=== PATIENT | female | born 1965 | race Caucasian/White ===

== ENCOUNTER → 2018-05-03 00:16 | Outpatient (CLI) | payer BC, SELFPAY ==
--- NOTE | 2018-05-03 09:28 | DI.REPORT_ITS ---
SYMPTOMS/DIAGNOSIS: LOWER ABDOMINAL PAIN, R10.30 CT SCAN OF THE ABDOMEN AND PELVIS: CT scan of the abdomen and pelvis was performed following the uneventful administration of intravenous and oral contrast material. There are no priors for comparison. Mild dependent atelectatic changes are seen in the lung bases. The liver is normal in size. There is a tiny hypodensity in the right lobe of the liver. It is too small for further characterization and likely reflects a small cyst. No suspicious hepatic masses are seen. The portal and superior mesenteric veins are patent. The gallbladder is negative by CT criteria. There is no biliary ductal dilatation. The spleen and adrenal glands are unremarkable. The kidneys show normal and symmetric enhancement. There are left renal cysts. The urinary bladder is intact. The reproductive organs are unremarkable as visualized. The abdominal aorta is of normal caliber. There is a small fat-containing umbilical hernia. No significant abdominal or pelvic adenopathy, ascites or pneumoperitoneum is present. There is diverticulosis of the sigmoid colon, but no evidence of acute diverticulitis. The remainder of the bowel is unremarkable. The pancreas is unremarkable. There is a 0.4 cm calcification in the duodenum near the pancreatic head. An obstructing stone cannot be excluded. There are degenerative changes seen in the spine. IMPRESSION: 1. A 0.4 cm calcification in the duodenum in the region of the ampulla. This may represent an obstructing stone. MRCP should be considered for further evaluation. No definite biliary ductal dilatation is seen. Ultrasound may also be considered for evaluation. 2. Sigmoid diverticulosis but no evidence of acute diverticulitis.
[2018-05-03] MEDS: Omnipaque 350 MG/ML 100 ML BTL IJ (09:30)
== END ==
PROVIDERS: PCP Family Medicine; Visit Provider Nurse Practitioner Family
DX: R10.31 Right lower quadrant pain (principal); K57.30 Diverticulosis of large intestine without perforation or abscess without bleeding; K31.89 Other diseases of stomach and duodenum
CPT/HCPCS: 74177; J3490

== ENCOUNTER → 2018-05-08 00:37 | Outpatient (CLI) | payer BC, SELFPAY ==
--- NOTE | 2018-05-08 07:35 | DI.REPORT_ITS ---
SYMPTOM/DIAGNOSIS: F/U ABNL CT, ABD PAIN, R10.3, CALCIFICATION IN DUODENUM IN REGION OF AMPULLA, ? OBSTRUCTING STONE ABDOMINAL ULTRASOUND: Comparison CT scan 05/03/18. Findings: The abdominal aorta and IVC are unremarkable. The liver and gallbladder are unremarkable. The common duct is within normal limits at 0.5 cm. No stone is seen within the duct sonographically. The pancreas has a normal appearance. There is a 5 mm hyperechoic focus in the region of the head of the pancreas. The pancreatic duct is within normal limits. The spleen and kidneys are unremarkable. IMPRESSION: 5 mm focus in the region of the head of the pancreas. This may represent a pancreatic calcification/stone. No biliary ductal dilatation or pancreatic ductal dilatation. Follow up as clinically appropriate for this patient. This may include a repeat noncontrast CT scan of the abdomen or MRCP.
== END ==
PROVIDERS: PCP Family Medicine; Visit Provider Nurse Practitioner Family
DX: K86.89 Other specified diseases of pancreas (principal); R10.33 Periumbilical pain
CPT/HCPCS: 76700

== ENCOUNTER → 2018-05-17 00:28 | Outpatient (CLI) | payer BC, SELFPAY ==
--- NOTE | 2018-05-17 09:05 | DI.REPORT_ITS ---
SYMPTOM/DIAGNOSIS: ABD PAIN LOWER R10.30 MRCP: 05/17 MRCP was performed according to the usual protocol. Hepatic parenchyma is unremarkable in appearance. No abnormality seen involving spleen or kidneys. Abdominal aorta is of normal diameter. No adenopathy identified. Gallbladder is unremarkable in appearance. Intra and extrahepatic biliary ducts appear normal as does the pancreatic duct. No intraductal filling defect or stricture. No pancreatic mass identified. CONCLUSION: Negative MRCP
== END ==
PROVIDERS: PCP Family Medicine; Visit Provider Nurse Practitioner Family
DX: R10.31 Right lower quadrant pain (principal)
CPT/HCPCS: 74181

== ENCOUNTER 2019-08-21 01:10 | Outpatient (CLI) | payer BC, SELFPAY ==
--- NOTE | 2019-08-21 12:44 | DI.MAMMO_ITS ---
EXAM: MG MAMMO SCREENING CLINICAL HISTORY: SCREENING Z12.31 TECHNIQUE: Bilateral full field digital CC and MLO mammographic images were obtained with 3D tomosyn thesis and utilizing computer aided detection (CAD). COMPARISON: 2014 and 2015 FINDINGS: The breasts are composed of scattered fibroglandular densities, breast density category B. No suspici ous masses or suspicious microcalcifications are seen. The nodule in the lower inner quadrant of the left breast has decreased in size when compared with previous exams. IMPRESSION: BI-RADS category 2, negative mammogram with benign findings. Yearly screening mammography is recomme nded. BI-RADS Cat 2 - Benign Findings Breast Density - Category B - Scattered areas of fibroglandular density
== END 2019-08-21 01:30 ==
PROVIDERS: PCP Family Medicine; Visit Provider Nurse Practitioner Family
DX: Z12.31 Encounter for screening mammogram for malignant neoplasm of breast (principal)
CPT/HCPCS: 77063; 77067

== ENCOUNTER 2019-08-21 10:17 | Emergency (ER) | payer BC, SELFPAY ==
[2019-08-21] VITALS (20 sets, daily range): BP systolic 116–162; BP diastolic 74–100; PULSE 75–104; RESP 13–30; TEMP 36.7–36.8; O2SAT 93–100
--- NOTE | 2019-08-21 10:35 | W.ED.GENAD ---
Discharge Plan Disposition Patient Disposition: HOME Condition: Stable Discharge Details Chief Complaint: Chest Pain Clinical Impression: Chest pain Primary Care Provider: Kelly Garcia ED Provider: Zaire Benjamin Home Meds and New Rx's Prescriptions: Continued ibuprofen [Advil Liqui-Gel] 200 MG capsule 200 mg PO PRN RF: 0 Cosentyx Pen 150 mg/mL Pen Injector 150 mg SUBCUT Q4W RF: 0 Discharge Instructions Instructions: Chest Pain (ED) Additional Instructions: follow up with your primary care provider within 1 week if you have worsening pain, difficulty breathing or fevers return to the emergency department Medical Decision Making 53 yo female with hx of psoriasis, smoker, no prior cardiac history, comes in with anterior chest pain radiating to the lower back since 4am. She denies fevers, chills, and has never had pain like this in the past. ARrives in no distress speaking in full sentences with no abdominal tenderness. Clear lungs, no murmurs, no leg edema or calf pain and no jvd. Heart score is 2, will obtain troponin. Given the chest pain radiating to the back will obtain cta to eval for dissection. Given no hypoxia or tachycardia or evidence of dvt on exam doubt PE pt remains stable, pain has significantly improved. Labs unremarkable and given symptoms over 4 horus do not feel repeat troponin indicated. CTA negative. Given low heart score feel she is safe for d/c and f/u with pcp and I also gave the patient return precautions Differential Diagnosis Differential Diagnosis: acs, chest wall pain, dissection Imaging Data Radiologic Study: Attestation: I personally reviewed and interpreted this imaging study as follows: Imaging: CT Scan Radiologist's impression: negative CTA Lab Data Lab results reviewed: Yes I reviewed the patient's lab results. ECG Data Attestation: I personally reviewed and interpreted this ECG (s) as follows: Prior ECG tracings: not available for review Interpretation: sinus rhythm, rate of 95, pr 112, no acute st t wave ischemic findings HPI General Mode of arrival: ambulatory. Date/Time Provider Initiated Documentation: 08/21/19 10:19. Limitations to Documentation: no limitations. Information obtained by: patient. History of Present Illness 53 year old F presents to the emergency department with the chief complaint of chest pain, described as moderate, Quality is described as aching, Patient started experiencing this hour(s) (6) and it has been constant. No relieving factors improve symptom(s), No exacerbating factors reported . Related Data Home Medications Medication Instructions Recorded Confirmed ibuprofen [Advil Liqui-Gel] 200 mg PO PRN 05/10/18 08/21/19 Cosentyx Pen 150 mg SUBCUT Q4W 08/21/19 08/21/19 Allergies Allergy/AdvReac Type Severity Reaction Status Date / Time shellfish derived Allergy Severe Anaphylaxsi Unverified 08/21/19 11:27 s Penicillins Allergy Mild Hives Unverified 08/21/19 11:27 etanercept [From Enbrel] AdvReac Mild unknown Unverified 08/21/19 11:27 infliximab [From Remicade] AdvReac Mild unknown Unverified 08/21/19 11:27 clindemycin Allergy Mild Hives Uncoded 08/21/19 11:27 humira pen AdvReac Mild unknown Uncoded 08/21/19 11:27 General Stated Complaint: Chest Pain CURT: 2 Review of Systems All systems reviewed & are unremarkable except as noted in HPI and below Constitutional Constitutional: Denies chills, Denies fever(s) and Denies weakness Cardiovascular Cardiovascular: Denies dyspnea Respiratory Respiratory: Denies cough and Denies dyspnea Gastrointestinal Gastrointestinal: Denies abdominal pain, Denies nausea and Denies vomiting Musculoskeletal Musculoskeletal: Denies joint swelling Neurologic Neurologic: Denies weakness PFSH Medical History Abdominal pain Arthritis Early menopause Epigastric pain Fatigue H/O: hysterectomy Osteoporosis Tobacco abuse Viral syndrome Vitamin D deficiency Weight gain Surgical History (Updated 07/19/18 @ 14:33 by [place]) Abdominal hysterectomy Colonoscopy - MAC (05/12/18) EGD - [facility] (05/12/18) Social History Smoking/Tobacco Use Status: Current every day Tobacco Type: cigarettes Alcohol Intake: current Alcohol Intake frequency: a few times a month Drug use: Never Substance use type: does not use Do you feel safe at home: Yes Do you feel safe in your relationship?: Yes Exam Const General: no acute distress Orientation: alert HENMT Head: normal to inspection Ears: external ears normal General nose exam: external nose normal Mouth: moist mucous membranes Eyes General: appearance normal, both eyes and all related structures Neck Neck: normal visual inspection Resp Effort & Inspection: normal respiratory effort and able to speak in complete sentences Cardio Rate: regular rate Skin General skin exam: no rashes or lesions noted Neuro General: alert and oriented x3 Extrem General: normal to inspection Psych Mental Status: mental status grossly normal Course Vital Signs Vital signs: Vital Signs Temperature 36.7 C 08/21/19 10:20 Pulse 95 H 08/21/19 10:20 Respiratory Rate 16 08/21/19 10:20 Blood Pressure 158/100 H 08/21/19 10:20 Pulse Oximetry 100 08/21/19 10:20 Temperature 36.7 C 08/21/19 10:20 Temperature Source Temporal Artery Scan 08/21/19 10:20 Pulse 95 H 08/21/19 10:20 Respiratory Rate 16 08/21/19 10:26 Respiratory Effort Non-Labored 08/21/19 10:26 Respiratory Depth Normal 08/21/19 10:26 Blood Pressure 158/100 H 08/21/19 10:20 Blood Pressure Position Supine 08/21/19 10:20 Pulse Oximetry 100 08/21/19 10:20 Oxygen Delivery Method Room Air 08/21/19 10:20 Oxygen Flow Rate 0 08/21/19 10:20 Pain Level 8 08/21/19 10:20
[2019-08-21] MEDS: fentaNYL 100 MCG/2 ML VIAL IVP (10:38)
[2019-08-21] MEDS: Aspirin 81 MG CHEW 243 MG CH (10:38)
[2019-08-21] MEDS: Normal Saline Flush 10 ML SYR IVP (10:39)
[2019-08-21 10:45] LABS: Abs Immature Grans 0.03 k/cumm (0.0-0.09); Absolute Basophil Count 0.05 k/cumm (0.0-0.2); Absolute Eosinophil Count 0.14 k/cumm (0.0-0.7); Absolute Lymphocyte Count 2.66 k/cumm (1.2-3.4); Basophils % 0.4; Eosinophils % 1.1; HCT 40.4 % (36.0-46.0); Immature Grans % 0.2; Lymphocytes % 21.6; Mean Corp. HGB Concentration 34.7 g/dL (32.0-36.0); Mean Corpuscular Hemoglobin 31.5 pg (27.0-33.0); Mean Corpuscular Volume 90.8 fL (80-95); Mean Platelet Volume 8.9 fL (8.0-11.0); Neutrophils % 71.7; Platelet Count 335 x1000/uL (130-400); RBC 4.45 m/cumm (4.00-5.20); RBC Distribution Width 12.6 % (11.7-14.6)
[2019-08-21 10:50] LABS: Absolute Monocyte Count 0.62 k/cumm (0.11-0.7); Absolute Neutrophil Count 8.82 k/cumm (1.2-6.7)
[2019-08-21 11:09] LABS: ALT 37 U/L (14-59); AST 21 U/L (15-37); Albumin 4.3 g/dL (3.4-5.0); Alkaline Phosphatase 61 U/L (46-116); Anion Gap 10.7 mmol/L (3-11); BUN 13 mg/dL (7-18); Bilirubin, Total 0.1 mg/dL (0.2-1.0); CO2 27.3 mmol/L (21.0-32.0); CREATININE 0.76 mg/dL (0.55-1.02); Chloride 103 mmol/L (98-107); Glucose 111 mg/dL (70-100); Lipase 101 U/L (73-393); Magnesium 1.9 mg/dL (1.8-2.4); Potassium 3.8 mmol/L (3.5-5.1); Sodium 141 mmol/L (136-145); Total Protein 7.7 g/dL (6.4-8.2)
[2019-08-21] MEDS: Omnipaque 350 MG/ML 100 ML BTL IJ (11:17)
[2019-08-21 11:21] LABS: Troponin I < 0.05 ng/mL (0.00-0.06)
--- NOTE | 2019-08-21 11:26 | DI.CT_ITS ---
EXAM: CT THORAX ABD/PEL CTA CLINICAL HISTORY: chest radiating to back pain TECHNIQUE: Post IV contrast. Axial CT angiography was performed with multi-slice acquisition and multi-planar and/or 3D reconstruc tions. COMPARISON: ABD PELVIS WITH CONTRAST from 05/03/2018 FINDINGS: The aorta is normal in diameter throughout. The iliac arteries are normal in diameter. There is no ev idence of aneurysm, dissection or significant atherosclerotic change. The pulmonary arteries are reas onably well opacified with IV contrast and no emboli are seen. The heart size is normal. No pleural o r pericardial effusions are seen. There are minimal dependent changes posteriorly at the lung bases. There is no evidence of pneumothorax or infiltrate. No rib or spine fracture is seen. The bony pelvis appears intact. The patient is status post hysterectomy. The urinary bladder is somewhat distended b ut otherwise unremarkable. The liver, gallbladder, spleen, pancreas, adrenals and kidneys are unremar kable. There is no bowel dilatation or inflammatory change. No free air or free fluid is seen. There are a few diverticula in the sigmoid colon but no evidence of diverticulitis. IMPRESSION: Negative CT angiography of the chest, abdomen and pelvis.
== END 2019-08-21 12:02 | disposition home or self-care (01) ==
PROVIDERS: Emergency Provider Emergency Medicine; PCP Family Medicine
DX: R07.9 Chest pain, unspecified (principal); F17.210 Nicotine dependence, cigarettes, uncomplicated
CPT/HCPCS: 36415; 74177; 80053; 83690; 93005; 96374; 99285; 83735; 84484; 85025; 85610; 85730; 93010; J3010; J3490

== ENCOUNTER 2019-08-29 01:45 | Outpatient (CLI) | payer BC, SELFPAY | END 2019-08-29 02:05 | PROVIDERS: PCP Family Medicine; Visit Provider Nurse Practitioner Family | DX: R00.2 Palpitations (principal); I49.1 Atrial premature depolarization | CPT/HCPCS: 93225 ==

== ENCOUNTER 2019-09-03 00:36 | Outpatient (CLI) | payer BC, SELFPAY ==
--- NOTE | 2019-09-03 08:27 | ETT_ITS ---
APPROVED REPORT Exam: Exercise Treadmill Patient Location: Out-Patient Room/Bed: Stress Nurse: Gricelda Weber RN BMI: 25.15 Baseline Rhythm: Sinus Rhythm Indications: Patient presented to the ER on 08/21/19 with left sided sharp chest pain with radiatio n to lower back. Patient reports having intermittent dizzyness/lightheadedness and can't catch my breath episodes with not relation to activity over the last 2 months. Medical History Medical History: Arthritis Cardiac Medications: None, Allergies: Shellfish, Penicillin, Enbrel, Remicade, Clindemycin, Brina Pen Cardiac Risk Factors: Smoking Previous Cardiac Procedures: N/A Pretest Chest Pain Characteristics: No chest pain Exercise History: Physically active Lung Sounds: Clear to auscultation Heart Sounds: Regular Stress Test Details Test: Exercise stress testing was performed using a Saud protocol. Rest Stress HR Max Heart Rate (APMHR): 168 bpm Resting HR Supine: 83 bpm Target HR (85% APMHR): 142 bpm Resting HR Standin bpm Max HR Achieved: 160 bpm % of APMHR: 95 HR response to stress: Normal HR response to stress BP Resting BP Supine: 122/78 mmHg Resting BP Standin/80 mmHg Max BP: 174/78 mmHg BP response to stress: Normal blood pressure response to stress. ECG Resting ECG: Sinus Rhythm ST Change: none Stress ECG: Sinus Tachycardia ST Change: none Recovery ECG: Sinus Rhythm Recovery ST Change: none Clinical Reason for Termination: Hip and knee stiffness Exercise duration: 9 min34 sec Highest Stage Achieved: Stage 3: 3.4 mph at 14% grade. Exercise capacity: 11.12 METs Functional Capacity: Above average capacity Stress ECG Conclusion 1. The patient exercised for 9 minutes and 34 seconds which showed above average exercise capacity. 2. Test was stopped due to hip and knee stiffness but patient reached 95% predicted maximum heart rat e 3. There is no evidence of ischemia on ECG and no symptoms specific for ischemia during exercise. 4. The Cox Score (9) estimates an annual cardiovascular mortality of 0% and a five year survival of 95%. Using the Cox Score there is a low probability of any angiographic coronary disease. Protocol Used: Saud Protocol Stress Test Summary STAGE Time (mins) Speed (mph) Grade (%) HR BP SYMPTOMS METS Supine 83 122/78 Standing 93 122/80 1 3 1.7 10 125 146/90 4.6 2 6 2.5 12 145 160/90 7 3 9 3.4 14 146 164/88 10.2 4 12 4.2 16 12.9 5 15 5.0 18 17.2 1 min recovery 133 174/78 3 min recovery 103 154/80 6 min recovery 92 122/74
== END 2019-09-03 00:56 ==
PROVIDERS: PCP Family Medicine; Visit Provider Nurse Practitioner Family
DX: R07.9 Chest pain, unspecified (principal); R00.2 Palpitations; R42 Dizziness and giddiness; R06.02 Shortness of breath; F17.210 Nicotine dependence, cigarettes, uncomplicated
CPT/HCPCS: 93017

== ENCOUNTER 2019-09-03 08:31 | Outpatient (CLI) | payer BC, SELFPAY ==
--- NOTE | 2019-09-03 09:24 | W.HOLTRPT ---
Date of service: 09/03/19 Time of Service: 09:24 Holter Monitor Report Holter Monitor Note: There is a 2-day Holter monitor ordered for the indication of palpitations. ?The patient was in normal sinus rhythm for the majority of the recording time. ?Patient no episodes of supraventricular tachycardia and rare (less than 1%) premature atrial contractions. ?There were no episodes of ventricular tachycardia and no ventricular ectopic beats. ?There were no episodes of atrial fibrillation, no pauses greater than 3 seconds and no episodes of high degree heart block. ?Patient diary events were associated with normal sinus rhythm and sinus tachycardia.
== END 2019-09-03 08:51 ==
PROVIDERS: PCP Family Medicine; Visit Provider Nurse Practitioner Family
DX: R00.2 Palpitations (principal); I49.1 Atrial premature depolarization
CPT/HCPCS: 93226

== ENCOUNTER 2019-10-09 09:58 | Outpatient (REF) | payer BC, SELFPAY ==
[2019-10-10 15:19] LABS: Chlamydia Result Negative (Negative); GC Result Negative (Negative)
== END 2019-10-09 10:18 ==
LOC: NCHCN 09:58
PROVIDERS: PCP Family Medicine; Visit Provider Nurse Practitioner Family
DX: Z11.3 Encounter for screening for infections with a predominantly sexual mode of transmission (principal); N89.8 Other specified noninflammatory disorders of vagina
CPT/HCPCS: 87491; 87591; 87480; 87510; 87660

== ENCOUNTER 2020-07-24 09:47 | Outpatient (REF) | payer BC, SELFPAY ==
[2020-07-24 21:04] LABS: Abs Immature Grans 0.01 10^3/uL (0.0-0.06); Absolute Basophil Count 0.05 10^3/uL (0.0-0.2); Absolute Eosinophil Count 0.15 10^3/uL (0.0-0.7); Absolute Lymphocyte Count 2.21 10^3/uL (1.2-3.4); Absolute Monocyte Count 0.49 10^3/uL (0.1-0.8); Absolute Neutrophil Count 6.25 10^3/uL (1.2-6.7); Basophils % 0.5; Eosinophils % 1.6; HCT 41.5 % (36.0-46.0); HGB 13.8 g/dL (11.2-15.7); Immature Grans % 0.1; Lymphocytes % 24.1; MCH 30.8 pg (27.0-33.0); MCHC 33.3 % (32.0-36.0); MCV 92.6 fL (80-95); MPV 9.6 fL (8.0-11.0); Monocytes % 5.3; Neutrophils % 68.4; Nucleated RBC 0 %; Platelet Count 293 10^3/uL (130-400); RBC 4.48 10^6/uL (3.93-5.22); RDW 11.9 % (11.7-14.6); RDW-SD 40.3 fL; WBC 9.16 10^3/uL (4.4-10.8)
[2020-07-24 21:15] LABS: ALT 33 U/L (14-59); AST 22 U/L (15-37); Albumin 4.2 g/dL (3.4-5.0); Alkaline Phosphatase 64 U/L (46-116); Anion Gap 7.1 mmol/L (3-11); BUN 21 mg/dL (7-18); Bilirubin, Total 0.2 mg/dL (0.2-1.0); CO2 28.9 mmol/L (21.0-32.0); Chloride 103 mmol/L (98-107); Glucose 107 mg/dL (74-106); Lipase 97 U/L (73-393); Sodium 139 mmol/L (136-145); Total Protein 7.2 g/dL (6.4-8.2)
[2020-07-28 10:07] LABS: HSV Type 1 Ab, IgG Negative (Negative); HSV Type 2 Ab, IgG Positive (Negative)
== END 2020-07-24 10:07 ==
LOC: NCHCN 09:47
PROVIDERS: PCP Family Medicine; Visit Provider Family Medicine
DX: R10.9 Unspecified abdominal pain (principal)
CPT/HCPCS: 80053; 83690; 85025; 86695; 86696

== ENCOUNTER 2020-07-31 01:26 | Outpatient (CLI) | payer BC, SELFPAY ==
[2020-07-31] MEDS: Normal Saline - Diluent 50 ML VIAL IV (09:17)
[2020-07-31] MEDS: Omnipaque 350 MG/ML 100 ML BTL IJ (09:17)
[2020-07-31] MEDS: Normal Saline Flush 10 ML SYR IVP (09:18)
[2020-07-31] MEDS: Omnipaque 350 MG/ML 50 ML BTL IJ (09:20)
[2020-07-31] MEDS: Breeza Beverage 473 ML BTL PO ×2 (09:22→09:23)
--- NOTE | 2020-07-31 09:40 | DI.CT_ITS ---
EXAM: CT ABDOMEN PELVIS W INDICATION: ACUTE ABD PAIN,R10.9. COMPARISON: CT CT THORAX ABD/PEL CTA from 08/21/2019 TECHNIQUE: FINDINGS: CT examination of the abdomen and pelvis was performed with a bolus infusion of 100 cc of Omnipaque 3 50 and oral contrast material was also administered. Images obtained through the lung bases are unremarkable. The liver is unremarkable in appearance. Gallbladder and bile ducts are CT normal. Pancreas appears normal. Spleen is unremarkable in appearance. Adrenals appear normal. The kidneys are unremarkable with no evidence of hydronephrosis, nephrolithiasis, or renal mass with small incidental left renal cysts noted... Urinary bladder unremarkable. Abdominal aorta is of normal diameter and no major vascular abnormality is seen. No abdominal wall hernia. No abdominal or pelvic adenopathy. The uterus is atrophic or absent. Appendix is normal. No evidence of diverticulitis or bowel obstruction. There is question of irregular wall thickening of the descending and transverse portions of the duode num raising the possibility of duodenitis. Question slight gastric antral wall thickening also raise d. IMPRESSION: Findings raising the possibility of duodenitis/gastritis. Please correlate clinically. Endoscopy ma y be performed if clinically indicated. RADIATION DOSE DELIVERED: 785.04mGy.cm Total DLP 785.04mGy.cm Total DLP
== END 2020-07-31 01:46 ==
PROVIDERS: PCP Family Medicine; Visit Provider Family Medicine
DX: R10.9 Unspecified abdominal pain (principal)
CPT/HCPCS: 74177; J3490; Q9967

== ENCOUNTER 2020-08-22 04:24 | Outpatient (CLI) | payer BC, SELFPAY ==
--- NOTE | 2020-08-22 08:35 | DI.MAMMO_ITS ---
EXAM: MG MAMMO SCREENING CLINICAL HISTORY: SCREENING,Z12.31 TECHNIQUE: Bilateral full field digital CC and MLO mammographic images were obtained with 3D tomosyn thesis and utilizing computer aided detection (CAD). COMPARISON: Available for comparison. FINDINGS: Masses/Architectural Distortion: There is a new area of nodularity in the upper left breast on the ML O view. Microcalcifications: No suspicious pleomorphic-type are seen. Skin Thickening/Nipple Retraction: None. IMPRESSION: 1. New area of nodularity in the upper left breast on the MLO view. 2. Spot compression view of the left breast is recommended for further evaluation. Ultrasound may be indicated at that time. BI-RADS Category 0 - Assessment Incomplete: Need additional imaging evaluation Breast Density - Category B - Scattered areas of fibroglandular density A negative radiographic report should not delay biopsy if a dominant or clinically suspicious mass is present. Up to ten percent of cancers are not identified on mammography. A negative report may reinforce clinical impression. Adenosis and dense breasts may obscure an underlying neoplasm. False positive reports average 6 to 10%. Patient will receive a letter notifying them of these results.
== END 2020-08-22 04:44 ==
PROVIDERS: PCP Family Medicine; Visit Provider Family Medicine
DX: Z12.31 Encounter for screening mammogram for malignant neoplasm of breast (principal)
CPT/HCPCS: 77063; 77067

== ENCOUNTER 2020-08-27 00:40 | Outpatient (CLI) | payer BC, SELFPAY ==
--- NOTE | 2020-08-27 | DI.US_ITS ---
EXAM: MG MAMMO SCREEN CALL BACK UNI CLINICAL HISTORY: F/U MAMMO, NEW NODULARITY TECHNIQUE: Mammograms were interpreted according to the usual protocol including computer analysis w [employer] CAD system, tomosynthesis and C-view imaging. COMPARISON: FINDINGS: Additional mammographic views of the left breast and left breast ultrasound are interpreted conjuncti on. These examinations were obtained to evaluate questionable area of asymmetric density seen on rec ent mammogram. Additional mammographic views fail to show a discrete mass. Breast ultrasound shows no evidence of a dominant mass or cyst. There is an incidental 4 millimeter in diameter apparent lym ph node or small hyperechoic cysts seen in approximately the 6 o'clock position in the breast 4 cm fr om the nipple. IMPRESSION: No specific evidence of malignancy at this time. Follow-up unilateral left breast mammogram recommen ded in 6 months. BI-RADS Category 3 - 6 month - Probably Benign Finding: Recommend follow-up mammography in 6 months Breast Density - Category B - Scattered areas of fibroglandular density
== END 2020-08-27 01:00 ==
PROVIDERS: PCP Family Medicine; Visit Provider Family Medicine
DX: R92.8 Other abnormal and inconclusive findings on diagnostic imaging of breast; N63.25 Unspecified lump in the left breast, overlapping quadrants
CPT/HCPCS: 76642; 77063; 77067

== ENCOUNTER 2021-02-24 02:17 | Outpatient (CLI) | payer BC, SELFPAY ==
--- NOTE | 2021-02-24 09:14 | DI.MAMMO_ITS ---
Exam(s) MG MAMMO DIAGNOSTIC UNI EXAM: MG MAMMO DIAGNOSTIC UNI CLINICAL HISTORY: 6 MONTH FOLLOW UP, R92.8,F/U ABNL MAMMO. COMPARISON: MG Diagnostic Bilat Mammo from 10/29/2014 MG Screening Bilat Mammo from 07/07/2016 MG Screening Bilat Mammo from 07/07/2016 MG MG MAMMO SCREENING from 08/21/2019 MG MG MAMMO SCREENING from 08/22/2020 MG MG MAMMO SCREENING from 08/22/2020 MG MG MAMMO SCREEN CALL BACK UNI from 08/27/2020 MG MG MAMMO SCREEN CALL BACK UNI from 08/27/2020 [id number] TECHNIQUE: Craniocaudal and mediolateral oblique Full Field Digital Mammography views of the left br east with Computer Aided Diagnosis followed by Tomosynthesis. FINDINGS: Mammography/Tomosynthesis: Masses/Architectural Distortion: The previously questioned area nodularity in the superior left breas t is not present on the current exam. A circumscribed nodule is again noted in the lower inner quadr ant. Microcalcifications: No suspicious pleomorphic-type are seen. Skin Thickening/Nipple Retraction: None. IMPRESSION: 1. No evidence of malignancy is noted. 2. Unless there is more urgent need, follow-up screening mammography is recommended, as per [employer] guidelines. BI-RADS Category 2 - Benign Findings Breast Density - Category B - Scattered areas of fibroglandular density A negative radiographic report should not delay biopsy if a dominant or clinically suspicious mass is present. Up to ten percent of cancers are not identified on mammography. A negative report may reinforce clinical impression. Adenosis and dense breasts may obscure an underlying neoplasm. False positive reports average 6 to 10%. Patient will receive a letter notifying them of these results.
== END 2021-02-24 02:37 ==
PROVIDERS: PCP Family Medicine; Visit Provider Family Medicine
DX: Z12.31 Encounter for screening mammogram for malignant neoplasm of breast (principal); R92.8 Other abnormal and inconclusive findings on diagnostic imaging of breast; N60.82 Other benign mammary dysplasias of left breast
CPT/HCPCS: 77061; 77065; G0279

== ENCOUNTER 2021-06-02 10:02 | Emergency (ER) | payer BC, SELFPAY ==
[2021-06-02] VITALS (18 sets, daily range): BP systolic 117–157; BP diastolic 75–96; PULSE 67–91; RESP 12–21; TEMP 36.4; O2SAT 95–100
--- NOTE | 2021-06-02 10:00 | RT.EKG_ITS ---
APPROVED REPORT Exam: Resting ECG Reason for Exam: chest pain Patient Location: E HR:87 bpm ECG Measurements Heart Rate 87 AXIS MA 112 P 50 QRSd 79 QRS 1 QT 376 T 41 QTc 452 Conclusion Sinus rhythm...normal P axis, V-rate 60- [address] elevation
--- NOTE | 2021-06-02 10:15 | DI.RAD_ITS ---
Exam(s) XR CHEST 2V PA LATERAL EXAM: XR CHEST 2V PA LATERAL CLINICAL HISTORY: L chest pain TECHNIQUE: 2D digital imaging was performed. COMPARISON: No exams were available for comparison FINDINGS: MEDIASTINUM: Normal. HEART: Normal. PULMONARY VASCULATURE: Normal. LUNGS: Clear. PLEURAL SPACE: No pleural effusion or pneumothorax. BONE:Within normal limits for the patient's age. OTHER FINDINGS:Normal. IMPRESSION: No acute pulmonary findings. DATA REPOSITORY: RADIATION DOSE DELIVERED:
--- NOTE | 2021-06-02 10:30 | ED.GENADUL_ITS ---
Discharge Plan Disposition Patient Disposition: HOME Condition: Improving Discharge Details Clinical Impression: Pectoralis muscle strain, Pectoralis major tendinitis Primary Care Provider: Kelly Garcia ED Provider: Lamont Wylie Home Meds and New Rx's Prescriptions: New methocarbamol 500 mg tablet See Rx Instructions .ROUTE .COMPLEX PRN (Reason: Back pain or spasm) Qty: 14 RF: 0 Continued ibuprofen [Advil Liqui-Gel] 200 MG capsule 200 mg PO PRN RF: 0 Cosentyx Pen 150 mg/mL Pen Injector 150 mg SUBCUT Q4W RF: 0 Discharge Instructions Instructions: Muscle Strain (ED) Additional Instructions: Continue your regular medications and routine. May apply moist heat alternating with ice 20 minutes at a time to reduce discomfort. May use methocarbamol 500 to 1000 mg every 6 hours as needed for pain. May continue your routine medications including ibuprofen 600 to 800 mg as needed for discomfort. Return if you develop a rash, fever, cough, difficulty breathing, or any other acute concerns. Follow with regular doctor if not improved in 7 days time Medical Decision Making 55-year-old female smoker who has a fair amount of stress at work, presents from work reporting 1 week of intermittent episodes of the left lower chest discomfort thatoccurs both at rest and with exertion. There is not any particular exacerbating or ameliorating factors. She does report similar episode in the past with negative stress test and response to omeprazole. She is slightly hypertensive, anxious, with mild left upper quadrant tenderness on exam. Differential diagnosis would include gastritis, atypical presentation of ACS or atypical chest pain. Patient IV access established, screening EKG obtained, she is referred for laboratory testing and chest x-ray. She is given 0.5 mg Ativan for anxiety and Protonix for its acid lowering property. Reviewed negative stress test from September 2019. Patient the patient does have evidence of mild dehydration with a BUN of 25 which is elevated over her normal baseline. Also noted a slight white count of 12, otherwise CBC unremarkable. Troponin is negative. Chest x-ray without acute findings. 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 I did perform a supervised breast exam without any evidence of mass or abscess. Patient did have reproducible pectoral pain with resisted movement and palpation. This does seem consistent with chest wall discomfort and strain. Will place her on methocarbamol as needed. She will continue her routine medications. Lab Data Lab results reviewed: Yes I reviewed the patient's lab results. Labs: Laboratory Results - last 24 hr 06/02/21 06/02/21 06/02/21 10:17 10:17 10:17 WBC 12.35 H RBC 4.74 Hgb 14.8 Hct 43.6 MCV 92.0 MCH 31.2 MCHC 33.9 RDW 11.9 Plt Count 312 MPV 9.2 Immature Gran % 0.3 Neutrophils % 66.4 Lymphocytes % 25.4 Monocytes % 5.7 Eosinophils % 1.7 Basophils % 0.5 Nucleated RBC % 0 Absolute Neutrophils 8.20 H Absolute Lymphocytes 3.14 Absolute Monocytes 0.70 Absolute Eosinophils 0.21 Absolute Basophils 0.06 Sodium 139 Potassium 3.8 Chloride 101 Carbon Dioxide 26.4 Anion Gap 11.6 H BUN 25 H Creatinine 0.8 Estimated GFR/1.73 m2 >= 60.00 Glucose 111 H Calcium 9.2 Magnesium 2.1 Total Bilirubin 0.2 AST 21 ALT 33 Alkaline Phosphatase 78 Troponin I < 0.05 Total Protein 8.4 H Albumin 4.7 06/02/21 13:22 WBC RBC Hgb Hct MCV MCH MCHC RDW Plt Count MPV Immature Gran % Neutrophils % Lymphocytes % Monocytes % Eosinophils % Basophils % Nucleated RBC % Absolute Neutrophils Absolute Lymphocytes Absolute Monocytes Absolute Eosinophils Absolute Basophils Sodium Potassium Chloride Carbon Dioxide Anion Gap BUN Creatinine Estimated GFR/1.73 m2 Glucose Calcium Magnesium Total Bilirubin AST ALT Alkaline Phosphatase Troponin I < 0.05 Total Protein Albumin HPI General Mode of arrival: ambulatory . Date/Time Provider Initiated Documentation: 06/02/21 10:12 . Limitations to Documentation: no limitations . Information obtained by: patient . History of Present Illness 55 year old F presents to the emergency department with the chief complaint of Left chest pain intermittently for 1 week, described as moderate, Quality is described as dull, and is localized to the chest. Patient reports no radiation. Patient started experiencing this day(s) and it has been intermittent. No relieving factors improve symptom(s), No exacerbating factors reported . Patient notes chest pain; denies cough, fever/chills, shortness of breath, syncope and we akness. Patient did receive the following treatments prior to arrival, Aspirin Related Data Home Medications Medication Instructions Recorded Confirmed ibuprofen [Advil Liqui-Gel] 200 mg PO PRN 05/10/18 06/02/21 Cosentyx Pen 150 mg SUBCUT Q4W 08/21/19 06/02/21 methocarbamol See Rx Instructions .ROUTE 06/02/21 .COMPLEX PRN #14 tab Previous Rx's Medication Instructions Recorded methocarbamol See Rx Instructions .ROUTE 06/02/21 .COMPLEX PRN #14 tab Allergies Allergy/AdvReac Type Severity Reaction Status Date / Time shellfish derived Allergy Severe Anaphylaxsi Unverified 06/02/21 10:17 s Penicillins Allergy Mild Hives Unverified 06/02/21 10:17 etanercept [From Enbrel] AdvReac Mild unknown Unverified 06/02/21 10:17 infliximab [From Remicade] AdvReac Mild unknown Unverified 06/02/21 10:17 clindemycin Allergy Mild Hives Uncoded 06/02/21 10:17 humira pen AdvReac Mild unknown Uncoded 06/02/21 10:17 General Stated Complaint: Chest Pain CURT: 2 Review of Systems Narrative: Had similar episodes in the past which led to unremarkable stress test in 2019, it responded to omeprazole. No recent fever, chills, cough. 8 systems reviewed and otherwise negative. [facility] Medical History Abdominal pain Arthritis Early menopause Epigastric pain Fatigue H/O: hysterectomy Osteoporosis Tobacco abuse Viral syndrome Vitamin D deficiency Weight gain Surgical History (Updated 07/19/18 @ 14:33 by [employer] [place]) Abdominal hysterectomy Colonoscopy - MAC (05/12/18) EGD - MAC (05/12/18) Social History Smoking/Tobacco Use Status: Current every day Tobacco Type: cigarettes Smoking risk assessment performed?: Yes Alcohol Intake: current Alcohol Intake frequency: a few times a week Alcohol type: wine Drug use: Never Substance use type: does not use Do you feel safe at home: Yes Do you feel safe in your relationship?: Yes Exam Narrative Exam Narrative: GEN: awake, alert, oriented 3. Pleasant, well groomed, interactive. HEAD: Normocephalic, atraumatic ENT: Mucous membranes moist, oropharynx unremarkable, External ear exam un remarkable EYES: PERRL, EOMI NECK: Full ROM, no ESTELA, no menigismus CHEST/RESP: Nontender, clear to auscultation bilateral, no wheeze/rhonchi/rales CARDIOVASCULAR: RRR, no murmur, rub brandi. 2+ Rad pulse bilateral ABDOMEN: Soft, minimal tender left upper quadrant, no mass. +Bowel sounds EXT: Full ROM, no edema, no rash Neuro: Grossly normal neurologic exam, conversant, interactive. Psych: Speech fluent, thoughts congruent, affect normal Course Vital Signs Vital signs: Vital Signs Temperature 36.4 C L 06/02/21 10:11 Pulse 84 06/02/21 10:11 Respiratory Rate 15 06/02/21 10:11 Blood Pressure 157/90 H 06/02/21 10:11 Pulse Oximetry 100 06/02/21 10:11 Temperature 36.4 C L 06/02/21 10:11 Temperature Source Skin 06/02/21 10:11 Pulse 84 06/02/21 10:11 Respiratory Rate 15 06/02/21 10:11 Respiratory Effort Non-Labored 06/02/21 10:11 Blood Pressure 157/90 H 06/02/21 10:11 Blood Pressure Position Supine 06/02/21 10:11 Pulse Oximetry 100 06/02/21 10:11 Oxygen Delivery Method Room Air 06/02/21 10:11 Oxygen Flow Rate 0 06/02/21 10:11 Pain Level 8 06/02/21 10:11
[2021-06-02 10:43] LABS: Abs Immature Grans 0.04 10^3/uL (0.0-0.06); Absolute Basophil Count 0.06 10^3/uL (0.0-0.2); Absolute Eosinophil Count 0.21 10^3/uL (0.0-0.7); Absolute Lymphocyte Count 3.14 10^3/uL (1.2-3.4); Basophils % 0.5; Eosinophils % 1.7; HCT 43.6 % (36.0-46.0); HGB 14.8 g/dL (11.2-15.7); Immature Grans % 0.3; Lymphocytes % 25.4; MCH 31.2 pg (27.0-33.0); MCHC 33.9 % (32.0-36.0); MPV 9.2 fL (8.0-11.0); Monocytes % 5.7; Neutrophils % 66.4; Nucleated RBC 0 %; Platelet Count 312 10^3/uL (130-400); RBC 4.74 10^6/uL (3.93-5.22); RDW 11.9 % (11.7-14.6); RDW-SD 40.4 fL; WBC 12.35 10^3/uL (4.4-10.8)
[2021-06-02] MEDS: Normal Saline 1,000 ML 125 ML IV (10:49)
[2021-06-02] MEDS: LORazepam 2 MG/ML VIAL 0.5 MG IVP (10:50)
[2021-06-02] MEDS: Pantoprazole 40 MG VIAL IVP (10:51)
[2021-06-02 10:55] LABS: Magnesium 2.1 mg/dL (1.8-2.4)
[2021-06-02 11:05] LABS: ALT 33 U/L (14-59); AST 21 U/L (15-37); Albumin 4.7 g/dL (3.4-5.0); Alkaline Phosphatase 78 U/L (46-116); Anion Gap 11.6 mmol/L (3-11); BUN 25 mg/dL (7-18); Bilirubin, Total 0.2 mg/dL (0.2-1.0); CO2 26.4 mmol/L (21.0-32.0); CREATININE 0.8 mg/dL (0.55-1.02); Calcium 9.2 mg/dL (8.5-10.1); Chloride 101 mmol/L (98-107); Glucose 111 mg/dL (74-106); Potassium 3.8 mmol/L (3.5-5.1); Sodium 139 mmol/L (136-145); Total Protein 8.4 g/dL (6.4-8.2)
[2021-06-02 11:06] LABS: Troponin I < 0.05 ng/mL (<0.06)
[2021-06-02] MEDS: Ketorolac 15 MG/ML VIAL IVP (11:54)
--- NOTE | 2021-06-02 12:05 | NUR.NOTE ---
Nursing Note: Pt provided with Celiac lunch tray.
--- NOTE | 2021-06-02 13:00 | RT.EKG_ITS ---
APPROVED REPORT Exam: Resting ECG Reason for Exam: chest pain Patient Location: E HR:74 bpm ECG Measurements Heart Rate 74 AXIS AZ 150 P 58 QRSd 81 QRS 0 QT 407 T 31 QTc 451 Conclusion Sinus rhythm...normal P axis, V-rate 60- 99 Unchanged versus previous
[2021-06-02 13:54] LABS: Troponin I < 0.05 ng/mL (<0.06)
--- NOTE | 2021-06-16 19:01 | NUR.NOTE ---
ns ended at 1400. 1 liter intake.Nursing Note:
== END 2021-06-02 14:44 | disposition home or self-care (01) ==
PROVIDERS: Emergency Provider Emergency Medicine; PCP Family Medicine
DX: S29.011A Strain of muscle and tendon of front wall of thorax, initial encounter (principal); M77.8 Other enthesopathies, not elsewhere classified; X58.XXXA Exposure to other specified factors, initial encounter; R07.9 Chest pain, unspecified
CPT/HCPCS: 36415; 80053; 93005; 96361; 96374; 96375; 99284; 71046; 83735; 84484; 85025; 93010; J1885; J2060

== ENCOUNTER 2021-06-05 16:40 | Outpatient (REF) | payer BC, SELFPAY ==
[2021-06-05 21:16] LABS: TSH (W/Ref FT4) 1.12 uIU/mL (0.36-3.74); Vitamin B12 1028 pg/mL (193-986)
== END 2021-06-05 16:41 | disposition home or self-care (01) ==
LOC: NCHCN 16:40
PROVIDERS: PCP Family Medicine; Visit Provider Family Medicine
DX: R20.2 Paresthesia of skin (principal); R07.89 Other chest pain
CPT/HCPCS: 82607; 84443

== ENCOUNTER 2022-05-12 11:42 | Emergency (ER) | payer BC, SELFPAY ==
[2022-05-12 11:56] VITALS: BP 154/83; PULSE 75; RESP 118; TEMP 36.7; O2SAT 100
--- NOTE | 2022-05-12 12:53 | ED.GENADUL_ITS ---
Discharge Plan Disposition Patient Disposition: AGAINST MEDICAL ADVICE Condition: Improving Discharge Details Clinical Impression: Headache Primary Care Provider: Kelly Garcia ED Provider: Josselyn Murillo Home Meds and New Rx's Prescriptions: Continued ibuprofen [Advil Liqui-Gel] 200 MG capsule 200 mg PO PRN Cosentyx Pen 150 mg/mL Pen Injector 150 mg SUBCUT Q4W Discharge Instructions Instructions: General Headache (ED) Additional Instructions: You have elected to leave the emergency department AGAINST MEDICAL ADVICE (a CT angio of the brain was recommended that you declined). The risks of doing so are or permanent disability as we discussed. You may return to emergency department anytime if you change your mind. Please return immediately to the emergency department if you develop any new or worsening symptoms, if your condition does not improve as expected, or if you become otherwise concerned. It is extremely important that you attend your appointment with your primary care doctor in follow-up as scheduled on 05/14/2022. Referrals: Kelly Garcia [Primary Care Provider] - Discharge Data Discharge Date/Time-TO BE ENTERED AT DEPARTURE: 05/12/22 17:27 Medical Decision Making Test. In case this is a 70Denise Laura is a 56-year-old woman with a history of psoriatic arthritis on Cosentyx presenting to the emergency department with headache. Patient reports that since 05/07/2022 she has had a headache. Patient reports that headache was initially intermittent and migratory: Pain has been in the right forehead, right temporal region, right occiput, and right parietal region. Patient reports that since yesterday pain has been constant. She reports that at this time she feels the pain mostly in her right forehead. Patient reports that she has never had a headache as severe as this in the past. She denies trauma or known inciting event. She denies any other pain including neck pain, eye pain. Denies fevers, cough, shortness of breath, vomiting, diarrhea, numbness, weakness, vision changes, rash. On exam Pt is well and non-toxic appearing. No temporal/frontal TTP b/l. No meningismus. Non-focal neuro exam. Concern for migraine vs meningitis/encephalitis vs SAH vs other. Exam/hx at this time not c/w central venous thrombosis, sepsis, acute carotid pathology. Doubt temporal arteritis. Plan for IV placement, IV fluid hydration, IV Compazine, IV Benadryl, screening labs, CT head. CT head negative. Plan for LP. Pt provided verbal and written consent after discussion re: risks and benefits. LP performed. CSF negative. I discussed Pt presentation and results with Dr. Mishra of neurology given h/o psoriatic athritis on Cosentyx, she recommends CTA for eval for vasculitis. I discussed plan for CTA with Pt, Pt states that she is feeling improved and would like to go home and have outpt f/u at this time. I discussed the risks of leaving against medical advice, including , permanent disability. Pt state verbalizes understanding of the risks and continues to refuse further eval/yash atment in the ED. Pt with decision making capacity. I had a discussion with Patient regarding return to emergency department precautions, that she may return ot the emergency department at any time if she changes her mind, home care, and importance of outpatient follow-up. Pt verbalizes understanding of the plan and is amenable. Patient discharged to home with clear plan for outpatient follow-up. All questions were answered. Disposition decision was made weighing the risks and benefits of hospitalization versus outpatient treatment, the risk for further decompensation, and the patient's wishes. Medical Records Medical records reviewed: Yes I reviewed the patient's medical records. Lab Data Lab results reviewed: Yes I reviewed the patient's lab results. Labs: 05/12/22 15:15 Cerebrospinal Fluid Body Fluid Culture - Final 05/12/22 15:15 Cerebrospinal Fluid Gram Stain - Final Laboratory Tests Range/Units 05/12/22 05/12/22 05/12/22 13:30 13:30 13:30 WBC (4.4-10.8) 10^3/uL 7.05 RBC (3.93-5.22) 10^6/uL 4.28 Hgb (11.2-15.7) g/dL 13.1 Hct (36.0-46.0) % 38.3 MCV (80-95) fL 90 MCH (27.0-33.0) pg 30.6 MCHC (32.0-36.0) % 34.2 RDW (11.7-14.6) % 11.9 Plt Count (130-400) 10^3/uL 290 MPV (8.0-11.0) fL 9.0 Immature Gran % 0.3 Neutrophils % 61.6 Lymphocytes % 27.5 Monocytes % 6.7 Eosinophils % 3.0 Basophils % 0.9 Nucleated RBC % (0.0-0.3) % 0.0 Absolute Neutrophils (1.2-6.7) 10^3/uL 4.35 Absolute Lymphocytes (1.2-3.4) 10^3/uL 1.94 Absolute Monocytes (0.1-0.8) 10^3/uL 0.47 Absolute Eosinophils (0.0-0.7) 10^3/uL 0.21 Absolute Basophils (0.0-0.2) 10^3/uL 0.06 Xanthochromia ESR (0-30) mm/hr 6 Sodium (136-145) mmol/L 140 Potassium (3.5-5.1) mmol/L 3.9 Chloride (98-107) mmol/L 103 Carbon Dioxide (21.0-32.0) mmol/L 29.6 Anion Gap (3-11) mmol/L 7.4 BUN (7-18) mg/dL 16 Creatinine (0.55-1.02) mg/dL 1.0 Estimated GFR/1.73 m2 (mL/min/1.73m2) 57.78 Glucose (74-106) mg/dL 95 Calcium (8.5-10.1) mg/dL 8.9 Total Bilirubin (0.2-1.0) mg/dL 0.2 AST (15-37) U/L 17 ALT (14-59) U/L 31 Alkaline Phosphatase (46-116) U/L 61 C-Reactive Protein (0.0-0.3) mg/dL < 0.05 Total Protein (6.4-8.2) g/dL 7.4 Albumin (3.4-5.0) g/dL 4.1 CSF Tube Number CSF Color CSF Clarity CSF WBC (0-5) /uL CSF RBC (0-5) /mm3 CSF Diff Comment CSF Glucose (40-70) mg/dL CSF Total Protein (15-45) mg/dL Range/Units 05/12/22 05/12/22 15:15 15:15 WBC (4.4-10.8) 10^3/uL RBC (3.93-5.22) 10^6/uL Hgb (11.2-15.7) g/dL Hct (36.0-46.0) % MCV (80-95) fL MCH (27.0-33.0) pg MCHC (32.0-36.0) % RDW (11.7-14.6) % Plt Count (130-400) 10^3/uL MPV (8.0-11.0) fL Immature Gran % Neutrophils % Lymphocytes % Monocytes % Eosinophils % Basophils % Nucleated RBC % (0.0-0.3) % Absolute Neutrophils (1.2-6.7) 10^3/uL Absolute Lymphocytes (1.2-3.4) 10^3/uL Absolute Monocytes (0.1-0.8) 10^3/uL Absolute Eosinophils (0.0-0.7) 10^3/uL Absolute Basophils (0.0-0.2) 10^3/uL Xanthochromia Absent ESR (0-30) mm/hr Sodium (136-145) mmol/L Potassium (3.5-5.1) mmol/L Chloride (98-107) mmol/L Carbon Dioxide (21.0-32.0) mmol/L Anion Gap (3-11) mmol/L BUN (7-18) mg/dL Creatinine (0.55-1.02) mg/dL Estimated GFR/1.73 m2 (mL/min/1.73m2) Glucose (74-106) mg/dL Calcium (8.5-10.1) mg/dL Total Bilirubin (0.2-1.0) mg/dL AST (15-37) U/L ALT (14-59) U/L Alkaline Phosphatase (46-116) U/L C-Reactive Protein (0.0-0.3) mg/dL Total Protein (6.4-8.2) g/dL Albumin (3.4-5.0) g/dL CSF Tube Number 4 CSF Color Colorless CSF Clarity Clear CSF WBC (0-5) /uL 0 CSF RBC (0-5) /mm3 0 CSF Diff Comment CSF Glucose (40-70) mg/dL 61 CSF Total Protein (15-45) mg/dL 42 HPI General Mode of arrival: ambulatory . Date/Time Provider Initiated Documentation: 05/12/22 12:00 . Limitations to Documentation: no limitations . Information obtained by: patient, RN notes reviewed and old records reviewed . HPI Narrative: Zayda Sanchez is a 56-year-old woman with a history of psoriatic arthritis on Cosentyx presenting to the emergency department with headache. Patient reports that since 05/07/2022 she has had a headache. Patient reports that headache was initially intermittent and migratory: Pain has been in the right forehead, right temporal region, right occiput, and right parietal region. Patient reports that since yesterday pain has been constant. She reports that at this time she feels the pain mostly in her right forehead. Patient reports that she has never had a headache as severe as this in the past. She denies trauma or known inciting event. She denies any other pain including neck pain, eye pain. Denies fevers, cough, shortness of breath, vomiting, diarrhea, numbness, weakness, vision changes, rash. Related Data Home Medications Medication Instructions Recorded Confirmed ibuprofen 200 mg capsule (Advil 200 mg PO PRN 05/10/18 05/12/22 Liqui-Gel) secukinumab 150 mg/mL subcutaneous 150 mg subcut Q4W 08/21/19 05/12/22 pen injector (Cosentyx Pen) Allergies Allergy/AdvReac Type Severity Reaction Status Date / Time shellfish derived Allergy Severe Anaphylaxsi Unverified 05/12/22 11:59 s Penicillins Allergy Mild Hives Unverified 05/12/22 11:59 etanercept [From Enbrel] AdvReac Mild unknown Unverified 05/12/22 11:59 infliximab [From Remicade] AdvReac Mild unknown Unverified 05/12/22 11:59 clindemycin Allergy Mild Hives Uncoded 05/12/22 11:59 humira pen AdvReac Mild unknown Uncoded 05/12/22 11:59 General Stated Complaint: Headache CURT: 2 Review of Systems Narrative: Constitutional: denies fevers Eyes: denies eye pain, vision changes ENT: denies ear pain, dental pain, sore throat Cardiovascular: denies chest pain, edema Respiratory: denies SOB, cough GI: denies abdominal pain, vomiting, diarrhea : denies flank pain MSK: denies back pain, neck pain, arthralgias, myalgias Skin: denies rash Neuro: denies numbness, weakness, reports headache PFSH All Active Problems Pectoralis muscle strain (Acute) Pectoralis major tendinitis (Acute) Headache (Acute) Medical History Abdominal pain Arthritis Early menopause Epigastric pain Fatigue H/O: hysterectomy Osteoporosis Tobacco abuse Viral syndrome Vitamin D deficiency Weight gain Surgical History Abdominal hysterectomy Colonoscopy - MAC (05/12/18) EGD - MAC (05/12/18) Social History Smoking/Tobacco Use Status: Current every day Tobacco Type: cigarettes Smoking risk assessment performed?: Yes Alcohol Intake: current Alcohol Intake frequency: a few times a week Alcohol type: wine Drug use: Never Substance use type: does not use Do you feel safe at home: Yes Do you feel safe in your relationship?: Yes Exam Narrative Exam Narrative: Constitutional: well and [id number], pleasant, conversing normally HENT: head atraumatic/normocephalic/normal inspection, mucous membranes moist, no temporal or frontal TTP b/l Eyes: conjunctiva normal, sclera normal, pupils 3mm b/l ERRLA, EOMI without nystagmus Neck: no stridor, full painless ROM, trachea midline, supple, neg K/B signs, no posterior TTP Resp: normal work of breathing, speaking in full sentences Cardio: normal rate, normal rhythm Skin: warm, dry, normal color, no rash Neuro: alert, not altered, 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, motor 5 out of 5 throughout, normal tone Ext: no edema Psych: normal mood, normal affect, normal behavior Course Vital Signs Vital signs: Vital Signs Temperature 36.7 C 05/12/22 11:56 Pulse 75 05/12/22 11:56 Respiratory Rate 118 H 05/12/22 11:56 Blood Pressure 154/83 H 05/12/22 11:56 Pulse Oximetry 100 05/12/22 11:56 Temperature 36.7 C 05/12/22 11:56 Temperature Source Temporal Artery Scan 05/12/22 11:56 Pulse 75 05/12/22 11:56 Respiratory Rate 118 H 05/12/22 11:56 Respiratory Effort 05/12/22 12:00 Blood Pressure 154/83 H 05/12/22 11:56 Blood Pressure Position Sitting 05/12/22 11:56 Pulse Oximetry 100 05/12/22 11:56 Oxygen Delivery Method Room Air 05/12/22 11:56 Oxygen Flow Rate 0 05/12/22 11:56 Pain Level 10 05/12/22 11:56 Procedures Lumbar Puncture Time Out Performed: Yes Patient Position: sitting upright/leaning forward Skin Prep: Povidone-Iodine 1% Local Anesthetic: Lidocaine 1% Amount of anesthesia used (mL): 5 Spinal Needle Gauge: 20G Interspace Used: L4-L5 Fluid Initially Obtained: clear Complications: none
--- NOTE | 2022-05-12 13:10 | DI.CT_ITS ---
Exam(s) CT HEAD WO EXAM: CT HEAD WO CLINICAL HISTORY: headache. TECHNIQUE: Imaging Protocol: Axial computed tomography images with coronal and sagittal reformatted images were created and reviewed COMPARISON: No exams were available for comparison FINDINGS: The ventricular system is normal in appearance. No evidence of acute intracranial hemorrhage, mass effect, or midline shift. The orbital structures are unremarkable. The temporal bone structures appear intact. Calvarium: Normal. Visualized Paranasal sinuses/Mastoids: Clear. IMPRESSION: Normal cranial CT. RADIATION DOSE DELIVERED: 627.83mGy.cm Total DLP 627.83mGy.cm Total DLP !Error CTDIvol DATA REPOSITORY: All CT scans at this facility are submitted to the National Radiology Data Registry (NRDR) Dose Index Registry (DIR) with the [employer] (ACR). RADIATION OPTIMIZATION: All CT scans at this facility use at least one of these dose optimization te chniques: automated exposure control; mA and/or kV adjustment per patient size (includes targeted exa ms where dose is matched to clinical indication); or iterative reconstruction.
[2022-05-12] MEDS: Normal Saline 1,000 ML 1000 ML IV (13:23)
[2022-05-12 13:40] LABS: Abs Immature Grans 0.02 10^3/uL (0.0-0.06); Absolute Basophil Count 0.06 10^3/uL (0.0-0.2); Absolute Eosinophil Count 0.21 10^3/uL (0.0-0.7); Absolute Lymphocyte Count 1.94 10^3/uL (1.2-3.4); Absolute Monocyte Count 0.47 10^3/uL (0.1-0.8); Absolute Neutrophil Count 4.35 10^3/uL (1.2-6.7); Basophils % 0.9; HCT 38.3 % (36.0-46.0); HGB 13.1 g/dL (11.2-15.7); Immature Grans % 0.3; Lymphocytes % 27.5; MCH 30.6 pg (27.0-33.0); MCHC 34.2 % (32.0-36.0); MCV 90 fL (80-95); Monocytes % 6.7; Neutrophils % 61.6; Platelet Count 290 10^3/uL (130-400); RBC 4.28 10^6/uL (3.93-5.22); RDW 11.9 % (11.7-14.6); WBC 7.05 10^3/uL (4.4-10.8)
[2022-05-12] MEDS: diphenhydrAMINE 50 MG/ML VIAL 25 MG IVP (13:42)
[2022-05-12] MEDS: Prochlorperazine 10 MG/2 ML VIAL IVP (13:43)
[2022-05-12 13:54] LABS: ALT 31 U/L (14-59); AST 17 U/L (15-37); Albumin 4.1 g/dL (3.4-5.0); Alkaline Phosphatase 61 U/L (46-116); Anion Gap 7.4 mmol/L (3-11); BUN 16 mg/dL (7-18); Bilirubin, Total 0.2 mg/dL (0.2-1.0); CO2 29.6 mmol/L (21.0-32.0); Calcium 8.9 mg/dL (8.5-10.1); Chloride 103 mmol/L (98-107); Estimated GFR 57.78 (mL/min/1.73m2); Glucose 95 mg/dL (74-106); Potassium 3.9 mmol/L (3.5-5.1); Sodium 140 mmol/L (136-145); Total Protein 7.4 g/dL (6.4-8.2)
[2022-05-12 13:55] LABS: C-Reactive Protein < 0.05 mg/dL (0.0-0.3); ESR 6 mm/hr (0-30)
[2022-05-12] MEDS: Lidocaine 1% Pres-Free 5 ML VIAL (14:54)
--- NOTE | 2022-05-12 15:25 | PDOC.ERCMPRO ---
- If Service Date Differs Date of service: 05/12/22 Time of Service: 15:25 Care Management Progress Note YSBIRT screen: negative. Pt reports no substance use or mental health symptoms. Pt notes she quit smoking a year ago and received affirmation for this decision.
[2022-05-12 15:56] LABS: Glucose (CSF) 61 mg/dL (40-70); Total Protein (CSF) 42 mg/dL (15-45)
--- NOTE | 2022-05-12 16:00 | NUR.NOTE ---
Pt states she does not have ride home and does not need hydromorphone right now. Pt states she will notify if pain becomes worse, states I'm fine for right now. notified.
[2022-05-12 16:12] LABS: Clarity Clear; RBC 0 /mm3 (0-5); Tube # 4; WBC 0 /uL (0-5); Xanthochromia Absent
== END 2022-05-12 17:27 | disposition left against medical advice (07) ==
PROVIDERS: Emergency Provider Student in an Organized Health Care Education/Training Program; PCP Family Medicine
DX: R51.9 Headache, unspecified (principal); F17.210 Nicotine dependence, cigarettes, uncomplicated
CPT/HCPCS: 36415; 62270; 80053; 82945; 85652; 89050; 89051; 96361; 96374; 96375; 99284; 70450; 84157; 85025; 86140; 87070; 87205; J0780; J1200

== ENCOUNTER 2022-06-21 18:37 | Outpatient (REF) | payer BC, SELFPAY ==
[2022-06-21 16:48] LABS: ALT 30 U/L (14-59); AST 19 U/L (15-37); Alkaline Phosphatase 79 U/L (46-116); Anion Gap 9.6 mmol/L (3-11); BUN 11 mg/dL (7-18); Bilirubin, Total 0.5 mg/dL (0.2-1.0); C-Reactive Protein 11.25 mg/dL (0.0-0.3); CO2 29.4 mmol/L (21.0-32.0); CREATININE 0.9 mg/dL (0.55-1.02); Calcium 9.1 mg/dL (8.5-10.1); Chloride 100 mmol/L (98-107); Estimated GFR 75.97 (mL/min/1.73m2); Glucose 106 mg/dL (74-106); Potassium 3.6 mmol/L (3.5-5.1); Sodium 139 mmol/L (136-145); Total Protein 7.4 g/dL (6.4-8.2)
[2022-06-21 17:00] LABS: Abs Immature Grans 0.04 10^3/uL (0.0-0.06); Absolute Basophil Count 0.05 10^3/uL (0.0-0.2); Absolute Eosinophil Count 0.09 10^3/uL (0.0-0.7); Absolute Lymphocyte Count 1.84 10^3/uL (1.2-3.4); Absolute Monocyte Count 0.64 10^3/uL (0.1-0.8); Absolute Neutrophil Count 7.58 10^3/uL (1.2-6.7); Basophils % 0.5; Eosinophils % 0.9; HGB 12.5 g/dL (11.2-15.7); Immature Grans % 0.4; MCH 30.3 pg (27.0-33.0); MCHC 33.8 % (32.0-36.0); MCV 90 fL (80-95); MPV 9.8 fL (8.0-11.0); Monocytes % 6.3; Neutrophils % 73.9; Platelet Count 272 10^3/uL (130-400); RBC 4.12 10^6/uL (3.93-5.22); RDW 11.6 % (11.7-14.6); RDW-SD 37.7 fL; WBC 10.24 10^3/uL (4.4-10.8)
[2022-06-21 17:40] LABS: ESR 43 mm/hr (0-30)
[2022-06-21 18:00] LABS: Bacteria Negative HPF (Negative); C & S Indicated? C&S Done As Ordered; Casts Negative LPF (Negative); Crystals Negative HPF (Negative); Epithelial Cells Negative HPF (Negative); Mucus Negative (Negative); Other Cells Negative (Negative); RBC Negative HPF (0-2); WBC Negative HPF (0-5)
== END 2022-06-21 18:38 | disposition home or self-care (01) ==
LOC: LBN 18:37
PROVIDERS: PCP Family Medicine; Visit Provider Nurse Practitioner Family
DX: R10.32 Left lower quadrant pain (principal)
CPT/HCPCS: 80053; 85652; 81015; 85025; 86140; 87086

== ENCOUNTER → 2022-06-22 11:59 | Outpatient (CLI) | payer BC, SELFPAY ==
[2022-06-22] MEDS: Omnipaque 350 MG/ML 100 ML BTL IV (13:22)
--- NOTE | 2022-06-22 13:33 | DI.CT_ITS ---
Exam(s) CT ABDOMEN PELVIS W EXAM: CT ABDOMEN PELVIS W CLINICAL HISTORY: LLQ PAIN R10.32. TECHNIQUE: Imaging Protocol: Axial computed tomography images with coronal and sagittal reformatted images were created and reviewed CONTRAST MATERIAL: Intravenous: Omnipaque 100cc Oral: Yes. Oral contrast was administered for bowel opacification. COMPARISON: CT CT ABDOMEN PELVIS W from 07/31/2020 FINDINGS: VISUALIZED LUNG BASES: No nodules nor pleural effusions evident. ABDOMEN: There is no ascites. LIVER: There are no focal hepatic lesions evident. No dilatation of intrahepatic ducts. GALLBLADDER/BILIARY: No obvious gallbladder pathology. CBD is not dilated. PANCREAS: No evidence of pancreatic mass nor dilatation of the pancreatic duct. SPLEEN: Spleen is not enlarged. No obvious intrasplenic lesions. Splenic and portal veins are paten t. ADRENALS: There are no significant adrenal masses. KIDNEYS:Right kidney unremarkable. There are 2 small cysts in the left kidney, both measuring 1 cm. No calculi nor solid lesions in the kidneys. No hydronephrosis. No calculi in the urinary bladder and ureterovesical junctions.. ABDOMINAL AORTA: Abdominal aorta is not enlarged. LYMPH NODES:There is no retroperitoneal nor paraaortic adenopathy. ABDOMINAL WALL: No evidence of significant anterior abdominal wall nor inguinal hernia. GI: Small bowel diameter loops are upper normal. There does not appear to be obvious small bowel obs truction. PELVIS: GI: No evidence of appendicitis.There is significant streaking around the sigmoid consistent with acu te diverticulitis. No abscess seen at this time. LYMPH NODES: There is no intrapelvic nor inguinal adenopathy. REPRODUCTIVE: Uterus is surgically absent. No abnormal adnexal masses. URINARY BLADDER: No calculi nor obvious masses evident OSSEOUS: No significant osseous lesions. IMPRESSION: 1. Findings are consistent with acute sigmoid diverticulitis. Phlegmonous. No formed abscess at thi s time. No fluid in the dependent aspect of the yaemna-gpn-wq-sac. No evidence of hepatic abscess n or air within the adjacent urinary bladder to suggest presence of fistulous communication. 2. Uterus is surgically absent. No abnormal adnexal masses. RADIATION DOSE DELIVERED: 968.41mGy.cm Total DLP DATA REPOSITORY: All CT scans at this facility are submitted to the National Radiology Data Registry (NRDR) Dose Index Registry (DIR) with the [employer] (ACR). RADIATION OPTIMIZATION: All CT scans at this facility use at least one of these dose optimization te chniques: automated exposure control; mA and/or kV adjustment per patient size (includes targeted exa ms where dose is matched to clinical indication); or iterative reconstruction.
[2022-06-22] MEDS: Barium Sulfate 2% W/V-Berry Smoothie 450 ML BTL 900 ML PO (13:40)
== END ==
PROVIDERS: PCP Family Medicine; Visit Provider Nurse Practitioner Family
DX: K57.32 Diverticulitis of large intestine without perforation or abscess without bleeding (principal)
CPT/HCPCS: 74177; J3490

== ENCOUNTER 2022-06-22 14:38 | Inpatient (IN) | payer BC, SELFPAY ==
[2022-06-22 14:43] VITALS: BP 147/94; PULSE 96; RESP 18; TEMP 36.8; O2SAT 99
[2022-06-22 15:24] LABS: Abs Immature Grans 0.03 10^3/uL (0.0-0.06); Absolute Basophil Count 0.04 10^3/uL (0.0-0.2); Absolute Eosinophil Count 0.15 10^3/uL (0.0-0.7); Absolute Lymphocyte Count 1.71 10^3/uL (1.2-3.4); Absolute Monocyte Count 0.51 10^3/uL (0.1-0.8); Absolute Neutrophil Count 5.98 10^3/uL (1.2-6.7); Basophils % 0.5; Eosinophils % 1.8; HGB 13.4 g/dL (11.2-15.7); Immature Grans % 0.4; Lymphocytes % 20.3; MCH 30.4 pg (27.0-33.0); MCHC 34.4 % (32.0-36.0); MCV 88 fL (80-95); MPV 9.1 fL (8.0-11.0); Monocytes % 6.1; Neutrophils % 70.9; Platelet Count 286 10^3/uL (130-400); RBC 4.41 10^6/uL (3.93-5.22); RDW 11.5 % (11.7-14.6); RDW-SD 37.2 fL; WBC 8.42 10^3/uL (4.4-10.8)
[2022-06-22] MEDS: Ketorolac 15 MG/ML VIAL IVP (15:27)
[2022-06-22] MEDS: Ciprofloxacin 500 MG TAB PO (15:28)
[2022-06-22] MEDS: Ondansetron 4 MG/2 ML VIAL IVP (15:28)
[2022-06-22] MEDS: metroNIDAZOLE 500 MG TAB PO (15:28)
[2022-06-22 15:43] LABS: C-Reactive Protein 6.66 mg/dL (0.0-0.3)
--- NOTE | 2022-06-22 16:05 | W.ED.GENAD ---
Discharge Plan Disposition Patient Disposition: [facility] INPATIENT Condition: Good Discharge Details Clinical Impression: Acute diverticulitis Admit Date/Time: 06/22/22 16:00 Admit Provider: Shaniqua Solorzano Attending Provider: Shaniqua Solorzano Primary Care Provider: Kelly Garcia ED Provider: Heidi Chambers Discharge Data Discharge Date/Time-TO BE ENTERED AT DEPARTURE: 06/22/22 17:49 Medical Decision Making Reviewed patient's CT with possible developing phlegmon with diverticulitis No leukocytosis, improving CRP Able to tolerate p.o. in the emergency department and initially my plan was to discharge patient, however speaking with Dr. Solorzano, she recommends admission secondary to immunosuppression state and diverticulitis with phlegmon close observation and IV antibiotics I will leave additional antibiotics and pain medication orders to the admitting surgeon, Dr Solorzano Patient is agreeable to admission Medical Records Medical records reviewed: Yes I reviewed the patient's medical records. Lab Data Lab results reviewed: Yes I reviewed the patient's lab results. HPI General Date/Time Provider Initiated Documentation: 06/22/22 15:01. HPI Narrative: This 56-year-old female with history of psoriatic arthritis and celiac disease presents with reports of abdominal pain for the past 3 days. She was evaluated at urgent care and had a CT scan today. She also had lab work done yesterday. Her labs are all within normal limits. Her CT scan was abnormal and she was told to come to the emergency department for assessment. Patient states she has nauseous without vomiting. She states that her pain is worse when she walks. She states at rest her pain is mild. She denies any fever or chills. She denies any diarrhea, she has in fact had some constipation, no bowel movement since Tuesday per patient. She not taking any medications for this. She denies any history of bowel obstruction. She denies any actual vomiting. She denies any urinary complaints. Related Data Home Medications Medication Instructions Recorded Confirmed ibuprofen 200 mg capsule (Advil 200 mg PO PRN 05/10/18 06/22/22 Liqui-Gel) secukinumab 150 mg/mL subcutaneous 150 mg subcut Q4W 08/21/19 06/22/22 pen injector (Cosentyx Pen) ciprofloxacin HCl 750 mg tablet 750 mg PO BID diverticulitis #26 09/21/22 tabs metronidazole 500 mg tablet 500 mg PO QID diverticulitis #52 06/23/22 tabs Previous Rx's Medication Instructions Recorded ciprofloxacin HCl 750 mg tablet 750 mg PO BID diverticulitis #26 06/23/22 tabs metronidazole 500 mg tablet 500 mg PO QID diverticulitis #52 06/23/22 tabs Allergies Allergy/AdvReac Type Severity Reaction Status Date / Time shellfish derived Allergy Severe Anaphylaxsi Unverified 06/22/22 14:47 s Penicillins Allergy Mild Hives Unverified 06/22/22 14:47 etanercept [From Enbrel] AdvReac Mild unknown Unverified 06/22/22 14:47 infliximab [From Remicade] AdvReac Mild unknown Unverified 06/22/22 14:47 clindemycin Allergy Mild Hives Uncoded 06/22/22 14:47 humira pen AdvReac Mild unknown Uncoded 06/22/22 14:47 General Stated Complaint: Abd Prob CURT: 3 Review of Systems All systems reviewed & are unremarkable except as noted in HPI and below PFSH All Active Problems (Updated 06/24/22 @ 22:48 by BARRON Weinstein) Former smoker (Acute) 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) Celiac disease (Acute) Psoriatic arthritis (Acute) Acute diverticulitis (Acute) Pectoralis muscle strain (Acute) Pectoralis major tendinitis (Acute) Medical History Abdominal pain Arthritis Early menopause Epigastric pain Fatigue H/O: hysterectomy Osteoporosis Viral syndrome Vitamin D deficiency Weight gain Surgical History Abdominal hysterectomy Colonoscopy - MAC (05/12/18) EGD - MAC (05/12/18) Social History Smoking/Tobacco Use Status: Current every day Tobacco Type: cigarettes Smoking risk assessment performed?: Yes Alcohol Intake: current Alcohol Intake frequency: a few times a week Alcohol type: wine Drug use: Never Substance use type: does not use Do you feel safe at home: Yes Do you feel safe in your relationship?: Yes Exam Const General: cooperative and no acute distress Eyes Sclera: sclerae normal Resp Effort & Inspection: normal respiratory effort Auscultation: clear to auscultation bilaterally Cardio Rate: regular rate Rhythm: regular rhythm GI Inspection: normal to inspection Other: tenderness with rebound LLQ only Skin General skin exam: no rashes or lesions noted Neuro General: patient alert and patient oriented x3 Course Vital Signs Vital signs: Vital Signs Temperature 36.8 C 06/22/22 14:43 Pulse 96 H 06/22/22 14:43 Respiratory Rate 18 06/22/22 14:43 Blood Pressure 147/94 H 06/22/22 14:43 Pulse Oximetry 99 06/22/22 14:43 Temperature 36.8 C 06/22/22 14:43 Temperature Source Temporal Artery Scan 06/22/22 14:43 Pulse 96 H 06/22/22 14:43 Respiratory Rate 18 06/22/22 14:43 Respiratory Effort Non-Labored 06/22/22 14:46 Blood Pressure 147/94 H 06/22/22 14:43 Blood Pressure Position Sitting 06/22/22 14:43 Pulse Oximetry 99 06/22/22 14:43 Oxygen Delivery Method Room Air 06/22/22 14:43 Oxygen Flow Rate 0 06/22/22 14:43 Pain Level 9 06/22/22 15:27 Lab/Test Results Lab/Test Results: Laboratory Tests Range/Units 06/22/22 06/22/22 15:17 15:17 WBC (4.4-10.8) 10^3/uL 8.42 RBC (3.93-5.22) 10^6/uL 4.41 Hgb (11.2-15.7) g/dL 13.4 Hct (36.0-46.0) % 39.0 MCV (80-95) fL 88 MCH (27.0-33.0) pg 30.4 MCHC (32.0-36.0) % 34.4 RDW (11.7-14.6) % 11.5 L Plt Count (130-400) 10^3/uL 286 MPV (8.0-11.0) fL 9.1 Immature Gran % 0.4 Neutrophils % 70.9 Lymphocytes % 20.3 Monocytes % 6.1 Eosinophils % 1.8 Basophils % 0.5 Nucleated RBC % (0.0-0.3) % 0.0 Absolute Neutrophils (1.2-6.7) 10^3/uL 5.98 Absolute Lymphocytes (1.2-3.4) 10^3/uL 1.71 Absolute Monocytes (0.1-0.8) 10^3/uL 0.51 Absolute Eosinophils (0.0-0.7) 10^3/uL 0.15 Absolute Basophils (0.0-0.2) 10^3/uL 0.04 C-Reactive Protein (0.0-0.3) mg/dL 6.66 H PAWSS Have you Been Recently Intoxicated or Drunk Within the Last 30 days?: No Have you Ever Experienced Previous Episodes of Alcohol Withdrawal?: No Have you ever Experienced Withdrawal Seizures?: No Have you ever Experienced Delirium Tremens(DT)s?: No Have you ever undergone Alcohol Rehabilitation Treatment (i.e, inpt ot outpatient treatment programs)?: No Have you ever Experienced Blackouts?: No Have you ever Combined Alcohol with other Downers within the last 90 days?: No Have you ever Combined Alcohol with any other Substance of Abuse during the last 90 days?: No Positive Blood Alcohol level on Presentation? [PCS.BAL]: No Evidence of Increased Autonomic Activity (i.e. HR>120, tremor, sweating, agitation, nausea)?: No Result: 0
[2022-06-22 16:13] LABS: Source Nasal/Nares
--- NOTE | 2022-06-22 16:23 | W.PM.HP.N ---
Date of service: 06/22/22 Time of Service: 16:23 Assessment and Plan Assessment and plan (1) Acute diverticulitis: Status: Acute Assessment and plan: Patient will be admitted and started on IV antibiotics to jump start her treatment, b/c she is on immunosuppressents. (2) Celiac disease: Status: Acute (3) Tobacco abuse: Status: Inactive Assessment and plan: pt is non smoker (4) Psoriatic arthritis: Status: Acute (5) Immunosuppression due to drug therapy: Status: Acute (6) Former smoker: Status: Acute (7) Anorexia: Status: Acute (8) Nausea: Status: Acute History of Present Illness Narrative: Pt notes she has been feeling poorly since Tuesday. She woke up w/ pain. She denies any trauma/travel/unsual foods. She denies straining to move her bowels. She has been having crampy LLQ pain that radiates into her back. She has a hx of celiac, and generally her bowels are loose. She will occ have constipation. She denies any recently. Today she has been having chills. She notes anorexia and nausea today as well. She Notes bloating and tenderness in LLQ, but no peritonitis. Patient has a longstanding history of immunosuppression due to psoriatic arthritis. She is currently on Cosentyx- she took this on Tuesday she thinks. She had a CE in 2018 that did not show any diverticula. CT 06/22: IMPRESSION: 1. Findings are consistent with acute sigmoid diverticulitis.? Phlegmonous.? No formed abscess at this time.? No fluid in the dependent aspect of the nfnghc-[id number]-hm-sac.? No evidence of hepatic abscess nor air within the adjacent urinary bladder to suggest presence of fistulous communication. Review of Systems All systems reviewed & are unremarkable except as noted in HPI and below PFSH All Active Problems (Updated 06/22/22 @ 19:20 by Shaniqua Solorzano DO) Anorexia (Acute) Nausea (Acute) Former smoker (Acute) 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) Celiac disease (Acute) Psoriatic arthritis (Acute) Acute diverticulitis (Acute) Pectoralis muscle strain (Acute) Pectoralis major tendinitis (Acute) Medical History (Updated 06/22/22 @ 19:20 by Shaniqua Solorzano DO) Abdominal pain Arthritis Early menopause Epigastric pain Fatigue H/O: hysterectomy Osteoporosis Viral syndrome Vitamin D deficiency Weight gain Surgical History Abdominal hysterectomy Colonoscopy - MAC (05/12/18) EGD - MAC (05/12/18) Social History Smoking/Tobacco Use Status: Current every day Tobacco Type: cigarettes Smoking risk assessment performed?: Yes Alcohol Intake: current Alcohol Intake frequency: a few times a week Alcohol type: wine Drug use: Never Substance use type: does not use Do you feel safe at home: Yes Do you feel safe in your relationship?: Yes Meds Allergies and Home Medications Allergies Allergy/AdvReac Type Severity Reaction Status Date / Time shellfish derived Allergy Severe Anaphylaxsi Unverified 06/22/22 14:47 s Penicillins Allergy Mild Hives Unverified 06/22/22 14:47 etanercept [From Enbrel] AdvReac Mild unknown Unverified 06/22/22 14:47 infliximab [From Remicade] AdvReac Mild unknown Unverified 06/22/22 14:47 clindemycin Allergy Mild Hives Uncoded 06/22/22 14:47 humira pen AdvReac Mild unknown Uncoded 06/22/22 14:47 Home Medications Medication Instructions Recorded Confirmed Type ibuprofen 200 mg capsule (Advil 200 mg PO PRN 05/10/18 06/22/22 History Liqui-Gel) secukinumab 150 mg/mL subcutaneous 150 mg subcut Q4W 08/21/19 06/22/22 History pen injector (Cosentyx Pen) Exam Narrative Exam Narrative: PHYSICAL EXAM GENERAL APPEARANCE: Alert, healthy appearance, oriented, in no acute distress SKIN: No rashes.? HYDRATION: Well hydrated HEAD, EYES, EARS, NECK, THROAT: Head is normocephalic, pupils equal, round, reactive to light and accommodation, ocular movement intact, sclera clear and no jaundice. ?Dentition intact. No sore throat.? LUNGS: normal respiration/nl chest excursion. ?Clear to auscultation B/l no R/R/W ?HEART: Regular rate and rhythm, EXTREMITY: No edema or cyanosis? no leg pain, redness, swelling.? ABDOMEN: moderate LLQ pain. no peritonitis. no hernias. Normal bowel sounds NEURO: no focal neuro deficits. Results Labs Result diagrams: 06/22/22 15:17 06/22/22 15:10 Labs: Laboratory Results - last 24 hr 06/22/22 06/22/22 06/22/22 15:17 15:17 16:00 WBC 8.42 RBC 4.41 Hgb 13.4 Hct 39.0 MCV 88 MCH 30.4 MCHC 34.4 RDW 11.5 L Plt Count 286 MPV 9.1 Immature Gran % 0.4 Neutrophils % 70.9 Lymphocytes % 20.3 Monocytes % 6.1 Eosinophils % 1.8 Basophils % 0.5 Nucleated RBC % 0.0 Absolute Neutrophils 5.98 Absolute Lymphocytes 1.71 Absolute Monocytes 0.51 Absolute Eosinophils 0.15 Absolute Basophils 0.04 C-Reactive Protein 6.66 H COVID-19 Source Nasal/Nares SARS-CoV-2 (PCR) 06/22/22 16:04 WBC RBC Hgb Hct MCV MCH MCHC RDW Plt Count MPV Immature Gran % Neutrophils % Lymphocytes % Monocytes % Eosinophils % Basophils % Nucleated RBC % Absolute Neutrophils Absolute Lymphocytes Absolute Monocytes Absolute Eosinophils Absolute Basophils C-Reactive Protein COVID-19 Source Cancelled SARS-CoV-2 (PCR) Cancelled Last Vital Signs Temp 36.8 C 06/22/22 14:43 Pulse 96 H 06/22/22 14:43 Resp 18 06/22/22 14:43 BP 147/94 H 06/22/22 14:43 Pulse Ox 99 06/22/22 14:43 PAWSS Have you Been Recently Intoxicated or Drunk Within the Last 30 days?: No Have you Ever Experienced Previous Episodes of Alcohol Withdrawal?: No Have you ever Experienced Withdrawal Seizures?: No Have you ever Experienced Delirium Tremens(DT)s?: No Have you ever undergone Alcohol Rehabilitation Treatment (i.e, inpt ot outpatient treatment programs)?: No Have you ever Experienced Blackouts?: No Have you ever Combined Alcohol with other Downers within the last 90 days?: No Have you ever Combined Alcohol with any other Substance of Abuse during the last 90 days?: No Positive Blood Alcohol level on Presentation? [PCS.BAL]: No Evidence of Increased Autonomic Activity (i.e. HR>120, tremor, sweating, agitation, nausea)?: No Result: 0
[2022-06-22 16:24] LABS: ALT 34 U/L (14-59); AST 21 U/L (15-37); Albumin 4.1 g/dL (3.4-5.0); Alkaline Phosphatase 86 U/L (46-116); Anion Gap 10.1 mmol/L (3-11); BUN 9 mg/dL (7-18); Bilirubin, Total 0.3 mg/dL (0.2-1.0); CO2 27.9 mmol/L (21.0-32.0); CREATININE 0.8 mg/dL (0.55-1.02); Calcium 9.3 mg/dL (8.5-10.1); Chloride 98 mmol/L (98-107); Glucose 98 mg/dL (74-106); Lipase 57 U/L (73-393); Potassium 3.7 mmol/L (3.5-5.1); Sodium 136 mmol/L (136-145); Total Protein 8.2 g/dL (6.4-8.2)
[2022-06-22 17:08] LABS: COVID-19 PCR Negative (Negative)
[2022-06-22 17:59] VITALS: BP 135/86; PULSE 70; RESP 16; TEMP 36.2; O2SAT 99
[2022-06-22] MEDS: Normal Saline 250 ML IV (18:13)
[2022-06-22] MEDS: PIPERACILLIN/TAZO 3.375 GM in Normal Saline 50 ML IVPB ×2 (18:26→23:50)
[2022-06-22] MEDS: Enoxaparin 40 MG/0.4 ML SYR SC (18:27)
[2022-06-22] MEDS: Normal Saline Flush 10 ML SYR IVP (18:27)
[2022-06-22] MEDS: traMADol 50 MG TAB PO ×2 (19:06→23:52)
[2022-06-22] MEDS: DEXTROSE 5%-0.45% SALINE 1,000 ML 125 ML IV (19:49)
[2022-06-22 22:37] VITALS: BP 112/72; PULSE 72; RESP 18; TEMP 36.8; O2SAT 97
[2022-06-23] MEDS: DEXTROSE 5%-0.45% SALINE 1,000 ML 125 ML IV ×2 (03:37→13:43)
[2022-06-23] MEDS: traMADol 50 MG TAB PO ×2 (03:43→09:27)
[2022-06-23] MEDS: Ketorolac 15 MG/ML VIAL IVP ×2 (06:00→12:48)
[2022-06-23] MEDS: PIPERACILLIN/TAZO 3.375 GM in Normal Saline 50 ML IVPB ×2 (06:00→12:52)
[2022-06-23 07:27] VITALS: BP 106/68; PULSE 69; RESP 16; TEMP 36.2; O2SAT 97
[2022-06-23 07:37] LABS: Abs Immature Grans 0.03 10^3/uL (0.0-0.06); Absolute Basophil Count 0.04 10^3/uL (0.0-0.2); Absolute Eosinophil Count 0.11 10^3/uL (0.0-0.7); Absolute Lymphocyte Count 0.92 10^3/uL (1.2-3.4); Absolute Monocyte Count 0.52 10^3/uL (0.1-0.8); Absolute Neutrophil Count 4.71 10^3/uL (1.2-6.7); Basophils % 0.6; Eosinophils % 1.7; HGB 10.9 g/dL (11.2-15.7); Immature Grans % 0.5; Lymphocytes % 14.5; MCHC 34.1 % (32.0-36.0); MCV 88 fL (80-95); MPV 9.4 fL (8.0-11.0); Monocytes % 8.2; Neutrophils % 74.5; Platelet Count 234 10^3/uL (130-400); RBC 3.63 10^6/uL (3.93-5.22); RDW 11.4 % (11.7-14.6); RDW-SD 36.9 fL; WBC 6.33 10^3/uL (4.4-10.8)
[2022-06-23 07:57] LABS: C-Reactive Protein 3.42 mg/dL (0.0-0.3)
[2022-06-23] MEDS: Normal Saline Flush 10 ML SYR IVP ×2 (09:30→13:43)
--- NOTE | 2022-06-23 10:41 | PDOC.CMIN ---
- If Service Date Differs Date of service: 06/23/22 Time of Service: 10:42 Care Management Initial Assess REASON FOR HOSPITALIZATION:: acute diverticulitis PAST MEDICAL HISTORY/PAST SURGICAL HISTORY:: All Active Problems (Updated 06/22/22 @ 19:20 by Shaniqua Solorzano DO). Anorexia (Acute). Nausea (Acute). Former smoker (Acute). 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). Celiac disease (Acute). Psoriatic arthritis (Acute). Acute diverticulitis (Acute). Pectoralis muscle strain (Acute). Pectoralis major tendinitis (Acute). Medical History (Updated 06/22/22 @ 19:20 by Shaniqua Solorzano DO). Abdominal pain. Arthritis. Early menopause. Epigastric pain. Fatigue. H/O: hysterectomy. Osteoporosis. Viral syndrome. Vitamin D deficiency. Weight gain. Surgical History . Abdominal hysterectomy. Colonoscopy - MAC (05/12/18). EGD - MAC (05/12/18) PREVIOUS FUNCTIONAL STATUS/SOCIAL/FAMILY SUPPORTS:: Zayda lives alone in a single family home in [place], [place]. She has 3 children, two of whom live closeby, and describes them as being very supportive. She has worked for a local [employer] for 20 years. 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 She is independent at baseline and receives no community services. CURRENT FUNCTIONAL STATUS:: Zayda was sitting up in bed when CM met with her. She was open to conversation and engaed easily with CM. Zayda shared that she is feeling much better than when she was admitted. She has been able to tolerate a full liquid diet and her pain is now manageable. She indicated that she would like to be discharge later today and denied the need for any services. ADVANCE DIRECTIVES:: none on file Has patient been provided with info about the portal/API?: Yes Did the patient sign up for the portal?: Yes (previously) CODE STATUS:: Full Code INSURANCE COVERAGE / FINANCIAL ISSUES:: [employer] CURRENT HOME/COMMUNITY SERVICES/EQUIPMENT:: none PRIMARY CARE PHYSICIAN:: Kelly Garcia POTENTIAL DISCHARGE NEEDS:: follow up with surgeon, PCP and plan of care PATIENT/FAMILY EDUCATION NEEDS:: Review of discharge instructions, medications, diet, aactivity, limitations, Ask Me Three TRANSPORTATION:: via private vehicle with family PLAN:: Zayda will likely be discharged home when medically cleared by provider. She will follow up with her surgeon, PCP and plan of care and transport with family. CM will continue to support Zayda and assess for ongoing discharge concerns.
[2022-06-23 15:56] VITALS: BP 115/72; PULSE 54; RESP 16; TEMP 36.2; O2SAT 98
--- NOTE | 2022-06-23 16:12 | DSE_ITS ---
Date of service: 06/23/22 Time of Service: 16:13 DS: Diagnosis Discharge Diagnosis (1) Acute diverticulitis: Status: Acute Asessment and Plan: Continue antibiotics for 13 more days Follow-up in my office in 2 to 3 weeks Discharge Plan Disposition Patient Disposition: HOME Condition: Good Discharge Details Reason For Visit: Diverticulitis,Chronic Immunosuppression Admit Date/Time: 06/22/22 16:00 Admit Provider: Shaniqua Solorzano Attending Provider: Shaniqua Solorzano Primary Care Provider: Kelly Garcia [facility] Course Hospital Course: Zayda is 56 years old who presented with acute onset of lower abdominal pain that evolved over the preceding 4 days. She was seen in the emergency department, and underwent a CAT scan of the abdomen and pelvis that demonstrated acute diverticulitis. She was started on intravenous antibiotics, and her white blood cell count and CRP began decreasing. Her diet was advanced through 06/23/2022 without any difficulty. She was discharged home with outpatient antibiotics, and planned outpatient follow-up Home Meds and New Rx's Prescriptions: New ciprofloxacin HCl 750 mg tablet 750 mg PO BID Qty: 26 0RF Rx Instructions: Take one tablet by mouth in the morning and one tablet by mouth in the evening until all tabs are gone metronidazole 500 mg tablet 500 mg PO QID Qty: 52 0RF Rx Instructions: Take one tablet by mouth every 6 hours until complete No Action ibuprofen [Advil Liqui-Gel] 200 MG capsule 200 mg PO PRN Cosentyx Pen 150 mg/mL Pen Injector 150 mg SUBCUT Q4W Discharge Instructions Instructions: Diverticulitis (DC) Additional Instructions: Called to [facility] at [phone] to schedule follow-up appointment Activity:: Activity as Tolerated Equipment/Supplies:: No Equipment Needed Diet:: Diverticulitis Discharge Orders Discharge Orders: Discharge Order (Routine); Ordered 06/23/22 Ordered By: Jeffery Adams Discharge Data Discharge Comment: Discharge home if tolerates a regular diet DS: Summary Time Spent with Patient providing and/or coordinating discharge services: Greater than 30 minutes Status at Discharge Functional status at discharge: independent ambulation Overall status at discharge: patient is back to baseline Mental Status: mental status grossly normal Speech and Movement: speech and movement normal Mood: congruent mood Affect: normal affect Exam Const General: cooperative, healthy appearing and comfortable Orientation: awake and oriented x3 Eyes General: appearance normal, both eyes and all related structures Conjunctivae: conjunctivae normal Sclera: sclerae normal Resp Effort & Inspection: normal respiratory effort and able to speak in complete sentences Cardio Jugular venous pressure: no JVD Rate: regular rate GI Inspection: distended (Mild) Palpation: soft, no guarding, no hernias and tender (Minimal bilateral lower quadrants) Auscultation: normal bowel sounds Skin General skin exam: normal turgor Neuro General: patient alert, patient awake and patient oriented x3 Cognition: normal cognition Extrem Right lower extremity: no edema Left lower extremity: no edema Psych Mental Status: mental status grossly normal Speech and Movement: speech and movement normal Mood: congruent mood Affect: normal affect DS: Data Vitals/I&O Vitals and I&O: Vital Signs Temperature 97.2 F L 06/23/22 15:56 Temperature Source Tympanic 06/23/22 15:56 Pulse 54 L 06/23/22 15:56 Pulse Rhythm Regular 06/23/22 09:00 Respiratory Rate 16 06/23/22 15:56 Respiratory Effort 06/23/22 09:00 Respiratory Depth Normal 06/23/22 09:00 Respiratory Pattern Normal 06/23/22 09:00 Blood Pressure 115/72 06/23/22 15:56 Blood Pressure Position Sitting 06/22/22 14:43 Pulse Oximetry 98 06/23/22 15:56 Oxygen Delivery Method Room Air 06/23/22 15:56 Oxygen Flow Rate 0 06/23/22 15:56 Pain Level 4 06/23/22 12:48 Intake & Output 06/22/22 06/23/22 06/23/22 23:59 11:59 23:59 Intake Total 260 / 260 1075 / 2125 1050 / 2125 Output Total 1025 / 1025 Balance 260 / 260 50 / 1100 1050 / 1100 Weight 157 lb Intake: IV 60 / 60 1075 / 2125 1050 / 2125 Oral 200 / 200 Output: Urine 1025 / 1025 Other: Urine Color Yellow Urine Appearance Clear Urine Odor None Voiding Methods Toilet Data Completed and Pending Labs on day of discharge: Labs from last 24 hours 06/23/22 06/23/22 06/22/22 06:42 06:42 16:04 WBC 6.33 RBC 3.63 L Hgb 10.9 L D Hct 32.0 L MCV 88 MCH 30.0 MCHC 34.1 RDW 11.4 L Plt Count 234 MPV 9.4 Immature Gran % 0.5 Neutrophils % 74.5 Lymphocytes % 14.5 Monocytes % 8.2 Eosinophils % 1.7 Basophils % 0.6 Nucleated RBC % 0.0 Absolute Neutrophils 4.71 Absolute Lymphocytes 0.92 L Absolute Monocytes 0.52 Absolute Eosinophils 0.11 Absolute Basophils 0.04 Sodium Potassium Chloride Carbon Dioxide Anion Gap BUN Creatinine Est GFR (CKD-EPI 2020) Glucose Calcium Total Bilirubin AST ALT Alkaline Phosphatase C-Reactive Protein 3.42 H Total Protein Albumin Lipase COVID-19 Source Cancelled SARS-CoV-2 (PCR) Cancelled 06/22/22 06/22/22 16:00 15:10 WBC RBC Hgb Hct MCV MCH MCHC RDW Plt Count MPV Immature Gran % Neutrophils % Lymphocytes % Monocytes % Eosinophils % Basophils % Nucleated RBC % Absolute Neutrophils Absolute Lymphocytes Absolute Monocytes Absolute Eosinophils Absolute Basophils Sodium 136 Potassium 3.7 Chloride 98 Carbon Dioxide 27.9 Anion Gap 10.1 BUN 9 Creatinine 0.8 Est GFR (CKD-EPI 2020) 87.50 Glucose 98 Calcium 9.3 Total Bilirubin 0.3 AST 21 ALT 34 Alkaline Phosphatase 86 C-Reactive Protein Total Protein 8.2 Albumin 4.1 Lipase 57 COVID-19 Source Nasal/Nares SARS-CoV-2 (PCR) Negative PFSH All Active Problems Anorexia (Acute) Nausea (Acute) Former smoker (Acute) 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) Celiac disease (Acute) Psoriatic arthritis (Acute) Acute diverticulitis (Acute) Pectoralis muscle strain (Acute) Pectoralis major tendinitis (Acute) Medical History Abdominal pain Arthritis Early menopause Epigastric pain Fatigue H/O: hysterectomy Osteoporosis Viral syndrome Vitamin D deficiency Weight gain Surgical History Abdominal hysterectomy Colonoscopy - MAC (05/12/18) EGD - MAC (05/12/18) Social History Smoking/Tobacco Use Status: Current every day Tobacco Type: cigarettes Smoking risk assessment performed?: Yes Alcohol Intake: current Alcohol Intake frequency: a few times a week Alcohol type: wine Drug use: Never Substance use type: does not use Do you feel safe at home: Yes Do you feel safe in your relationship?: Yes
--- NOTE | 2022-06-23 17:37 | CHAPLAIN ---
Zayda said she is improving and hasn't had anything like this before. She's been in touch with her children, and she said her ex- may visit, as they have remained friends. According to notes from later today, Zayda will be discharged home.
--- NOTE | 2022-06-23 18:10 | PDOC.CMDIS ---
- If Service Date Differs Date of service: 06/23/22 Time of Service: 18:10 LACE Index Scoring Tool - Questions: Length of Stay (in days): 1 Acuity (Admit via E.D.?): Yes E.D. Visits: 2 - Answers: Total Score: 6 Risk of Readmission: Low Risk Care Management Discharge Reason for Hospitalization: acute diverticulitis Discharge Plan: Zayda will be discharged home with no new services. She will follow up with her surgeon, PCP and plan of care and transport with family. Patient/Family Education Needs: Review of discharge instructions, medications, diet, activity, limitations, Ask Me Three
== END 2022-06-23 18:14 | disposition home or self-care (01) | DRG 392 ==
LOC: ER 16:10 → MS 17:52
PROVIDERS: Admitting Provider Surgery; Emergency Provider Physician Assistant; PCP Family Medicine; Visit Provider Surgery
DX: K57.32 Diverticulitis of large intestine without perforation or abscess without bleeding (principal); D84.821 Immunodeficiency due to drugs; K90.0 Celiac disease; L40.50 Arthropathic psoriasis, unspecified; Z79.899 Other long term (current) drug therapy; R63.0 Anorexia; M81.0 Age-related osteoporosis without current pathological fracture; E55.9 Vitamin D deficiency, unspecified; F17.210 Nicotine dependence, cigarettes, uncomplicated
CPT/HCPCS: 36415; 80053; 83690; 87635; 96374; 96375; 99285; J1650; 85025; 86140; 99284; J1885; J2405; J2543

== ENCOUNTER 2022-12-08 18:17 | Outpatient (REF) | payer BC, SELFPAY ==
[2022-12-08 15:46] LABS: TSH (W/Ref FT4) 0.58 uIU/mL (0.36-3.74)
[2022-12-09 16:59] LABS: Calculated LDL 163 mg/dL (<100); Cholesterol 237 mg/dL (<200); HDL Cholesterol 62 mg/dL (40-60); Triglyceride 62 mg/dL (<150)
== END 2022-12-08 18:18 | disposition home or self-care (01) ==
LOC: NCHCN 18:17
PROVIDERS: PCP Family Medicine; Visit Provider Nurse Practitioner Family
DX: Z00.00 Encounter for general adult medical examination without abnormal findings (principal); Z13.220 Encounter for screening for lipoid disorders; Z13.29 Encounter for screening for other suspected endocrine disorder
CPT/HCPCS: 80061; 84443

== ENCOUNTER 2022-12-28 01:32 | Outpatient (CLI) | payer BC, SELFPAY ==
--- NOTE | 2022-12-28 07:50 | DI.MAMMO_ITS ---
Exam(s) MAMMO SCREENING EXAM: MAMMO SCREENING CLINICAL HISTORY: SCREENING, Z12.31 TECHNIQUE: Bilateral full field digital CC and MLO mammographic images were obtained with 3D tomosyn thesis and utilizing computer aided detection (CAD). COMPARISON: Available for comparison. FINDINGS: Masses/Architectural Distortion: The nodule in the lower inner quadrant of the left breast is stable. No suspicious nodules or areas of architectural distortion are present. Microcalcifications: No suspicious pleomorphic-type are seen. Skin Thickening/Nipple Retraction: None. IMPRESSION: 1. No significant interval change with no specific features of malignancy noted. 2. Unless there is more urgent need, screening mammography is recommended, as per [employer] guidelines. BI-RADS Category 2 - Benign Findings Breast Density - Category B - Scattered areas of fibroglandular density Breast density category C or D implies that the patient has dense breast tissue. Dense breast tissue is very common and is not abnormal but dense breast tissue can make it harder to find cancer on a ma mmogram. Also, dense breast tissue may increase their breast cancer risk. This information about the result of the mammogram report was provided to the patient to raise their awareness. Use this report when you speak with the patient about their risks for breast cancer, which includes their family hist ory. At that time, you may recommend for more screening tests (Ultrasound or MRI) as they might be us eful based on their risk. A negative radiographic report should not delay biopsy if a dominant or clinically suspicious mass is present. Up to ten percent of cancers are not identified on mammography. A negative report may reinforce clinical impression. Adenosis and dense breasts may obscure an underlying neoplasm. False positive reports average 6 to 10%. Patient will receive a letter notifying them of these results.
== END 2022-12-28 01:52 ==
LOC: DI 01:32
PROVIDERS: PCP Family Medicine; Visit Provider Nurse Practitioner Family
DX: Z12.31 Encounter for screening mammogram for malignant neoplasm of breast (principal); N60.82 Other benign mammary dysplasias of left breast
CPT/HCPCS: 77063; 77067

== ENCOUNTER 2023-02-10 01:41 | Outpatient (CLI) | payer BC, SELFPAY ==
--- NOTE | 2023-02-10 08:30 | DI.DEXA_ITS ---
Exam(s) XR DEXA BONE DENSITY W/WO ASHLEY EXAM: XR DEXA BONE DENSITY W/WO ASHLEY CLINICAL HISTORY: OSTEOPOROSIS, M81.0 TECHNIQUE: Routine DEXA evaluation of the lumbar spine, hip, or forearm. COMPARISON: Prior DEXA scan September 2005 FINDINGS: Performed on a Holo[employer] unit. Lateral image: No compression fracture evident. Lumbar Spine total T-score: -2.1. Prior 2004 reading was -1.3 Hip total T-score:-1.8. Prior reading in 2004 was -1.0 Independent reading at the level of the femoral neck yields T-score of -1.3 Forearm total T-score: -1.5 IMPRESSION: Bone mineral density measures in the osteopenia range. Fracture risk is moderate. Note: Any spine fracture indicates 5x risk for subsequent spine fracture and 2x risk for subsequent h ip fracture. World Health Organization criteria for BMD interpretation classify patients: Normal...... T- Score at or above -1.0 Osteopenic... T- Score between -1.0 and -2.5 Osteoporosis... T-Score at or below -2.5
== END 2023-02-10 02:01 ==
LOC: DI 01:41
PROVIDERS: PCP Family Medicine; Visit Provider Nurse Practitioner Family
DX: M81.0 Age-related osteoporosis without current pathological fracture (principal)
CPT/HCPCS: 77080

== ENCOUNTER 2023-12-21 07:20 | Outpatient (CLI) | payer BC, SELFPAY | END 2023-12-21 07:21 | disposition home or self-care (01) | PROVIDERS: PCP Family Medicine; Visit Provider Dermatology | DX: L40.9 Psoriasis, unspecified (principal) | CPT/HCPCS: 96900 ==

== ENCOUNTER 2023-12-27 07:31 | Outpatient (CLI) | payer BC, SELFPAY | END 2023-12-27 07:32 | disposition home or self-care (01) | LOC: PUVA 07:31 | PROVIDERS: PCP Family Medicine; Visit Provider Dermatology | DX: L40.0 Psoriasis vulgaris (principal) | CPT/HCPCS: 96900 ==

== ENCOUNTER 2023-12-30 07:15 | Outpatient (CLI) | payer BC, SELFPAY | END 2023-12-30 07:16 | disposition home or self-care (01) | LOC: PUVA 07:15 | PROVIDERS: PCP Family Medicine; Visit Provider Dermatology | DX: L40.9 Psoriasis, unspecified (principal) | CPT/HCPCS: 96900 ==

== ENCOUNTER 2024-01-06 07:07 | Outpatient (CLI) | payer BC, SELFPAY | END 2024-01-06 07:08 | disposition home or self-care (01) | LOC: PUVA 07:07 | PROVIDERS: PCP Family Medicine; Visit Provider Dermatology | DX: L40.9 Psoriasis, unspecified (principal) | CPT/HCPCS: 96900 ==

== ENCOUNTER 2024-01-10 07:16 | Outpatient (CLI) | payer BC, SELFPAY | END 2024-01-10 07:17 | disposition home or self-care (01) | LOC: PUVA 07:16 | PROVIDERS: PCP Family Medicine; Visit Provider Dermatology | DX: L40.9 Psoriasis, unspecified (principal) | CPT/HCPCS: 96900 ==

== ENCOUNTER 2024-01-10 17:16 | Outpatient (REF) | payer BC, SELFPAY ==
[2024-01-10 21:07] LABS: HCT 39.2 % (36.0-46.0); HGB 13.4 g/dL (11.2-15.7); MCH 30.2 pg (27.0-33.0); MCHC 34.2 % (32.0-36.0); MCV 88 fL (80-95); MPV 9.7 fL (8.0-11.0); Platelet Count 336 10^3/uL (130-400); RBC 4.44 10^6/uL (3.93-5.22); RDW 11.9 % (11.7-14.6); RDW-SD 38.5 fL; WBC 8.05 10^3/uL (4.4-10.8)
[2024-01-10 21:27] LABS: ALT 41 U/L (14-59); AST 27 U/L (15-37); Albumin 4.2 g/dL (3.4-5.0); Alkaline Phosphatase 78 U/L (46-116); Anion Gap 8.8 mmol/L (3-11); BUN 17 mg/dL (7-18); Bilirubin, Total 0.2 mg/dL (0.2-1.0); CO2 27.2 mmol/L (21.0-32.0); Calcium 8.9 mg/dL (8.5-10.1); Chloride 101 mmol/L (98-107); Estimated GFR 66.12 (mL/min/1.73m2); Glucose 100 mg/dL (74-106); Potassium 4.2 mmol/L (3.5-5.1); Sodium 137 mmol/L (136-145); TSH (W/Ref FT4) 1.11 uIU/mL (0.36-3.74); Total Protein 7.5 g/dL (6.4-8.2)
[2024-01-10 21:39] LABS: Hemoglobin A1C 5.8 % (<5.7)
[2024-01-10 21:41] LABS: Vitamin D 25 Total 31.4 ng/mL (30-100)
== END 2024-01-10 17:17 | disposition home or self-care (01) ==
LOC: NCHCN 17:16
PROVIDERS: PCP Family Medicine; Visit Provider Nurse Practitioner Family
DX: E66.9 Obesity, unspecified (principal); E55.9 Vitamin D deficiency, unspecified; Z00.00 Encounter for general adult medical examination without abnormal findings
CPT/HCPCS: 80053; 82306; 85027; 83036; 84443

== ENCOUNTER 2024-01-13 07:06 | Outpatient (CLI) | payer BC, SELFPAY | END 2024-01-13 07:07 | disposition home or self-care (01) | LOC: PUVA 07:06 | PROVIDERS: PCP Family Medicine; Visit Provider Dermatology | DX: L40.9 Psoriasis, unspecified (principal) | CPT/HCPCS: 96900 ==

== ENCOUNTER 2024-01-17 07:17 | Outpatient (CLI) | payer BC, SELFPAY | END 2024-01-17 07:18 | disposition home or self-care (01) | LOC: PUVA 07:17 | PROVIDERS: PCP Family Medicine; Visit Provider Dermatology | DX: L40.9 Psoriasis, unspecified (principal) | CPT/HCPCS: 96900 ==

== ENCOUNTER → 2024-01-19 03:40 | Outpatient (CLI) | payer BC, SELFPAY ==
--- NOTE | 2024-01-19 | DI.US_ITS ---
Exam(s) MAMMO DIAGNOSTIC BI US BREAST LT LIMITED EXAM: MAMMO DIAGNOSTIC BI and U/S breast LT limited CLINICAL HISTORY: N64.4 Mastodynia. TECHNIQUE: Craniocaudal and mediolateral oblique Full Field Digital Mammography views with Computer Aided Diagnosis followed by Tomosynthesis and left breast ultrasound. COMPARISON: Comparison is made with prior examinations. FINDINGS: Mammography/Tomosynthesis: Masses/Architectural Distortion: None seen. No areas of architectural distortion or nodules are seen and persist. Microcalcifictions: No suspicious pleomorphic-type are seen. Skin Thickening/Nipple Retraction: None. Limited left breast US: Echotexture: Normal appearance of the glandular tissue. Shadowing: No suspicious foci. Cyst: None. Solid lesions: Benign-appearing lymph nodes are seen in the left axilla. No suspicious cystic or louie id masses are seen in the area of concern. Ductal dilation: None. IMPRESSION: 1. No evidence of malignancy is noted. 2. Unless there is more urgent need, follow-up screening mammography is recommended, as per [employer] guidelines. 3. The findings were discussed with the patient on the date of the examination. BI-RADS Category 1 - Negative Breast Density - Category B - Scattered areas of fibroglandular density Breast density Category C or D implies that the patient has dense breast tissue. Dense breast tissue can make it harder to find cancer on a mammogram. Dense breast tissue is also associated with an incr eased risk of breast cancer. This information about the result of the mammogram report was provided to the patient to raise their awareness. Use this report when you speak with the patient about their risks for breast cancer, which includes their family history. At that time, you may recommend additional screening tests (Ultrasoun d or MRI) as these tests may add significant information. A negative radiographic report should not delay biopsy if a dominant or clinically suspicious mass is present. Up to ten percent of cancers are not identified on mammography. A negative report may reinforce clinical impression. Adenosis and dense breasts may obscure an underlying neoplasm. False positive reports average 6 to 10%. Patient will receive a letter notifying them of these results.
== END ==
PROVIDERS: PCP Family Medicine; Visit Provider Nurse Practitioner Family
DX: N64.4 Mastodynia (principal)
CPT/HCPCS: 76642; 77062; 77066; G0279

== ENCOUNTER 2024-01-20 07:07 | Outpatient (CLI) | payer BC, SELFPAY | END 2024-01-20 07:08 | disposition home or self-care (01) | LOC: PUVA 07:07 | PROVIDERS: PCP Family Medicine; Visit Provider Dermatology | DX: L40.9 Psoriasis, unspecified (principal) | CPT/HCPCS: 96900 ==

== ENCOUNTER 2024-10-31 19:37 | Outpatient (REF) | payer BC, SELFPAY ==
--- OUTSIDE RECORDS SUMMARY | 2024-10-31 19:39 | XMS_ITS | Data Portability ---
Author Organization [place] - [facility], [facility] Address [address] [place] [address] Assessment Encounter Date Assessment Date Assessment LastModified by Organization Details LastModified Time 10/17/2023 10/17/2023 58 yo F with history of psoriasis with quite extensive erythematous papular rash on entirety of torso, upper thighs, a few on arms. There are areas of scale and areas of confluence. There are more classic appearing psoriatic plaques on extensor surface of elbows. On review of records, I note that her initial flare of psoriasis back in 2012 occurred after strep pharyngitis. I wonder if a similar phenomenon is taking place now. Differential includes psoriasis flare (guttate?) vs eczematous drug reaction to cosentyx. Less likely viral exanthem although the spots on her hands are c/w this. I would have expected this to improve by now and not be so extensive on her torso. Less likely drug reaction to antibiotics, does not appear classic for this. Will treat symptomatically with higher dose prednisone and longer taper. She will be more mindful of whether symptoms improve with this. I asked her to call Dr. Cochran's office to see if she can be seen this week. She will let me know what she hears back. I will biopsy her rash if she can't get in with him in the near future, she will return for this. She was comfortable with the plan. [email or web address] Not available 10/17/2023 14:40:24 Plan of Treatment Reminders Order Date Submit Date Provider Last Modified By Organization Details Last Modified Time Details Appointments Acute 10 2024 04:55P Sushil BOURNE Not available Not available Not available Annual Wellness Exam 40 2024 07:30A Sushil RADHA SUPA, Not available Not available Not available Lab TSH, serum, reflex free T4 2023 024 [facility] (Registration ), [address] [place] [address] [place], [address], 01/11/2024 07:48:15 HbA1c (hemoglob in A1c), blood 2023 024 [email or web address] [facility] (Registration ), [address] [place] [address] [place], [address], 01/11/2024 07:48:25 vitamin D, 25-hydrox y, total, serum 2023 024 [email or web address] [facility] (Registration ), [address] [place] [address] [place], [address], 01/11/2024 07:32:35 CBC 2023 024 [email or web address] [facility] (Registration ), [address] [place] [address] [place], [address], 01/11/2024 07:32:35 CMP, serum or plasma 2023 024 [email or web address] [facility] (Registration ), [address] [place] [address] [place], [address], 01/11/2024 07:32:35 influenza virus A + B + SARS-CoV- 2 (COVID19) Ag panel, rapid IA, upper respirato ry specimen 2024 025 [email or web address] [facility], [address] [facility] [address] [facility], [address], [place], [address], 10/31/2024 17:57:34 influenza virus A + B and SARS CoV 2 (COVID-19 ) and RSV RNA panel, COLT+probe , respirato ry specimen 2024 025 [email or web address] [facility] (Registration ), [address] [place] [address] [place], [address], 10/31/2024 18:10:[address] referral [address] [facility], [address] [facility], [place], [address], 03/12/2024 13:50:02 gastroent erologist referral 2023 024 [facility], [address] [place] [address] [place], [address], 07/03/2024 14:22:05 Procedures None recorded. Surgeries None recorded. Imaging MAMMO, screening , bilateral - no to screening questions [address] (Radiology), [address] [place] [address] [place], [address], 01/11/2024 16:09:38 MAMMO, unilatera l, left and US, breast, left - please let me know if these should all be combined into a diagnosti c bilateral mammo and US so I can let the provider know to re order. (she ordered a screening mammo in addition to this order)xin shen - Kristy ext [phone] (Radiology), [address] [place] [address] [place], [address], 01/11/2024 16:09:48 CT, abdomen + pelvis, w/ contrast - 2nd order - auth approved 2023 024 [facility] (Radiology), [address] [place] [address] [place], [address], 05/31/2024 10:44:07 Medication Orders prednison e 20 mg tablet [address] [facility], [address] [facility], [place], [address], 01/10/2024 15:43:45 omeprazol e 20 mg capsule,d elayed release 2023 024 [facility], [address] [place], [address], 05/31/2024 09:03:13 Patient TargetsNo targets recorded. Patient Instructions Encounter Date Encounter Id Patient Instructions Last Modified By Organization Details Last Modified Time 01/10/2024 [id number] diet [email or web address] Not available 01/10 15:20:52 10/31/2024 [id number] 1. Your rapid COVID and flu test are negative. We have sent a COVID, flu, RSV PCR test to the lab which will have results back tomorrow. I will call you as soon as they become available and we will discuss additional management at that time. 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 Referral for Hea ring difficulty Referring Physician: [facility], Encounter Date: 01/10/2024 Mail Sorting Supervisor Referral for Abdominal pain Referring Physician: Radha Matt [facility], Encounter Date: 05/31/2024 Results Created Date Observation Date Name Description Value Unit Range Abnormal Flag Note LastModifiedBy Organization Detail LastModifiedTime 10/06/19 24 10/06/2023 influ caren virus A + B + SARS- CoV-2 (COVI D19) Ag panel , rapid IA, upper respi rator y speci men Influenza A negati ve Not Available [address], [address], 10/06/2023 16:20:37 10/06/19 24 10/06/2023 influ caren virus A + B + SARS- CoV-2 (COVI D19) Ag panel , rapid IA, upper respi rator y speci men Influenza B negati ve Not Available [address], [place], [address], 10/06/2023 16:20:37 10/06/19 24 10/06/2023 influ caren virus A + B + SARS- CoV-2 (COVI D19) Ag panel , rapid IA, upper respi rator y speci men SARS-COV-2 positi ve Not Available [address], [place], [address], 10/06/2023 16:20:37 10/06/19 24 10/06/2023 rapid strep group A, throa t Strep positi ve Not Available [address], [place], [address], 10/06/2023 16:06:43 01/10/20 24 01/10/2024 COMPL ETE BLOOD COUNT NO DIFF WBC 8.05 10_3/ uL 4.4-10 .8 normal Not Available [address] [facility] [place], [address] 01/10/2024 21:11:13 01/10/20 24 01/10/2024 COMPL ETE BLOOD COUNT NO DIFF RBC 4.44 10_6/ uL 3.93-5 .22 normal Not Available [address] [facility] [place], [address] 01/10/2024 21:11:13 01/10/20 24 01/10/2024 COMPL ETE BLOOD COUNT NO DIFF HGB 13.4 g/dL 11.2-1 5.7 normal Not Available [address] [facility] [place], [address] 01/10/2024 21:11:13 01/10/20 24 01/10/2024 COMPL ETE BLOOD COUNT NO DIFF HCT 39.2 % 36.0-4 6.0 normal Not Available [address] [facility] [place], [address] 01/10/2024 21:11:13 01/10/20 24 01/10/2024 COMPL ETE BLOOD COUNT NO DIFF MCV 88 fL 80-95 normal Not Available Lg [address] [place], [address] 01/10/2024 21:11:13 01/10/20 24 01/10/2024 COMPL ETE BLOOD COUNT NO DIFF MCH 30.2 pg 27.0-3 3.0 normal Not Available [address] [place], [address] 01/10/2024 21:11:13 01/10/20 24 01/10/2024 COMPL ETE BLOOD COUNT NO DIFF MCHC 34.2 % 32.0-3 6.0 normal Not Available [address] [place], [address] 01/10/2024 21:11:13 01/10/20 24 01/10/2024 COMPL ETE BLOOD COUNT NO DIFF RDW 11.9 % 11.7-1 4.6 normal Not Available [address] [place], [address] 01/10/2024 21:11:13 01/10/20 24 01/10/2024 COMPL ETE BLOOD COUNT NO DIFF platelet count 336 10_3/ uL 130-40 0 normal Not Available [address] [place], [address] 01/10/2024 21:11:13 01/10/20 24 01/10/2024 COMPL ETE BLOOD COUNT NO DIFF MPV 9.7 fL 8.0-11 .0 normal Not Available [address] [place], [address] 01/10/2024 21:11:13 01/10/20 24 01/10/2024 COMPR EHENS JAYDA METAB OLIC PANEL calcium 8.9 mg/dL 8.5-10 .1 normal Not Available [address] [place], [address] 01/10/2024 21:29:15 01/10/20 24 01/10/2024 COMPR EHENS JAYDA METAB OLIC PANEL glucose 100 mg/dL 74-106 normal Not Available Lg [address] [place], [address] 01/10/2024 21:29:15 01/10/20 24 01/10/2024 COMPR EHENS JAYDA METAB OLIC PANEL BUN 17 mg/dL 7-18 normal Not Available Lg sanchez [address] [place], [address] 01/10/2024 21:29:15 01/10/20 24 01/10/2024 COMPR EHENS JAYDA METAB OLIC PANEL creatinine 1.0 mg/dL 0.55-1 .02 normal Not Available [address] [place], [address] 01/10/2024 21:29:15 01/10/20 24 01/10/2024 COMPR EHENS JAYDA METAB OLIC PANEL estimated GFR 66.12 mL/min /1.73m 2 The eGFR is calcu lated from a serum creat inine using the CKD-E PI 2020 equat ion. Other varia bles requi red for the equat ion are gende r and age; this equat ion does not inclu de a race coeff icien t. This equat ion has simil ar overa ll perfo rmanc e to previ ous equat ions excep t value s may diffe r, in parti cular , in patie nts with highe r value s of eGFR and young er-ag ed adult s. Not Available [address] [place], [address] 01/10/2024 21:29:15 01/10/20 24 01/10/2024 COMPR EHENS JAYDA METAB OLIC PANEL total protein 7.5 g/dL 6.4-8. 2 normal Not Available [address] [place], [address] 01/10/2024 21:29:15 01/10/20 24 01/10/2024 COMPR EHENS JAYDA METAB OLIC PANEL albumin 4.2 g/dL 3.4-5. 0 normal Not Available [address] [place], [address] 01/10/2024 21:29:15 01/10/20 24 01/10/2024 COMPR EHENS JAYDA METAB OLIC PANEL bilirubin, total 0.2 mg/dL 0.2-1. 0 normal Not Available [address] [place], [address] 01/10/2024 21:29:15 01/10/20 24 01/10/2024 COMPR EHENS JAYDA METAB OLIC PANEL alk phos 78 U/L 46-116 normal Not Available [address] [place], [address] 01/10/2024 21:29:15 01/10/20 24 01/10/2024 COMPR EHENS JAYDA METAB OLIC PANEL sodium 137 mmol/ L 136-14 5 normal Not Available [address] [place], [address] 01/10/2024 21:29:15 01/10/20 24 01/10/2024 COMPR EHENS JAYDA METAB OLIC PANEL potassium 4.2 mmol/ L 3.5-5. 1 normal Not Available [address] [place], [address] 01/10/2024 21:29:15 01/10/20 24 01/10/2024 COMPR EHENS JAYDA METAB OLIC PANEL chloride 101 mmol/ L 98-107 normal Not Available [address] [place], [address] 01/10/2024 21:29:15 01/10/20 24 01/10/2024 COMPR EHENS JAYDA METAB OLIC PANEL CO2 27.2 mmol/ L 21.0-3 2.0 normal Not Available [address] [place], [address] 01/10/2024 21:29:15 01/10/20 24 01/10/2024 COMPR EHENS JAYDA METAB OLIC PANEL anion gap 8.8 mmol/ L 3-11 normal Not Available [address] [place], [address] 01/10/2024 21:29:15 01/10/20 24 01/10/2024 COMPR EHENS JAYDA METAB OLIC PANEL AST 27 U/L 15-37 normal Not Available Lg sanchez [address] [place], [address] 01/10/2024 21:29:15 01/10/20 24 01/10/2024 COMPR EHENS JAYDA METAB OLIC PANEL ALT 41 U/L 14-59 normal Not Available Lg sanchez [address] [place], [address] 01/10/2024 21:29:15 01/10/20 24 01/10/2024 TSH (W/RE F FT4) TSH (w/ref FT4) 1.11 uIU/m L 0.36-3 .74 normal Not Available [address] [place], [address] 01/10/2024 21:29:15 01/10/20 24 01/10/2024 HEMOG LOBIN A1C hemoglobin A1C 5.8 % <5.7 high Refer ence Range s <5.7 Elsa l 5.7-6 .4% Predi abete s 6.5% or great er Diagn ostic for diabe marquise (if confi rmed) Refer ences : 1. Ameri can Diabe marquise Assoc iatio n. Clas sific ation and Diagn osis of Diabe marquise. Diabe marquise Care 2019 Oct; 2(Sup pleme nt 1):S1 3-s28 . Not Available [address] [place], [address] 01/10/2024 21:41:17 01/10/20 24 01/10/2024 VITAM IN D 25 TOTAL vitamin D 25 total 31.4 NG/mL 30-100 normal Refer ence Guide lines : Defic ient: <10 ng/ml Insuf ficie nt: 10-30 ng/ml Suffi cient : 30-10 0 ng/ml Toxic : >100 ng/ml Not Available [address] [facility] [place], [address] 01/10/2024 21:48:18 10/31/19 25 10/31/2024 influ caren virus A + B + SARS- CoV-2 (COVI D19) Ag panel , rapid IA, upper respi rator y speci men Influenza A negati ve Not Available [address], [place], [address], 10/31/2024 17:40:38 10/31/19 25 10/31/2024 influ caren virus A + B + SARS- CoV-2 (COVI D19) Ag panel , rapid IA, upper respi rator y speci men Influenza B negati ve Not Available [facility] - [address], [place], [address], 10/31/2024 17:40:38 10/31/19 25 10/31/2024 influ caren virus A + B + SARS- CoV-2 (COVI D19) Ag panel , rapid IA, upper respi rator y speci men SARS-COV-2 negati ve Not Available [facility] - [address], [place], [address], 10/31/2024 17:40:38 01/19/20 24 01/19/2024 MAMMO , diagn ostic , bilat eral Patidiana t Name: Zayda Sanchez Unit #: [id number] Loc: DI [facility] er: Radha Matt t #: [id number] Status : REG CLI Primar y Care Provid er: Radha Kelly Date of Exam: Sex: F Admiss ion Date: : 1964 Age: 58 Exam(s ) MG MAMMO DIAGNO STIC BI US BREAST LT LIMITE D EXAM: MG MAMMO DIAGNO STIC BI and U/S breast LT limite d CLINIC AL HISTOR Y: N64.4 Mastod ynia. TECHNI QUE: Cranio caudal and mediol ateral obliqu e Full Field Digita l Mammog nevaeh views with Comput er Aided Diagno sis follow ed by Mariah carrero s and left breast ultras ound. COMPAR KRISTIN: Compar kristin is made with prior examin ations . FINDIN GS: Mammog nevaeh/ Tomfrankei carrero s: Masses /Archi tectur al Distor tion: None seen. No areas of kalyn ectura l distor tion or nodule s are seen and persis t. Microc alcifi ctions : No suspic ious pleomo rphic- type are seen. Skin Thicke eliel/N ipple Retrac tion: None. Limite d left breast US: Echote xture: Normal appear ance of the glandu lar tissue . Shadow ing: No suspic ious foci. Cyst: None. Solid lesion s: Benign -appea ring lymph nodes are seen in the left axilla . No suspic ious cystic or solid masses are seen in the area of concer n. Ductal dilati on: None. IMPRES AMADA: 1. No eviden ce of malign gisel is noted. 2. Unless there is more urgent need, follow -up screen ing mammog nevaeh is recomm ended, as per [place] [facility] y guidel laura. 3. The findin gs were discus sed with the patien t on the date of the examin ation. BI-RAD S Catego ry 1 - Negati ve Breast Densit y - Catego ry B - Scatte red areas of fibrog landul ar densit y Breast densit y Catego ry C or D implie s that the patien t has dense breast tissue . Dense breast tissue can make it harder to find cancer on a mammog love. Dense breast tissue is also associ ated with an increa sed risk of breast cancer . This inform ation about the result of the mammog love report was provid ed to the patien t to raise their awaren ess. Use this report when you speak with the patien t about their risks for breast cancer , which includ es their family histor y. At that time, you may recomm end additi onal screen ing tests (Ultra sound or MRI) as these tests may add signif icant inform ation. A negati ve radiog raphic report should not delay biopsy if a domina nt or clinic ally suspic ious mass is presen t. Up to ten percen t of cancer s are not identi fied on mammog nevaeh. A negati ve report may reinfo rce clinic al impres amada. Adenos is and dense breast s may obscur e an underl virgilio neopla sm. False positi ve report s averag e 6 to 10%. Patien t will receiv e a letter notify ing them of these result s. Ordere d By: Radha Matt CC: ------ ------ ------ ------ ------ ------ ------ ------ ------ ------ ------ ------ - Dictat ed By: Delgado Adams M.D. 1355 1355 Transc ribed By: Delgado Adams 1355 This is privil eged, confid ential inform ation intend ed only for the provid er named. Any use or distri bution by any person other than this provid er is strict ly prohib ited. If you receiv e this report in error, please notify us immedi ately at [phone] and return the origin al report to us at the addres s above. Thank- you. [email or web address] [facility] [address] [place], [address] 03/01/2024 08:02:02 01/19/20 24 01/19/2024 US, kyle yeung, alberta yeung Name: Zayda Sanchez Unit #: [id number] Loc: DI Orderi ng Provid er: Radha Matt Jazmyn t #: [id number] Status : REG CLI Primar y Care Provid er: RadhaKelly garcia Date of Exam: Sex: F Admiss ion Date: : 1964 Age: 58 Exam(s ) MG MAMMO DIAGNO STIC BI US BREAST LT LIMITE D EXAM: MG MAMMO DIAGNO STIC BI and U/S breast LT limite d CLINIC AL HISTOR Y: N64.4 Mastod ynia. TECHNI QUE: Cranio caudal and mediol ateral obliqu e Full Field Digita l Mammog nevaeh views with Comput er Aided Diagno sis follow ed by Tomosy nthesi s and left breast ultras ound. COMPAR KRISTIN: Compar kristin is made with prior examin ations . FINDIN GS: Mammog nevaeh/ Tomosy nthesi s: Masses /Archi tectur al Distor tion: None seen. No areas of kalyn ectura l distor tion or nodule s are seen and persis t. Microc alcifi ctions : No suspic ious pleomo rphic- type are seen. Skin Thicke eliel/N ipple Retrac tion: None. Limite d left breast US: Echote xture: Normal appear ance of the glandu lar tissue . Shadow ing: No suspic ious foci. Cyst: None. Solid lesion s: Benign -appea ring lymph nodes are seen in the left axilla . No suspic ious cystic or solid masses are seen in the area of concer n. Ductal dilati on: None. IMPRES AMADA: 1. No eviden ce of malign gisel is noted. 2. Unless there is more urgent need, follow -up screen ing mammog nevaeh is recomm ended, as per [place] [facility] [employer] [facility] y guidel laura. 3. The findin gs were discus sed with the patien t on the date of the examin ation. BI-RAD S Catego ry 1 - Negati ve Breast Densit y - Catego ry B - Scatte red areas of fibrog landul ar densit y Breast densit y Catego ry C or D implie s that the patien t has dense breast tissue . Dense breast tissue can make it harder to find cancer on a mammog love. Dense breast tissue is also associ ated with an increa sed risk of breast cancer . This inform ation about the result of the mammog love report was provid ed to the patien t to raise their awaren ess. Use this report when you speak with the patien t about their risks for breast cancer , which includ es their family histor y. At that time, you may recomm end additi onal screen ing tests (Ultra sound or MRI) as these tests may add signif icant inform ation. A negati ve radiog raphic report should not delay biopsy if a domina nt or clinic ally suspic ious mass is presen t. Up to ten percen t of cancer s are not identi fied on mammog nevaeh. A negati ve report may reinfo rce clinic al impres amada. Adenos is and dense breast s may obscur e an underl virgilio neopla sm. False positi ve report s averag e 6 to 10%. Patien t will receiv e a letter notify ing them of these result s. Ordere d By: Radha Matt CC: ------ ------ ------ ------ ------ ------ ------ ------ ------ ------ ------ ------ - Dictat ed By: Delgado Adams M.D. 1355 1355 Transc ribed By: Delgado Adams 1355 This is privil eged, confid ential inform ation intend ed only for the provid er named. Any use or distri bution by any person other than this provid er is strict ly prohib ited. If you receiv e this report in error, please notify us immedi ately at and return the origin al report to us at the addres s above. Thank- you. [email or web address] [facility] [address] [place], [address] 03/01/2024 08:01:39 05/17/2005/17/2024 CT, abdom en + pelvi s, w/ contr ast Patien t Name: Zayda Sanchez Unit #: [id number] Loc: DI Orderi ng Provid er: Kelly Parada Rissayaa t #: [id number] Status : REG CLI Primar y Care Provid er: Radha Matt Date of Exam: Sex: F : 1964 Age: 58 Exam(s ) a CT:CT abdome n pelvis w Exam(s ) CT ABDOME N PELVIS W EXAM: CT ABDOME N PELVIS W CLINIC AL HISTOR Y: R10.9 Unspec ified Abd pain. TECHNI QUE: Imagin g Protoc ol: Axial comput ed tomogr aphy images with mendiola l and sagitt al reform atted images were create d and review ed CONTRA ST MATERI AL: Intrav enous: Omnipa que-35 0 100cc Oral: Yes. Oral contra st was also admini stered for bowel opacif icatio n. COMPAR KRISTIN: CT CT ABDOME N PELVIS W from 2021 FINDIN GS: VISUAL IZED LUNG BASES: No nodule s nor pleura l effusi ons eviden t. ABDOME N: There is no ascite s. LIVER: There are no focal hepati c lesion s eviden t. No dilate d intrah epatic ducts. GALLBL ADDER/ BILIAR Y: No obviou s gallbl adder pathol ogy. CBD is not dilate d. PANCRE : No eviden ce of pancre atic mass nor dilata tion of the pancre atic duct. SPLEEN : Spleen is not enlarg ed. No obviou s intras plenic lesion s. Spleni c and portal veins are patent . ADRENA LS: There are no signif icant adrena l masses . KIDNEY S:2 small cysts measur ing 1 cm both are noted in the left kidney . These benign cysts do not requir e furthe r imagin g workup . There are unchan ged from prior CT scan of 2021. No solid renal masses . No calcul i nor hydron ephros is.. ABDOMI NAL AORTA: Abdomi nal aorta is not enlarg ed. LYMPH NODES: There is no retrop eriton eal nor paraao rtic adenop athy. ABDOMI NAL WALL: Small fat only contai eliel anteri or abdomi nal wall umbili chris hernia . GI: There is no eviden ce of bowel obstru ction, free air, nor absces s. PELVIS : GI: Append ix is not seen and may be surgic ally absent ..Ther e is sigmoi d divert iculi but no eviden ce of acute divert iculit is. LYMPH NODES: There is no intrap elvic nor inguin al adenop athy. REPROD UCTIVE : Uterus is surgic ally absent . There are no abnorm al adnexa l masses and no free fluid in the pelvis . URINAR Y BLADDE R: No calcul i nor obviou s masses eviden t OSSEOU S: No fractu res and no signif icant osseou s lesion s. No disc space narrow ing in the lumbar spine. IMPRES AMADA: 1. No signif icant acute findin gs in the abdome n and pelvis . 2. Sigmoi d divert iculi but withou t eviden ce of acute divert iculit is, as was eviden t on prior CT scan of 2021. 3. Previo us hyster ectomy again noted. No abnorm al adnexa l findin gs. 4. No free fluid. RADIAT ION DOSE DELIVE RED: Total DLP DATA REPOSI TORY: All CT scans at this facili ty are submit jonn to the Nation al Radiol ogy Data Regist ry (NRDR) Dose Index Regist ry (DIR) with the [place] of Radiol ogy (ACR). RADIAT ION OPTIMI ZATION : All CT scans at this facili ty use at least one of these dose optimi zation techni ques: automa jonn exposu re contro l; mA and/or kV adjust ment per patien t size (inclu kunal target ed exams where dose is matche d to clinic al indica tion); or iterat jayda recons tructi on. 003: Total DLP = 0.00 mGy-cm Ordere d By: Kelly Parada CC: ------ ------ ------ ------ ------ ------ ------ ------ ------ ------ ------ ------ ---- Dictat ed By: Jasmeet Ward M.D. 1431 1431 Transc ribed By: Ed HYLTON,Marylu tiana 1431 This is privil eged, confid ential inform ation intend ed only for the provid er named. Any use or distri bution by any person other than this provid er is strict ly prohib ited. If you receiv e this report in error, please notify us immedi fanta at [phone] and return the origin al report to us at the addres s above. Thank- you. [email or web address] [facility] (Radiology) [address] [place] [address] [place], [address], 05/31/2024 10:44:07 06/18/20 24 09/03/2019 imagi ng/sunni sung tic resul t No observ ation record ed. Not Available 06/18 20:26:29 06/18/20 24 09/03/2019 imagi ng/di agnos tic resul t No observ ation record ed. Not Available 06/18 20:26:31 06/18/20 24 08/27/2020 US, breas t No observ ation record ed. Not Available 06/18 20:26:40 06/18/20 24 06/02/2021 XR, chest No observ ation record ed. Not Available 06/18 20:26:41 06/18/20 24 08/22/2020 MAMMO , scree eliel No observ ation record ed. Not Available 06/18 20:26:42 06/18/20 24 08/27/2020 MAMMO , scree eliel No observ ation record ed. Not Available 06/18 20:26:43 06/18/20 24 08/21/2019 MAMMO , scree eliel No observ ation record ed. Not Available 06/18 20:26:45 06/18/20 24 02/24/2021 MAMMO , scree eliel No observ ation record ed. Not Available 06/18 20:26:46 06/18/20 24 12/28/2022 MAMMO , scree eliel No observ ation record ed. Not Available 06/18 20:26:49 06/18/20 24 07/31/2020 CT, abdom en No observ ation record ed. Not Available 06/18 20:26:50 06/18/20 24 06/22/2022 CT, abdom en No observ ation record ed. Not Available 06/18 20:26:51 06/18/20 24 02/10/2023 bone densi ty No observ ation record ed. Not Available 06/18 20:26:54 06/18/20 24 05/12/2022 CT, head or brain No observ ation record ed. Not Available 06/18 20:26:55 06/18/20 24 08/21/2019 imagi ng/di agnos tic resul t No observ ation record ed. Not Available 06/18 20:27:14 06/18/20 24 06/02/2021 imagi ng/di agnos tic resul t No observ ation record ed. Not Available 06/18 20:27:29 06/18/20 24 06/02/2021 imagi ng/di agnos tic resul t No observ ation record ed. Not Available 06/18 20:27:32 Result Notes None recorded. Problems Name Problem SNOMED Code Status Onset Date Resolution Date Notes Provider Name and Address Organization Details Recorded Time Influenz a-like illness 92658044 Active 2024 IONA BOURNE PA-C [facility] , [place], [address] [facility] 5 17:56:36 Fatigue 62739509 [facility] 4 17:24:57 Prematur e menopaus e 602778326 Active 2014 [facility] 4 17:28:00 Bone density finding 796531019 Completed 201412/09/2023 Problem Code: M85.80; Problem Code Type: ICD-10; [facility] 4 17:23:40 Vitamin D deficien cy 63504409 Active 2014 [facility] 4 17:28:44 Gastroes ophageal reflux disease without esophagi tis 410731690 Active 2015 [facility] 4 17:25:04 Adult health examinat ion Active 2015 [facility] 4 17:22:57 Acquired absence of cervix and uterus 956465744 Completed 201512/09/2023 Problem Code: Z90.710; Problem Code Type: ICD-10; [facility] 4 17:22:51 Upper respirat ory tract infectio n caused by Influenz a virus 22011940463 467339 Completed 201712/06/2017 Problem Code: J11.1; Problem Code Type: ICD-10; Not Available [facility] 3 05:36:59 Screenin g mammogra phy Active 2017 [facility] 4 17:28:14 Palpitat ions 73340072 Active 2018 [facility] 4 17:27:45 Generali zed skin eruption caused by drug and medicame nt 777920617 Active 2020 [facility] 4 17:25:22 Paresthe seth 05424154 Active 2020 [facility] 4 17:27:53 Headache 98305552 Active 2021 [facility] 4 17:25:29 Left lower quadrant pain 991680553 Active 2021 [facility] 4 17:26:58 Urinary incontin ence 586318481 Active 2022 [facility] 4 17:28:39 Disorder of ear 08170152 Active 2022 [facility] 4 17:24:50 Hearing loss 92800235 Active 2022 [facility] 4 17:26:02 Digestiv e system finding 592387630 Completed 202212/09/2023 Problem Code: R19.8; Problem Code Type: ICD-10; [facility] 4 17:24:21 Nicotine dependen ce 43267467 Active 2007 [facility] 4 17:27:14 Psoriati c arthriti s 014659178 Active 2012 [facility] 4 17:28:09 Chest pain 72925367 Completed 202012/08/2022 Problem Code: R07.89; Problem Code Type: ICD-10; Not Available [facility] 3 05:37:03 Acute sinusiti s 31436896 Completed 201911/03/2020 Problem Code: J01.90; Problem Code Type: ICD-10; Not Available [facility] 3 05:37:04 Psoriasi s with arthropa thy Completed 201206/29/2023 Problem Code: 696.0; Problem Code Type: ICD-9; Not Available [facility] 3 05:37:04 Exposure to sexually transmis sible disorder Completed 201912/08/2022 Problem Code: Z20.2; Problem Code Type: ICD-10; Not Available [facility] 3 05:37:05 Abnormal weight gain 205725524 Completed 201610/09/2019 Problem Code: R63.5; Problem Code Type: ICD-10; Not Available [facility] 3 05:37:05 Venereal disease screenin g Completed 201911/19/2019 Problem Code: Z11.3; Problem Code Type: ICD-10; Not Available [facility] 3 05:37:06 Breast composit ion 853593557 Completed 201912/08/2022 Not Available [facility] 3 05:37:06 Lower abdomina l pain 05416592 Completed 201710/09/2019 Problem Code: R10.30; Problem Code Type: ICD-10; Not Available [facility] 3 05:37:07 Nodule on toe 512596328 Completed 202012/08/2022 Not Available [facility] 3 05:37:07 Chest pain 89212543 Completed 201811/03/2020 Problem Code: R07.9; Problem Code Type: ICD-10; Not Available [facility] 3 05:37:07 Dizzines s and giddines s 807152792 Completed 201403/09/2016 Problem Code: R42; Problem Code Type: ICD-10; Not Available [facility] 3 05:37:07 Acute pharyngi tis 717860162 Completed 201503/09/2016 Problem Code: J02.9; Problem Code Type: ICD-10; Not Available [facility] 3 05:37:08 Abdomina l pain 74219988 Completed 201911/03/2020 Problem Code: R10.9; Problem Code Type: ICD-10; KELLY PARADA MD [address], [place], [address] , [facility] 4 14:28:12 Edema 276931415 Completed 201403/09/2016 Problem Code: R60.9; Problem Code Type: ICD-10; Not Available [facility] 3 05:37:08 Viral disease 92752283 Completed 201510/09/2019 Problem Code: B97.89; Problem Code Type: ICD-10; Not Available [facility] 3 05:37:09 Epigastr ic pain 65935286 Completed 201506/29/2023 Problem Code: R10.13; Problem Code Type: ICD-10; Not Available [facility] 3 05:37:09 Senile osteopor osis 52501036 Completed 201406/29/2023 10/09/19 20 - Comments only - Radha PALUMBO - We did not discuss suppleme ntation at today's visit, will recommen d suppleme ntation with vitamin D and calcium with call back with STD/vagi nal pathogen results. Problem Code: M81.0; Problem Code Type: ICD-10; Not Available [facility] 3 05:37:09 Noninfla mmatory disorder of the vagina 93211060 Completed 201911/03/2020 Problem Code: N89.8; Problem Code Type: ICD-10; Not Available [facility] 3 05:37:10 Adult health examinat ion Completed 201403/09/2016 Problem Code: Z00.00; Problem Code Type: ICD-10; [facility] 4 17:22:57 Tobacco dependen ce syndrome 28565242 Completed 200706/29/2023 Problem Code: 305.1; Problem Code Type: ICD-9; Not Available [facility] 3 05:37:11 COVID-19 399601630 Completed 202312/09/2023 [facility] 4 17:23:46 Streptoc occal sore throat 01485474 Completed 202312/09/2023 [facility] 4 17:28:33 Psoriasi s 3289914 Active 2023 CAIO SMITH CMA [facility] 4 12:35:31 Total hysterec cristina Completed 201512/09/2023 [facility] 4 17:28:19 Osteopen ia 694763241 Active 2014 [facility] 4 17:23:36 Irregula r bowel habits 667300485 Active 2022 [facility] 4 17:24:19 Obesity 207771058 Active [address], [place], [address] , [facility] 16:00:18 Hearing difficul ty 073628677 Active [address], [place], [address] , [facility] 16:07:56 Pain of left breast 5051925174 Active [address], [place], [address] , [facility] 15:15:00 Abdomina l pain 86081362 Active 2023 Problem Code: R10.9; Problem Code Type: ICD-10; MD [address], [facility] [address] , [facility] 14:28:12 Celiac disease 630870286 Active 2023 [facility], [facility] 07:58:23 Problem Notes None recorded. Procedures Surgical History None recorded. Imaging Results Imaging Date Name Status LastModified by Organiz ation Details LastModified Time 01/19/2024 MAMMO, diagnostic, bilateral completed [email or web address] [address] [place], [address] 03/01/2024 08:02:02 01/19/2024 US, breast, unilateral completed [email or web address] [address] [place], [address] 03/01/2024 08:01:39 05/17/2024 CT, abdomen + pelvis, w/ contrast completed [email or web address] [facility] (Radiology) [address] [place] [address] [place], [address], 05/31/2024 10:44:07 09/03/2019 imaging/diagnos tic result completed Information not available 06/18/2024 20:26:29 09/03/2019 imaging/diagnos tic result completed Information not available 06/18/2024 20:26:31 08/27/2020 US, breast completed Information no t available 06/18/2024 20:26:40 06/02/2021 XR, chest completed Information no t available 06/18/2024 20:26:41 08/22/2020 MAMMO, screening completed Information not available 06/18/2024 20:26:42 08/27/2020 MAMMO, screening completed Information not available 06/18/2024 20:26:43 08/21/2019 MAMMO, screening completed Information not available 06/18/2024 20:26:45 02/24/2021 MAMMO, screening completed Information not available 06/18/2024 20:26:46 12/28/2022 MAMMO, screening completed Information not available 06/18/2024 20:26:49 07/31/2020 CT, abdomen completed Information n ot available 06/18/2024 20:26:50 06/22/2022 CT, abdomen completed Information n ot available 06/18/2024 20:26:51 02/10/2023 bone density completed Information not available 06/18/2024 20:26:54 05/12/2022 CT, head or brain completed Information not available 06/18/2024 20:26:55 08/21/2019 imaging/diagnos tic result completed Information not available 06/18/2024 20:27:14 06/02/2021 imaging/diagnos tic result completed Information not available 06/18/2024 20:27:29 06/02/2021 imaging/diagnos tic result completed Information not available 06/18/2024 20:27:32 Procedure Notes None recorded. Medical Equipment None Reported. Allergies Allergen ID Allergen Name Allergen Category Reaction Reaction Severity Criticality Documentation Date Start Date Code Code System Note Provider Name and Address Organization Details Recorded Time 33434 clindamyc in hydrochlo ride medicatio n hives mild Not available 08/12/20232011 85553 RxNorm hives Not Available [facility] 3 16:19:18 96974 Product containin g penicilli n and antibioti c (product) medicatio n hives mild Not available 08/12/20232007 66134 05 SNOMED Nicolas Vogel [facility], [facility] 4 17:20:32 50347 Humira medicatio n Not available Not available Not available 10/11/2023 08858 4 RxNorm ABIDA SINGH [facility] 4 17:31:57 94489 Enbrel medicatio n Not available Not available Not available 10/11/2023 34301 1 RxNorm ABIDA SINGH [facility] 4 17:32:04 72365 Remicade medicatio n Not available Not available Not available 10/11/2023 93567 0 RxNorm ABIDA SINGH [facility], [facility] 4 17:32:11 83274 Taltz medicatio n Not available Not available Not available 10/11/2023 90590 04 RxNorm ABIDA SINGH [facility] 4 17:32:22 19116 shellfish derived food,medi cation Not available Not available Not available 10/11/2023 92106 UNK ABIDA SINGH [facility], [facility] 4 17:32:56 52279 cephalexi n medicatio n rash moderate Not available 10/11/20232023 2231 RxNorm LINWOOD LEMON [address], [place], [address] [place] [address] 4 19:08:41 Medications Name Sig Start Date Stop Date Status Note LastModified by Organization Details LastModified Time Protonix 40 mg tablet,de layed release Take 1 tab by mouth daily 11/22 completed per [facility] Not Available Not Available Not Available nicotine 14 mg/24 hr daily transderm al patch patch daily 09/06 completed Not Available Not Available Not Available clindamyc in HCl 300 mg capsule 1 tab qid 03/14 completed Not Available Not Available Not Available azithromy penny 250 mg tablet Take 1 tablet every day by oral route for 4 days. 10/17 completed Not Available Not Available Not Available methotrex ate 2.5 mg tablet 1 TAB EVERY WEEK 03/13 completed Not Available Not Available Not Available ibuprofen 800 mg tablet 1 tab three times daily 07/12 completed Not Available Not Available Not Available prednison e 20 mg tablet TAKE 3 TABLETS BY MOUTH ONCE A DAY FOR 3 DAYS, TAKE 2 TABLETS FOR 3 DAYS, THEN 1 TABLET ONCE A DAY FOR 3 DAYS THEN 1/2 TABLET ONCE A DAY FOR 01/09 completed Not Available Not Available Not Available metronida zole 500 mg tablet Take 1 tab by mouth twice daily 11/19 completed Not Available Not Available Not Available hydroxyzi ne HCl 50 mg tablet Take 1 tablet by mouth every six hours as needed 05/14 completed Not Available Not Available Not Available triamcino lone acetonide 0.1 % topical cream APPLY A THIN LAYER TO THE AFFECTED AREA(S) BY TOPICAL ROUTE 2 TIMES PER DAY 01/09 completed Not Available Not Available Not Available ketorolac 10 mg tablet Take 1 tablet by mouth every six hours as needed Do not take aleve, advil or ibuprofe n during treatmen t. Take with food. 12/08 completed Not Available Not Available Not Available methotrex ate sodium 2.5 mg tablet TAKE 8 TABLETS BY MOUTH ONE DAY A WEEK 01/09 completed Not Available Not Available Not Available hydrocodo ne-acetam inophen 500-5 mg tablet 1 tab q hs 12/13 completed Not Available Not Available Not Available cephalexi n 500 mg capsule Take 1 capsule twice a day by oral route for 10 days. 10/11 completed Not Available Not Available Not Available omeprazol e 20 mg capsule,d elayed release TAKE ONE CAPSULE BY MOUTH EVERY DAY active Not Available Not Available No t Available cyclospor ine modified 100 mg capsule 01/09 completed Not Available Not Available Not Available doxycycli ne hyclate 100 mg tablet Take 1 tab by mouth twice daily 11/29 completed Not Available Not Available Not Available loratadin e 10 mg tablet 12/08 completed OTC Not Available Not Available Not Available naproxen 500 mg tablet 1 TAB twice daily 03/13 completed Not Available Not Available Not Available cyclospor ine 100 mg capsule Take 1 capsule twice a day by oral route. 01/09 completed Not Available Not Available Not Available azithromy penny 500 mg tablet administ ered in office 10/13 completed Medicati on checked by Dolly Yancey [employer] Administ ered by Abida Singh RN,BSN Not Available Not Available Not Available Cortispor in 4 DROPS four times daily 07/22 completed Not Available Not Available Not Available Vicodin 5 mg-300 mg tablet 1 .tid 09/01 completed Not Available Not Available Not Available Cosentyx 150 mg/mL subcutane ous syringe inject contents of 2 pens once weekly for 4 weeks, then inject 2 at week 4 and then every 4 weeks heriberto cuevas 2018 [facility] Not Available Not Available Not Avai lable Cosentyx 10/13 completed Not Available Not Available Not Available Cosentyx Pen 300 mg/2 Pens (150 mg/mL) subcutane ous active Not Available Not Available Not Available Paxlovid 300 mg (150 mg x 2)-100 mg tablets in a dose pack Nirnetre lvir 300 mg with ritonavi r 100 mg, administ ered together , twice daily for 5 days 05/14 completed Not Available Not Available Not Available molnupira vir 200 mg capsule (EUA) Take 4 capsules every 12 hours by oral route for 5 days. 10/11 completed Not Available Not Available Not Available Vitals Date Recorded Body height Body mass index (BMI) Body weight Body temperature Oxygen saturation Oxygen saturation in Arterial blood by Pulse oximetry Heart rate Respiratory rate Systolic blood pressure Diastolic blood pressure Provider Name and Address Organization Details Last Updated DateTime 4 161.925 cm 30.4 kg/m2 06280.2 6 g 97.3 [degF] 97 % 97 % 90 /min 18 /min 140 mm[Hg] 80 mm[Hg] ROBIN LOVE RN [facility] 4 11:55:36 Date Recorded Body height Oxygen saturation Oxygen saturation in Arterial blood by Pulse oximetry Heart rate Body temperature Body mass index (BMI) Body weight Systolic blood pressure Diastolic blood pressure Provider Name and Address Organization Details Last Updated DateTime 4 161.925 cm 97 % 97 % 85 /min 97.3 [degF] 31.5 kg/m2 28540.0 9 g 128 mm[Hg] 90 mm[Hg] Inessa Lawrence RN [facility] 4 15:46:32 Date Recorded Body height Body mass index (BMI) Body weight Body temperature Heart rate Oxygen saturation Oxygen saturation in Arterial blood by Pulse oximetry Respiratory rate Provider Name and Address Organization Details Last Updated DateTime 4 161.925 cm 31 kg/m2 59108.0 3 g 96.9 [degF] 87 /min 97 % 97 % 20 /min IDALIA BRIDGES CMA [facility] 4 14:13:37 Date Recorded Systolic blood pressure Diastolic blood pressure Provider Name and Address Organization Details Last Updated DateTime 05/09/2024 126 mm[Hg] 84 mm[Hg] KELLY PARADA MD [address], [place], [address], [facility] 05/09/2024 16:00:18 Date Recorded Body height Body mass index (BMI) Body weight Body temperature Oxygen saturation Oxygen saturation in Arterial blood by Pulse oximetry Heart rate Respiratory rate Systolic blood pressure Diastolic blood pressure Provider Name and Address Organization Details Last Updated DateTime 4 161.92 cm 31.1 kg/m2 43248.8 3 g 97.6 [degF] 98 % 98 % 90 /min 22 /min 140 mm[Hg] 88 mm[Hg] Rachel Astudillo RN [facility] 4 08:33:11 Date Recorded Body height Body mass index (BMI) Body weight Body temperature Respiratory rate Oxygen saturation Oxygen saturation in Arterial blood by Pulse oximetry Heart rate Systolic blood pressure Diastolic blood pressure Provider Name and Address Organization Details Last Updated DateTime 161.92 cm 31.1 kg/m2 57181.8 3 g 99.1 [degF] 19 /min 97 % 97 % 97 /min 158 mm[Hg] 107 mm[Hg] Trinh Dowd RN [facility] 17:13:31 Social History Question Answer Notes LastModified by Organizat ion Details LastModified Time Tobacco Smoking Status Former Smoker DANITZA Meng, [facility] 10/06/2023 15:54:31 Do You Or Have You Ever Used E-cigarettes Or Vape? Current User Of Electronic Cigarettes Information not available 01/10/2024 When Did You Quit Smoking? 1-5yearssindonald [place] Information not available 01/10/2024 Would You Say That, In General, Your Health Is Good Information not available 01/10/2024 How Often Does Anyone, Including Family, Physically Hurt You? Never Information not available 01/10/2024 How Often Does Anyone, Including Family, Insult Or Talk Down To You? Never Information no t available 01/10/2024 How Often Does Anyone, Including Family, Threaten You With Harm? Never Information not available 01/10/2024 How Often Does Anyone, Including Family, Scream Or Curse At You? Never Information not available 01/10/2024 Within The Past 12 Months, You Worried That Your Food Would Run Out Before You Got Money To Buy More. Never True Information n ot available 01/10/2024 Within The Past 12 Months, The Food You Bought Just Didn't Last And You Didn't Have Money To Get More. Never True Information n ot available 01/10/2024 How Hard Is It For You To Pay For The Very Basics Like Food, Housing, Medical Care, And Heating? Would You Say It Is: Not Hard At All Information not available 01/10/2024 In The Past 12 Months, Has Lack Of Reliable Transportation Kept You From Medical Appointments, Meetings, Work Or From Getting Things Needed For Daily Living? No [facility] Information not available 01/10/2024 What Is Your Housing Situation Today? I Have Housing. Information not available 01/10/2024 How Often In The Past Year Have You Used Marijuana (including Smoking, Vaping, Dabbing, Or Edibles)? Never Information not available 01/10/2024 How Often In The Past Year Have You Used Prescription Medications That Were Not Prescribed To You? Never Information n ot available 01/10/2024 How Often In The Past Year Have You Taken Your Own Prescription Medication More Than The Way It Was Prescribed Or For Different Reasons Than Its Intended Purpose? Never Information no t available 01/10/2024 How Often In The Past Year Have You Used Other Drugs (for Example, Heroin, Cocaine, Meth, Salvia, Inhalants)? Never Information not available 01/10/2024 Have You Ever Used IV Drugs? No [facility] Information not available 01/10/2024 Date Of Most Recent SBINS 01/10/2024 Information not available 01/10/2024 What Was The Date Of Your Most Recent Tobacco Screening? 10/31/2024 Information not available 10/31/2024 Has Tobacco Cessation Counseling Been Provided? Yes Information not available 01/10/2024 On What Date Was Tobacco Cessation Counseling Provided? 10/31/2024 Information not available 10/31/2024 Do You Or Have You Ever Used Any Other Forms Of Tobacco Or Nicotine? [facility] not [facility] 01/10/2024 Sex: Female Functional Status None recorded. Mental Status None recorded. Family History Relationship Description Onset Age of this Age Resolved Age Notes LastModified by Organization Details LastModified Time Mother Family history of malignant neoplasm pancre atdony [email or web address] Not available 08/12/2023 03:55:03 Notes:*Problem: Mother: dece ased age 62 from pancreatic cancer, h/o celiac disease Father: age 59 cause alcohol related Sisters: older sister- some non-cancerous pancreatic problem ; older sister with thyroid problem, thinks hyper. Brothers: older Children: 3 healthy Family History of: Coronary heart disease: no Diabetes mellitus: yes paternal grandmother Alcoholism: yes Medical History No medical history recorded. Gynecological HistoryNo gynecological history recorded. Obstetrics History GPAL:G 0 P 0 0 0 0 Immunizations Vaccine Type Date Status Note Provider Nam e and Address Organization Details Recorded Time Td (adult), 5 Lf tetanus toxoid, preservative free, adsorbed 8 completed Not Available [facility] 08/12/2023 05:04:23 Tdap 8 completed Not Available [facility] 08/12/2023 05:04:24 Influenza, split virus, trivalent, preservative 7 completed Not Available [facility] 08/12/2023 05:04:26 Influenza, split virus, quadrivalent, PF 8 completed Not Available [facility] 08/12/2023 05:04:26 Influenza, split virus, quadrivalent, PF 0 completed Not Available [facility] 08/12/2023 05:04:27 COVID-19 vaccine, vector-nr, rS-Ad26, PF, 0.5 mL 1 completed Not Available [facility] 08/12/2023 05:04:28 pneumococcal polysaccharide PPV23 8 completed Not Available [facility] 08/12/2023 05:04:29 influenza, unspecified formulation 5 completed Not Available [facility] 08/12/2023 05:04:30 influenza, unspecified formulation 5 completed Not Available [facility] 08/12/2023 05:04:30 influenza, unspecified formulation 7 completed Not Available [facility] 08/12/2023 05:04:30 Past Encounters Encounter ID Performer Location Encounter Start Date Encounter Closed Date Diagnosis/Indication Diagnosis SNOMED-CT Code Diagnosis ICD10 Code Diagnosis Note [id number] IONA BOURNE PA-C [address] [address] 10/06/2023 15:41:14 10/06/2023 16:42:27 Streptococcal sore throat 46662987 J02.0 Patient developed ill symptoms 2 days ago with sore throat and fevers as high as 102 responsive to Tylenol. She has been exposed to many things at work and at home including COVID and strep and some other unknown viruses. Unfortunat li she is positive today for both COVID and strep. Her throat is red, swollen without signs of peritonsil lar abscess. No concerns for airway compromise . She will be started on cephalexin 5 mg twice daily x 10 days given allergy to clindamyci n and penicillin . COVID-19 [id number] U07.1 Sore throat and fever currently only her symptoms for COVID. She does not have a cough. She is immune compromise d and on Cosentyx. Because of this I think she is an excellent candidate for molnupirav ir especially given that we are now having difficulty obtaining this medication . I did confirm that the [facility] in [place] has 3 remaining boxes and I have sent prescripti on for this in an effort to help hold it for her as I think she is very much a candidate for this medication . She would like to treat with this if possible. She understand s she will need to take it twice a day for total of 5 days and its job is to help reduce the severity of symptoms. If she develops any new or worsening concerning symptoms or is not improving she is encouraged to seek reevaluati on as needed. Otherwise I reviewed with her current CDC guidelines with states she should stay home and quarantine day 0 through 5 which for her will be October 09. Day 6 through 10 can return to public setting but should wear a mask all the way through day 10 which for her will be October 14. Work note has been provided. [id number] LINWOOD LEMON [address] [address] 10/11/2023 17:21:42 10/11/2023 19:10:20 Antibacterial drug adverse reaction [id number] T36.95XA 58 year old female with recent COVID and strep illness, has completed 5 day antiviral, and 5 days of cephalexin . Developed a diffuse pruritic rash to hands, arms, trunk, and upper thighs. Today, rash strongly suggestive of drug reaction, and patient does have an existing PCN allergy. Will treat with 5 day prednisone burst, and stop cephalexin . Streptococ chris sore throat [id number] J02.0 Patient does need to complete entire treatment course for strep. Will switch to azithromyc in X 5 days. [id number] RADHA MATT [address] [address] 10/13/2023 14:09:08 10/13/2023 15:05:03 Generalized rash [id number] R21 Encouraged to continue prednisone script prescribed by urgent care (40mg x 5 days.) Rash is likely to be viral in nature but could also be related to keflex. Less likely, related to strep infection. She has no sore throat at this time. I don't think we need to address incomplete treatment of strep. She could simply be a carrier. Should she devlelop sore throat in coming days she should let us know. Patient given strict precaution s to follow-up for any change in rash appearance or developmen t of new symptoms. [id number] CARMEN LAZO MD [address] [address] 10/17/2023 11:47:26 10/17/2023 12:29:42 Pruritic rash [id number] L28.2 [id number] RADHA MATT [address] [address] 01/10/2024 15:26:57 01/10/2024 16:36:08 Screening mammography [id number] Z12.31 Obesity [id number] E66.9 01/10/2024: Frustrated that she has not lost with despite working out regularly and changing her diet. I do think it is likely that she would benefit from more cardiovasc ular exercise. She may also benefit from an increase in protein and calories. She is open to considerin g referral to dietitian in the future, would like to rule out thyroid involvemen t and pursue current strategies for another month. Adult heal th examination [id number] Z00.00 01/10/2024: Annual exam completed at today's visit. [facility] COVID-19 VACCINATIO N: Declines SHINGLES VACCINATIO N: Declines TETANUS VACCINATIO N: Administer ed 2018. CERVICAL CANCER SCREENING: s/p hysterecto my. MAMMOGRAM: Odered today. COLONOSCOP Y: Due 2027. LIPIDS: Last completed 2023, low ASCVD risk. (1.9%) Hearing difficulty [id number] H91.90 Vitamin D deficiency [id number] E55.9 Pain of left breast [id number] N64.4 01/10/2024: Pain in the left upper outer quadrant of the breast present for 2 months, made worse with palpation. She is due for screening mammogram. Will order LEFT side as diagnostic . [id number] KELLY PARADA MD [address] [address] 05/09/2024 14:06:04 05/09/2024 14:37:53 Abdominal pain [id number] R10.9 Zayda comes in today with worsening abdominal pain. She is able to eat and she is not vomiting. There is recommende d that she stick with a bland diet until this is feeling better. She should avoid fatty foods entirely. She is using some Metamucil and she can continue to do that the see if it will help her empty her colon. We are going to get her set up for a CT scan of her abdomen and pelvis. If the pain gets worse she should present to the emergency room. She is going to try a couple set up to see if she can get her bowels working. She is going to watch her temperatur e as well. She is not having any bloody stools or black tarry stools and she is not having any dysuria. She also has no fever. Patient will schedule a follow-up appointmen t after the CT scan. [id number] LINWOOD ESPARZA [address] [address] 05/31/2024 08:25:54 05/31/2024 09:12:38 Abdominal pain [id number] R10.9 05/31/2024: I suspect that some of her stomach discomfort is related to untreated GERD. I recommend she restart omeprazole 20mg daily. I also recommend that she research FODMAP diet in the interest of tracking foods that may be aggravatin g her symptoms. I would recommend likely upper endoscopy and colonoscop y but will defer to gastroente rology. Her last colonoscop y in 2018 showed some abnormalit y of the small intestines including active erosive peptic duodenitis , small bowel reactive changes, with mucin cell metaplasia among other findings. At that time she stopped eating gluten. [id number] [address] [place] [address] 10/31/2024 17:05:23 10/31/2024 17:56:56 Influenza-like illness [id number] B34.9 Patient developed sudden onset of influenza- like symptoms beginning last night but really progressin g today. Lung exam is reassuring without findings to suggest pneumonia. She has been exposed to influenza as well as COVID and RSV. She is immune compromise d and is interested in additional PCR testing in the event that something is positive she may be candidate for antivirals . I have performed a COVID, flu, RSV PCR and she understand s her results be back tomorrow at which point I will call her to discuss additional management . In the meantime she will rest and drink plenty of fluids. Health Concerns Section Related Observation LastModified by Organization Detai ls LastModified Time None Recorded Concern Status LastModified by Organization Details LastModified Time None Recorded Advance Directives Directive None Recorded Payers Encounter Date Sequence Insurance Name Policy Number Policy Leach Covered Member ID Leach Member ID Guarantor Name 10/17/2023 1 [place] [facility] [id number] Zayda M Pelow [id number] Zayda M Pelow 01/10/2024 1 [place] [facility] [id number] Zayda M Pelow [id number] Zayda M Pelow 05/09/2024 1 [place] [facility] [id number] Zayda M Pelow [id number] Zayda M Pelow 05/31/2024 1 [place] [facility] [id number] Zayda M Pelow [id number] Zayda M Pelow 10/31/2024 1 [place] [facility] [id number] Zayda M Pelow [id number] Zayda M Pelow Notes Date Note Type Note Provider Name and Address Organization Details Recorded Time 10/17/2023 text/html Presents for morgan oing rash.Was seen on 10/06 for fever, sore throat. Tested pos for strep and covid.Treated with cephalexin and molnupiravir.Develope d a rash on 10/11, started with itchiness on hands and then progressed to rash all over torso and upper legs, see pictures from express care visit on 10/11. Was treated as drug reaction with prednisone 40mg for 5 days.Seen in our office on 10/13 with ongoing rash. Was advised to give the prednisone more time.Was in the ED on 10/16, was told likely viral exanthem, possibly HFM. Tested for syphilis as well. Was given dose of toradol. This just made her tired. She feels her hands are swollen, the rash is worse if anything on her torso. Not sure if the prednisone helped much but perhaps the burning sensation of the rash is worse off of it.Mostly the rash yeung. Itchy at times. Nights are worse. She is very tired. When busy she is able to focus on other things. No other focal symptoms. Of note, she has a history of psoriasis for which she takes Cosentyx. Sees dermatology, Dr. Cochran. Has had multiple reactions to other treatment options for psoriasis.Feels some of the spots of the rash are similar to her psoriasis flares. CARMEN LAZO MD [address], [place], [address], [facility]. 10/17/2023 14:40:39 01/10/2024 text/html Rafael is here to day for annual exam. She is frustrated that she is unable to lose weight. Most recently she has been working out 3-4 days per week (more strength training than cardio) and has made drastic changes to her diet. She has noticed that she has more toned, but she has not lost weight LINWOOD ESPARZA [address], [place], [address], [facility]. 01/11/2024 15:22:10 05/09/2024 text/html Zayda is a 58-year-old female who comes in today because she has been having abdominal pain for the last several weeks off and on and the last several days fairly constant. I does not seem to matter what she eats she is having a small number of bowel movements but she is not emptying her colon. She does have a history of diverticulosis and to have an episode of diverticulitis but this does not feel the same way. She is not having any fevers or chills she is somewhat nauseous and she is not eating as much. She states that the pain can radiate towards her back. She is urinating normally there is no dysuria. Patient is not having any black or tarry stools some of the stools are pretty dry and concentrated. And some are watery. KELLY PARADA MD [address], [place], [address], [facility]. 05/09/2024 16:04:58 05/31/2024 text/html The patient pres ents with a chief complaint of crampy abdominal pain, similar to the onset of labor pain, radiating and sometimes shooting across at a level five intensity. She reports inconsistent bowel movements, including difficulty going, pellet-like stools, diarrhea, and long, skinny stools. The patient never feels like her bowel is empty. She has a history of diverticulitis and has been experiencing these bowel issues since her hospitalization for the condition. The patient is frustrated with her weight gain and believes her issues are based in the gut.The patient has tried changing her diet, working out, and increasing water intake to address her symptoms. She has been gluten-free for a while due to celiac disease and has also cut out dairy. The patient prepares her food in advance to avoid unhealthy choices. She has tried to stop eating yogurt and dairy to see if it helps with her symptom with good effect.She did try omeprazole for her symptoms which she found to be beneficial, but prefers not to take medications. LINWOOD ESPARZA [address], [place], [address], [facility]. 05/31/2024 10:42:38 10/31/2024 text/html Zayda is a 59-year-old female who presents with ill symptoms that began yesterday but became much more pronounced today. She felt a little bit off yesterday but today has developed subjective fevers and chills, body aches, dry cough, headache and sore throat. She feels like throat is related to coughing. She has had nausea no vomiting. A little bit of diarrhea. Decreased appetite but drinking fluids well. She denies chest pain or shortness of breath. Has not been wheezing but does endorse chest feels heavy. She was exposed to her son-in-law who was positive for flu last week and she has a granddaughter who is currently at [facility] because of RSV and COVID with Kawasaki's. My patient is immune compromised and is asking for additional testing in the event that she may need antiviral medications. IONA BOURNE PA-C [address], [place], [address], [facility]. 10/31/2024 17:57:31 OBGyn Episode No OBEpisode recorded.
--- OUTSIDE RECORDS SUMMARY | 2024-10-31 19:40 | XMS_ITS | Encounter Summary ---
[place] [address] Care Team Providers Care Principal Android Developer Name Role Phone Suha De La Paz MD Primary Care Provider [phone] Reason for Visit * Reason Comments Rash Encounter Details Date Type Department Care Team (Late st Contact Info) Description 10/18/2023 2:00 PM EST Office Visit Dermatology at [address] [place] [address] Steve Cochran MD [address] [facility], [facility] A DERMATOLOGY [place], [place] [id number] Psoriasis Social History Tobacco Use Types Packs/Day Years Used Date Smoking Tobacco: Every Day Cigarettes Smokeless Tobacco: Never Alcohol Use Standard Drinks/Week Comments No 0 (1 standard drink = 0.6 oz pur e alcohol) Sex and Gender Information Value Date Recorded Sex Assigned at Not on file Gender Identity Not on file Sexual Orientation Not on file documented as of this encounter Progress Notes * Steve Cochran MD - 10/18/2023 2:00 PM EST Problems: 1. On Cosentyx since December 2019 2. Unable to tolerate Tremfya 3. Trial of Taltz October 2019 with allergic reaction 4. On Cosentyx since March 2019 through September 2019 5. Status post trial of Stelara with limited benefit October 2015 6. Status post allergic reaction to REMICADE infusion, August 2015. 7. On cyclosporin 100 mg b.i.d., June 2014 through July 2015. 8. Status post trials of Humira in January 2014 and Enbrel in May 2014 with subsequent flaring on both. 9. History of psoriasis in both mother and father. 10. Previously on methotrexate/prednisone for psoriatic arthritis with fair control of arthritis but not of skin. 11. Patient with celiac disease avoiding gluten Zayda follows up with an acute dermatitis that is just developed in the last few weeks. She recently had both COVID and strep pharyngitis on October 06. She has been treated with antibiotics. She then developed a dermatitis that yeung and stings on her chest and back. She also has palmar plantar involvement with erythematous macules. She is very very uncomfortable Physical examination reveals guttate psoriasis, widespread, with as of yet no palmar plantar pustulosis. She does however have a erythematous macules present on the hands on the hands and soles of feet. She is very uncomfortable with this and stands because sitting and sitting the clothing rubs andirritates. Assessment plan: Guttate psoriasis 1. 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 Continue Cosentyx 2. Begin cyclosporine modified 100 mg take 1 p.o. twice daily dispense #60 with 1 refill 3. Begin triamcinolone 0. 1% cream apply twice daily to affected areas 1 pound jar dispensed with 1refill 4. Begin prescribed for course of prednisone taking 20 mg 3 tablets once a day for 3 days 2 tabletsonce a day for 3 days 1 tablet once a day for 3 days then one half of a tablet a day for 4 days then DC. She is already picked this prescription up from the [facility] and the [facility]. 5. Return to clinic in a month for repeat check. Will then taper down off of cyclosporine. Note: Insurance requires [place] for cyclosporine which she has been on before. She needs something now.Will start her first on methotrexate taking 8 of the 2.5 mg tablets p.o. 1 day a week. Dispense 32 with 1 refill CC: Suha Messer MD documented in this encounter Plan of Treatment Upcoming Encounters Date Type Department Care Team (Late st Contact Info) Description 05/06/2025 4:15 PM EDT Office Visit Dermatology at [address] [place] [address] Steve Cochran MD [address], [place] [address] documented as of this encounter Visit Diagnoses Diagnosis Psoriasis Other psoriasis documented in this encounter Care Teams Principal Android Developer Relationship Specialty Start Date End Date Suha De La Paz MD [address] [place] [address] PCP - General Family Medicine 10/17/23 documented as of this encounter
--- OUTSIDE RECORDS SUMMARY | 2024-10-31 19:40 | XMS_ITS | Encounter Summary ---
Author Organization [facility] Address [address] [place] [address] Care Team Providers Care Frog Shaker Name Role Phone Gentry Morrison MD Primary Care Provider Unav ailable Encounter Details Date Type Department Care Team (Latest Contact Info) Description 05/12/2018 17:33 EDT - 05/12/2018 23:59 EDT Hospital Encounter [address] [address] Unknown, Provider, Discharge Disposition: Home or Self Care Social History Tobacco Use Types Packs/Day Years Used Date Smoking Tobacco: Never Assessed Comments Unknown Sex and Gender Information Value Date Recorded Sex Assigned at Not on file Legal Sex Female 18:12 EST Gender Identity Not on file Sexual Orientation Not on file documented as of this encounter Discharge Disposition Disposition Code Departure Means Destination Home or Self Alf documented in this encounter Plan of Treatment Not on file documented as of this encounter Visit Diagnoses Not on filedocumented in this encounter Care Teams Frog Shaker Relationship Specialty Start Date End Date Gentry Morrison MD PCP - General 08/15/15 documented as of this encounter
--- OUTSIDE RECORDS SUMMARY | 2024-10-31 19:40 | XMS_ITS | Encounter Summary ---
Author Organization [facility] [place] [address] Care Team Providers Care Slide Developer Name Role Phone Kelly Garcia MD Primary Care Provider [phone] Reason for Visit * Reason Comments Psoriasis Encounter Details Date Type Department Care Team (Late st Contact Info) Description 07/13/2021 4:00 PM EDT Office Visit Dermatology at [address] [place] [address] Steve Cochran MD [address] [facility], [place] [address] Psoriasis Social History Tobacco Use Types Packs/Day [...] Progress Notes * Steve Cochran MD - 07/13/2021 4:00 PM EDT Problems: 1. Back on Cosentyx since December 2019 2.?? Unable to tolerate Tremfya 3. ??Trial of Taltz October 2019 with allergic reaction 4. ??On??Cosentyx??since March 2019??through September 2019 5.?Status post trial of Stelara with limited benefit October 2015 6.??Status post allergic reaction to REMICADE infusion, August 2015. 7.?On cyclosporin 100 mg b.i.d., June 2014 through July 2015. 8.?Status post trials of Humira in January 2014 and Enbrel in May 2014 with subsequent flaring on both. 9.??History of psoriasis in both mother and father. 10. ??Previously on methotrexate/prednisone for psoriatic arthritis with fair control of arthritis but not of skin. 11. ??Patient with celiac disease avoiding gluten Zayda follows up for repeat check. She is things are going well for her with the Cosentyx. Her arthritis is well controlled and her psoriasis is clear. Occasion she will have a few erythematous papules on the palms of her hands reminiscent of her presentation with pustular palmar plantar psoriasisthat is now been quiescent. She continues to have a fair amount of stress at work which may be causing some intermittent itching she will have at scattered locations for short time but without activedermatitis. Physical examination confirms that she has some faint erythema over the hypothenar eminences of both hands bilaterally and a little bit of erythema over the palmar fingertips distally. She has no active stigmata of psoriasis. Her skin is well controlled Assessment and plan: Psoriasis and psoriatic arthritis back oncocytic since December 2019 1. Continue Cosentyx 150 mg pens inject into subcutaneously once every 4 weeks 2. Return to clinic another 6 months for repeat check. CC: Kelly Garcia MD documented in this encounter Plan of Treatment Upcoming Encounters Date Type Department Care Team (Late st Contact Info) Description 05/06/2025 4:15 PM EDT Office Visit Dermatology at [place] [address] [place] [address] Steve Cochran MD [address] [facility], [place] [address] documented as of this encounter Visit Diagnoses Diagnosis Psoriasis Other psoriasis documented in this encounter Care Teams Slide Developer Relationship Specialty Start Date End Date Kelly Garcia MD [address] [place] [address] PCP - General Family Medicine 07/10/20 10/16/23 documented as of this encounter
--- OUTSIDE RECORDS SUMMARY | 2024-10-31 19:40 | XMS_ITS | Encounter Summary ---
Author Organization [facility] [place] [address] Care Team Providers Care Tobacco Cutter Name Role Phone Kelly Garcia MD Primary Care Provider [phone] Reason for Visit * Reason Comments Medication Refill Encounter Details Date Type Department Care Team (Late Contact Info) Description 03/27/2023 Refill Dermatology at [address] [phone] Steve Cochran MD [address] [place] [address] Social History Tobacco Use Types Packs/Day Years Used Date Smoking Tobacco: Every Day Cigarettes Smokeless Tobacco: Never Alcohol Use Standard Drinks/Week Comments No 0 (1 standard drink = 0.6 oz pur e alcohol) Sex and Gender Information Value Date Recorded Sex Assigned at Not on file Gender Identity Not on file Sexual Orientation Not on file documented as of this encounter Plan of Treatment Upcoming Encounters Date Type Department Care Team (Late st Contact Info) Description 05/06/2025 4:15 PM EDT Office Visit Dermatology at [address] [phone] Steve Cochran MD [address] [place] [address] documented as of this encounter Visit Diagnoses Not on filedocumented in this encounter Care Teams Tobacco Cutter Relationship Specialty Start Date End Date Kelly Garcia MD [address] [place] [address] PCP - General Family Medicine 07/10/20 10/16/23 documented as of this encounter
--- OUTSIDE RECORDS SUMMARY | 2024-10-31 19:40 | XMS_ITS | Encounter Summary ---
Author Organization [facility] [place] [address] Care Team Providers Care Soaker Name Role Phone Kelly Garcia MD Primary Care Provider [phone] Reason for Visit * Reason Comments Psoriasis Encounter Details Date Type Department Care Team (Late st Contact Info) Description 04/25/2023 4:15 PM EDT Office Visit Dermatology at [address] [place] [address] Steve Cochran MD [address] [facility], PRANAV A DERMATOLOGY [place], [place] [id number] Psoriasis Social History Tobacco Use Types Packs/Day [...] Progress Notes * Steve Cochran MD - 04/25/2023 4:15 PM EDT Problems: 1. Back on Cosentyx since December 2019 2. Unable to [...] disease avoiding gluten Zayda follows up for her repeat check. She is doing beautifully with Cosentyx. She has no active psoriasis. She has taken a lower stress position at her work. She is not suffering from any psoriaticarthritis. She is trying she is enjoying her grandchildren. There is now a third granddaughter only2 months old. She is tolerating the Cosentyx well, using the pen. Physical examination reveals a pleasant 57 woman with a benign examination of the face the hands arms elbows and knees without any active stigmata of psoriasis. Her hands are clear. She states that occasionally she will get some papules some pustular lesions on the palms. These are short-lived and heal quickly. Assessment plan: Psoriasis and psoriatic arthritis well-controlled Cosentyx since December 2019 1. Continue Cosentyx injecting 2 of the 150 mg pens subcutaneously every 4 weeks. Dispense 6 of the1 mL pens for a 3-month supply with 3 refills 2. Return to clinic in another year for repeat check. CC: Kelly Garcia MD documented in this encounter Plan of Treatment Upcoming Encounters Date Type Department Care Team (Late st Contact Info) Description 05/06/2025 4:15 PM EDT Office Visit Dermatology at [place] [address] [facility] [place] [address] Steve Cochran MD 580 [facility], [place] [address] documented as of this encounter Visit Diagnoses Diagnosis Psoriasis Other psoriasis documented in this encounter Care Teams Soaker Relationship Specialty Start Date End Date Kelly Garcia MD [address] [place] [address] PCP - General Family Medicine 07/10/20 10/16/23 documented as of this encounter
--- OUTSIDE RECORDS SUMMARY | 2024-10-31 19:40 | XMS_ITS | Encounter Summary ---
[place] [address] Care Team Providers Care Paper Final Inspector Name Role Phone Kelly Garcia MD Primary Care Provider [phone] Encounter Details Date Type Department Care Team (Latest Contact Info) Description 04/25/2023 Travel Social History Tobacco Use Types Packs/Day Years [...] 4:15 PM EDT Office Visit Dermatology at [address] [place] [address] Steve Cochran MD [address] [address], [place] [address] documented as of this encounter Visit Diagnoses Not on filedocumented in this encounter Care Teams Paper Final Inspector Relationship Specialty Start Date End Date Kelly Garcia MD [address] [place] [address] PCP - General Family Medicine 07/10/20 10/16/23 documented as of this encounter
--- OUTSIDE RECORDS SUMMARY | 2024-10-31 19:40 | XMS_ITS | Encounter Summary ---
[place] [address] Care Team Providers Care Correctional Officer Captain Name Role Phone Kelly Garcia MD Primary Care Provider [phone] Reason for Visit * Reason Comments Prior Authorization Cosentyx sensoready (300 M 150 SOAJ Encounter Details Date Type Department Care Team (Late st Contact Info) Description 10/26/2022 Specialty [place] [address] Charu Peng, [facility] Social History Tobacco Use Types Packs/Day Years [...] as of this encounter Progress Notes * Charu Londono - 10/26/2022 10:14 AM EST [facility], Medication Prior Authorization Submission Patient: Zayda Sanchez Patient : 1965 Patient Address: [address] [place] [phone] (home) Medication Name: COSENTYX PEN 300 MG/2 PENS (150 MG/ML) SUBCUTANEOUS Medication ID: [id number] Subscriber Insurance: Subscriber Insurance Comment: [facility] (IRX) Phone: Fax: Physician: GUANACO BRUNNER Physician Comment: Sent Via: [facility] [place] Morales: [id number] Ref/Case/PA#: Medication Strength Frequency Requested: INJECT 300MG SUBCUTANEOUSLY EVERY 4 WEEKS Qty/Day Supply: 11/30 New Start: Renewal Diagnosis & ICD-10 Code: Psoriasis L40.9 Patient Notified: Submission Notes: None Charu Londono 10/26/22 10:16 AM * Charu Londono - 10/26/2022 10:14 AM EST [facility], Prior Authorization Approval Medication Name: COSENTYX PEN 300 MG/2 PENS (150 MG/ML) SUBCUTANEOUS Medication ID: [id number] Approval Dates: 10/05/2022 to 04/04/2023 Insurance requirements/notes: None Other Notes: - Per pt, she wants to continue getting med from her pharmacy Case/Reference #: [id number] Approval notification Received via: Fax Copay: Copay assistance: Copay Notes: Insurance mandated Pharmacy: [facility] Fillable at [facility]: Yes Pharmacy staff will be reaching out to the patient to inform them of their medication[facility]. If applicable, a pharmacist will speak with the patient to offer our specialty pharmacy services and to arrange delivery of their medication. Charu Londono 10/26/22 2:40 PM documented in this encounter Plan of Treatment Upcoming Encounters Date Type Department Care Team (Late st Contact Info) Description 05/06/2025 4:15 PM EDT Office Visit Dermatology at [address] [address] Guanaco Brunner MD [address], [place] [address] documented as of this encounter Visit Diagnoses Not on filedocumented in this encounter Care Teams Correctional Officer Captain Relationship Specialty Start Date End Date Kelly Garcia MD [address] [place] [address] PCP - General Family Medicine 07/10/20 10/16/23 documented as of this encounter
--- OUTSIDE RECORDS SUMMARY | 2024-10-31 19:40 | XMS_ITS | Encounter Summary ---
[place] [address] Care Team Providers Care Drilling Rig Operator Name Role Phone Kelly Garcia MD Primary Care Provider [phone] Encounter Details Date Type Department Care Team (Late Contact Info) Description 11/27/2020 Refill Dermatology at [address] [address] Steve Cochran MD [address] [place] [address] Social History Tobacco Use Types Packs/Day Years [...] 4:15 PM EDT Office Visit Dermatology at [address] [address] Steve Cochran MD [address] [place] [address] documented as of this encounter Visit Diagnoses Not on filedocumented in this encounter Care Teams Drilling Rig Operator Relationship Specialty Start Date End Date Kelly Garcia MD [address] [place] [address] PCP - General Family Medicine 07/10/20 10/16/23 documented as of this encounter
--- OUTSIDE RECORDS SUMMARY | 2024-10-31 19:40 | XMS_ITS | Encounter Summary ---
[place] [address] Care Team Providers Care Dealer Sales Rep Name Role Phone Suha De La Paz MD Primary Care Provider [phone] Reason for Visit * Reason Comments Medication Refill Encounter Details Date Type Department Care Team (Late st Contact Info) Description 10/05/2024 Refill Dermatology at [place] [address] [facility] [place] [phone] Steve Cochran MD [address] [facility] [address], PRANAV A DERMATOLOGY [place], [place] [id number] Social History Tobacco Use Types Packs/Day Years Used Date Smoking Tobacco: Former Cigarettes Smokeless Tobacco: Never Alcohol Use Standard Drinks/Week Comments No 0 (1 standard drink = 0.6 oz pur e alcohol) once per month Sex and Gender Information Value Date Recorded Sex Assigned at Not on file Gender Identity Not on file Sexual Orientation Not on file documented as of this encounter Miscellaneous Notes * Telephone Encounter - Linsey Ozuna RN - 10/05/2024 8:27 AM EST Received request for refill of Cosentyx for patient from [facility]. Patient last seen on 05/03/2024. Patient has follow up on 05/06/2025. Patient last had prescription filled on 10/24/2023. Patient being treated for psoriasis. Renew prescription till follow up appointment 05/06/2025. Cosentyx 300mg (150mg/ml) subcutaneous solution auto-Injector. Inject 300mg subcutaneously every 4 weeks. Disp 2 ml. With 7 refills. This should last patient till her follow up on 05/06/2025. documented in this encounter Plan of Treatment Upcoming Encounters Date Type Department Care Team (Late st Contact Info) Description 05/06/2025 4:15 PM EDT Office Visit Dermatology at [place] [address] [facility] [place] [address] Steve Cochran MD 580 [facility], [place] [address] documented as of this encounter Visit Diagnoses Not on filedocumented in this encounter Care Teams Dealer Sales Rep Relationship Specialty Start Date End Date Suha De La Paz MD [address] [place] [address] PCP - General Family Medicine 10/17/23 documented as of this encounter
--- OUTSIDE RECORDS SUMMARY | 2024-10-31 19:40 | XMS_ITS | Encounter Summary ---
[place] [address] Care Team Providers Care Printing Table Worker Name Role Phone Suha De La Paz MD Primary Care Provider [phone] Reason for Visit * Reason Comments Prior Authorization Cosentyx Sensoready 150mg/ml SOAJ Encounter Details Date Type Department Care Team (Late st Contact Info) Description 10/21/2023 Specialty [place] [phone] Adelaida Silvestre, GIG TENDER Social History Tobacco Use Types Packs/Day Years [...] as of this encounter Progress Notes * Adelaida Silvestre - 10/21/2023 11:57 AM EST [facility], Medication Prior Authorization Submission Patient: Zayda Sanchez Patient : 1965 Patient Address: [address] [place] [phone] Phone: [phone] (home) Medication Name: COSENTYX PEN 300 MG/2 PENS (150 MG/ML) SUBCUTANEOUS Medication ID: [id number] Subscriber Insurance: [facility] Subscriber Insurance Comment: Fax: Physician: GUANACO BRUNNER Physician Comment: Sent Via: [facility] Morales: [id number] Ref/Case/PA#: Medication Strength Frequency Requested: Cosentyx 150mg/ml, INJECT THE CONTENTS OF TWO PENS (200 MG) SUBCUTANEOUSLY EVERY 4 WEEKS Qty/Day Supply: New Start: Renewal Diagnosis & ICD-10 Code: Psoriasis L40.9 Patient Notified: No Submission Notes: None Adelaida Silvestre 10/21/23 12:02 PM * Adelaida Silvestre - 10/21/2023 11:57 AM EST [facility], Prior Authorization Approval Medication Name: COSENTYX PEN 300 MG/2 PENS (150 MG/ML) SUBCUTANEOUS Medication ID: [id number] Approval Dates: 10/05/2022 to 10/02/2039 Insurance requirements/notes: None Other Notes: None Case/Reference #: [id number] Approval notification Received via: Fax Copay: Copay assistance: Copay Notes: Insurance mandated Pharmacy: [facility] Fillable at [facility]: No Patient Notified: Left [facility] Pharmacy staff will be reaching out to the patient to inform them of their medication's approval [facility]. If applicable, a pharmacist will speak with the patient to offer our specialty pharmacy services and to arrange delivery of their medication. Adelaida Silvestre 10/24/23 9:49 AM * Adelaida Silvestre - 10/21/2023 11:57 AM EST Prescription for Cosentyx sensoready 300mg (150mg/ml) SOAJ must be pended to [facility] due to insurance mandate. Please pend a new rx for future fills to be placed on file to provider Guanaco Brunner. Thank you, Adelaida Silvestre 10/24/23 9:50 AM documented in this encounter Plan of Treatment Upcoming Encounters Date Type Department Care Team (Late st Contact Info) Description 05/06/2025 4:15 PM EDT Office Visit Dermatology at [address] [place] [address] Guanaco Brunner MD [address] [facility], [place] [address] documented as of this encounter Visit Diagnoses Not on filedocumented in this encounter Care Teams Printing Table Worker Relationship Specialty Start Date End Date Suha De La Paz MD [address] [place] [address] PCP - General Family Medicine 10/17/23 documented as of this encounter
--- OUTSIDE RECORDS SUMMARY | 2024-10-31 19:40 | XMS_ITS | Encounter Summary ---
[facility] [place] [place] [address] Care Team Providers Care Palliative Care Specialist Name Role Phone Kelly Garcia MD Primary Care Provider [phone] Reason for Visit * Reason Comments Follow-up Encounter Details Date Type Department Care Team (Late st Contact Info) Description 04/20/2022 4:45 PM EDT Office Visit Dermatology at [address] [address] Steve Cochran MD [address] [facility], [place] [address] Psoriasis Social History Tobacco Use Types Packs/Day [...] Progress Notes * Steve Cochran MD - 04/20/2022 4:45 PM EDT Problems: 1. ??Back on Cosentyx since December 2019 2.?Unable to tolerate Tremfya 3. ??Trial of Taltz October 2019 with allergic reaction 4.?On??Cosentyx??since March 2019??through September 2019 5.?Status post trial of Stelara with limited benefit October 2015 6.??Status post allergic reaction to REMICADE infusion, August 2015. 7.?On cyclosporin 100 mg b.i.d., June 2014 through July 2015. 8.?Status post trials of Humira in January 2014 and Enbrel in May 2014 with subsequent flaring on both. 9.??History of psoriasis in both mother and father. 10.?Previously on methotrexate/prednisone for psoriatic arthritis with fair control of arthritis but not of skin. 11.?Patient with celiac disease avoiding gluten Zayda follows up for a repeat check. She is doing beautifully with the Cosentyx. She has taken a lower stress job at work, she is working out, she is not suffering from any psoriatic arthritis and is able to enjoy her grandchildren she now has a second granddaughter. Her skin remains clear. She tolerated Cosentyx without any side effects. He like a general skin checkup today as well Physical examination confirms clear skin MRI dark beard and minimal erythema on the hypothenar eminences of both hands bilaterally. She has no active stigmata of psoriasis. Her psoriasis is well controlled. Examination of the head and neck the chest the back the hands are formed thighs and calves is benign. She has solar lentigos present one on the right t jawline, 1 on the upper bridge of her nose, and 1 her left cheek. She has a moderate beard. Assessment plan: Psoriasis and psoriatic arthritis controlled on Cosentyx since December 2019 1. Continue Cosentyx injecting 2 of the 150 mg pens subcutaneously every 4 weeks. Dispense 6 of the1 mL pens for a 3-month supply with 3 refills. 2. Return to clinic in a year for repeat check on her progress Benign skin examination 1. Patient reassured about her benign skin examination 2. Encouraged sun avoidance precautions 3. Discussed the option of hydroquinone prescription cream for early solar lentigos on her right jawline bridge of nose and left cheek. CC: Kelly Garcia MD documented in this encounter Plan of Treatment Upcoming Encounters Date Type Department Care Team (Late st Contact Info) Description 05/06/2025 4:15 PM EDT Office Visit Dermatology at [address] [place] [address] Steve Cochran MD [address] [address], [place] [address] documented as of this encounter Visit Diagnoses Diagnosis Psoriasis Other psoriasis documented in this encounter Care Teams Palliative Care Specialist Relationship Specialty Start Date End Date Kelly Garcia MD [address] [place] [address] PCP - General Family Medicine 07/10/20 10/16/23 documented as of this encounter
--- OUTSIDE RECORDS SUMMARY | 2024-10-31 19:40 | XMS_ITS | Encounter Summary ---
Author Organization [facility] [place] [address] Care Team Providers Care Antenna Machine Operator Name Role Phone Kelly Garcia MD Primary Care Provider [phone] Reason for Visit * Reason Comments Medication Refill Encounter Details Date Type Department Care Team (Late Contact Info) Description 02/25/2022 Refill Dermatology at [address] [phone] Steve Cochran MD [address] [place] [address] Social History Tobacco Use Types Packs/Day Years [...] 4:15 PM EDT Office Visit Dermatology at [address] [address] Steve Cochran MD [address] [place] [address] documented as of this encounter Visit Diagnoses Not on filedocumented in this encounter Care Teams Antenna Machine Operator Relationship Specialty Start Date End Date Kelly Garcia MD [address] [place] [address] PCP - General Family Medicine 07/10/20 10/16/23 documented as of this encounter
--- OUTSIDE RECORDS SUMMARY | 2024-10-31 19:40 | XMS_ITS | Encounter Summary ---
[place] [address] Care Team Providers Care Block Saw Operator Name Role Phone Kelly Garcia MD Primary Care Provider [phone] Encounter Details Date Type Department Care Team ([facility] Contact Info) Description 02/04/2022 Telephone Dermatology at [address] [place] [address] Latoya Briggs LPN Social History Tobacco Use Types Packs/Day Years [...] encounter Miscellaneous Notes * Telephone Encounter - Latoya Briggs LPN - 02/04/2022 8:06 AM EDT Pt tested for COVID five days ago. Negative. MD prescribed medication Paxlovid. She's scheduled forCosentyx injection today. Is it alright to take the injection as scheduled? Reviewed with Dr. Cochran. Recommendation to continue with scheduled Cosentyx injection. Advised patient she can continue with Cosentyx injection today as scheduled. She voiced understanding. documented in this encounter Plan of Treatment Upcoming Encounters Date Type Department Care Team ([facility] Contact Info) Description 05/06/2025 4:15 PM EDT Office Visit Dermatology at [place] [address] [facility] [address] [place] [address] Steve Cochran MD [address], [place] [address] documented as of this encounter Visit Diagnoses Not on filedocumented in this encounter Care Teams Block Saw Operator Relationship Specialty Start Date End Date Kelly Garcia MD [address] [place] [address] PCP - General Family Medicine 07/10/20 10/16/23 documented as of this encounter
--- OUTSIDE RECORDS SUMMARY | 2024-10-31 19:40 | XMS_ITS | Encounter Summary ---
[place] [address] Care Team Providers Care Boat Finisher Name Role Phone Suha De La Paz MD Primary Care Provider [phone] Encounter Details Date Type Department Care Team (Late st Contact Info) Description 07/04/2024 Telephone [place] [address] Perez Linder Social History Tobacco Use Types Packs/Day Years [...] encounter Miscellaneous Notes * Telephone Encounter - Perez Linder - 07/04/2024 6:06 PM EDT RAC letter sent with scheduling information for ordered testing. Pt needs: EGD/D[place] JENNIFER CGC no sooner than 3 weeks after testing - Recall entered. * Telephone Encounter - Perez Linder - 07/04/2024 6:06 PM EDT ----- Message from Rohini Mccarty sent at 07/03/2024 9:40 AM EDT ----- Please schedule: EGD/Dover -JENNIFER, 60 minutes, CGC no sooner than 3 weeks following testing. Thanks, Rohini documented in this encounter Plan of Treatment Upcoming Encounters Date Type Department Care Team (Late st Contact Info) Description 05/06/2025 4:15 PM EDT Office Visit Dermatology at [place] [address] [place] [address] Steve Cochran MD [address] [facility] [address], [place] [address] documented as of this encounter Visit Diagnoses Not on filedocumented in this encounter Care Teams Boat Finisher Relationship Specialty Start Date End Date Suha De La Paz MD [address] [place] [address] PCP - General Family Medicine 10/17/23 documented as of this encounter
--- OUTSIDE RECORDS SUMMARY | 2024-10-31 19:40 | XMS_ITS | Encounter Summary ---
[place] [address] Care Team Providers Care All Around Patternmaker Name Role Phone Kelly Garcia MD Primary Care Provider [phone] Encounter Details Date Type Department Care Team (Late st Contact Info) Description 01/15/2021 3:30 PM EDT TH Visit (TeleHealth) Dermatology at [place] [address] [facility] [place] [address] Steve Cochran MD [address] [facility], [place] [address] Psoriasis Social History Tobacco Use Types Packs/Day [...] Progress Notes * Steve Cochran MD - 01/15/2021 3:30 PM EDT Problems: 1. Back on Cosentyx since December 2019 2. Unable to tolerate Tremfya 3. Trial of Taltz October 2019 with allergic reaction 4. ??On Cosentyx??since March 2019 through September 2019 5.?Status post trial of Stelara with limited benefit October 2015 6. Status post allergic reaction to REMICADE infusion, August 2015. 7. ??On cyclosporin 100 mg b.i.d., June 2014 through July 2015. 8. ??Status post trials of Humira in January 2014 and Enbrel in May 2014 with subsequent flaring on both. 9. History of psoriasis in both mother and father. 10. ??Previously on methotrexate/prednisone for psoriatic arthritis with fair control of arthritis but not of skin. 11. ??Patient with celiac disease avoiding gluten 12. telehealth telephone platform visit Zayda follows up and is back on Cosentyx. Today we are utilizing the telehealth telephone platform she has not been able to get the Cosentyx starter kit, although that is what I had written the prescription for. 2 days ago we sent out a prescription for the regular once monthly dosing, 3-month supply. She states that her psoriasis is doing well and her joints are improving. She will occasionally need to take Tylenol/Advil. She is working doing multiple tasks at work but able to keep up withthings and function. Assessment plan: Psoriasis and psoriatic arthritis, back on Cosentyx since December 2019 1. Now resume the Cosentyx 150 mg pens, inject 2 subcutaneously once every 4 weeks. 2. Expect further improvement with patient symptoms as she continues on this medication 3. Recommend once yearly follow-ups. CC: Kelly Garcia MD documented in this encounter Plan of Treatment Upcoming Encounters Date Type Department Care Team (Late st Contact Info) Description 05/06/2025 4:15 PM EDT Office Visit Dermatology at [place] [address] [facility] [place] [address] Steve Cochran MD [address] [facility], [place] [address] documented as of this encounter Visit Diagnoses Diagnosis Psoriasis Other psoriasis documented in this encounter Care Teams All Around Patternmaker Relationship Specialty Start Date End Date Kelly Garcia MD [address] [place] [address] PCP - General Family Medicine 07/10/20 10/16/23 documented as of this encounter
--- OUTSIDE RECORDS SUMMARY | 2024-10-31 19:40 | XMS_ITS | Encounter Summary ---
[place] [address] Care Team Providers Care Funeral Attendant Name Role Phone Suha De La Paz MD Primary Care Provider [phone] Encounter Details Date Type Department Care Team (Latest Contact Info) Description 10/18/2023 Travel Social History Tobacco Use Types Packs/Day [...] 4:15 PM EDT Office Visit Dermatology at [address] [address] Steve Cochran MD [address] [facility], [place] [address] documented as of this encounter Visit Diagnoses Not on filedocumented in this encounter Care Teams Funeral Attendant Relationship Specialty Start Date End Date Suha De La Paz MD [address] [place] [address] PCP - General Family Medicine 10/17/23 documented as of this encounter
--- OUTSIDE RECORDS SUMMARY | 2024-10-31 19:40 | XMS_ITS | Encounter Summary ---
Author Organization [facility] Address [facility] [place] [address] Care Team Providers Care Felt Finishing Supervisor Name Role Phone Suha De La Paz MD Primary Care Provider Encounter Details Date Type Department Care Team (Late st Contact Info) Description 10/21/2023 Refill Dermatology at [address] [place] [address] Linsey Ozuna RN Social History Tobacco Use Types Packs/Day Years [...] Telephone Encounter - Linsey Ozuna RN - 10/21/2023 2:53 PM EST Patient was seen by Dr. Cochran on 10/18/2023. She was placed on Cyclosporine modified by Dr. Cochran and was informed by [facility] in [facility] that the medication is on back order and not sure when they will get it in. Contacted [facility] in [place] and they have the medication. Will change the prescription from [facility] in [facility] to [facility] in [place]. Cyclosporine modified 100mg take 1 capsule by mouth twice daily dispense 60 with 1 refill. Patient called and informed this.She stated that she did start taking the methotrexate per prescription on 10/18/2023 and wanted to know if she should be taking both. Discussed with Dr. Cochran and his recommendation is for the patient to take the cyclosporine modified and the methotrexate till her follow up with Dr. Cochran on 11/18/2023. Patient informed and she stated that she understood. Patient stated also that she does get her[facility]x at [facility]. She is due her injection 11/06/2023. New Prescription sent [place] [facility] [place] Pre Auth on 10/18/2023. documented in this encounter Plan of Treatment Upcoming Encounters Date Type Department Care Team (Late st Contact Info) Description 05/06/2025 4:15 PM EDT Office Visit Dermatology at [place] [address] [place] [address] Steve Cochran MD [address] [facility], [place] [address] documented as of this encounter Visit Diagnoses Not on filedocumented in this encounter Care Teams Felt Finishing Supervisor Relationship Specialty Start Date End Date Suha De La Paz MD [address] [place] [address] PCP - General Family Medicine 10/17/23 documented as of this encounter
--- OUTSIDE RECORDS SUMMARY | 2024-10-31 19:40 | XMS_ITS | Encounter Summary ---
Author Organization Formerly [facility] [place] [address] Care Team Providers Care [employer] Name Role Phone Suha De La Paz MD Primary Care Provider [phone] Reason for Visit * Auth/Cert (Routine) Specialty Diagnoses / Procedures Referred By Contac t Referred To Contact Diagnoses Gastroesophageal reflux disease, unspecified whether esophagitis present Celiac disease Abdominal bloating Change in bowel habits GERD, Celiac disease. Small intestine, duodenum, biopsy. hx acute erosive peptic duodenitis, small bowel reactive changes, with mucin cell metaplasia among other findings. Procedures PRO UPPER GI ENDOSCOPY, DIAGNOSTIC PRO COLONOSCOPY, DIAGNOSTIC PRO UPPER GI ENDOSCOPY, BIOPSY PRO UP GI ENDOSCOPY, REMV TUMOR, SNARE PRO COLONOSCOPY, BIOPSY PRO COLONOSCOPY, REMV LESN, SNARE EGD, UPPER GI ENDOSCOPY (WRVU 2.09) COLONOSCOPY, DIAGNOSTIC (WRVU 3.26) Jayde Sandoval MD [facility] [place] [address] [facility] Referral ID Status Reason Start Date Expiration Date Visits Re quested Visits Authorized [id number] 1 1 Encounter Details Date Type Department Care Team (Latest Contact Info) Description 07/20/2024 1:51 PM EDT - 07/20/2024 6:10 PM EDT Hospital Encounter [place] [address] Jayde Sandoval MD [facility] DR GASTROENTEROLOG [place], [place] [id number] Gastroesophageal reflux disease, unspecified whether esophagitis present; Change in bowel habits; Celiac disease; Abdominal bloating Discharge Disposition: Home Social History Tobacco Use Types Packs/Day Years Used Date Smoking Tobacco: Former Cigarettes Smokeless Tobacco: Never Tobacco Cessation:Counseling Given: Not Answered Alcohol Use Standard Drinks/Week Comments No 0 (1 standard drink = 0.6 oz pur e alcohol) once per month Sex and Gender Information Value Date Recorded Sex Assigned at Not on file Gender Identity Not on file Sexual Orientation Not on file documented as of this encounter Last Filed Vital Signs Vital Sign Reading Time Taken Comments Blood Pressure 123/82 07/20/2024 5:50 PM EDT Pulse 75 07/20/2024 3:24 PM EDT Temperature 36 ??C (96.8 ??F) 07/20/2024 3:24 PM EDT Respiratory Rate 18 07/20/2024 5:50 PM EDT Oxygen Saturation 100% 07/20/2024 5:50 PM EDT Inhaled Oxygen Concentration - - Weight 80.3 kg (177 lb) 07/20/2024 3:24 PM EDT Height 162.6 cm (5' 4) 07/20/2024 3:24 PM EDT Body Mass Index 30.38 07/20/2024 3:24 PM EDT documented in this encounter Discharge Instructions * Discharge Instructions* Melanie Laura RN - 07/20/2024 5:33 PM EDT Upper Endoscopy (EGD) and Colonoscopy: What to Expect at Home Your Recovery After you have an EGD and colonoscopy, you will stay at the clinic for 1 to 2 hours until the medicines wear off. Then you can go home. But you will need to arrange for a ride. Your doctor will tell you when you can eat and do your other usual activities. Your doctor will talk to you about when you will need your next colonoscopy. Your doctor can help you decide how often you need to be checked. This will depend on the results of your test and your risk for colorectal cancer. You may have a sore throat for a day or two after the test. After the test, you may be bloated or have gas pains. You may need to pass gas. If a biopsy was done or a polyp was removed, you may have streaks of blood in your stool (feces) for a few days. Problems such as heavy rectal bleeding may notoccur until several weeks after the test. This isn't common. But it can happen after polyps are evelyn meng. This care sheet gives you a general idea about how long it will take for you to recover. But each person recovers at a different pace. Follow the steps below to get better as quickly as possible. How can you care for yourself at home? Activity Rest when you feel tired. You can do your normal activities when it feels okay to do so. Diet Follow your doctor's directions for eating. Unless your doctor has told you not to, drink plenty of fluids. This helps to replace the fluids that were lost during the colon prep. Do not drink alcohol. Medicines If you have a sore throat the day after the test, use an fsht-dzo-igpielh spray or lozenges to numbyour throat. Warm salt water gargles can also help the discomfort. Your doctor will tell you if and when you can restart your medicines. He or she will also give you instructions about taking any new medicines. If you take blood thinners, such as warfarin (Coumadin), clopidogrel (Plavix), or aspirin, be sure to talk to your doctor. He or she will tell you if and when to start taking those medicines again. Make sure that you understand exactly what your doctor wants you to do. If polyps were removed or a biopsy was done during the test, your doctor may tell you not to take aspirin or other anti-inflammatory medicines for a few days. These include ibuprofen (Advil, Motrin) and naproxen (Aleve). Other instructions for patients who received sedation: You may have received medications during the procedure which effect your judgement and reaction time. For your safety, do not drive or operate machinery until the medicine wears off and you can think clearly. Your doctor may tell you not to drive or operate machinery until the day after your test. Do not sign legal documents or make major decisions until the medicine wears off and you can think clearly. The anesthesia can make it hard for you to fully understand what you are agreeing to. Be careful on stairs and when standing up quickly as you may be unsteady on your feet. IV site: Slight redness or tenderness is normal. You can use a warm compress if you would like. If tenderness and/or redness increase or if foul drainage occurs, please contact your doctor. Please call [phone] before 8pm Mon-Fri with problems, questions, or concerns. If you call after 8pm or on weekends, call the Hospital at [phone] and ask for the Rod Puller monitoring analyst and the core layer machine operator will contact that person for you. When should you call for help? Call [phone] anytime you think you may need emergency care. For example, call if: You passed out (lost consciousness). You pass maroon or bloody stools. You have trouble breathing. Call your doctor now or seek immediate medical care if: You have pain that does not get better after you take pain medicine. You are sick to your stomach or cannot drink fluids. You have new or worse belly pain. You have blood in your stools. You have a fever. You cannot pass stools or gas. Your throat still hurts after a day or two. Your throat still hurts after a day or two. Watch closely for changes in your health, and be sure to contact your doctor if you have any problems. Where can you learn more? You can view health information on [employer], your personal patient account. Log in or sign up today. Content Version: 12.2 ?? 4447-1664 [employer]. Care instructions adapted under license by [facility]. If you have questions about a medical condition or this instruction, always ask your healthcare professional. [employer] disclaims any warranty or liability for your use of this information. documented in this encounter Medications at Time of Discharge Medication Sig Dispensed Refills Start Date End Date omeprazole (PriLOSEC) [address] capsule Take 1 capsule by mouth Daily at Noon. 06/06/2024 triamcinolone (Kenalog) 0.1 % Cream Apply twice daily to psoriasis 453.6 g 10/18/2023 Cosentyx Pen, 2 Pens, 150 mg/mL Pen Injector INJECT 300MG (Contents of 2 150mg pens) SUBCUTANEOUSLY EVERY 4 WEEKS 6 mL 3 10/24/2023 10/05/2024 documented as of this encounter Progress Notes * Melanie Laura RN - 07/20/2024 5:35 PM EDTSummary: discharge Patient alert and oriented, vital signs stable. Reviewed discharge instructions; patient and daughter verbalized understanding. Copy of instruction sheet with contact numbers for questions/concerns. Pain assessment documented. Patient escorted out of department via wheelchair with daughter. * Aamir Kwan RN - 07/06/2024 1:10 PM EDT 07/06/24 1315 Call completed 07/20/24 1515 EGD/Vitor Sandoval IVCS Arrival Time: 1415 Past Medical History: Cardiac History no Diabetic History no SAMANTA no COPD/severe asthma no Any concerns with the ability to lie flat with or without breathing difficulty no Home Oxygen no Psychological no Co-morbidities GERD, Celiac Disease, Psoriatic Arthritis Current height and weight 5'4 139 lbs BMI > 40 [] IV Drug Abuse no Alcohol drinks/week: 0 Recommend IVCS or Anesthesia: IVCS Review med instructions for procedure yes Anesthesia education yes If the patient is unable to self-consent, plan of action: Name of the person who can consent Phone number if person not present on the day of the procedure documented in this encounter H&P Notes * Jay Gould MD - 07/20/2024 4:24 PM EDT Gastroenterology and Hepatology Pre-Procedure History and Physical Exam Procedure: EGD: Colonoscopy: Indication: Celiac disease, bloating, alternating bowel habits, hx erosive duodenitis, small bowel reactive changes, mucin cell metaplasia Patient Active Problem List Diagnosis Code Psoriasis L40.9 Psoriatic arthritis L40.50 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 ASA 2 - Patient with mild systemic disease with no functional limitations Sedation Plan: moderate (conscious sedation) Risks and benefits of the procedure explained to the patient. Consent form signed and included in the patient's chart. Jay Gould MD PGY-4, Gastroenterology documented in this encounter Plan of Treatment Upcoming Encounters Date Type Department Care Team (Late st Contact Info) Description 05/06/2025 4:15 PM EDT Office Visit Dermatology at [place] [address] [place] [id number] Steve Cochran MD [address] [facility] [place] [address] documented as of this encounter Procedures Procedure Name Priority Date/Time Associated Diagnosis Comments SURGICAL PATHOLOGY Routine 07/20/2024 4: 46 PM EDT Gastroesophageal reflux disease, unspecified whether esophagitis present Change in bowel habits Celiac disease Abdominal bloating Colonoscopy, Biopsy ([id number]) 07/20/2024 4:29 PM EDT Gastroesophageal reflux disease, unspecified whether esophagitis present Celiac disease Abdominal bloating Change in bowel habits Upper Gi Endoscopy, Biopsy ([id number]) 07/20/2024 4:29 PM EDT Gastroesophageal reflux disease, unspecified whether esophagitis present Celiac disease Abdominal bloating Change in bowel habits UPPER GI ENDOSCOPY Routine 07/20/2024 4: 26 PM EDT COLONOSCOPY Routine 07/20/2024 4:25 PM EDT documented in this encounter Results * Surgical Pathology (07/20/2024 4:46 PM EDT) Case Report Surgical Pathology Report ? Case: [id number] ? Authorizing Provider: ??Jayde Sandoval MD ?Collected: ? 07/20/2024 1646 ? Ordering Location: ? Gastroenterology at [facility] ?? Received: ?07/20/2024 1756 ? Pathologist: ? Lo Chu MD ? Specimens: ?? A) - Small Bowel, Duodenum ? B) - Small Bowel, Duodenal Bulb ? C) - Stomach ? D) - Colon, nontargeted bx ? 07/31/2024 11:58 AM EDT [facility] Final Diagnosis A. Small Bowel, Duodenum, Biopsy: Small intestinal mucosa within normal limits, including preserved villous architecture. B. Small Bowel, Duodenal Bulb, Biopsy: Duodenal mucosa with foveolar metaplasia and Jena's gland hyperplasia consistent with peptic-type duodenitis. C. Stomach, Biopsy: Gastric fundic mucosa within normal limits. D. Colon, nontargeted bx Biopsy: Colonic mucosa within normal limits. CR-PX 07/31/2024 11:58 AM EDT [facility] Clinical Information A. Small Bowel, Duodenum, *Other - as specified in Clinical Information Indication: Celiac disease, bloating, alternating bowel habits, hx erosive duodenitis, small bowel reactive changes, mucin cell metaplasia Gastroesophageal reflux disease, unspecified whether esophagitis present [K21.9] Change in bowel habits [R19.4] Celiac disease [K90.0] Abdominal bloating [R14.0] B. Small Bowel, Duodenal Bulb, *Other - as specified in Clinical Information Indication: Celiac disease, bloating, alternating bowel habits, hx erosive duodenitis, small bowel reactive changes, mucin cell metaplasia Change in bowel habits [R19.4] Celiac disease [K90.0] Gastroesophageal reflux disease, unspecified whether esophagitis present [K21.9] Abdominal bloating [R14.0] C. Stomach, *Other - as specified in Clinical Information Indication: Celiac disease, bloating, alternating bowel habits, hx erosive duodenitis, small bowel reactive changes, mucin cell metaplasia Gastroesophageal reflux disease, unspecified whether esophagitis present [K21.9] Change in bowel habits [R19.4] Abdominal bloating [R14.0] Celiac disease [K90.0] D. Colon, nontargeted bx *Other - as specified in Clinical Information Rule out microscopic colitis Rule out inflammatory bowel disease Indication: Celiac disease, bloating, alternating bowel habits, hx erosive duodenitis, small bowel reactive changes, mucin cell metaplasia Change in bowel habits [R19.4] 07/31/2024 11:58 AM [facility] Gross Description A. Small Bowel, Duodenum, . A - Labeled/Fixative: Small bowel, duodenum, formalin. Quantity/Size: Four, ranging from 0.2 to 0.3 cm. Tissue Description: Soft, beard-pink tissues. Sections/Processin g: Submitted in toto in 1 cassette labeled A1. jnr B. Small Bowel, Duodenal Bulb, . B - Labeled/Fixative: Small bowel, duodenal bulb, formalin. Quantity/Size: Single, 0.4 cm. Tissue Description: Soft, beard-pink tissue. Sections/Processin g: Submitted in toto in 1 cassette labeled B1. jnr C. Stomach, . C - Labeled/Fixative: Stomach, formalin. Quantity/Size: Five, ranging from 0.2 to 0.4 cm. Tissue Description: Soft, beard-pink, friable tissues. Sections/Processin g: Submitted in toto in 1 cassette labeled C1. jnr D. Colon, nontargeted bx. D - Labeled/Fixative: Colon, nontargeted BX, formalin. Quantity/Size: Multiple, ranging from 0.2 to 0.4 cm. Tissue Description: Soft, beard-pink tissues. Sections/Processin g: Submitted in toto in 2 cassettes labeled D1-D2. jnr 07/31/2024 11:58 AM [facility] Result Note Routine 07/31/2024 11:58 AM [facility] Tissue DUODENAL STRUCTURE / Unknown 07/20/2024 4:46 PM EDT 07/20/2024 5:56 PM EDT Comment: Indication: Celiac disease, bloating, alternating bowel habits, hx erosive duodenitis, small bowel reactive changes, mucin cell metaplasia Tissue specimen (specimen) DUODENAL AMPULLA STRUCTURE / Unknown 07/20/2024 4:48 PM EDT 07/20/2024 5:56 PM EDT Comment: Indication: Celiac disease, bloating, alternating bowel habits, hx erosive duodenitis, small bowel reactive changes, mucin cell metaplasia Tissue specimen (specimen) STOMACH STRUCTURE / Unknown 07/20/2024 4:52 PM EDT 07/20/2024 5:56 PM EDT Comment: Indication: Celiac disease, bloating, alternating bowel habits, hx erosive duodenitis, small bowel reactive changes, mucin cell metaplasia Tissue specimen (specimen) COLON STRUCTURE / Unknown 07/20/2024 5:12 PM EDT 07/20/2024 5:56 PM EDT Comment: Indication: Celiac disease, bloating, alternating bowel habits, hx erosive duodenitis, small bowel reactive changes, mucin cell metaplasia Jayde Sandoval MD PATHOLOGY/CYTOLOGY O REKHAERAESTHELA [facility] [address] * UPPER GI ENDOSCOPY (07/20/2024 4:26 PM EDT) UPPER GI ENDOSCOPY [facility] Endoscopy Procedure Date: 07/20/2024 4:26 PM ? Patient Name: Zayda Pelow ? Date of : 1965 ? Age: 58 ? Order #: [id number] ? Instrument Name: [id number] ? Procedure: ? Upper GI endoscopy Indications: ? Abdominal pain, Follow-up of celiac ? disease Providers: ? Jayde Sandoval MD, Jay Lagos ? Glenroy Gould, ERNESTINE, Ellen ? F. Spencer Referring : ?Deonna Young Medicines: ? Fentanyl 150 micrograms IV, ? Midazolam 6 mg IV, Benzocaine spray Complications: ? No immediate complications. Procedure: ? Pre-Anesthesia Assessment: ? - Prior to the procedure, a History ? and Physical was performed, and ? patient medications and allergies ? were reviewed. The patient's ? tolerance of previous anesthesia ? was also reviewed. The risks and ? benefits of the procedure and the ? sedation options and risks were ? discussed with the patient. All ? questions were answered, and ? informed consent was obtained. ? Prior Anticoagulants: The patient ? has taken no anticoagulant or ? antiplatelet agents. ASA Grade ? Assessment: II - A patient with ? mild systemic disease. After ? reviewing the risks and benefits, ? the patient was deemed in ? satisfactory condition to undergo ? the procedure. ? The procedure, indications, ? benefits, risks and alternatives ? were explained to the patient. ? Specifically discussed were ? potential complications including, ? but not limited to, bleeding, ? perforation, infection, missing a ? cancer, and adverse medication ? reactions. The Endoscope was ? introduced through the mouth, and ? advanced to the second part of ? duodenum The upper GI endoscopy was ? accomplished without difficulty. ? The patient tolerated the procedure ? well. ? Findings: ? Esophagogastric landmarks were identified: the Z-line ? was found at 38 cm, the upper extent of the gastric ? folds was found at 38 cm and the site of the ? diaphragmatic hiatus was found at 38 cm from the ? incisors. ? The examined esophagus was normal. ? Diffuse mucosal variance characterized by promment ? gastric folds was found in the gastric body. Biopsies ? were taken with a cold forceps for histology. ? Estimated blood loss: none. ? The duodenal bulb was normal. Biopsies for histology ? were taken with a cold forceps for evaluation of ? celiac disease. Estimated blood loss: none. ? The second portion of the duodenum was normal. ? Moderate Sedation: ? I was present during the intraservice time as ? documented by the sedation RN. Impression: ?- Esophagogastric landmarks ? identified. ? - Normal esophagus. ? - Gastric mucosal variant. Biopsied. ? - Normal duodenal bulb. Biopsied. ? - Normal second portion of the ? duodenum. Recommendation: ?- Await pathology results. ? - Return to referring provider. ? Attending Participation: ? I was present and participated during the entire ? procedure, including non-healy portions. ? Jayde Sandoval MD Jayde Sandoval MD 07/20/2024 4:59:58 PM This report has been signed electronically. Number of Addenda: 0 Note Initiated On: 07/20/2024 4:26 PM PROVATION 07/20/2024 4:26 PM EDT Deonna Matt MANAGER QUALITY COMPLIANCE GENERAL SURGICAL ORD ERABLES [employer]ATION * COLONOSCOPY (07/20/2024 4:25 PM EDT) COLONOSCOPY [facility] Endoscopy Procedure Date: 07/20/2024 4:25 PM ? Patient Name: Zayda Sanchez ? Date of : 1965 ? Age: 58 ? Order #: [id number] ? Instrument Name: [id number] ? Procedure: ? Colonoscopy Indications: ? Abdominal pain, Change in bowel ? habits Providers: ? Jayde Sandoval MD, Glenroy Campo, ? RN, Ellen Palmer, Jay Lagos ? Luis Fernando Referring : ?Deonna Matt Medicines: ? Fentanyl 150 micrograms IV Complications: ? No immediate complications. Procedure: ? Pre-Anesthesia Assessment: ? - Prior to the procedure, a History ? and Physical was performed, and ? patient medications and allergies ? were reviewed. The patient's ? tolerance of previous anesthesia ? was also reviewed. The risks and ? benefits of the procedure and the ? sedation options and risks were ? discussed with the patient. All ? questions were answered, and ? informed consent was obtained. ? Prior Anticoagulants: The patient ? has taken no anticoagulant or ? antiplatelet agents. ASA Grade ? Assessment: II - A patient with ? mild systemic disease. After ? reviewing the risks and benefits, ? the patient was deemed in ? satisfactory condition to undergo ? the procedure. ? The procedure, indications, ? benefits, risks and alternatives ? were explained to the patient. ? Specifically discussed were ? potential complications including, ? but not limited to, bleeding, ? perforation, infection, missing a ? cancer, and adverse medication ? reactions. The patient was placed ? in the left lateral decubitus ? position, and a digital rectal exam ? was performed. The Colonoscope was ? inserted in the anus and under ? direct visualization, advanced to ? the cecum, identified by ? appendiceal orifice and ileocecal ? valve. Careful inspection was made ? as the colonoscope was withdrawn. ? The colonoscopy was performed ? without difficulty. The patient ? tolerated the procedure well. The ? quality of the bowel preparation ? was evaluated using the BBPS ? ([place] Bowel Preparation Scale) ? with scores of: Right Colon = 3, ? Transverse Colon = 3 and Left Colon ? = 3 (entire mucosa seen well with ? no residual staining, small ? fragments of stool or opaque ? liquid). The total BBPS score ? equals 9. The terminal ileum, ? ileocecal valve, appendiceal ? orifice, and rectum were ? photographed. Withdrawal time was ? 11 minutes. ? Findings: ? The perianal and digital rectal examinations were ? normal. ? The terminal ileum appeared normal. ? The colon (entire examined portion) appeared normal. ? Biopsies for histology were taken with a cold forceps ? from the entire colon for evaluation of microscopic ? colitis. Estimated blood loss: none. ? The retroflexed view of the distal rectum and anal ? verge was normal and showed no anal or rectal ? abnormalities. ? Moderate Sedation: ? I was present during the intraservice time as ? documented by the sedation RN. Impression: ?- The examined portion of the ileum ? was normal. ? - The entire examined colon is ? normal. Biopsied. ? - The distal rectum and anal verge ? are normal on retroflexion view. Recommendation: ?- Await pathology results. ? - Repeat colonoscopy in 10 years ? for screening purposes. ? - Return to referring provider. ? Procedure Code(s): ? --- Professional --- ? 68475, Colonoscopy, flexible; with ? biopsy, single or multiple CPT copyright 2022 [employer]. All rights reserved. The codes documented in this report are preliminary and upon blue prints trimmer review may be revised to meet current compliance requirements. Attending Participation: ? I was present and participated during the entire ? procedure, including non-healy portions. ? Jayde Sandoval MD _ Jayde Sandoval MD 07/20/2024 5:28:57 PM This report has been signed electronically. Number of Addenda: 0 Note Initiated On: 07/20/2024 4:25 PM [employer] 07/20/2024 4:25 PM EDT Deonna Matt APRN GENERAL SURGICAL ORD ERABLES [employer] documented in this encounter Visit Diagnoses Diagnosis Gastroesophageal reflux disease, unspecified whether esophagitis present Change in bowel habits Other symptoms involving digestive system Celiac disease Abdominal bloating Flatulence, eructation, and gas pain documented in this encounter Administered Medications Inactive Administered Medications - up to 3 most recent administrations Medication Order MAR Action Action Date Dose Rate Site lactated ringers infusion 100 mL/hr, Intravenous, CONTINUOUS, Starting on Tue07/20/24 at 1545, Until Tue07/20/24 at 1736, Endoscopy (Day of Procedure) New Bag 07/20/2024 3:45 PM EDT 100 mL/hr 100 mL/hr documented in this encounter Active and Recently Administered Medications Times are shown in EDT. Continuous Medication Order 07/18/2024 07/19/2024 07/20/2024 lactated ringers infusion (CANCELED) 100 mL/hr, Intravenous, CONTINUOUS, Starting on Tue07/20/24 at 1545, Until Tue07/20/24 at 1736, Endoscopy (Day of Procedure) 1545 (New Bag - Prov ider: Sweetie Ortiz RN) PRN Medication Order 07/18/2024 07/19/2024 07/20/2024 benzocaine (Hurricane One) 20% spray (restricted to jamaal-procedural use) (CANCELED) PRN, Starting on Tue07/20/24 at 1639, Until Tue07/20/24 at 2010, Intra-Operative (Intra-Procedure) 1639 (Given - Provid er: Glenroy Campo RN) fentaNYL (pf) (50 mcg/mL) multi-dose injection (CANCELED) PRN, Starting on Tue07/20/24 at 1636, Until Tue07/20/24 at 2010, Intra-Operative (Intra-Procedure), Routine 1633 (Given - Provid er: Glenroy Campo RN)1636 (Given - Provider: Glenroy Campo RN)1639 (Given - Provider: Glenroy Campo RN)1659 (Given - Provider: Glenroy Campo RN)1702 (Given - Provider: Glenroy Campo RN)1705 (Given - Provider: Glenroy Campo RN) midazolam (pf) (Versed) (1 mg/mL) multi-dose injection (CANCELED) PRN, Starting on Tue07/20/24 at 1636, Until Tue07/20/24 at 2011, Intra-Operative (Intra-Procedure), Routine 1630 (Given - Provid er: Glenroy Campo RN)1633 (Given - Provider: Glenroy Campo RN)1636 (Given - Provider: Glenroy Campo RN)1639 (Given - Provider: Glenroy Campo RN)1642 (Given - Provider: Glenroy Campo RN)1659 (Given - Provider: Glenroy Campo RN) documented in this encounter Care Teams Firer Diesel Locomotive Relationship Specialty Start Date End Date Suha De La Paz MD [address] [place] [address] PCP - General Family Medicine 10/17/23 documented as of this encounter
--- OUTSIDE RECORDS SUMMARY | 2024-10-31 19:40 | XMS_ITS | Encounter Summary ---
[place] [address] Care Team Providers Care Heel Lining Paster Name Role Phone Suha De La Paz MD Primary Care Provider [phone] Reason for Visit * Reason Comments Follow-up Encounter Details Date Type Department Care Team (Late st Contact Info) Description 01/23/2024 4:00 PM EDT Office Visit Dermatology at [address] [address] Steve Cochran MD [address] [facility], [place] [address] Psoriasis Social History Tobacco Use Types Packs/Day [...] Progress Notes * Steve Cochran MD - 01/23/2024 4:00 PM EDT Problems: 1. On Cosentyx since December 2019 [...] celiac disease avoiding gluten Zayda follows up after last being seen in September. The cyclosporine was quite helpful for her as to what the phototherapy. 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 She is been working on eating a more healthy diet, trying to reduce stress in her life, trying to cut hours atwork, and exercising with her daughter. She is losing health with weight in a healthy way. Physical examination confirms that her skin is largely clear. 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 Assessment plan: Psoriasis now cleared after guttate flare 1. May now discontinue phototherapy 2. Continue Cosentyx 300 mg once monthly she was given a 1 year supply with refills in October 2023, does not need refill at this time 3. Return to clinic in April for a repeat check on her psoriasis. CC: Suha De La Paz MD documented in this encounter Plan of Treatment Upcoming Encounters Date Type Department Care Team (Late st Contact Info) Description 05/06/2025 4:15 PM EDT Office Visit Dermatology at [place] [address] [place] [address] Steve Cochran MD [address] [facility] [address], [place] [address] documented as of this encounter Visit Diagnoses Diagnosis Psoriasis Other psoriasis documented in this encounter Care Teams Heel Lining Paster Relationship Specialty Start Date End Date Suha De La Paz MD [address] [place] [address] PCP - General Family Medicine 10/17/23 documented as of this encounter
--- OUTSIDE RECORDS SUMMARY | 2024-10-31 19:40 | XMS_ITS | Encounter Summary ---
[place] [address] Care Team Providers Care Radiology Therapist Name Role Phone Suha De La Paz MD Primary Care Provider [phone] Reason for Visit * Reason Comments Psoriasis Encounter Details Date Type Department Care Team (Late st Contact Info) Description 11/18/2023 4:15 PM EST Office Visit Dermatology at [address] [place] [address] Steve Cochran MD [address] [facility], [facility]ANA[place] A DERMATOLOGY [place], [place] [id number] Psoriasis Social History Tobacco Use Types Packs/Day [...] Progress Notes * Steve Cochran MD - 11/18/2023 4:15 PM EST Problems: 1. On Cosentyx since [...] celiac disease avoiding gluten Zayda follows up and is doing much better. Her continued psoriasis almost clear but still with involvement around the hips the lower back and thighs. She is no longer itching. Her fatigue is also much better after she had both strep and COVID beginning of this whole episode. She continues on Cosentyx once monthly. I renewed that prescription last month. Her blood pressure has been a bit high today in the office it is 140/90. We discussed that this is due to cyclosporine Physical examination confirms thin patches of fading psoriasis present on the lateral hips the lower back and the lateral thighs. She has a little bit also on both elbows. The significant involvementpreviously widespread on the hands arms soles of feet and legs is significantly better, in fact in these areas, clear. Assessment and plan: Psoriasis with guttate flare, improving 1. Taper cyclosporine from 100 mg twice daily to once a day for 1 month then discontinue. She stillhas 1 refill left 2. Continue Cosentyx 300 mg once monthly patient was given a 1 year supply/refills in October, at her last visit. 3. Begin phototherapy to help clear residual sites on torso. Will begin 3 times weekly at [facility] return to clinic here in 2 months. 4. Consent form signed, patient information given. 5. Return to clinic here in 2 months CC: Suha De La Paz MD documented in this encounter Plan of Treatment Upcoming Encounters Date Type Department Care Team (Late st Contact Info) Description 05/06/2025 4:15 PM EDT Office Visit Dermatology at [place] [address] [facility] [place] [address] Steve Cochran MD [address] [facility] [address] [address], [place] [address] documented as of this encounter Visit Diagnoses Diagnosis Psoriasis Other psoriasis documented in this encounter Care Teams Radiology Therapist Relationship Specialty Start Date End Date Suha De La Paz MD [address] [place] [address] PCP - General Family Medicine 10/17/23 documented as of this encounter
--- OUTSIDE RECORDS SUMMARY | 2024-10-31 19:40 | XMS_ITS | Encounter Summary ---
Author Organization [facility] Address [facility] [place] [address] Care Team Providers Care Statistical Clerk Name Role Phone Suha De La Paz MD Primary Care Provider [phone] Reason for Visit * Consultation (Routine) - Authorized Specialty Diagnoses / Procedures Referred By Alexandrea yeung Referred To Contact Gastroenterology Diagnoses Abdominal pain, unspecified abdominal location abd pain Deonna Matt APRN [address] [place] [address] [facility] [place] [address] [address] Referral ID Status Reason Start Date Expiration Date Visits Requested Visits Authorized [id number] Authorized Consult, Test & Treat PCP Updated and/or Approved 05/31/2024 12/01/2024 6 6 Encounter Details Date Type Department Care Team (Latest Contact Info) Description 07/03/2024 7:40 AM EDT TH Visit (TeleHealth) [place] [address] sRohini APRN [facility] [place] [address] Gastroesophageal reflux disease, unspecified whether esophagitis present; Celiac disease; Abdominal bloating; Change in bowel habits Social History Tobacco Use Types Packs/Day Years Used Date Smoking Tobacco: Every Day Cigarettes Smokeless Tobacco: Never Alcohol Use Standard Drinks/Week Comments No 0 (1 standard drink = 0.6 oz pur e alcohol) Sex and Gender Information Value Date Recorded Sex Assigned at Not on file Gender Identity Not on file Sexual Orientation Not on file documented as of this encounter Patient Instructions * Patient Instructions* Rohini Mccarty APRN - 07/03/2024 7:40 AM EDT For Constipation- The goal is a personalized daily bowel regimen to use long-term that is feasible for your lifestyleand produces a good bowel movement every day or [id number] and prevents constipation and overflow diarrhea. It will take trial and error to find the combination of tools that are right for you. In the meantime, if you start to get constipated, use the Rescue Regimen directions for help in addressing it on the second day instead of waiting. #You don't want to start a regimen with a full colon so I recommend doing a clean-out ---Miralax clean-out: 240mL of miralax mixed in one gallon of fluid (most people like gatorade or crystal light). Aim to drink over the course of 12-24 hours. May take with 2 dulcolax tablets. If needed, may use a glycerin suppository or warm tap water enema to get the clean-out started if your bowels don't start moving after 12 hours. #Then, do not go more than 2 days w/out a bowel movement. Use this Rescue Regimen whenever you are at the second day: Rescue Therapy Consider rescue therapy to help empty the colon prior to initiating any of the trials to maximize the potential for success. This may also be needed intermittently if constipation worsens. Rescue regimen if no bowel movement for 2 days Step 1) use a glycerin suppository at night then try to have a bowel movement in 10-15 minutes. Tryagain if this is ineffective. Step 2) If glycerin is ineffective, use a warm (not hot) tap water enema. Try again if ineffective. Step 3) If enema is ineffective, try up to four senna tabs Step 4) if senna does not work, try a dulcolax suppository 30 minutes later Step 5) if ongoing issues try Miralax 14 capules mixed with 2 L of gastrorade single dose over 4 hours. Can repeat next day if required. No dietary restrictions required. Resume aggressive maintenance therapy with laxatives immediately afterwards. Step 6) if no bowel movements after the above recommend seeking urgent care or primary care guidance. Add the below therapies together one at a time: Remember, the goal is a personal DAILY regimen thatis feasible for you to keep up long-term, that produces a bowel movement daily or [id number] without straining. Every tool may not be needed or may not be right for you. This process takes trial& error, and patience, but the results will be worth it. #Ensure adequate water intake. The [facility] recommends 15.5 cups (3.7 liters) of fluids a day for men, and 11.5 cups (2.7 liters of fluids a day for women). #Ensure adequate exercise: As a general goal, aim for a minimum of at least 30 minutes of moderate physical activity - such as a brisk walk- a day. #After making sure you get adequate daily water, consider adding fiber using these directions for one of two options: Benefiber one teaspoon mixed in 8 oz of fluid daily. Increase by one teaspoon per day every week astolerated up to 2 Tbs per day. If this makes symptoms worse, please stop. OR Begin Metamucil or psyllium husk fiber (make sure it is free of artificial sweetener): 1tsp daily for one week, then 2tsp daily for one week, then 3tsp (1TBSP) daily. May increase slowly up to 2 TBSPdaily. Titrate according to what works best for you.This may cause bloating initially but this willimprove with continued use. If this supplement causes too much bloating you may try Citrucel. If after 6-8 weeks the Metamucil or Citrucel is not helping, discontinue. #Consider starting 800 mg of magnesium oxide supplement daily. Randomized controlled trials were done with great success using the dose of 1500 mg (1.5 gram)/ magnesium oxide daily. Start at 800 mg daily and increase dose by 100 mg per week. If loose stools develop, decrease dose. If you have chronic kidney dysfunction, consult PCP before adding magnesium supplementation. Magnesium citrate also has laxative effect and comes in liquid. I favor magnesium oxide taken in gel cap form because magnesium citrate tends to cause abdominal discomfort for some if taken daily. #Each dietary trial should be last at least two weeks and be done separately: 1) Make a smoothie once daily made of ?? cup kefir, ?? cup papaya, 1/3 cup aloe juice, one peeled (green or gold) kiwi fruit, blended with ice. 2) Take two peeled (green or gold) kiwifruit per day. 3) Mix 1 cup apple sauce, 1 cup oat bran, ?? cup prune juice. Take one Tbsp. Daily. Freeze the restin an ice cube tray to use as needed. 4) Drink Smooth Move tea once at night 5) 1/2 cup pumpkin, 1/2 cup yogurt, 1/2 banana, spice #Bathroom routines: Same time every day even if you don't have the urge to go. Use a squatty potty or a foot stool to help put yourself in more of a squatting position. May use a glycerin suppositoryapproximately 10 to 20 minutes prior to using the bathroom on a daily basis or as needed to help facilitate a more complete bowel movement. #Miralax daily: Begin with 1 capful daily at night. You will titrate the dosage according to the consistency and frequency of stool. If you experience loose stools decrease dosage to half a capful daily. If you experience diarrhea stop MiraLAX and restart when stool is formed again. May increase toup to 2 capfuls daily, as tolerated. Give it 4 days between each change in dose. documented in this encounter Progress Notes * Rohini Mccarty APRN - 07/03/2024 7:40 AM EDT Gastroenterology [facility] (telemedicine) Chief Complaint: Zayda Sanchez is a 58 y.o. patient referred for consultation by Dr. Matt for abdominal pain. History of Present Illness: 58 y.o. female with past medical history to include obesity, GERD, celiac disease, psoriatic arthritis, psoriasis, osteopenia, fatigue, headache, palpitations. Has known celiac disease, diagnosed in 2003, has been gluten-free for last several years. Although admits to not reading every food label and unsure regarding cross-contamination. 3-4 months ago developed abdominal bloating, upper abdomen as well as abdominal pain around [facility] and would radiate into back. Had not had a bowel movement and tried MiraLAX which did not help.Did have CT abdomen and pelvis 05/2024 without any acute findings. Abdominal pain has now improved although continues to report daily bloating. +borborygmi. Endorses nausea on occasion. Denies vomiting. Altered bowel pattern, varies between pablo to diarrhea. Stool can be light- colored at times. +Tenesmus. Denies melena or hematochezia. GERD now controlled with omeprazole. No dysphagia. Denies unintentional weight loss. Current Medication/Supplement for this symptom Omeprazole: Helpful Jovanny (digestive support): Helpful Previous Medication/Supplements tried for this symptom: MiraLAX: Not helpful 07/03/2024 Q-RAPID ACCESS What gastrointestinal symptom is your biggest concern to discuss during your visit? heartburn bloating diarrhea abdominal pain How long have you had this symptom? 3-4 months What are some over the counter medications you have tried for your symptom? (Write none if you are not taking any over the counter medications) Na What are some supplements you have tried for this symptom? (Write none of you have not tried any supplements) Na Have you been prescribed any medications by another provider outside of the [facility] for this symptom? Yes What was the name of the medication? Omprezal Was it helpful? Yes How long did you take it? For the heartburn a couple of days or so Have you been to the emergency room or urgent care for your symptom(s)? No Have you had surgery outside of the [facility] for your symptom(s)? No What testing have you completed for this symptom? imaging (ct, X-ray, mri, ultrasound) Does anyone else in your immediate family also struggle with this symptom? No Multiple values from one day are sorted in reverse-chronological order Relevant prior GI evaluation Laboratory studies: 01/10/24, TSH: 1.11 CMP: Normal, CBC: Normal Imagin05/17/2024, CT abdomen pelvis with contrast: No significant acute findings in the abdomen and pelvis. Sigmoid diverticuli but without evidence of acute diverticulitis, as was evident on priorCT scan of June 2022. Endoscopy: 8//07/2018: Colonoscopy (only biopsy results available) Final Pathologic Diagnosis: A. SMALL INTESTINE, DUODENUM, BIOPSY: - Active erosive peptic duodenitis. - Small bowel mucosa with widespread reactive/reparative changes, mild villous blunting, abundant gastric mucin cell metaplasia and scattered acute inflammation involving lamina propria. - Rare nonspecific intraepithelial lymphocytes. - Intramucosal Jena's glands. - See comment. B. STOMACH, ANTRUM, BIOPSY: - Antrum mucosa with no specific pathologic findings. C. ESOPHAGUS, GASTRIC GE JUNCTION, BIOPSY: - Multiple fragments of benign squamous mucosa with reactive changes. - No eosinophils identified on multiple levels. D. SMALL INTESTINE, TERMINAL ILEUM, BIOPSY: - Small bowel mucosa with normal villous architecture. - No specific pathologic findings. 08/11/2004: Colonoscopy (only biopsy results available) Final Pathologic Diagnosis: A. Colon, ascending, biopsy: 1. No pathologic features. B. Colon, transverse, biopsy: 1. No pathologic features. C. Colon, sigmoid, biopsy: 1. No pathologic features. D. Rectum, biopsy: 1. No pathologic features. Medications: Outpatient Medications Prior to Visit Medication Sig Dispense Refill Cosentyx Pen, 2 Pens, 150 mg/mL Pen Injector INJECT 300MG (Contents of 2 150mg pens) SUBCUTANEOUSLYEVERY 4 WEEKS 6 mL 3 triamcinolone (Kenalog) 0.1 % Cream Apply twice daily to psoriasis 453.6 g 0 No facility-administered medications prior to visit. Allergies: is allergic to ixekizumab, shellfish containing products, cephalexin, clindamycin, penicillins, adalimumab, etanercept, and infliximab. 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 She has never used smokeless tobacco. She reports that she does not drink alcohol and does not use drugs. Physical exam: No physical examination performed during this telemedicine visit Assessment/Plan: Ms. Sanchez is a 58 y.o. patient with celiac disease and new onset abdominal bloating, change in bowel habits, acid reflux. Recent CT abdomen pelvis 05/2024 without acute findings, sigmoid diverticuli but without evidence of acute diverticulitis. Had abdominal pain at umbilicus and radiating to the back, this has now resolved. Continues to have abdominal bloating, upper abdomen, symptoms daily and worse with certain foods. Has celiac and remains gluten-free, although admits to not checking every label and unsure if cross-contamination occurs. Varied bowel pattern, suggestive of constipation withoverflow diarrhea. No melena or hematochezia. Acid reflux now improved with omeprazole 20 mg daily.Had upper endoscopy and colonoscopy 2018 with acute erosive peptic duodenitis, small bowel reactivechanges, mild villous blunting, gastric mucin cell metaplasia, rare nonspecific intraepithelial lymphocytes, Intramucosal Jena's glands. Recommendations: -EGD/[place]: with small intestine, duodenum biopsy -follow-up on previous abnormal findings. -Consideration for HBT r/o SIBO, if etiology remains uncertain and persistent symptoms. -Optimize treatment of constipation, see handout -Continue omeprazole for acid reflux This patient, if needed, will be scheduled for the next available clinic visit with a provider within the Gastroenterology Department at [facility]. If testing is being performed the follow-up will be after these results are reviewed. Patient should continue to seek help from their primary care team while waiting for any relevant testing and results. They have not been assigned a gastroenterology provider as of this triage visit. Rohini Mccarty APRN [facility] [place] [address] documented in this encounter Plan of Treatment Upcoming Encounters Date Type Department Care Team (Late st Contact Info) Description 05/06/2025 4:15 PM EDT Office Visit Dermatology at [place] [address] [facility] [place] [address] Steve Cochran MD [address], [place] [address] Scheduled Orders Name Type Priority Associated Diagnoses Orde r Schedule ENDOSCOPY CASE REQUEST: EGD, UPPER GI ENDOSCOPY (WRVU 2.09), COLONOSCOPY, DIAGNOSTIC (WRVU 3.26) Procedures Routine Gastroesophageal reflux disease, unspecified whether esophagitis present Celiac disease Abdominal bloating Change in bowel habits Ordered: 07/03/2024 documented as of this encounter Visit Diagnoses Diagnosis Gastroesophageal reflux disease, unspecified whether esophagitis present Celiac disease Abdominal bloating Flatulence, eructation, and gas pain Change in bowel habits Other symptoms involving digestive system documented in this encounter Care Teams Statistical Clerk Relationship Specialty Start Date End Date Suha De La Paz MD [address] [place] [address] PCP - General Family Medicine 10/17/23 documented as of this encounter
--- OUTSIDE RECORDS SUMMARY | 2024-10-31 19:40 | XMS_ITS | Encounter Summary ---
[place] [address] Care Team Providers Care Felt Coverer Name Role Phone Suha De La Paz MD Primary Care Provider Reason for Referral * Consultation (Routine) - Authorized Specialty Diagnoses / Procedures Referred By Contac t Referred To Contact Gastroenterology Diagnoses Abdominal pain, unspecified abdominal location abd pain Deonna Matt APRN [address] [place] [address] [facility] [place] [address] Referral ID Status Reason Start Date Expiration Date Visits Requested Visits Authorized [id number] Authorized Consult, Test & Treat PCP Updated and/or Approved 05/31/2024 12/01/2024 6 6 Encounter Details Date Type Department Care Team (Latest Contact Info) Description 06/14/2024 Transcribe Orders eDH Incoming Referrals [phone] Suha De La Paz MD [address] [place] [address] Abdominal pain, unspecified abdominal location Social History Tobacco Use Types Packs/Day Years [...] 4:15 PM EDT Office Visit Dermatology at [place] [address] [place] [address] Steve Cochran MD [address], [place] [address] Scheduled Referrals Name Type Priority Associated Diagnoses Order Schedule Referral to Gastroenterology Outpatient Referral Routine Abdominal pain, unspecified abdominal location Ordered: 06/14/2024 documented as of this encounter Visit Diagnoses Diagnosis Abdominal pain, unspecified abdominal location documented in this encounter Care Teams Felt Coverer Relationship Specialty Start Date End Date Suha De La Paz MD [address] [place] [id number] PCP - General Family Medicine 10/17/23 documented as of this encounter
--- OUTSIDE RECORDS SUMMARY | 2024-10-31 19:40 | XMS_ITS | Encounter Summary ---
[place] [address] Care Team Providers Care Retrieval Specialist Name Role Phone Kelly Gacria MD Primary Care Provider [phone] Reason for Visit * Reason Comments Prior Authorization Cosentyx Sensoready Pen 150 SOAJ Encounter Details Date Type Department Care Team (Late st Contact Info) Description 11/27/2020 Specialty [place] [address] Anil Ceron, [facility] Social History Tobacco Use Types Packs/Day [...] as of this encounter Progress Notes * Anil Ceron - 11/27/2020 12:45 PM EST [facility], Medication Prior Authorization Patient: Zayda Sanchez Patient : 1965 Patient Address: [address] [place] [address] (home) Medication Name: COSENTYX PEN 150 MG/ML SUBCUTANEOUS Medication ID: [id number] Patient Location: [facility] Patient Location Comment: Subscriber Insurance: [employer] ([facility]) Subscriber Insurance Comment: Fax: Physician: GUANACO BRUNNER Physician Comment: Sent Via: [facility] Morales: [id number] Ref/Case/PA#: Medication Strength Frequency Requested: Cosentyx Sensoready 150 SOAJ, Inject the contents of two auto injectors (300mg) subcutaneously on weeks 0,1,2,3 and 4. Then inject the contents of two auto injectors (300mg) subcutaneoulsy every 28 days thereafter. Qty/Day Supply: New Start: New to Therapy Diagnosis & ICD-10 Code: Psoriasis L40.9 Patient Notified: No Submission Notes: None Anil Ceron 11/27/20 12:51 PM * Anil Ceron - 11/27/2020 12:45 PM EST [facility], Prior Authorization Approval Medication Name: COSENTYX PEN 150 MG/ML SUBCUTANEOUS Medication ID: [id number] Approval Dates: 11/13/2020 to 11/28/2021 Insurance requirements/notes: Must fill with [facility] due to insurance mandate. Other Notes: None Case/Reference #: [id number] Approval notification Received via: [facility] Copay: Copay assistance: None Copay Notes: Insurance mandated Pharmacy: [facility] Fillable at [facility]: No Pharmacy staff will be reaching out to the patient to inform them of their medication's approval bycone health insurance. If applicable, a pharmacist will speak with the patient to offer our specialty pharmacy services and to arrange delivery of their medication. Anil Ceron 12/01/20 8:33 AM documented in this encounter Plan of Treatment Upcoming Encounters Date Type Department Care Team (Late st Contact Info) Description 05/06/2025 4:15 PM EDT Office Visit Dermatology at [place] [address] [place] [address] Guanaco Brunnre MD [address], [place] [address] documented as of this encounter Visit Diagnoses Not on filedocumented in this encounter Care Teams Retrieval Specialist Relationship Specialty Start Date End Date Kelly Garcia MD [address] [place] [address] PCP - General Family Medicine 07/10/20 10/16/23 documented as of this encounter
--- OUTSIDE RECORDS SUMMARY | 2024-10-31 19:40 | XMS_ITS | Clinical Summary ---
Author Organization [facility] [place] [address] Care Team Providers Care Household Appliance Mechanic Name Role Phone Suha De La Paz MD Primary Care Provider [phone] Allergies Active Allergy Reactions Criticality Noted Date Comments Adalimumab Low 06/02/2021 Other reaction(s): unknown Cephalexin Rash Medium 10/11/2023 Clindamycin Hives 01/16/2013 Etanercept Low 06/02/2021 Other reaction(s): unknown Infliximab Low 06/02/2021 Other reaction(s): unknown Ixekizumab Shortness Of Breath High 10/30/2020 Lips tingling and hard to breath Other Reaction(s): Not available Penicillins Hives 01/16/2013 Shellfish Containing Products Shortness Of Breath High 10/30/2020 Hands and lips swell, hard to breath Medications Medication Sig Dispensed Refills Start Date End Date Status triamcinolone (Kenalog) 0.1 % Cream Apply twice daily to psoriasis 453.6 g 10/18/2023 Active omeprazole (PriLOSEC) [address] capsule Take 1 capsule by mouth Daily at Noon. 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 Psoriatic arthritis 08/12/2013 Psoriasis 05/01/2013 Encounters Date Type Department Care Team Description 10/05/2024 Refill Dermatology at [address] [address] Steve Cochran MD from Last 3 Months Immunizations Name Administration Dates Next Due Influenza Trivalent w/Preservative 07/30/2013 Family History Medical History Relation Comments Celiac Disease Mother Pancreatic Cancer Mother Relation Status Comments Mother Social History Tobacco Use Types Packs/Day Years Used Date Smoking Tobacco: Former Cigarettes Smokeless Tobacco: Never Tobacco Cessation:Counseling Given: Not Answered Alcohol Use Standard Drinks/Week Comments No 0 (1 standard drink = 0.6 oz pur e alcohol) once per month Sex and Gender Information Value Date Recorded Sex Assigned at Not on file Gender Identity Not on file Sexual Orientation Not on file Last Filed Vital Signs Vital Sign Reading [...] Mass Index 30.38 07/20/2024 3:24 PM EDT Plan of Treatment Upcoming Encounters Date Type Department Care Team (Late st Contact Info) Description 05/06/2025 4:15 PM EDT Office Visit Dermatology at [address] [phone] Steve Cochran MD [address] [facility], LISA A DERMATOLOGY [place], [place] [id number] Health Maintenance Due Date Last Done Comments CT Colonography 1965 FIT DNA 1965 FIT 1965 Sigmoidoscopy 1965 HIV screen 1985 Lipid Screening 1985 Hepatitis B vaccine (0-59 yrs) (1) 1986 Pneumoccocal Vaccine: 50+ (1 of 2 - PCV) 1986 Tetanus/Diphtheria/Pertussis Vaccines (1 - Tdap) 1986 HPV test 1997 PAP Smear 1997 Breast Cancer Share Decision Needed 2007 Breast Cancer screening 2007 Diabetes Screening (HgbA1C or Glucose) 10/30/2016, 01/16/2013 Zoster vaccine (1 of 2) 2017 Advance Directive 2022 Covid-19 Vaccine (1 - season) 2024 Influenza (Flu) vaccine (1 o f 1 - Influenza standard series) 06/03/2024 07/30/2013 Colonoscopy 07/20/2034 07/20/2024, 07/20/2024 Colorectal Cancer Screening 07/20/2034 Sigmoidoscopy (10 year) with FIT yearly 07/20/2034 1 , 07/20/2024 Hepatitis C Screening Completed 04/25/2013 Procedures Procedure Name Priority Date/Time Associated Diagnosis Comments COLONOSCOPY Routine 07/20/2024 4:25 PM EDT BASIC METABOLIC PANEL Routine 10/30/2013 12:04 PM EST Psoriatic arthritis HCV QUANT Routine 04/25/2013 10:52 AM EDT Arthritis from Last 3 Months or Most Recently Relevant to Health Maintenance Results * COLONOSCOPY (07/20/2024 4:25 PM EDT) COLONOSCOPY [facility] Endoscopy Procedure Date: 07/20/2024 4:25 PM ? Patient Name: Zayda Pelow ? Date of : 1965 ? Age: 58 ? Order #: [id number] ? Instrument Name: [id number] ? Procedure: ? Colonoscopy Indications: ? Abdominal pain, Change in bowel ? habits Providers: ? Jayde Sandoval MD, Glenroy Campo, ? RN, Jay Goncalves ? Luis Fernando Referring : ?Deonna Young Medicines: ? Fentanyl 150 micrograms IV Complications: [...] ? was evaluated using the BBPS ? ([place] Bowel Preparation Scale) ? with scores of: [...] Procedure Code(s): ? --- Professional --- ? 25531, Colonoscopy, flexible; with ? biopsy, single or multiple CPT copyright 2022 [employer]. All rights reserved. The codes documented in this report are preliminary and upon remote medical coder review may be revised to meet current compliance requirements. Attending Participation: ? I was present and participated during the entire ? procedure, including non-healy portions. ? Jayde Sandoval MD _ Jayde Sandoval MD 07/20/2024 5:28:57 PM This report has been signed electronically. Number of Addenda: 0 Note Initiated On: 07/20/2024 4:25 PM PROVATION 07/20/2024 4:25 PM EDT Deonna Matt [employer] GENERAL SURGICAL ORD ERABLES Performing Organization Address City/State/[facility] Co de Phone Number PROVATION * (ABNORMAL) Basic Metabolic Panel (non-fasting) (10/30/2013 12:04 PM EST) [facility] Glucose 120 60 - 199 mg/dL CERNER MILLENNIUM Comment:Diabetes: >=200 mg/d L plus symptoms Blood Urea Nitrogen 9 8 - 18 mg/dL CERNER MILLENNIUM Creatinine 0.82 0.70 - 1.20 mg/dL CERNER MILLENNIUM Comment: Please note that the pediatric reference intervals supplied above were not validated at [facility]. Results from pediatric patients should be interpreted in conjunction to the patient's age, height and muscle mass. Sodium 137 135 - 145 mmol/L CERNER MILLENNIUM Potassium 4.1 3.5 - 5.0 mmol/L CERNER MILLENNIUM Comment: Please note: ??Patients with WBC >100,000 may have falsely elevated Potassium levels. ??For accurate Potassium quantification in these patients send serum separator tube (gold top) for subsequent determinations. ??Contact the Clinical Chemistry Laboratory if there are any questions. Chloride 97(L) 98 - 107 mmol/L CERNER MILLENNIUM Carbon Dioxide 27 22 - 31 mmol/L CERNER MILLENNIUM Anion Gap 13 5 - 15 mmol/L CERNER MILLENNIUM Calcium 9.6 8.5 - 10.5 mg/dL CERNER MILLENNIUM Est Glomerular Filtration Rate >60 >=60 CERNER MILLENNIUM Comment: This estimated GFR (eGFR) value was calculated using the MDRD equation which has been validated on patients between the ages of 18 and 70. The MDRD should not be used to assess kidney function in patients < 18 years of age or in patients with extremes of body mass, or in patients with acute kidney failure. This value should be multiplied by 1.2 for patients. For further information please copy and paste the following links into your internet browser. http://www.nkdep.nih.gov/lab-evaluation.shtml http://www.kidney.org/professionals/ Blood specimen (specimen) 10/30/2013 12:04 PM EST 10/30/2013 12:23 PM EST Narrative Resulting Agency Comment Spec In Lab Lamont Jimenez MD CHEMISTRY ORDERABLES Performing Organization Address City/[facility] Co de Phone Number [facility] * HCV Quant Dewayne (04/25/2013 10:52 AM EDT) HCV Viral Load <43 IU/mL [facility] HCV Viral Load Result: < 43 Target not detected) Indication for Study: Hepatitis C Infection Analysis: A quantitiative real time reverse transcriptase PCR assay was performed on extracted viral RNA for the purpose of quantification. Sample: plasma (1 mL minimum volume) Method: Dewayne Thomas TaqMAN 48 HCV Linear Range: 43IU/mL - 69,000,000IU/mL (95% CI) Interpretation: The result of this analysis is within the limits of detection of the assay. Note: This assay is being performed in the [facility] Molecular Pathology Laboratory. Ray Villalpando, Ph.D. Director, Molecular Pathology [facility] Comment: [VERIFIED DATE]04.30.13 Verified By:Irina Marshall I (Electronic Signature) Blood specimen (specimen) 04/25/2013 10:52 AM EDT 04/27/2013 8:49 AM EDT Narrative Resulting Agency Comment Spec In Lab Lamont Jimenez MD HEMATOLOGY ORDERABLE S Performing Organization Address City/[facility] Co de Phone Number JANAY NDIAYE from Last 3 Months or Most Recently Relevant to Health Maintenance Care Teams Household Appliance Mechanic Relationship Specialty Start Date End Date Suha De La Paz MD [address] [place] [address] PCP - General Family Medicine 10/17/23
--- OUTSIDE RECORDS SUMMARY | 2024-10-31 19:40 | XMS_ITS | Encounter Summary ---
Author Organization [facility] Address [address] [place] [address] Care Team Providers Care Language Interpreter Name Role Phone Gentry Morrison MD Primary Care Provider Unav ailable Encounter Details Date Type Department Care Team (Late st Contact Info) Description 05/12/2018 Results Only [facility] [phone] Lena Rollins, DO [address] [place] [address] Social History Tobacco Use Types Packs/Day Years Used Date Smoking Tobacco: Never Assessed Comments Unknown Sex and Gender Information Value Date Recorded Sex Assigned at Not on file Legal Sex Female 18:12 EST Gender Identity Not on file Sexual Orientation Not on file documented as of this encounter Plan of Treatment Not on file documented as of this encounter Procedures Procedure Name Priority Date/Time Associated Diagnosis Comments SURGICAL PATHOLOGY Routine 05/12/2018 22 :36 EDT documented in this encounter Results * SURGICAL PATHOLOGY (05/12/2018 22:36 EDT) Pathology Report: SURGICAL PATHOLOGY REPORT Reports generated via electronic interface contain original data; however they are lacking the format of the original report. Caution should be taken when reading/interpreti ng unformatted reports. Name: ? ZAYDA KIMBROUGH ? Accession #: ? [id number] ? : ? 1965 (Age: 52) ??F ? Collect Date: ? 05/12/2018 ? Location: ? [facility] ? Receive Date: ? 05/12/2018 ? Provider: LENA ROLLINS DO Copy to: HIMA PARADA MD ? Final Pathologic Diagnosis: A. SMALL INTESTINE, DUODENUM, BIOPSY: - Active erosive peptic duodenitis. - Small bowel mucosa with widespread reactive/reparativ e changes, mild villous blunting, abundant gastric mucin [...] villous architecture. - No specific pathologic findings. Comment: ? Accounts Payable Supervisor slides of this case (Part A) were reviewed at intradepartmental consultation conference. ?? Dr. Hollins 05/17/2018 10:49 AM Document reviewed and electronically signed by: ISIAH HOLLINS MD Report ??Date: 05/17/2018 10:50 By the signature above, the attending physician certifies that he/she has personally conducted a gross and/or microscopic examination of the described specimens and rendered or confirmed the above diagnosis. Specimen(s) Received: A. ??Duodenum bx B. ??Gastric antrum bx C. ??Gastric GE junction bx D. ??Terminal ileum bx Clinical History: Abdominal pain Gross Description: A. ?Received in formalin labelled with proper patient identification (initials P, D) and duodenum bx are six pink-beard tissues (0.3 x 0.1 x 0.1 cm to 0.4 x 0.3 x 0.2 cm). Entirely submitted in blocks A1 and A2. B. ?Received in formalin labelled with proper patient identification (initials P, D) and gastric antrum are six pink-beard tissues (0.2 x 0.2 x 0.1 cm to 0.4 x 0.3 x 0.2 cm). Entirely submitted in blocks B1 and B2. C. ?Received in formalin labelled with proper patient identification (initials P, D) and gastric GE junction are three pink-beard tissues (0.2 x 0.2 x 0.1 cm to 0.3 x 0.2 x 0.1 cm). Entirely submitted in block C1. D. ?Received in formalin labelled with proper patient identification (initials P, D) and terminal ileum bx are three pink-beard tissues (0.3 x 0.2 x 0.1 cm to 0.4 x 0.3 x 0.2 cm). Entirely submitted in block D1. BARRON Venegas (ASCP) 05/15/2018 7:42 AM End of Report [facility] 05/12/2018 22:3 6 EDT 05/12/2018 22:36 EDT us Lena Rollins DO PATHOLOGY ORDERABLES Final Res ult [facility] [address] [place] [address] documented in this encounter Visit Diagnoses Not on filedocumented in this encounter Care Teams Language Interpreter Relationship Specialty Start Date End Date Gentry Morrison MD PCP - General 08/15/15 documented as of this encounter
--- OUTSIDE RECORDS SUMMARY | 2024-10-31 19:40 | XMS_ITS | Encounter Summary ---
Author Organization [facility] Address [address] [place] [address] Care Team Providers Care Police Patrol Lieutenant Name Role Phone Unavailable Primary Care Provider Unavailabl e Encounter Details Date Type Department Care Team (Late st Contact Info) Description 09/28/2000 Results Only [facility] - [facility] [address] [place] [address] Jose Barbosa MD [address] [place], [place] [id number] Social History Tobacco Use Types Packs/Day Years [...] Procedure Name Priority Date/Time Associated Diagnosis Comments CYTOPATHOLOGY Routine 09/28/2000 0:00 EST documented in this encounter Results * CYTOPATHOLOGY (09/28/2000 0:00 EST) Pathology Report: CYTOPATHOLOGY REPORT Reports generated via electronic interface contain original data; however they are lacking the format of the original report. Caution should be taken when reading/interpreti ng unformatted reports. Name: ? ZAYDA KIMBROUGH ? Accession #: ? [id number] : ? 1965 (Age: 35) ??F ?Collect Date: ? 09/28/2000 Location: ? [facility] ? Receive Date: ? 09/30/2000 Provider: ?JOSE BARBOSA MD Copy to: ? Specimen/Source: ?ThinPrep Pap Test, Cervix/Endocervix Last Menstrual Period: ? 09/12/00 Previous Gynecologic Pathology: ? DOREEN III: 1991, Normal 1997, 1998 ? SPECIMEN ADEQUACY ? Satisfactory for evaluation. GENERAL CATEGORIZATION ? Within Normal Limits ? Document reviewed and electronically signed by: ? DANIEL Hirsch(ASCP)(IAC) ? Report Date: ??10/04/2000 14:23 End of Report DIANA RONQUILLO 09/28/2000 09/30/2000 us Jose Barbosa MD PATHOLOGY ORDERABLES Final Resul t DIANA RONQUILLO [address] [place] [address] documented in this encounter Visit Diagnoses Not on filedocumented in this encounter
--- OUTSIDE RECORDS SUMMARY | 2024-10-31 19:40 | XMS_ITS | Encounter Summary ---
[place] [address] Care Team Providers Care Customer Agent Name Role Phone Suha De La Paz MD Primary Care Provider [phone] Encounter Details Date Type Department Care Team (Latest Contact Info) Description 11/18/2023 Travel Social History Tobacco Use Types Packs/Day [...] PM EDT Office Visit Dermatology at [address] [address] Steve Cochran MD [address] [facility], [place] [address] documented as of this encounter Visit Diagnoses Not on filedocumented in this encounter Care Teams Customer Agent Relationship Specialty Start Date End Date Suha De La Paz MD [address] [place] [address] PCP - General Family Medicine 10/17/23 documented as of this encounter
--- OUTSIDE RECORDS SUMMARY | 2024-10-31 19:40 | XMS_ITS | Encounter Summary ---
[place] [address] Care Team Providers Care Voting Machine Mechanic Name Role Phone Kelly Garcia MD Primary Care Provider [phone] Reason for Visit * Reason Comments Prior Authorization Cosentyx sensoready pen 150 soaj Encounter Details Date Type Department Care Team (Late st Contact Info) Description 11/24/2021 Specialty [place] [address] Charu Peng, [facility] Social History Tobacco Use Types Packs/Day Years [...] encounter Progress Notes * Charu Londono - 11/24/2021 11:39 AM EST [facility], Medication Prior Authorization Submission Patient: Zayda Sanchez Patient : 1965 Patient Address: [address] [place] [address] (home) Medication Name: COSENTYX PEN 150 MG/ML SUBCUTANEOUS Medication ID: Subscriber Insurance: Subscriber Insurance Comment: [facility] (IRX) Phone: Fax: Physician: GUANACO BRUNNER Physician Comment: Sent Via: [facility] Morales: [id number] Ref/Case/PA#: Medication Strength Frequency Requested: INJECT THE CONTENTS OF TWO PENS (300 MG) SUBCUTANEOUSLY EVERY 28 DAYS Qty/Day Supply: 11/30 New Start: Insurance Change Diagnosis & ICD-10 Code: Psoriasis L40.9 Patient Notified: No Submission Notes: None Charu Londono 11/24/21 11:41 AM * Charu Londono - 11/24/2021 11:39 AM EST [facility], Prior Authorization Approval Medication Name: COSENTYX PEN 150 MG/ML SUBCUTANEOUS Medication ID: Approval Dates: 10/15/2020 to 11/02/2022 Insurance requirements/notes: None Other Notes: None Case/Reference #: [id number] Approval notification Received via: Fax Copay: $1,400 Copay assistance: Copay Card Copay Notes: Patient can sign up for copay card. Insurance mandated Pharmacy: [facility] Fillable at [facility]: Yes Pharmacy staff will be reaching out to the patient to inform them of their [facility]. If applicable, a pharmacist will speak with the patient to offer our specialty pharmacy services and to arrange delivery of their medication. Charu Londono 11/27/21 2:32 PM documented in this encounter Plan of Treatment Upcoming Encounters Date Type Department Care Team (Late st Contact Info) Description 05/06/2025 4:15 PM EDT Office Visit Dermatology at [place] [address] [facility] [place] [address] Guanaco Brunner MD [address], [place] [address] documented as of this encounter Visit Diagnoses Not on filedocumented in this encounter Care Teams Voting Machine Mechanic Relationship Specialty Start Date End Date Kelly Garcia MD [address] [place] [address] PCP - General Family Medicine 07/10/20 10/16/23 documented as of this encounter
--- OUTSIDE RECORDS SUMMARY | 2024-10-31 19:40 | XMS_ITS | Encounter Summary ---
[place] [address] Care Team Providers Care Motion Picture Projectionist Name Role Phone Suha eD La Paz MD Primary Care Provider [phone] Encounter Details Date Type Department Care Team (Late st Contact Info) Description 07/05/2024 Telephone [place] [phone] Sanjana Ramey Social History Tobacco Use Types Packs/Day Years [...] encounter Miscellaneous Notes * Telephone Encounter - Sanjana Ramey - 07/05/2024 10:16 AM EDT Zayda Ling Laura [id number] Diagnosis/Indication: GERD, Celiac disease. Small intestine, duodenum, biopsy. hx acute erosive peptic duodenitis, small bowel reactive changes, with mucin cell metaplasia among other findings. Please review patient chart to confirm if previous Endoscopy procedure was performed within system. If yes, take note of Anesthesia type used. If previous procedure found, and with MAC/propofol Anesthesia support was used, schedule this procedure with Anesthesia and skip the Anesthesia portion of questions. If not performed within system, not performed at all, or performed with IVCS, ask Anesthesia questions. SCHEDULING QUESTIONS (ask all patient these questions) Have you ever had a/an Upper Endoscopy & Colonoscopy before? Yes: Date [facility] 2007 or 2013 If yes, did you have any problems with the procedure (such as waking up during the procedure, pain or difficulties afterwards, etc.)? No What type of sedation was used: Other: unknowh (ASK ONLY FOR COLONOSCOPY PROCEDURES) Are you aware, or have you ever been told that you had a poor prep or failed prep with a previous colonoscopy? No If yes, assign the Extended MiraLAX Prep (ASK ONLY FOR COLONOSCOPY PROCEDURES) Do you have an ongoing history of constipation? (E.g., hard stools, >2 days without a bowel movement, straining or difficulty passing stool) Yes If yes, assign the Extended MiraLAX Prep Do you take any blood thinners or have you been diagnosed with a bleeding disorder that increases your risk of bleeding with procedures? No Do you have a Pacemaker or Defibrillator device? If yes, send pool message to Cardiology with patient information and date or procedure. No Do you have diabetes? If yes, call PCP/managing provider to discuss use of prep and any questions or concerns related to. No If yes, assign the Extended MiraLAX Prep Do you take any iron supplements or vitamins that contain iron? Yes Do you take a GLP-1 medication for diabetes and/or weight loss? All patients who say yes, regardless of procedure, must be on clear liquids day prior to procedure. If patient answers yes, you must note which medication and instruct to hold the medication prior to procedure for one dose. Brand names include Wegovy, Ozempic, Trulicity, Mounjaro, Zepbound, Rynelsus, Saxenda, Victoza, Byetta, Bydureon, Soliqua, Xultophy No Do you have a preference regarding the gender of your provider? No ANESTHESIA QUESTIONS (YES to any question, please book with Anesthesia support) Have you ever been diagnosed with Pulmonary Hypertension and/or Congential Heart Disease? No Have you been diagnosed with A-Fib (atrial fibrillation) that is NOT being well controled with medications? No Have you ever had an allergic or adverse reaction to Fentanyl or Versed? No Have you had a problem with sedation or anesthesia? (Waking up during procedure, extreme confusion after, etc.) No Do you have a diagnosis of Obstructive Sleep Apnea that requires the use of a c- pap machine? No Do you use an oxygen tank at home? No Do you use a rescue inhaler more than twice per day? (COPD, severe asthma) No Do you experience breathing problems when you lay flat for a period of time? No Do you regularly take prescription opioid pain medications on a daily basis? (Includes oxycodone, Percocet, Suboxone, methadone, etc.) No If yes, assign the Extended MiraLAX Prep SCHEDULING CONFIRMATIONS: Please note any and all parts of your conversation with the patient here. We offer all new patients an opportunity to have an appointment with one of our associate care providers to learn more about your upcoming procedure, ask questions and get answers. These appointmentsare offered via telehealth. Would you be interested in scheduling this appointment? (Only ask if NEW referral patient; skip this question if [facility] provider ordered the procedure.) No Is there any other information or concerns you would like to us to share with your care team in relation to your upcoming scheduled procedure? No You must have a responsible libertarian who will drive you to your procedure, stay on campus for the entire duration of your procedure, and drive you home from your procedure. Who will likely be your driver trainer for the procedure? daughter *Please Verify the height and weight, and adjust if height and/or weight have changed* Estimated body mass index is 23.86 kg/m?? as calculated from the following: Height as of 10/30/13: 162.6 cm (5' 4). Weight as of 10/30/13: 63 kg (139 lb). *Patient must be scheduled for Anesthesia support if BMI is 40 or above* Height: 5'4'' Weight: 172 BMI: 29.5 Age:58 y.o. documented in this encounter Plan of Treatment Upcoming Encounters Date Type Department Care Team (Late st Contact Info) Description 05/06/2025 4:15 PM EDT Office Visit Dermatology at [place] [address] [place] [address] Steve Cochran MD [address], [address] [address] documented as of this encounter Visit Diagnoses Not on filedocumented in this encounter Care Teams Motion Picture Projectionist Relationship Specialty Start Date End Date Suha De La Paz MD [address] [place] [address] PCP - General Family Medicine 10/17/23 documented as of this encounter
--- OUTSIDE RECORDS SUMMARY | 2024-10-31 19:40 | XMS_ITS | Encounter Summary ---
Author Organization [facility] [place] [address] Care Team Providers Care Camp Counselor Name Role Phone Kelly Garcia MD Primary Care Provider [phone] Encounter Details Date Type Department Care Team ([facility] Contact Info) Description 03/24/2022 Telephone Dermatology at [address] [place] [address] Latoya Briggs LPN Social History [...] Telephone Encounter - Latoya Briggs LPN - 03/24/2022 12:09 PM EDT Pt reports she needs another cosentyx Pen to cover her until her f/u appointment on 04/20/22. I called [facility]. Pharmacist voiced a two pack cosentyx was shipped on 02/25/22. Although patient states she ONLY received one PEN. Phone order given for one package of two PENS and NO refills to cover until f/u appointment. Patient notified the order has been sent. documented in this encounter Plan of Treatment Upcoming Encounters Date Type Department Care Team (Late Contact Info) Description 05/06/2025 4:15 PM EDT Office Visit Dermatology at [place] [address] [place] [address] Steve Cochran MD [address], [place] [address] documented as of this encounter Visit Diagnoses Not on filedocumented in this encounter Care Teams Camp Counselor Relationship Specialty Start Date End Date Kelly Garcia MD [address] [place] [address] PCP - General Family Medicine 07/10/20 10/16/23 documented as of this encounter
--- OUTSIDE RECORDS SUMMARY | 2024-10-31 19:40 | XMS_ITS | Encounter Summary ---
[place] [address] Care Team Providers Care Pest Controller Assistant Name Role Phone Kelly Garcia MD Primary Care Provider [phone] Encounter Details Date Type Department Care Team (Late Contact Info) Description 12/01/2020 Refill Dermatology at [address] [phone] Steve Cochran MD [address] [place] [id number] Social History Tobacco Use Types Packs/Day Years [...] 4:15 PM EDT Office Visit Dermatology at [address] [phone] Steve Cochran MD [address] [place] [address] documented as of this encounter Visit Diagnoses Not on filedocumented in this encounter Care Teams Pest Controller Assistant Relationship Specialty Start Date End Date Kelly Garcia MD [address] [place] [address] PCP - General Family Medicine 07/10/20 10/16/23 documented as of this encounter
--- OUTSIDE RECORDS SUMMARY | 2024-10-31 19:40 | XMS_ITS | Encounter Summary ---
Author Organization [facility] [place] [address] Care Team Providers Care Car Sales Representative Name Role Phone Kelly Garcia MD Primary Care Provider [phone] Encounter Details Date Type Department Care Team (Late st Contact Info) Description 06/10/2021 Telephone Dermatology at [address] [place] [address] Latoya Briggs LPN Social History [...] Telephone Encounter - Latoya Briggs LPN - 06/11/2021 8:[address] Yu recommendation: Hold Cocentyx until symptoms stop. Then begin Cocentyx again. Called patient and reviewed Dr. Yu recommendation. She voiced understanding. * Telephone Encounter - Latoya Briggs LPN - 06/10/2021 3:40 PM EDT Patient reports feeling internal thing,itching, burning from the inside out. Questioning whether she should take her Cocentyx injection tomorrow. Last injection May 13, 2021 06/02/21 Symptoms started. Went to [facility] Emergency room. (requested report from ER.) Had heart palpations, tingling, burning onbody. Had ECG, labs, with no abnormal results. 06/06/21 Tingling in hands, cheeks,feet, itchy spots on torso and buttocks. Went to ER at [facility]. (Requested report) Given Prednisone. ? Allergic reaction. 06/10/21 Went to [facility] at [facility] [place]. (requested physician notes. Will send once signed.) Recommended Claritin and Zantac. Also, call Dr. Cochran to question whether she should take next Cocentyx injection. Today she continues to have tingling in hands, feet and her nipples are On fire & itchy. Patient did have allergic reaction to Taltz. She still has redness at the site of injection with Taltz on her thigh. She hasn't started any new medications. No new lotions, perfumes, or detergents. I advised her not to take the Cocentyx injection until I review with Dr. Cochran tomorrow. Encouraged her to follow PCP recommendations from [facility]. Will call her tomorrow with Dr. Yu recommendations. She voiced understanding. documented in this encounter Plan of Treatment Upcoming Encounters Date Type Department Care Team (Late st Contact Info) Description 05/06/2025 4:15 PM EDT Office Visit Dermatology at [place] [address] [place] [address] Steve Cochran MD [address], [place] [address] documented as of this encounter Visit Diagnoses Not on filedocumented in this encounter Care Teams Car Sales Representative Relationship Specialty Start Date End Date Kelly Garcia MD [address] [place] [address] PCP - General Family Medicine 07/10/20 10/16/23 documented as of this encounter
--- OUTSIDE RECORDS SUMMARY | 2024-10-31 19:40 | XMS_ITS | Encounter Summary ---
Author Organization [facility] Address [address] [place] [address] Care Team Providers Care Customer Care Coordinator Name Role Phone Unavailable Primary Care Provider Unavailabl e Encounter Details Date Type Department Care Team (Late st Contact Info) Description 10/16/2001 Results Only [facility] [address] [place] [address] Jose Barbosa MD [address] [place], [place] [id number] Social History Tobacco Use Types Packs/Day Years [...] Date/Time Associated Diagnosis Comments SURGICAL PATHOLOGY Routine 10/16/2001 0:00 EST documented in this encounter Results * SURGICAL PATHOLOGY (10/16/2001 0:00 EST) Pathology Report: SURGICAL PATHOLOGY REPORT Reports generated via electronic interface contain original data; however they are lacking the format of the original report. Caution should be taken when reading/interpreti ng unformatted reports. Name: ? ZAYDA KIMBROUGH ? Accession #: ? [id number] ? : ? 1965 (Age: 36) ??F ? Collect Date: ? 10/16/2001 ? Location: ? [facility] ? Receive Date: ? 10/16/2001 ? Provider: JOSE BARBOSA MD Copy to: LETTY MARTINEZ MD ? Final Pathologic Diagnosis: ? Uterus, bilateral fallopian tubes, and ovaries, hysterectomy and bilateral salpingo-oophorect leticia: 1. ?Cervix: ? - No specific pathologic features. 2. ?Endometrium: ? - Proliferative endometrium; no specific pathologic features. 3. ?Myometrium: ? - No specific pathologic features. 4. ?Uterine subserosa, posterior: ? - Nodular giant cell reaction. 5. ?Ovary, right: ? - Hemorrhagic corpus luteum. 6. ?Ovary, left: ? - Organizing hemorrhagic cyst. 7. ?Fallopian tubes, bilateral: ? - Status post tubal ligation. Document reviewed and electronically signed by: Kia Luke MD Report ??Date: 10/17/2001 16:13 By the signature above, the attending physician certifies that he/she has personally conducted a gross and/or microscopic examination of the described specimens and rendered or confirmed the above diagnosis. Specimen(s) Received: ? Uterus with ovaries Clinical History: ? Hx endometriosis, pelvic pain, AUB Gross Description: ? Received in formalin labelled Pelow and uterus and ovaries is the product of a hysterectomy with attached bilateral adnexa. ??The corpus uteri and cervix has a combined weight of 118 grams and measures 9.2 cm from fundus to cervix, 4.9 cm from cornu to cornu and 3.0 cm anterior to posterior. ??The serosa is beard-pink, smooth and glistening. ??The ectocervix is powell-white, smooth to wrinkled with a central patent 1.2 cm slit-like os. ??The endocervical canal is grossly unremarkable. ??The endometrium is beard-red and glistening averaging 0.2 cm in thickness. ??The myometrium is beard-pink, averages 1.9 cm in thickness with no discrete nodules identified. ??The attached right and left multilobulated ovaries measure 3.4 x 2.5 x 1.5 cm and 4.0 x 2.8 x 1.8 cm, respectively. ??The cut surfaces of the right ovary reveal multiple eccentric, hemorrhagic smooth walled cyst-like structures measuring up to 1.0 cm in greatest dimension with no excrescences grossly identified. ??He cut surfaces of the left ovary reveal multiple hemorrhagic fluid-filled cyst-like structures measuring up to 1.2 cm in greatest dimension. ??The remaining cut surfaces are beard-yellow and grossly unremarkable. ??The attached right and left previously interrupted fallopian tubes measure 3.7 and 4.0 cm in length and are surfaced by a beard smooth serosa. ??The fimbria is not grossly identified. ??The right fallopian tube averages 0.5 cm in diameter and the left ranges from 0.5 to 0.6 cm in diameter. ??The cut surfaces are beard-white and patent. ??No discrete [id number] are identified. ??Heavy Equipment Service Technician sections are submitted as follows. BLOCK KEYA1 ?Anterior cervix A2 ?Posterior cervix A3 ?Anterior endomyometrium A4 ?Posterior endomyometrium A5 ?Posterior serosa ??lower uterine segment A6 ?Right ovary A7 ?Right ovary and fallopian tube A8 ?Left ovary A9 ?Left ovary and fallopian tube (Yolis Cobian)/[facility] [place] End of Report [facility] 10/16/2001 10/16/2001 15: 25 EST us Jose Barbosa MD PATHOLOGY ORDERABLES Final Resul t [facility] [address] [place] [address] documented in this encounter Visit Diagnoses Not on filedocumented in this encounter
--- OUTSIDE RECORDS SUMMARY | 2024-10-31 19:40 | XMS_ITS | Encounter Summary ---
Author [facility] [place] [address] Care Team Providers Care Tilting Saw Operator Name Role Phone Kelly Garcia MD Primary Care Provider [phone] Reason for Visit * Reason Comments Medication Refill Encounter Details Date Type Department Care Team (Late Contact Info) Description 04/16/2022 Refill Dermatology at [address] [phone] Steve Cochran MD [address] [place] [id number] Social History Tobacco Use Types Packs/Day Years [...] 4:15 PM EDT Office Visit Dermatology at [address] [phone] Steve Cochran MD [address] [place] [phone] documented as of this encounter Visit Diagnoses Not on filedocumented in this encounter Care Teams Tilting Saw Operator Relationship Specialty Start Date End Date Kelly Garcia MD [address] [place] [address] PCP - General Family Medicine 07/10/20 10/16/23 documented as of this encounter
--- OUTSIDE RECORDS SUMMARY | 2024-10-31 19:40 | XMS_ITS | Encounter Summary ---
[facility] Organization [facility] [place] [address] Care Team Providers Care Radiology Tech Name Role Phone Suha De La Paz MD Primary Care Provider [phone] Reason for Visit * Auth/Cert (Routine) Specialty [...] COLONOSCOPY, DIAGNOSTIC (WRVU 3.26) Jayde Sandoval MD [facility] [place] [address] [facility] Referral ID Status Reason Start Date Expiration Date Visits Re quested Visits Authorized [id number] 1 1 Encounter Details Date Type Department Care Team (Late st Contact Info) Description 07/20/2024 3:45 PM EDT - 07/20/2024 4:45 PM EDT [place] [address] Jayde Sandoval MD [facility] DR GASTROENTEROLOGY [place], [place] [id number] [facility] Social History Tobacco Use Types Packs/Day Years [...] Sign Reading Time Taken Comments Blood Pressure 140/85 07/20/2024 3:24 PM EDT Pulse 75 07/20/2024 3:24 PM EDT Temperature 36 ??C (96.8 ??F) 07/20/2024 3:24 PM EDT Respiratory Rate 15 07/20/2024 3:24 PM EDT Oxygen Saturation 99% 07/20/2024 3:24 PM EDT Inhaled Oxygen Concentration - - Weight 80.3 kg (177 lb) 07/20/2024 3:24 PM EDT Height 162.6 cm (5' 4) 07/20/2024 3:24 PM EDT Body Mass Index 30.38 07/20/2024 3:24 PM EDT documented in this encounter Discharge Instructions * Discharge Instructions* Melanie Laura, RN - 07/20/2024 5:33 PM EDT Upper [...] the day after the test, use an cwal-sxp-kawsezc spray or lozenges to numbyour throat. Warm [...] occurs, please contact your doctor. Please call [phone] before 8pm Mon-Fri with problems, questions, or concerns. If you call after 8pm or on weekends, call the Hospital at [phone] and ask for the Exp[employer] Dental Assistant search engine optimization strategist and the flavoring machine operator will contact that person for you. When should you call for help? Call 911 anytime you think you may need emergency [...] more? You can view health information on [employer], your personal patient account. Log in or sign up today. Content Version: 12.2 ?? [id number] [employer]. Care instructions adapted under license by [employer] [facility]. If you have questions about a medical condition or this instruction, always ask your healthcare professional. [employer] disclaims any warranty or liability for your [...] 4:15 PM EDT Office Visit Dermatology at [address] [place] [phone] Steve Cochran MD [address], [place] [address] documented as of this encounter Procedures Procedure Name Priority Date/Time Associated Diagnosis Comments SURGICAL PATHOLOGY Routine 07/20/2024 4: 46 PM EDT Gastroesophageal reflux disease, unspecified whether esophagitis present Change in bowel habits Celiac disease Abdominal bloating Colonoscopy, Biopsy ([id number]) 07/20/2024 4:29 PM EDT Gastroesophageal reflux disease, unspecified whether esophagitis present Celiac disease Abdominal bloating Change in bowel habits Upper Gi Endoscopy, Biopsy ([id number]) 07/20/2024 4:29 PM EDT Gastroesophageal reflux disease, unspecified whether esophagitis present Celiac disease Abdominal bloating Change in bowel habits UPPER GI ENDOSCOPY Routine 07/20/2024 4: 26 PM EDT COLONOSCOPY Routine 07/20/2024 4:25 PM EDT documented in this encounter Results * Surgical Pathology (07/20/2024 4:46 PM EDT) Case Report Surgical Pathology Report ? Case: [id number] ? Authorizing Provider: ??Jayde Sandoval MD ?Collected: ? 07/20/2024 1646 ? Ordering Location: ? Gastroenterology at [facility] ?? Received: ?07/20/2024 1756 ? Pathologist: ? Lo Chu MD ? Specimens: ?? A) - Small Bowel, Duodenum ? B) - Small Bowel, Duodenal Bulb ? C) - Stomach ? D) - Colon, nontargeted bx ? 07/31/2024 11:58 AM EDT [facility] Final Diagnosis A. Small Bowel, Duodenum, Biopsy: Small intestinal mucosa within normal limits, including preserved villous architecture. B. Small Bowel, Duodenal Bulb, Biopsy: Duodenal mucosa with foveolar metaplasia and Jena's gland hyperplasia consistent with peptic-type duodenitis. C. Stomach, Biopsy: Gastric fundic mucosa within normal limits. D. Colon, nontargeted bx Biopsy: Colonic mucosa within normal limits. CR-PX 07/31/2024 11:58 AM EDT [facility] Clinical Information A. Small Bowel, [...] in bowel habits [R19.4] 07/31/2024 11:58 AM EDT [facility] Gross Description A. Small Bowel, Duodenum, [...] cassettes labeled D1-D2. jnr 07/31/2024 11:58 AM T [facility] Result Note Routine 07/31/2024 11:58 AM [facility] Tissue DUODENAL STRUCTURE / Unknown 07/20/2024 [...] cell metaplasia Jayde Sandoval MD PATHOLOGY/[place] [address] * UPPER GI ENDOSCOPY (07/20/2024 4:26 PM EDT) UPPER GI ENDOSCOPY [facility] Endoscopy Procedure Date: 07/20/2024 4:26 PM ? Patient Name: Zayda Pelow ? Date of : 1965 ? Age: 58 ? Order #: [id number] ? Instrument Name: [id number] ? Procedure: ? Upper GI endoscopy Indications: ? Abdominal pain, Follow-up of celiac ? disease Providers: ? Jayde Sandoval MD, Jay Lagos ? Glenroy Gould RN, Ellen ? F. Spencer Referring : ?Deonna [...] PROVATION 07/20/2024 4:26 PM EDT Deonna Matt SOURCER GENERAL SURGICAL ORD ERABLES PROVATION * COLONOSCOPY (07/20/2024 4:25 PM EDT) COLONOSCOPY [facility] Endoscopy Procedure Date: 07/20/2024 4:25 PM ? Patient Name: Zayda Sanchez ? Date of : 1965 ? Age: 58 ? Order #: [id number] ? Instrument Name: [id number] ? Procedure: ? Colonoscopy Indications: ? Abdominal pain, Change in bowel ? habits Providers: ? Jayde Sandoval MD, Glenroy Campo, ? RN, Ellen Palmer, Jay Lagos ? Luis Fernando Referring : ?Deonna Young [...] ? was evaluated using the BBPS ? ([place] Bowel Preparation Scale) ? with scores of: [...] Procedure Code(s): ? --- Professional --- ? 90947, Colonoscopy, flexible; with ? biopsy, single or multiple CPT copyright 202 [employer]. All rights reserved. The codes documented in this report are preliminary and upon spirits model review may be revised to meet current compliance requirements. Attending Participation: ? I was present and participated during the entire ? procedure, including non-healy portions. ? Jayde Sandoval MD _ Jayde Sandoval MD 07/20/2024 5:28:57 PM This report has been signed electronically. Number of Addenda: 0 Note Initiated On: 07/20/2024 4:25 PM PROVATION 07/20/2024 4:25 PM EDT Deonna Matt RONLAD GENERAL SURGICAL ORD ERABLES PROVATION documented in this encounter Visit Diagnoses Diagnosis Gastroesophageal reflux disease, unspecified whether esophagitis present Change in bowel habits Other symptoms involving digestive system Celiac disease Abdominal bloating Flatulence, eructation, and gas pain Gastroesophageal reflux disease, unspecified whether esophagitis present Celiac disease Abdominal bloating Flatulence, eructation, and gas pain Change in bowel habits Other symptoms involving digestive system documented in this encounter Administered Medications Inactive Administered Medications - up to 3 most recent administrations Medication Order MAR Action Action Date Dose Rate Site benzocaine (Hurricane One) 20% spray (restricted to jamaal-procedural use) PRN, Starting on Tue07/20/24 at 1639, Until Tue07/20/24 at 2010, Intra-Operative (Intra-Procedure) Given 07/20/2024 4:39 PM EDT 1 spray fentaNYL (pf) (50 mcg/mL) multi-dose injection PRN, Starting on Tue07/20/24 at 1636, Until Tue07/20/24 at 2010, Intra-Operative (Intra-Procedure), Routine Given 07/20/2024 5:05 PM EDT 50 mcg Given 07/20/2024 5:02 PM EDT 50 mcg Given 07/20/2024 4:59 PM EDT 50 mcg lactated ringers infusion 100 mL/hr, Intravenous, CONTINUOUS, Starting on Tue07/20/24 at 1545, Until Tue07/20/24 at 1736, Endoscopy (Day of Procedure) New Bag 07/20/2024 3:45 PM EDT 100 mL/hr 100 mL/hr midazolam (pf) (Versed) (1 mg/mL) multi-dose injection PRN, Starting on Tue07/20/24 at 1636, Until Tue07/20/24 at 2010, Intra-Operative (Intra-Procedure), Routine Given 07/20/2024 4:59 PM EDT 1 mg Given 07/20/2024 4:42 PM EDT 1 mg Given 07/20/2024 4:39 PM EDT 1 mg documented in this encounter Active and Recently Administered Medications Times are shown in EDT. Continuous Medication Order 07/18/2024 07/19/2024 07/20/2024 lactated ringers infusion (CANCELED) 100 mL/hr, Intravenous, CONTINUOUS, Starting on Tue07/20/24 at 1545, Until Tue07/20/24 at 1736, Endoscopy (Day of Procedure) 1545 (New Bag - Prov ider: Sweetie Ortiz, ERNESTINE) PRN Medication Order 07/18/2024 07/19/2024 07/20/2024 benzocaine [...] Until Tue07/20/24 at 2010, Intra-Operative (Intra-Procedure), Routine 1630 (Given - Provid er: Glenroy Campo RN)1633 (Given - Provider: Glenroy Campo RN)1636 (Given - Provider: Glenroy Campo RN)1639 (Given - Provider: Glenroy Campo RN)1642 (Given - Provider: Glenroy Campo RN)1659 (Given - Provider: Glenroy Campo RN) documented in this encounter Care Teams Radiology Tech Relationship Specialty Start Date End Date Suha De La Paz MD [address] [place] [address] PCP - General Family Medicine 10/17/23 documented as of this encounter
--- OUTSIDE RECORDS SUMMARY | 2024-10-31 19:40 | XMS_ITS | Encounter Summary ---
Author Organization [facility] Address [address] [place] [address] Care Team Providers Care Operation Supervisor Name Role Phone Gentry Morrison MD Primary Care Provider Unav ailable Encounter Details Date Type Department Care Team (Late st Contact Info) Description 07/25/2020 Lab Requisition [facility] Pathology & Laboratory Medicine - [address] [id number] Outr Resulting Lab, Provider Social History Tobacco Use Types Packs/Day Years Used Date Smoking Tobacco: Never Assessed Interpersonal Safety Answer Date Record ed Physically Hurt Never 05/04/2020 Verbally Threaten Not on file 05/04/2020 Comments Unknown Sex and Gender Information Value Date Recorded Sex Assigned at Not on file Legal Sex Female 18:12 EST Gender Identity Not on file Sexual Orientation Not on file documented as of this encounter Plan of Treatment Not on file documented as of this encounter Procedures Procedure Name Priority Date/Time Associated Diagnosis Comments HERPES SIMPLEX VIRUS (HSV) TYPE 1 & 2 AB, IGG Routine 07/24/2020 9:35 EDT documented in this encounter Results * (ABNORMAL) HERPES SIMPLEX VIRUS (HSV) TYPE 1 & 2 AB, IGG (07/24/2020 9:35 EDT) HSV Type 1 Ab, IgG Negative Negative 07/28/2020 10:01 EDT [facility] Comment: No detectable antibodies to HSV 1 were found. A negative result generally indicates that the patient has not been infected, but does not always rule out acute HSV infection. If clinical exposure to HSV is suspected despite a negative finding a second sample should be collected and tested no less than 4-6 weeks later. HSV Type 2 Ab, IgG Positive(A) Negative 07/28/2020 10:01 EDT [facility] Comment:Indicates the presen ce of detectable IGG antibody to HSV 2 Blood VENOUS BLOOD / Unknown 07/24/2020 9:35 EDT 07/25/2020 20:28 EDT us Provider Outr Resulting Lab IMMUNOLOGY AND SEROL OGY ORDERABLES Final Result [facility] [address] [place] [address] documented in this encounter Visit Diagnoses Not on filedocumented in this encounter Care Teams Operation Supervisor Relationship Specialty Start Date End Date Gentry Morrison MD PCP - General 08/15/15 documented as of this encounter
--- OUTSIDE RECORDS SUMMARY | 2024-10-31 19:40 | XMS_ITS | Encounter Summary ---
Author Organization [facility] [place] [address] Care Team Providers Care Bundle Collector Name Role Phone Kelly Garcia MD Primary Care Provider [phone] Reason for Visit * Reason Comments Medication Refill Encounter Details Date Type Department Care Team (Late Contact Info) Description 04/24/2023 Refill Dermatology at [address] [phone] Steve Cochran MD [address] [place] [id number] Social History Tobacco Use Types Packs/Day Years [...] 4:15 PM EDT Office Visit Dermatology at [address] [phone] Steve Cochran MD [address] [place] [address] documented as of this encounter Visit Diagnoses Not on filedocumented in this encounter Care Teams Bundle Collector Relationship Specialty Start Date End Date Kelly Garcia MD [address] [place] [address] PCP - General Family Medicine 07/10/20 10/16/23 documented as of this encounter
--- OUTSIDE RECORDS SUMMARY | 2024-10-31 19:40 | XMS_ITS | Continuity of Care Document ---
Author Organization [place] - [facility], [facility], [facility] Address [address] [place] [address] [address] [place] [address] Assessment No assessment recorded. Plan of Treatment Reminders Order Date Submit Date Provider Last Modified By Organization Details Last Modified Time Details Appointments Acute 10 2024 04:55P Sushil BOURNE Not available Not available Not available Annual Wellness Exam 40 2024 07:30A Sushil COWART, Not available Not available Not available Lab influenza virus A + B + SARS-CoV- 2 (COVID19) Ag panel, rapid IA, upper respirato ry specimen [email or web address] [facility], [address] [place] [address], [address], [place], [address], 10/31/2024 17:57:34 influenza virus A + B and SARS CoV 2 (COVID-19 ) and RSV RNA panel, COLT+probe , respirato ry specimen 2024 025 [facility] [address] [place] [address], [place], [address], 10/31/2024 18:10:30 Referral None recorded. Procedures None recorded. Surgeries None recorded. Imaging None recorded. Medication Orders None recorded. Patient TargetsNo targets recorded. Patient Instructions Encounter Date Encounter Id Patient Instructions Last Modified By Organization Details Last Modified Time 10/31/2024 [id number] 1. Your rapid COVID and flu test are negative. We have sent a COVID, flu, RSV PCR test to the lab which will have results back tomorrow. I will call you as soon as they become available and we will discuss additional management at that time. [email or web address] Not available 10/31/2024 17:54:04 Reason for Referral None Reported. Results Created Date Observation Date Name Description Value Unit Range Abnormal Flag Note LastModifiedBy Organization Detail LastModifiedTime 10/31/19 25 10/31/2024 influ caren virus A + B + SARS- CoV-2 (COVI D19) Ag panel , rapid IA, upper respi rator y speci men Influenza A negati ve Not Available [address], [place], [address], 10/31/2024 17:40:38 10/31/19 25 10/31/2024 influ caren virus A + B + SARS- CoV-2 (COVI D19) Ag panel , rapid IA, upper respi rator y speci men Influenza B negati ve Not Available [address], [place], [address], 10/31/2024 17:40:38 10/31/19 25 10/31/2024 influ caren virus A + B + SARS- CoV-2 (COVI D19) Ag panel , rapid IA, upper respi rator y speci men SARS-COV-2 negati ve Not Available [address], [place], [address], 10/31/2024 17:40:38 Result Notes None recorded. Problems Name Problem SNOMED Code Status Onset Date Resolution Date Notes Provider Name and Address Organization Details Recorded Time Influenz a-like illness 08035478 Active [address], [place], [address] , [facility] 17:56:36 Fatigue 26190258 Active 2014 Nicolas Vogel [facility], [place] - [facility] 4 17:24:57 Prematur e menopaus e 923385991 Active 2014 [facility] 4 17:28:00 Bone density finding 013560068 Completed 201412/09/2023 Problem Code: M85.80; Problem Code Type: ICD-10; [facility] 4 17:23:40 Vitamin D deficien cy 91586362 Active 2014 [facility] 4 17:28:44 Gastroes ophageal reflux disease without esophagi tis 636173699 Active 2015 [facility] 4 17:25:04 Adult health examinat ion Active 2015 [facility] 4 17:22:57 Acquired absence of cervix and uterus 961665625 Completed 201512/09/2023 Problem Code: Z90.710; Problem Code Type: ICD-10; [facility] 4 17:22:51 Upper respirat ory tract infectio n caused by Influenz a virus [id number] 236088 Completed 201712/06/2017 Problem Code: J11.1; Problem Code Type: ICD-10; Not Available [facility] 3 05:36:59 Screenin g mammogra phy Active 2017 [facility] 4 17:28:14 Palpitat ions 55948138 Active 2018 [facility] 4 17:27:45 Generali zed skin eruption caused by drug and medicame nt 027508541 Active 2020 [facility] 4 17:25:22 Paresthe seth 65730857 Active 2020 [facility] 4 17:27:53 Headache 59188730 Active 2021 [facility] 4 17:25:29 Left lower quadrant pain 987675728 Active 2021 [facility] 4 17:26:58 Urinary incontin ence 073829137 Active 2022 [facility] 4 17:28:39 Disorder of ear 04913002 Active 2022 [facility] 4 17:24:50 Hearing loss 38898132 Active 2022 [facility] 4 17:26:02 Digestiv e system finding 646986559 Completed 202212/09/2023 Problem Code: R19.8; Problem Code Type: ICD-10; [facility] 4 17:24:21 Nicotine dependen ce 43204120 Active 2007 [facility] 4 17:27:14 Psoriati c arthriti s 727199978 Active 2012 [facility] 4 17:28:09 Chest pain 91843101 Completed 202012/08/2022 Problem Code: R07.89; Problem Code Type: ICD-10; Not Available [facility] 3 05:37:03 Acute sinusiti s 64560394 Completed 201911/03/2020 Problem Code: J01.90; Problem Code Type: ICD-10; Not Available [facility] 3 05:37:04 Psoriasi s with arthropa thy Completed 201206/29/2023 Problem Code: 696.0; Problem Code Type: ICD-9; Not Available [facility] 3 05:37:04 Exposure to sexually transmis sible disorder Completed 201912/08/2022 Problem Code: Z20.2; Problem Code Type: ICD-10; Not Available [facility] 3 05:37:05 Abnormal weight gain 645082355 Completed 201610/09/2019 Problem Code: R63.5; Problem Code Type: ICD-10; Not Available [facility] 3 05:37:05 Venereal disease screenin g Completed 201911/19/2019 Problem Code: Z11.3; Problem Code Type: ICD-10; Not Available [facility] 3 05:37:06 Breast composit ion 466982276 Completed 201912/08/2022 Not Available [facility] 3 05:37:06 Lower abdomina l pain 29867107 Completed 201710/09/2019 Problem Code: R10.30; Problem Code Type: ICD-10; Not Available [facility] 3 05:37:07 Nodule on toe 410375985 Completed 202012/08/2022 Not Available [facility] 3 05:37:07 Chest pain 42489931 Completed 201811/03/2020 Problem Code: R07.9; Problem Code Type: ICD-10; Not Available [facility] 3 05:37:07 Dizzines s and giddines s 718916072 Completed 201403/09/2016 Problem Code: R42; Problem Code Type: ICD-10; Not Available [facility] 3 05:37:07 Acute pharyngi tis 734691651 Completed 201503/09/2016 Problem Code: J02.9; Problem Code Type: ICD-10; Not Available [facility] 3 05:37:08 Abdomina l pain 23594868 Completed 201911/03/2020 Problem Code: R10.9; Problem Code Type: ICD-10; HIMA PARADA MD [address], [place], [address] , [facility]. 14:28:12 Edema 947224344 Completed 201403/09/2016 Problem Code: R60.9; Problem Code Type: ICD-10; Not Available [facility] 3 05:37:08 Viral disease 10894475 Completed 201510/09/2019 Problem Code: B97.89; Problem Code Type: ICD-10; Not Available [facility] 3 05:37:09 Epigastr ic pain 90667094 Completed 201506/29/2023 Problem Code: R10.13; Problem Code Type: ICD-10; Not Available [facility] 3 05:37:09 Senile osteopor osis 41272936 Completed 201406/29/2023 10/09/19 20 - Comments only - Deonna PALUMBO - We did not discuss suppleme ntation at today's visit, will recommen d suppleme ntation with vitamin D and calcium with call back with STD/vagi nal pathogen results. Problem Code: M81.0; Problem Code Type: ICD-10; Not Available [facility] 3 05:37:09 Noninfla mmatory disorder of the vagina 44832066 Completed 201911/03/2020 Problem Code: N89.8; Problem Code Type: ICD-10; Not Available [facility] 3 05:37:10 Adult health examinat ion Completed 201403/09/2016 Problem Code: Z00.00; Problem Code Type: ICD-10; Nicolas rao [facility]. 4 17:22:57 Tobacco dependen ce syndrome 63127570 Completed 200706/29/2023 Problem Code: 305.1; Problem Code Type: ICD-9; Not Available [facility] 3 05:37:11 COVID-19 506290291 Completed 202312/09/2023 Nicolas rao [facility]. 4 17:23:46 Streptoc occal sore throat 79851743 Completed 202312/09/2023 Nicolas Vogel [facility], [facility] 4 17:28:33 Psoriasi s 8913426 Active 2023 CAIO SMITH CMA null, [facility] 4 12:35:31 Total hysterec cristina Completed 201512/09/2023 Nicolas Vogel [facility], [facility] 4 17:28:19 Osteopen ia 257477010 Active 2014 Nicolasmaddy Vogel [facility] 4 17:23:36 Irregula r bowel habits 469613923 Active 2022 Nicolasmaddy Vogel [facility] 4 17:24:19 Obesity 278419218 Active [address], [place], [address] , [facility] 4 16:00:18 Hearing difficul ty 623896701 Active [address], [place], [address] , [facility] 4 16:07:56 Pain of left breast 4787255484 Active [address], [place], [address] , [facility] 4 15:15:00 Abdomina l pain 41934404 Active 2023 Problem Code: R10.9; Problem Code Type: ICD-10; MD [address], [place], [address] , [facility] 4 14:28:12 Celiac disease 293233164 Active 2023 ILAN MEDRANO [employer]ING[employer] 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 4 07:58:23 Problem Notes None recorded. Medical Equipment None Reported. Allergies Allergen ID Allergen Name Allergen Category Reaction Reaction Severity Criticality Documentation Date Start Date Code Code System Note Provider Name and Address Organization Details Recorded Time 03893 clindamyc in hydrochlo ride medicatio n hives mild Not available 08/12/20232011 93140 RxNorm hives Not Available [facility] 3 16:19:18 44764 Product containin g penicilli n and antibioti c (product) medicatio n hives mild Not available 08/12/20232007 59896 05 SNOMED Nicolas Vogel [facility] 4 17:20:32 11247 Humira medicatio n Not available Not available Not available 10/11/2023 95797 4 RxNorm ABIDA FRANCISCO [facility] 4 17:31:57 48142 Enbrel medicatio n Not available Not available Not available 10/11/2023 42339 1 RxNorm ABIDA SINGH [facility], [facility] 4 17:32:04 94059 Remicade medicatio n Not available Not available Not available 10/11/2023 62110 0 RxNorm ABIDA SINGH [facility], [facility] 4 17:32:11 82272 Taltz medicatio n Not available Not available Not available 10/11/2023 99457 04 RxNorm ABIDA SINGH [facility], [facility] 4 17:32:22 55842 shellfish derived food,medi cation Not available Not available Not available 10/11/2023 94733 UNK ABIDA FRANCISCO [facility], [facility] 4 17:32:56 01029 cephalexi n medicatio n rash moderate Not available 10/11/20232023 [address], [place], [address], [facility]. 4 19:08:41 Medications Name Sig Start Date Stop Date Status Note LastModified by Organization Details LastModified Time Protonix 40 mg tablet,de layed release Take 1 tab by mouth daily 11/22 completed per [facility] Not Available Not Available Not Available [...] completed Medicati on checked by Dolly Yancey [facility] Administ ered by Abida Singh RN,BSN Not [...] week 4 and then every 4 weeks therafte r. 2018 active [facility] Not Available Not Available Not Avai lable Cosentyx 10/13 completed Not Available Not Available Not Available Cosentyx Pen 300 mg/2 Pens (150 mg/mL) subcutane ous active Not Available Not Available Not Available Paxlovid 300 mg (150 mg x 2)-100 mg tablets in a dose pack Nirmatre lvir 300 mg with ritonavi r 100 [...] Last Updated DateTime 161.92 cm 31.1 kg/m2 36863.8 3 g 99.1 [degF] 19 /min 97 % 97 % 97 /min 158 mm[Hg] 107 mm[Hg] Trinh Dowd RN [facility] 17:13:31 Social History Question Answer Notes LastModified by Organizat ion Details LastModified Time Tobacco Smoking Status Former Smoker Dolly Adams MA [facility], [facility] 10/06/2023 15:54:31 Do You Or Have You Ever Used E-cigarettes Or Vape? Current User Of Electronic Cigarettes Information not available 01/10/2024 When Did You Quit Smoking? 1-5yearssincel melyssa Information not available 01/10/2024 Would You Say [...] Getting Things Needed For Daily Living? No Information not available 01/10/2024 What Is Your [...] Have You Ever Used IV Drugs? No Information not available 01/10/2024 Date Of Most [...] Other Forms Of Tobacco Or Nicotine? Yes Information not available 01/10/2024 Sex: Female Functional [...] preservative free, adsorbed 8 completed Not Available [facility] 08/12/2023 05:04:23 Tdap 8 completed Not Available [facility] 08/12/2023 05:04:24 Influenza, split virus, trivalent, preservative 7 completed Not Available [facility] 08/12/2023 05:04:26 Influenza, split virus, quadrivalent, PF 8 completed Not Available [facility] 08/12/2023 05:04:26 Influenza, split virus, quadrivalent, PF 0 completed Not Available [facility] 08/12/2023 05:04:27 COVID-19 vaccine, vector-nr, rS-Ad26, PF, 0.5 mL 1 completed Not Available [facility] 08/12/2023 05:04:28 pneumococcal polysaccharide PPV23 8 completed Not Available [facility] 08/12/2023 05:04:29 influenza, unspecified formulation 5 completed Not Available [facility] 08/12/2023 05:04:30 influenza, unspecified formulation 5 completed Not Available [facility] 08/12/2023 05:04:30 influenza, unspecified formulation 7 completed Not Available [facility] 08/12/2023 05:04:30 Past Encounters Encounter ID Performer Location Encounter Start Date Encounter Closed Date Diagnosis/Indication Diagnosis SNOMED-CT Code Diagnosis ICD10 Code Diagnosis Note [id number] [address],[facility] [place] [address] 10/31/2024 17:05:23 10/31/2024 17:56:56 Influenza-like illness [id number] B34.9 Patient developed sudden onset of influenza- [...] by Organization Details LastModified Time None Recorded Payers Encounter Date Sequence Insurance Name Policy Number Policy Leach Covered Member ID Leach Member ID Guarantor Name 10/31/2024 1 [facility] [id number] Zayda Sanchez [id number] Zayda Sanchez Notes Date Note Type Note Provider Name and Address Organization Details Recorded Time 10/31/2024 text/html Zayda is a 59-year-old female [...] has a granddaughter who is currently at [facility] because of RSV and COVID with Kawasaki's. My patient is immune compromised and is asking for additional testing in the event that she may need antiviral medications. [address], [place], [address], [facility]. 10/31/2024 17:57:31 OBGyn Episode No OBEpisode recorded.
--- OUTSIDE RECORDS SUMMARY | 2024-10-31 19:40 | XMS_ITS | Encounter Summary ---
[place] [address] Care Team Providers Care Irb Compliance Coordinator Name Role Phone Suha De La Paz MD Primary Care Provider [phone] Encounter Details Date Type Department Care Team (Late st Contact Info) Description 12/13/2023 Telephone Dermatology at [address] [place] [address] Latoya Briggs LPN Social History [...] Telephone Encounter - Latoya Briggs LPN - 12/13/2023 1:53 PM EDT Received call from Soraida at [facility] advising the patient will need to cut back to two daysa week due to staffing at this time. Notified patient she would have to cut back to twice a week instead of three times weekly due to staffing. She voiced understanding. Advised her Soraida would be calling her to schedule. documented in this encounter Plan of Treatment Upcoming Encounters Date Type Department Care Team (Late st Contact Info) Description 05/06/2025 4:15 PM EDT Office Visit Dermatology at [address] [place] [address] Steve Cochran MD [address], [place] [address] documented as of this encounter Visit Diagnoses Not on filedocumented in this encounter Care Teams Irb Compliance Coordinator Relationship Specialty Start Date End Date Suha De La Paz MD [address] [place] [address] PCP - General Family Medicine 10/17/23 documented as of this encounter
--- OUTSIDE RECORDS SUMMARY | 2024-10-31 19:40 | XMS_ITS | Clinical Summary ---
Author Organization [facility] Address [address] [place] [address] Care Team Providers Care Trash Collector Truck Driver Name Role Phone Gentry Morrison MD Primary Care Provider Unav ailable Social History Tobacco Use Types Packs/Day Years Used Date Smoking Tobacco: Never Assessed Interpersonal Safety Answer Date Record ed Physically Hurt Never 05/04/2020 Verbally Threaten Not on file 05/04/2020 Comments Unknown Sex and Gender Information Value Date Recorded Sex Assigned at Not on file Legal Sex Female 18:12 EST Gender Identity Not on file Sexual Orientation Not on file Plan of Treatment Health Maintenance Due Date Last Done Comments Hepatitis C Screen 1965 Hepatitis B Vaccine (1 of 3 - 19+ 3-dose series) 08/30 COVID-19 Vaccine ( season) 2024 Care Teams Trash Collector Truck Driver Relationship Specialty Start Date End Date Gentry Morrison MD PCP - General 08/15/15
--- OUTSIDE RECORDS SUMMARY | 2024-10-31 19:40 | XMS_ITS | Encounter Summary ---
[place] [address] Care Team Providers Care Vocational Rehabilitation Teacher Name Role Phone Suha De La Paz MD Primary Care Provider [phone] Encounter Details Date Type Department Care Team (Latest Contact Info) Description 01/23/2024 Travel Social History Tobacco Use Types Packs/Day [...] 4:15 PM EDT Office Visit Dermatology at [address] [phone] Steve Cochran MD [address] [facility], [place] [address] documented as of this encounter Visit Diagnoses Not on filedocumented in this encounter Care Teams Vocational Rehabilitation Teacher Relationship Specialty Start Date End Date Suha De La Paz MD [address] [place] [address] PCP - General Family Medicine 10/17/23 documented as of this encounter
--- OUTSIDE RECORDS SUMMARY | 2024-10-31 19:40 | XMS_ITS | Encounter Summary ---
[place] [address] Care Team Providers Care Painter Spring Name Role Phone Suha De La Paz MD Primary Care Provider [phone] Reason for Visit * Reason Comments Annual Exam Psoriasis Encounter Details Date Type Department Care Team (Late st Contact Info) Description 05/03/2024 4:00 PM EDT Office Visit Dermatology at [address] [address] Steve Cochran MD [address] [facility], [place] [address] Psoriasis Social History Tobacco Use Types Packs/Day [...] Progress Notes * Steve Cochran MD - 05/03/2024 4:00 PM EDT Problems: 1. On Cosentyx [...] follows up after last being seen in January. The Cosentyx is doing very well for her and she is doing well off of phototherapy. The summer sun has been quite helpful. Occasionally she will have a few papules on her hands 1-2 with 3 papular pustules as well. Unfortunately recently her younger brother . She been having some stress with that. Her skin is largely clear. She has had no flaresof the strep pharyngitis. Physical examination confirms that her skin is largely clear. 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 She has no palmar papules/pustules. Assessment plan: Psoriasis now cleared after guttate flare 1. Patient doing very well 2. Continue Cosentyx 300 mg once monthly she was given a 1 year supply with refills in October 2023, does not need refill at this time. Will renew in October 3. Return to clinic in 1 year April/May for a repeat check on her psoriasis. 4. Patient consoled on the loss of her younger brother. CC: Suha De La Paz MD documented in this encounter Plan of Treatment Upcoming Encounters Date Type Department Care Team (Late st Contact Info) Description 05/06/2025 4:15 PM EDT Office Visit Dermatology at [place] [address] [facility] [place] [address] Steve Cochran MD [address] [facility], [place] [address] documented as of this encounter Visit Diagnoses Diagnosis Psoriasis Other psoriasis documented in this encounter Care Teams Painter Spring Relationship Specialty Start Date End Date Suha De La Paz MD [address] [place] [address] PCP - General Family Medicine 10/17/23 documented as of this encounter
--- OUTSIDE RECORDS SUMMARY | 2024-10-31 19:40 | XMS_ITS | Encounter Summary ---
[place] [address] Care Team Providers Care Bakery Demonstrator Name Role Phone Suha De La Paz MD Primary Care Provider [phone] Encounter Details Date Type Department Care Team (Late Contact Info) Description 10/24/2023 Refill Dermatology at [address] [address] Steve Cochran MD [address] [place] [address] Social History Tobacco Use Types Packs/Day Years [...] 4:15 PM EDT Office Visit Dermatology at [address] [address] Steve Cochran MD [address] [place] [phone] documented as of this encounter Visit Diagnoses Not on filedocumented in this encounter Care Teams Bakery Demonstrator Relationship Specialty Start Date End Date Suha De La Paz MD [address] [place] [address] PCP - General Family Medicine 10/17/23 documented as of this encounter
--- OUTSIDE RECORDS SUMMARY | 2024-10-31 19:40 | XMS_ITS | Encounter Summary ---
Author Organization [facility] [place] [address] Care Team Providers Care Alum Mixer Name Role Phone Kelly Garcia MD Primary Care Provider [phone] Reason for Visit * Reason Comments Medication Refill Encounter Details Date Type Department Care Team (Late Contact Info) Description 03/20/2022 Refill Dermatology at [address] [phone] Steve Cochran MD [address] [place] [address] Social History Tobacco Use Types Packs/Day Years [...] PM EDT Office Visit Dermatology at [address] [phone] Steve Cochran MD [address] [place] [address] documented as of this encounter Visit Diagnoses Not on filedocumented in this encounter Care Teams Alum Mixer Relationship Specialty Start Date End Date Kelly Garcia MD [address] [place] [address] PCP - General Family Medicine 07/10/20 10/16/23 documented as of this encounter
--- OUTSIDE RECORDS SUMMARY | 2024-10-31 19:40 | XMS_ITS | Encounter Summary ---
[place] [address] Care Team Providers Care Link Trainer Teacher Name Role Phone Suha De La Paz MD Primary Care Provider [phone] Encounter Details Date Type Department Care Team (Latest Contact Info) Description 05/03/2024 Travel Social History Tobacco Use Types Packs/Day [...] 4:15 PM EDT Office Visit Dermatology at [address] [phone] Steve Cochran MD [address] [facility], [place] [address] documented as of this encounter Visit Diagnoses Not on filedocumented in this encounter Care Teams Link Trainer Teacher Relationship Specialty Start Date End Date Suha De La Paz MD [address] [place] [address] PCP - General Family Medicine 10/17/23 documented as of this encounter
--- OUTSIDE RECORDS SUMMARY | 2024-10-31 19:40 | XMS_ITS | Encounter Summary ---
[place] [address] Care Team Providers Care Passenger Barge Master Name Role Phone Suha De La Paz MD Primary Care Provider [phone] Encounter Details Date Type Department Care Team ([facility] Contact Info) Description 10/24/2023 Refill Dermatology at [address] [address] Linsey Ozuna RN Social History Tobacco [...] Telephone Encounter - Linsey Ozuna RN - 10/24/2023 11:09 AM EST Received pre authorization for Cosentyx. Prescription to go through [facility]. Cosentyx 150mg pen Inject contents of (2) 150mg PENS (300mg) SC once every 4 weeks. Disp: 6 pens (3month supply) with refill 3. Per prescription from Dr. Cochran dated 10/18/2023. Patient has follow up appointment. 11/18/2023. documented in this encounter Plan of Treatment Upcoming Encounters Date Type Department Care Team (Late Contact Info) Description 05/06/2025 4:15 PM EDT Office Visit Dermatology at [place] [address] [place] [phone] Steve Cochran MD [address], PRANAV [place] [address] documented as of this encounter Visit Diagnoses Not on filedocumented in this encounter Care Teams Passenger Barge Master Relationship Specialty Start Date End Date Suha De La Paz MD [address] [place] [address] PCP - General Family Medicine 10/17/23 documented as of this encounter
--- OUTSIDE RECORDS SUMMARY | 2024-10-31 19:40 | XMS_ITS | Encounter Summary ---
[place] [address] Care Team Providers Care Wet Machine Operator Name Role Phone Suha De La Paz MD Primary Care Provider [phone] Encounter Details Date Type Department Care Team (Late st Contact Info) Description 10/18/2023 Refill Dermatology at [address] [phone] Latoya Briggs, [place] Social History Tobacco Use Types Packs/Day Years [...] 4:15 PM EDT Office Visit Dermatology at [address] [phone] Steve Cochran MD [address] [place] [address], [place] [address] documented as of this encounter Visit Diagnoses Not on filedocumented in this encounter Care Teams Wet Machine Operator Relationship Specialty Start Date End Date Suha De La Paz MD [address] [place], [place] [address] PCP - General Family Medicine 10/17/23 documented as of this encounter
--- OUTSIDE RECORDS SUMMARY | 2024-10-31 19:40 | XMS_ITS | Referral Summary ---
Author Organization [facility] Address [address] [place] [address] Care Team Providers Care Crabbing Machine Operator Name Role Phone Gentry Morrison MD Primary [...] Orientation Not on file Plan of Treatment Not on file Care Teams Crabbing Machine Operator Relationship Specialty Start Date End Date Gentry Morrison MD PCP - General 08/15/15
--- OUTSIDE RECORDS SUMMARY | 2024-10-31 19:40 | XMS_ITS | Encounter Summary ---
Author Organization [facility] Address [address] [place] [address] Care Team Providers Care Cloth Coverer Name Role Phone Unavailable Primary Care Provider Unavailabl e Encounter Details Date Type Department Care Team (Late st Contact Info) Description 08/11/2004 Results Only [facility] [address] [place] [address] Bennett Davis, DO [address] [facility] [address] [place] [address] Social History Tobacco Use Types Packs/Day Years [...] Date/Time Associated Diagnosis Comments SURGICAL PATHOLOGY Routine 08/11/2004 0:00 EST documented in this encounter Results * SURGICAL PATHOLOGY (08/11/2004 0:00 EST) Pathology Report: SURGICAL PATHOLOGY REPORT Reports generated via electronic interface contain original data; however they are lacking the format of the original report. Caution should be taken when reading/interpreti ng unformatted reports. Name: ? ZAYDA KIMBROUGH ? Accession #: ? [id number] ? : ? 1965 (Age: 38) ??F ? Collect Date: ? 08/11/2004 ? Location: ? [facility] ? Receive Date: ? 08/11/2004 ? Provider: BENNETT DAVIS DO Copy to: [place] [employer]ENT ? Final Pathologic Diagnosis: A. ?Colon, ascending, biopsy: 1. ?No pathologic features. B. ?Colon, transverse, biopsy: 1. ?No pathologic features. C. ?Colon, sigmoid, biopsy: 1. ?No pathologic features. D. ?Rectum, biopsy: ? 1. ?? No pathologic features. Document reviewed and electronically signed by: Alvino Smith MD Report ??Date: 08/14/2004 10:25 By the signature above, the attending physician certifies that he/she has personally conducted a gross and/or microscopic examination of the described specimens and rendered or confirmed the above diagnosis. Specimen(s) Received: A. ?Bx ascending colon B. ?Bx transverse colon C. ?Bx sigmoid colon D. ?Bx rectum Clinical History: ? Change in bowel habits, LLQ pain Gross Description: ? Received in Hollande's fixative labelled Pelow and bx ascending colon is a beard-pink 0.5 x 0.2 x 0.2 cm soft tissue fragment. ??The specimen is entirely submitted as (A). ?? Received in Hollande's fixative labelled Pelow and bx transverse colon is a beard-pink 0.4 x 0.2 x 0.2 cm soft tissue fragment. The specimen is entirely submitted as (B). Received in Hollande's fixative labelled Pelow and bx sigmoid colon is a beard-pink 0.3 x 0.2 x 0.2 cm soft tissue fragment. ??The specimen is entirely submitted as (C). Received in Hollande's fixative labelled Pelow and bx rectum is a beard-pink 0.5 x 0.2 x 0.1 cm soft tissue fragment. ??The specimen is entirely submitted as (D). ??(Yolis Mario)/g End of Report [facility] 08/11/2004 08/11/2004 15: 14 EST us Bennett Davis DO PATHOLOGY ORDERABLES Fi nal Result [facility] [address] [place] [address] documented in this encounter Visit Diagnoses Not on filedocumented in this encounter
--- OUTSIDE RECORDS SUMMARY | 2024-10-31 19:40 | XMS_ITS | Encounter Summary ---
[place] [address] Care Team Providers Care Taxi Servicer Name Role Phone Suha De La Paz MD Primary Care Provider [phone] Encounter Details Date Type Department Care Team (Late st Contact Info) Description 10/18/2023 Refill Dermatology at [address] [phone] Latoya Briggs, [place] Social History [...] 4:15 PM EDT Office Visit Dermatology at [address] [phone] Steve Cochran MD [address] [place] [address], [place] [address] documented as of this encounter Visit Diagnoses Not on filedocumented in this encounter Care Teams Taxi Servicer Relationship Specialty Start Date End Date Suha De La Paz MD [address] [place], [place] [address] PCP - General Family Medicine 10/17/23 documented as of this encounter
--- OUTSIDE RECORDS SUMMARY | 2024-10-31 19:40 | XMS_ITS | Encounter Summary ---
Author Organization [facility] Address [address] [place] [address] Care Team Providers Care Slot Technician Name Role Phone Gentry Morrison MD Primary Care Provider Unav ailable Encounter Details Date Type Department Care Team (Late st Contact Info) Description 10/09/2019 Lab Requisition [facility] Pathology & Laboratory Medicine - [address] [address] Unknown, Provider, Social History Tobacco Use Types Packs/Day Years [...] Procedure Name Priority Date/Time Associated Diagnosis Comments CHLAMYDIA/N. GONORRHOEAE AMPLIFIED NUCLEIC ACID Routine 10/09/2019 9:13 EST documented in this encounter Results * CHLAMYDIA/N. GONORRHOEAE AMPLIFIED RNA (10/09/2019 9:13 EST) Neisseria gonorrhoeae Result Negative Negative 10/10/2019 15:14 EST [facility] Chlamydia trachomatis Result Negative Negative 10/10/2019 15:14 EST [facility] Urine 10/09/2019 9:13 EST 10/09/2019 16:38 EST Narrative [facility] - 10/10/2019 15:14 EST A first catch urine specimen is acceptable for detection of Gonorrhea and Chlamydia, but might detect up to 10% fewer infections when compared with vaginal and endocervical swab samples. us Provider Unknown MICROBIOLOGY - GENERAL ORDER ELENA Final Result [facility] [address] [place] [address] documented in this encounter Visit Diagnoses Not on filedocumented in this encounter Care Teams Slot Technician Relationship Specialty Start Date End Date Gentry Morrison MD PCP - General 08/15/15 documented as of this encounter
--- OUTSIDE RECORDS SUMMARY | 2024-10-31 19:40 | XMS_ITS | Encounter Summary ---
[place] [address] Care Team Providers Care Sales Representative [employer] Name Role Phone Kelly Garcia MD Primary Care Provider [phone] Reason for Visit * Reason Comments Prior Authorization Cosentyx sensoready (300 M 150 SOAJ Encounter Details Date Type Department Care Team (Late st Contact Info) Description 03/30/2023 Specialty [place] [address] Charu Peng, CUSTOM GARMENT DESIGNER Social History Tobacco Use Types Packs/Day Years [...] of this encounter Progress Notes * Charu Peng - 03/30/2023 3:04 PM EDT [facility], Medication Prior Authorization Submission Patient: Zyada Sanchez Patient : 1965 Patient Address: [address] [place] [phone] (home) Medication Name: COSENTYX PEN 300 MG/2 PENS (150 MG/ML) SUBCUTANEOUS Medication ID: [id number] Subscriber Insurance: Subscriber Insurance Comment: [facility] ([facility]) Phone: Fax: Physician: GUANACO BRUNNER Physician Comment: Sent Via: [facility] Morales: [id number] Ref/Case/PA#: Medication Strength Frequency Requested: INJECT 300MG SUBCUTANEOUSLY EVERY 4 WEEKS Qty/Day Supply: 11/30 New Start: Renewal Diagnosis & ICD-10 Code: Psoriasis L40.9 Patient Notified: No Submission Notes: None Charu Peng 03/30/23 3:05 PM * Charu Peng - 03/30/2023 3:04 PM EDT [facility], Benefits Investigation Patient: Zayda Sanchez Patient : 1965 Patient Address: [address] [place] [phone] (home) Medication Name: COSENTYX PEN 300 MG/2 PENS (150 MG/ML) SUBCUTANEOUS Medication ID: [id number] Patient Location: [facility] Patient Location Comment: Medication Strength Frequency Requested: INJECT 300MG SUBCUTANEOUSLY EVERY 4 WEEKS Qty/Day Supply: 11/30 New Start: Renewal Diagnosis & ICD-10 Code: Psoriasis L40.9 Subscriber Insurance: Subscriber Insurance Comment: [facility] (IRX) Phone: Fax: Physician: GUANACO BRUNNER Physician Comment : PA Status: PA on File Insurance mandated Pharmacy: [facility]able at [facility]: Yes Insurance requirements/notes: None Copay: Copay assistance: Copay assistance comment: Pt continues to fill through her pharmacy Pharmacy staff will be reaching out to the patient to inform them of their medication's approval bytheir insurance. If applicable, a pharmacist will speak with the patient to offer our specialty pharmacy services and to arrange delivery of their medication. Charu Peng 03/30/23 3:48 PM documented in this encounter Plan of Treatment Upcoming Encounters Date Type Department Care Team (Late st Contact Info) Description 05/06/2025 4:15 PM EDT Office Visit Dermatology at [place] [address] [facility] [place] [address] Guanaco Brunner MD [address] [address], PRANAV [place] [address] documented as of this encounter Visit Diagnoses Not on filedocumented in this encounter Care Teams Sales Representative [employer] Relationship Specialty Start Date End Date Kelly Garcia MD [address] [place] [address] PCP - General Family Medicine 07/10/20 10/16/23 documented as of this encounter
--- OUTSIDE RECORDS SUMMARY | 2024-10-31 19:40 | XMS_ITS | Encounter Summary ---
[place] [address] Care Team Providers Care Sider Mechanic Name Role Phone Suha De La Paz MD Primary Care Provider [phone] Encounter Details Date Type Department Care Team (Late Contact Info) Description 07/09/2024 Telephone [place] [phone] Rosey Briggs RN Social History Tobacco Use Types Packs/Day [...] encounter Miscellaneous Notes * Telephone Encounter - Rosey Briggs RN - 07/09/2024 2:08 PM EDT Returned patient's call re: colo prep. Patient received miralax prep instructions via [facility], but shereceived golytely in the mail. Requested the GI schedulers send golytely instructions to her [facility]. documented in this encounter Plan of Treatment Upcoming Encounters Date Type Department Care Team (Late st Contact Info) Description 05/06/2025 4:15 PM EDT Office Visit Dermatology at [address] [phone] Steve Cochran MD [address] [address], [place] [address] documented as of this encounter Visit Diagnoses Not on filedocumented in this encounter Care Teams Sider Mechanic Relationship Specialty Start Date End Date Suha De La Paz MD [address] [place] [address] PCP - General Family Medicine 10/17/23 documented as of this encounter
--- OUTSIDE RECORDS SUMMARY | 2024-10-31 19:41 | XMS_ITS | Encounter Summary ---
Author Organization [facility] [place] [address] Care Team Providers Care External Relations Director Name Role Phone Kelly Garcia MD Primary Care Provider [phone] Reason for Visit * Reason Comments Medication Refill Encounter Details Date Type Department Care Team (Late Contact Info) Description 10/01/2014 Refill Dermatology at [address] [phone] Steve Cochran MD [address] [place] [id number] Social History Tobacco Use Types Packs/Day Years Used Date Smoking Tobacco: Every Day Cigarettes Alcohol Use Standard Drinks/Week Comments No 0 [...] PM EDT Office Visit Dermatology at [address] [phone] Steve Cochran MD [address] [place] [phone] documented as of this encounter Visit Diagnoses Not on filedocumented in this encounter Care Teams External Relations Director Relationship Specialty Start Date End Date Kelly Garcia MD [address] [place] [address] PCP - General Family Medicine 07/10/20 10/16/23 documented as of this encounter
--- OUTSIDE RECORDS SUMMARY | 2024-10-31 19:41 | XMS_ITS | Encounter Summary ---
[place] [address] Care Team Providers Care Pick Up Operator Name Role Phone Kelly Garcia MD Primary Care Provider [phone] Reason for Visit * Reason Comments Prior Authorization Tremfya 100mg/ml Pen Encounter Details Date Type Department Care Team (Late st Contact Info) Description 11/06/2020 Specialty [place] [address] Cuca Sullivan, [facility] Social History Tobacco Use Types Packs/Day Years [...] as of this encounter Progress Notes * Cuca Sullivan - 11/06/2020 1:43 PM EST [facility], Medication Prior Authorization Patient: Zayda Sanchez Patient : 1965 Patient Address: [address] [place] [phone] (home) Medication Name: TREMFYA 100 MG/ML SUBCUTANEOUS AUTO-INJECTOR Medication ID: Patient Location: [facility] Patient Location Comment: Subscriber Insurance: [id number] ([facility]) Subscriber Insurance Comment: Fax: Physician: GUANACO BRUNNER Physician Comment: Sent Via: [facility] Morales: [id number] Ref/Case/PA#: Medication Strength Frequency Requested: Tremfya 100mg/ml Pen- Inject the contents of one pen (100mg) subcutaneously once at week4, then inject the contents of one pen (100mg) subcutaneously once every 8 weeks thereafter. Qty/Day Supply: New Start: New to Therapy Diagnosis & ICD-10 Code: Psoriasis, unspecified [L40.9] Patient Notified: Yes Submission Notes: None Cuca Sullivan 11/06/20 1:50 PM * Cuca Sullivan - 11/06/2020 1:43 PM EST [facility], Prior Authorization Approval Medication Name: TREMFYA 100 MG/ML SUBCUTANEOUS AUTO-INJECTOR Medication ID: Approval Dates: 10/07/2020 to 02/04/2021 Insurance requirements/notes: None Other Notes: None Case/Reference #: [id number] Approval notification Received via: [facility] Copay: Copay assistance: Copay Notes: Insurance mandated Pharmacy: [facility] Fillable at [facility] Specialty Pharmacy: Yes Pharmacy staff will be reaching out to the patient to inform them [facility]. If applicable, a pharmacist will speak with the patient to offer our specialty pharmacy services and to arrange delivery of their medication. Cuca Sullivan 11/06/20 3:23 PM documented in this encounter Plan of Treatment Upcoming Encounters Date Type Department Care Team (Late st Contact Info) Description 05/06/2025 4:15 PM EDT Office Visit Dermatology at [address] [place] [address] Guanaco Brunner MD [address], [place] [address] documented as of this encounter Visit Diagnoses Not on filedocumented in this encounter Care Teams Pick Up Operator Relationship Specialty Start Date End Date Kelly Garcia MD [address] [place] [address] PCP - General Family Medicine 07/10/20 10/16/23 documented as of this encounter
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
--- OUTSIDE RECORDS SUMMARY | 2024-10-31 19:41 | XMS_ITS | Encounter Summary ---
Author Organization [facility] [place] [address] Care Team Providers Care Book Jacket Cover Machine Operator Name Role Phone Clari Hardwick MD Primary Care Provider [phone] Encounter Details Date Type Department Care Team (Late st Contact Info) Description 01/16/2013 External Results XRay at [address] [place] [address] Ron Coleman MD [address] [place] [id number] Social History Tobacco Use Types Packs/Day Years Used Date Smoking Tobacco: Every Day Sex and Gender Information Value Date Recorded Sex Assigned at Not on file Gender Identity Not on file Sexual Orientation Not on file documented as of this encounter Plan of Treatment Upcoming Encounters Date Type Department Care Team (Late st Contact Info) Description 05/06/2025 4:15 PM EDT Office Visit Dermatology at [place] [address] [place] [address] Steve Cochran MD [address], [place] [address] documented as of this encounter Procedures Procedure Name Priority Date/Time Associated Diagnosis Comments MRI/MRA SCAN Routine 03/23/2012 MRI/MRA SCAN Routine 03/08/2012 CT SCAN (SCAN) Routine 03/06/2012 DIAGNOSTIC RADIOLOGY SCAN Routine 03/06/2012 documented in this encounter Results * Scan Doc: MRI/MRA (03/23/2012) Anatomical Region Laterality Modality Other Ron Coleman MD MEDIA MGR SCAN EXT O RDR/RSLT * Scan Doc: MRI/MRA (03/08/2012) Anatomical Region Laterality Modality Other Ron Coleman MD MEDIA MGR SCAN EXT O RDR/RSLT * Scan Doc: CT Scan (03/06/2012) Anatomical Region Laterality Modality Other Charlie Elizabeth MD MEDIA MGR SCAN EXT O RDR/RSLT * Scan Doc: Diagnostic Radiology (03/06/2012) Anatomical Region Laterality Modality Other Charlie Elizabeth MD MEDIA MGR SCAN EXT O RDR/RSLT documented in this encounter Visit Diagnoses Not on filedocumented in this encounter Care Teams Book Jacket Cover Machine Operator Relationship Specialty Start Date End Date Clari Hardwick MD [address] [place] [address] PCP - General 01/01/13 07/09/20 documented as of this encounter
--- OUTSIDE RECORDS SUMMARY | 2024-10-31 19:41 | XMS_ITS | Encounter Summary ---
[facility] [place] [address] Care Team Providers Care Chief Dog License Inspector Name Role Phone Clari Hardwick MD Primary Care Provider Encounter Details Date Type Department Care Team (Late st Contact Info) Description 11/08/2013 Telephone [place] [address] Juanis Ziegler LPN Social History Tobacco Use Types Packs/Day [...] encounter Miscellaneous Notes * Telephone Encounter - Juanis Ziegler LPN - 11/08/2013 8:14 AM EST There is an [place] injection order on eDH since 08/2013. Please contact Interventional Radiology to find out why they have not contacted the pt. Thanks Message above from Dr. Jimenez. Dr. Jimenez has to reorder this. I already sent him a message on it. -C Message above from Taz Rogers shower enclosure installer. documented in this encounter Plan of Treatment Upcoming Encounters Date Type Department Care Team (Late st Contact Info) Description 05/06/2025 4:15 PM EDT Office Visit Dermatology at [address] [address] Steve Cochran MD [address] [place] [address] RD, [place] [address] documented as of this encounter Visit Diagnoses Not on filedocumented in this encounter Care Teams Chief Dog License Inspector Relationship Specialty Start Date End Date Clari Hardwick MD [address] [place] [address] PCP - General 01/01/13 07/09/20 documented as of this encounter
--- OUTSIDE RECORDS SUMMARY | 2024-10-31 19:41 | XMS_ITS | Encounter Summary ---
[place] [address] Care Team Providers Care Phlebotomist Medical Lab Assistant Name Role Phone Clari Hardwick MD Primary Care Provider [phone] Encounter Details Date Type Department Care Team (Late st Contact Info) Description 11/01/2013 Tele[place] [phone] Juanis Ziegler LPN Social History Tobacco Use [...] Telephone Encounter - Juanis Ziegler LPN - 11/01/2013 4:20 PM EST Zayda calls looking for her blood work results. She also wants to schedule an appt for an injection. Message sent to Dr. Jimenez. documented in this encounter Plan of Treatment Upcoming Encounters Date Type Department Care Team (Late st Contact Info) Description 05/06/2025 4:15 PM EDT Office Visit Dermatology at [place] [address] [facility] [place] [address] Steve Cochran MD [address], PRANAV Pereira DERMATOLOGY [place], [place] [id number] documented as of this encounter Visit Diagnoses Not on filedocumented in this encounter Care Teams Phlebotomist Medical Lab Assistant Relationship Specialty Start Date End Date Clari Hardwick MD [address] [place] [address] PCP - General 01/01/13 07/09/20 documented as of this encounter
--- OUTSIDE RECORDS SUMMARY | 2024-10-31 19:41 | XMS_ITS | Encounter Summary ---
Author Organization [facility] [place] [address] Care Team Providers Care Oven Heater Helper Name Role Phone Clari Hardwick MD Primary Care Provider [phone] Reason for Visit * Reason Comments Follow-up Encounter Details Date Type Department Care Team (Late st Contact Info) Description 08/26/2014 4:30 PM EST Office Visit Dermatology at [place] [address] [facility] [place] [address] Steve Cochran MD [address] [facility] [facility], PRANAV Kelli DERMATOLOGY [place], [place] [id number] Psoriasis Discharge Disposition: Home Social History Tobacco Use [...] this encounter Patient Instructions * Patient Instructions* Anum Wilkerson LPN - 08/26/2014 4:44 PM EST [facility] Psoriasis: After Your Visit Your Care Instructions Psoriasis (say qtc-JY-rv-reinaldo) is a long-term skin problem that causes thick, white, silvery, or red patches on the skin. The patches may be small or large, and they occur most often on the knees, elbows, scalp, hands, feet, or lower back. The skin may be scaly. If the condition is severe, your skin can become itchy and tender. Psoriasisalso can be embarrassing if the patches are on visible areas. You can treat psoriasis with good care at home and with medicine from your doctor. You may put medicine on your skin and take pills or have shots to stop the redness and swelling. Your doctor also may suggest ultraviolet light treatments. Follow-up care is a healy part of your treatment and safety. Be sure to make and go to all appointments, and call your doctor if you are having problems. It???s also a good idea to know your test results and keep a list of the medicines you take. How can you care for yourself at home? ?? If your doctor prescribes medicine, use it exactly as prescribed. Call your doctor if you think you are having a problem with your medicine. ?? Keep your skin moist. After bathing, put an ointment, cream, or lotion on your skin while it is still damp. This seals in moisture. Use hhtq-lmb-iydiwao products that your doctor suggests. These may include Cetaphil, Lubriderm, or Eucerin. Petroleum jelly (such as Vaseline) and vegetable shortening (such as Crisco) also work. ?? If you have psoriasis on your scalp, use a mild tar shampoo, such as Neutrogena T/Gel, Polytar, or Zetar. Other scalp lotions, such as Dritho-Scalp, can be applied for several hours and then washed out. Shampoos that contain zinc pyrithione (such as Danex or Head & Shoulders), or selenium sulfide (such as Exsel or Selsun) may also help. ?? Gently soften and remove skin crusts. Put cream on the crusts and then peel off loose crusts. Removing crusts may help creams and lotions get into the skin. However, peel off crusts carefully so that you do not irritate your skin. ?? Follow your doctor's advice for sunlight or ultraviolet light treatment. ?? Avoid harsh skin products, such as those that contain alcohol. ?? Cover your skin in cold weather. ?? Try to prevent sunburn. Although short periods of sun exposure reduce psoriasis in most people, too much sun can damage the skin and cause skin cancer. In addition, sunburns can trigger psoriasis.Use sunscreen on areas of your skin that do not have psoriasis. Make sure the sunscreen blocks ultraviolet rays (both UVA and UVB) and has a sun protection factor (SPF) of at least 15. Use it every day, even when it is cloudy. Some doctors may recommend a higher SPF, such as 30. ?? Take care to avoid accidents such as cutting or scraping your skin. An injury to the skin can cause psoriasis patches to form anywhere on the body, including the area of the injury. ?? Avoid tight shoes, clothing, watchbands, and hats. These may irritate your skin. ?? Try to control stress and anxiety. They may cause psoriasis to appear suddenly or can make symptoms worse. ?? Use a vaporizer or humidifier to add moisture to your bedroom. Follow the directions for cleaning the machine. ?? Seek support from family and friends. Talk to a counselor or other professional if you feel sad about your condition and need more help. When should you call for help? Call your doctor now or seek immediate medical care if: ?? You have signs of infection, such as: ?? Increased pain, swelling, warmth, or redness. ?? Red streaks leading from the area. ?? Pus draining from the area. ?? A fever. Watch closely for changes in your health, and be sure to contact your doctor if: ?? Your skin is more red and irritated than usual, especially if you also have another illness. ?? You need to talk to someone about how you are coping with the illness. Where can you learn more? Visit our health information library at [email or web address] You can also view health information on [employer], your personal patient account. Log in or sign up today. Enter U759 in the search box to learn more about Psoriasis: After Your Visit. ?? [id number] [employer]. Care instructions adapted under license by [facility]. This care instruction is for use with your licensed healthcare professional. If you have questions about a medical condition or this instruction, always ask your healthcare professional. [employer] disclaims any warranty or liability for your use of this information. Content Version: 9.9.092449; Last Revised: May 08, 2013 documented in this encounter Progress Notes * Steve Cochran MD - 08/26/2014 5:26 PM EST Problems: 1. Followup psoriasis, worsening despite cyclosporin since June 28, 2014. 2. Flaring of psoriasis due to Humira, January 2014, and also following a trial of Enbrel, May 2014. 3. History of palmoplantar pustular psoriasis with psoriatic arthritis, now developing patch plaque. 4. Family history of psoriasis in mother and father. 5. Previously on methotrexate/prednisone for psoriatic arthritis with fair control. Zayda follows up and tearfully explains that her psoriasis is really spreading. She is noticing new spots almost every day. Zayda has been noticing more fatigue since she has been on cyclosporin. She has patch involvement over her ankles, which is probably the worst area of involvement, but smaller patch plaques over the shins, her knees, the buttocks, coming up the posterior thighs, and elbows. Her hands and forearms are relatively spared. Assessment and Plan: Psoriasis, worsening despite cyclosporin. a. Discussed today the option of Stelara, and I would recommend that she advance to this. b. The patient weighs less than 100 kg; her dosing would be 45 mg of Stelara on day one, day 30, and then every three months. c. We will obtain prior authorization and then bring patient back for injections here in the office. d. We discussed benefits and side effects. Continue cyclosporin until we have prior authorization for her Stelara. Note: Cyclosporin labs from 08/26/2014 showed normal BUN, creatinine, and CBC. COPY: Clari Hardwick M.D. documented in this encounter Plan of Treatment Upcoming Encounters Date Type Department Care Team (Late st Contact Info) Description 05/06/2025 4:15 PM EDT Office Visit Dermatology at [place] [address] [place] [address] Steve Cochran MD [address] [facility], [place] [address] documented as of this encounter Visit Diagnoses Diagnosis Psoriasis Other psoriasis documented in this encounter Care Teams Oven Heater Helper Relationship Specialty Start Date End Date Clari Hardwick MD [address] [place] [address] PCP - General 01/01/13 07/09/20 documented as of this encounter
--- OUTSIDE RECORDS SUMMARY | 2024-10-31 19:41 | XMS_ITS | Encounter Summary ---
[place] [address] Care Team Providers Care Inclinometer Tester Name Role Phone Clari Hardwick MD Primary Care Provider [phone] Reason for Visit * Reason Onset Date Comments Other 05/01/2013 Medication quest ion Encounter Details Date Type Department Care Team (Late st Contact Info) Description 05/01/2013 [place] [phone] Corie Waller, RN Other (Medication question) Social History Tobacco Use Types Packs/Day Years [...] encounter Miscellaneous Notes * Telephone Encounter - Irma Faulkner LPN - 05/10/2013 3:19 PM EDT Zayda calls inquiring about starting MTX, she'd like to start it. Routing to Dr. Jimenez for him to prescribe the MTX he'd like her to be on, she uses [facility] in [place], [place]. She also states she has some swelling in her lower legs and feet; no fever, not redness, not warm to touch, no pain, just some joint pain along with it and psoriasis spots. She is currently on 10 mg Prednisone. * Telephone Encounter - Corie Waller RN - 05/01/2013 10:20 AM EDT Zayda calls and wants to know about starting Methotrexate since she was seen by yesterday. 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 I will try again later. I was able to reach Zayda and she states Dr. Cochran gave her a diagnosis of Psoriasis and would like to get started on Methotrexate. We talked about alcohol consumption and I told her she could have an occasional drink, once or twice a week. I asked her to discuss with Dr. Jimenez at her follow up visit because his recommendations may be different. Message to Dr. Jimenez for him to send an Rx to [facility]. documented in this encounter Plan of Treatment Upcoming Encounters Date Type Department Care Team (Late st Contact Info) Description 05/06/2025 4:15 PM EDT Office Visit Dermatology at [place] [address] [facility] [place] [address] Steve Cochran MD [address] [facility], [place] [address] documented as of this encounter Visit Diagnoses Not on filedocumented in this encounter Care Teams Inclinometer Tester Relationship Specialty Start Date End Date Clari Hardwick MD [address] [place] [address] PCP - General 01/01/13 07/09/20 documented as of this encounter
--- OUTSIDE RECORDS SUMMARY | 2024-10-31 19:41 | XMS_ITS | Encounter Summary ---
[place] [address] Care Team Providers Care Heliotherapist Name Role Phone Clari Hardwick MD Primary Care Provider [phone] Reason for Visit * Reason Onset Date Comments Other 07/09/2013 Encounter Details Date Type Department Care Team (Late Contact Info) Description 07/09/2013 Tele[place] [phone] Corie Waller RN Other Social History Tobacco Use Types Packs/Day Years [...] encounter Miscellaneous Notes * Telephone Encounter - Corie Waller RN - 07/09/2013 10:49 AM EDT Zayda calls to ask if she can have a flu shot while on MTX. She will receive flu shot at work. documented in this encounter Plan of Treatment Upcoming Encounters Date Type Department Care Team (Late Contact Info) Description 05/06/2025 4:15 PM EDT Office Visit Dermatology at [place] [address] [facility] [place] [address] Steve Cochran MD [address], [place] [address] documented as of this encounter Visit Diagnoses Not on filedocumented in this encounter Care Teams Heliotherapist Relationship Specialty Start Date End Date Clari Hardwick MD [address] [place] [address] PCP - General 01/01/13 07/09/20 documented as of this encounter
--- OUTSIDE RECORDS SUMMARY | 2024-10-31 19:41 | XMS_ITS | Encounter Summary ---
Author Organization [facility] [place] [address] Care Team Providers Care Producer Assistant Name Role Phone Clari Hardwick MD Primary Care Provider [phone] Reason for Referral * Consultation (Routine) - Closed Specialty Diagnoses / Procedures Referred By Contac t Referred To Contact Dermatology Diagnoses Psoriasis with pustules Belkis Johnson MD [facility] [place] [address] Steve Cochran MD [address] [place] [address], [facility] [place] [address] Referral ID Status Reason Start Date Expiration Date V isits Requested Visits Authorized [id number] Closed Consult, Test & Treat 04/15/2013 10/12/2013 1 1 Reason for Visit * Reason Comments Rash Encounter Details Date Type Department Care Team (Late st Contact Info) Description 04/15/2013 9:03 AM EDT - 04/15/2013 11:15 AM EDT Emergency [place] [address] Belkis Johnson MD [facility] [place] [address] Psoriasis with pustules (Primary Dx) Discharge Disposition: Home Social History [...] Sign Reading Time Taken Comments Blood Pressure 142/92 04/15/2013 9:14 AM EDT Pulse 100 04/15/2013 9:14 AM EDT Temperature 36.6 ??C (97.9 ??F) 04/15/2013 9:14 AM ED T Respiratory Rate 20 04/15/2013 9:14 AM EDT Oxygen Saturation 99% 04/15/2013 9:14 AM EDT Inhaled Oxygen Concentration - - Weight - - Height - - Body Mass Index - - documented in this encounter Discharge Instructions * Discharge Instructions* Belkis Johnson MD - 04/15/2013 10:55 AM EDT Followup with dermatology. A referral has been made for you. You may call [phone] if he cannothere from them. You may take the oxycodone as needed for pain. Take the prednisone/steroids as prescribed. Return if you develop worsening rash, difficulty breathing, uncontrollable nausea vomiting, fevers, or if your condition worsens. * Attachments The following attachments cannot be sent through Care Everywhere. * PSORIASIS: AFTER YOUR VISIT ([facility]) documented in this encounter Medications at Time of Discharge Medication Sig Dispensed Refills Start Date End Date predniSONE (DELTASONE) 20 mg tablet 3 tabs qd x 3d, 2 tabs qd x 3d, 1 tabs qd x 3d, 1/2 tab qd x 3d. Take the whole course of medication. 20 tablet 0 04/16/2013 08/06/2013 OXYcodone (ROXICODONE) 5 mg immediate release tablet Take 1-2 tablets by mouth every 4 hours as needed for Pain. No driving, no alcohol 20 tablet 0 04/15/2013 03/20/2019 naproxen (NAPROSYN) 500 mg tablet Take 500 mg by mouth 2 times daily (with meals). 03/20/2019 ibuprofen (ADVIL;MOTRIN) 800 mg tablet Take 1 tablet by mouth every 8 hours as needed for Pain. 120 tablet 3 01/16/2013 03/20/2019 documented as of this encounter ED Notes * Ger Nguyễn RN - 04/15/2013 11:14 AM EDT Pt released with instructions. * Belkis Johnson MD - 04/15/2013 10:36 AM EDT Images from the original note were not included. Chief Complaint Patient presents with ??? Rash I saw this patient at 1030a The history is provided by the patient and medical records. No speech language pathologist was used. 47-year-old female with family history significant for psoriasis, presents emergency room for evaluation approximately 4 days of progressive burning and itchy rash on the palms of her hands. She states that she finished a course of azithromycin 5 days ago and noticed the rupture in on her hands. She states that she initially had smaller discreet lesions on her hands for several months that have come and gone. Over the last 2 months she's also noticed circular lesions on her lower extremities which are; and scaly. She thought that that was psoriasis given her family history. She's had no documented fevers but she has felt shaky and unwell today. The lesions have progressed to her trunk and back. She does have a known allergy to penicillin and clindamycin. Her reaction is hives. She took the Z-Marvin 5 days ago for strep throat. She denies any headache or shortness of breath. She states her chest is felt heavy but does not endorse pain. She has an appointment with a keel press operator at the end of April in [facility]. She was seen at an [facility] yesterday and given 2.5% hydrocortisone cream but that has not helped. She's also been taking Tylenol and ibuprofen without any significant relief. No other associated symptoms. No particular aggravating or alleviating features. Symptoms are described as moderate and worsening. She states that she was recently evaluated for possible rheumatologic condition such as lupus based on some lesions on her chest wall which have improved. Although theagnostic tests were negative. This included sexually transmitted infections. Allergies Allergen Reactions ??? Clindamycin Hives ??? Penicillins Hives Review of Systems Constitutional: Positive for chills. Negative for fever. Respiratory: Negative. Cardiovascular: Negative for chest pain. Gastrointestinal: Negative. Genitourinary: Negative. Skin: Positive for rash. Psychiatric/Behavioral: Negative. Physical Exam Nursing note and vitals reviewed. Constitutional: She is oriented to person, place, and time. She appears well- developed and well-nourished. HENT: Head: Normocephalic. Mouth/Throat: Oropharynx is clear and moist. Eyes: Conjunctivae normal and EOM are normal. Pupils are equal, round, and reactive to light. Neck: Normal range of motion. Pulmonary/Chest: Effort normal. Musculoskeletal: She exhibits no edema. Neurological: She is alert and oriented to person, place, and time. Skin: Skin is warm and dry. Rash noted. Evaluation of the lower extremities shows a circular salmon-colored patches with scaling rash. No induration. These are on her extensor surfaces of her lower extremities as well as on her elbows. Evaluation of her trunk and hands shows pustular lesions that have coalesced and some lesions on the palmar aspect of her hands. Discrete pustular lesions on her back are scattered, more diffuse and muchmilder. No drainage. No induration. Psychiatric: She has a normal mood and affect. Her behavior is normal. Judgment and thought contentnormal. Procedures MDM ED Course: 47-year-old female with what I suspect is partially psoriasis.. If the recent course of azithromycin caused a worsening of the eruption that initially started on her lower extremities. Shehas no significant systemic symptoms and overall is well-appearing. 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 Plan will be systemic steroids with followup to dermatology and symptomatic management, strict return precautions. EKG reviewed are [place] shows normal sinus rhythm at 78. Normal axis. Normal intervals. No acute ischemia. Belkis Johnson MD 04/15/13 1046 Belkis Johnson MD 04/15/13 1053 * Ger Nguyễn RN - 04/15/2013 9:30 AM EDT Pt in room 6B. She comes down with a rash on both Palm of both hands, raised rash with papules. Shehas some starting on her trunk and legs. She has an increase in pain with this rash that started on04/12/2012. She denies any contact with chemicals. She denies any chest pain or difficulty breathing. Plan position of comfort. documented in this encounter Miscellaneous Notes * Miscellaneous - Provider, Scanning - 04/16/2013 9:41 AM EDT * Discharge Summary - Provider, Scanning - 04/16/2013 8:53 AM EDT * Med Student H&P - Belkis Johnson MD - 04/15/2013 10:31 AM EDT [facility] Emergency Medicine MS4 History, Physical, Assessment and Plan Patient Name: Zayda Sanchez Attending Physician: Belkis Johnson MD Chief Complaint: Zayda Sanchez is a 47 y.o. female who presents to the [facility] ED with a chief complaint of rash on her hands. HPI: Pt reports a 4 day history of a worsening rash on her bilateral palms. She has had circular, 2-3 cm diameter, salmon colored lesions with scaly, silverly plaques consistent with psoriasis on heranterior shins, dorsal feet, and bilateral elbows for a couple months, which have not been diagnosed formally, but the rash on her palms is new. She first noticed it the day after she finished a 5-day course of Azithromycin to treat a strep throat infection. The rash became progressively worse withpain, burning, redness and swelling of her hands and the eruption of numerous pustules that began to coalesce into larger pustules. She also noticed scattered pustles/papules on her chest and upper ba ck, and on her thighs, though these have not bothered her as much as her hands. She recently had a rheumatology workup with negative results per her for fullness in her anterior chest over her clavicles; no etiology was found per her. Record review reveals normal CRP, sed rate, TSH, BMP, RF, LFTs, lyme titers, CBC, UA, from 01/13/13. No past medical history on file. Past Surgical History Procedure Date ??? Hysterectomy ??? Tubal ligation ??? Umbilical hernia repair No current facility-administered medications on file prior to encounter. Current Outpatient Prescriptions on File Prior to Encounter Medication Sig Dispense Refill ??? naproxen (NAPROSYN) 500 mg tablet Take 500 mg by mouth 2 times daily (with meals). ??? ibuprofen (ADVIL;MOTRIN) 800 mg tablet Take 1 tablet by mouth every 8 hours as needed for Pain.120 tablet 3 Allergies Allergen Reactions ??? Clindamycin Hives ??? Penicillins Hives History Social History ??? Marital Status: Spouse Name: N/A Number of Children: N/A ??? Years of Education: N/A Occupational History ??? Not on file. Social History Main Topics ??? Smoking status: Current Everyday Smoker ??? Smokeless tobacco: Not on file ??? Alcohol Use: Not on file ??? Drug Use: Not on file ??? Sexually Active: Not on file Other Topics Concern ??? Not on file Social History Narrative ??? 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: denies headache, dizziness, confusion, visual disturbances, hearing loss ENT: denies throat, ear or sinus pain, adenopathy CV: denies chest pain but notes she has chest heaviness currently; denies angina, history of [place], palpitations, dyspnea on exertion Pulm: denies shortness of breath, cough, sputum production, hemoptysis GI: denies nausea, vomiting, diarrhea, constipation, hematochezia, abdominal pain : denies dysuria or hematuria Extremities: see HPI MSK: other than hands/fingers, denies joint pain or swelling Skin: see HPI Temp: [36.6 ??C (97.9 ??F)] Heart Rate: [100] Resp: [20] BP: (142)/(92) SpO2: [99 %] Physical Exam: Gen: well appearing middle aged woman, appears uncomfortable Neuro: A&Ox3, CN 2-12 intact HEENT: NC/AT; PERRL, EOMI; oropharynx pink without exudate or lesions Neck: supple, full ROM, no adenopathy CV: RRR, s1/s2 normal, no murmurs/rubs/gallops Pulm: CTA bilaterally Abd: soft, non-tender, non-distended, normoactive bowel sounds Extremities: no edema, clubbing, cyanosis Skin: round salmon-colored plaques with irregular edges and silvery scale on bilateral lower legs (2-3 cm, round), both elbows, and feet. Hands: swollen, erythematous to wrists, and palms covered with pustules of varying ages, mostly small but some are coalescing into larger raised pus filled lesion (largest 3-4 mm wide). See pictures in chart. EKG: NSR, rate 78s, normal intervals, narrow QRS, no ST/T wave changes Assessment: 47 yo F with worsening rash on bilateral palms; personal and family history of psoriasis, burning/painful pustular rash. 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 Her vitals are normal, she has no SOBor other alarming symptoms. Given the severity of her rash and her pain, an oral steroid treatment is warranted. ED Course: Pt had an EKG which was normal. She was given an initial dose of 60 mg prednisone while in the ED. Disposition: Discharged to home with oxycodone for pain and a 12 day Prednisone taper. Referral to dermatology in. [place] [facility] Pager: [phone] Patient seen and examined with student Dr. Kulkarni. Please see my full note for further details. * Miscellaneous - Provider, Scanning - 04/15/2013 9:51 AM EDT * ED Triage - Cecily Warren RN - 04/15/2013 9:13 AM EDT Seen at [facility] 04/14 and with a worsening rash on her hands. Here to see dermatology. LMP Hysterectomy documented in this encounter Plan of Treatment Upcoming Encounters Date Type Department Care Team (Late st Contact Info) Description 05/06/2025 4:15 PM EDT Office Visit Dermatology at [address] [phone] Steve Cochran MD [address] [place] [address], [place] [address] Scheduled Referrals Name Type Priority Associated Diagnoses Order Schedule Referral to Dermatology Outpatient Referral Routine Psoriasis with pustules Ordered: 04/15/2013 documented as of this encounter Procedures Procedure Name Priority Date/Time Associated Diagnosis Comments EKG 12-LEAD STAT 04/15/2013 10:40 AM EDT documented in this encounter Results * EKG 12 Lead (04/15/2013 10:40 AM EDT) Ventricular rate 78 BPM MUSE SYSTEM Atrial Rate 78 BPM MUSE SYSTEM P-R Interval 126 ms MUSE SYSTEM QRS Duration 80 ms MUSE SYSTEM Q-T Interval 390 ms MUSE SYSTEM QTC Calculated (Bezet) 444 ms MUSE SYSTEM Calculated P Coy 53 degrees MUSE SYSTEM Calculated R Coy 45 degrees MUSE SYSTEM Calculated T Coy 43 degrees MUSE SYSTEM INTERPRETATION Normal sinus rhythm Possible Septal infarct , age undetermined Abnormal ECG No previous ECGs available Confirmed by MD HELENE, VANNESA ([id number]) on 04/16/2013 1:34:58 PM MUSE SYSTEM 04/15/2013 10:4 0 AM EDT 04/16/2013 1:34 PM EDT Belkis Jhonson MD ECG ORDERABLES MUSE SYSTEM documented in this encounter Visit Diagnoses Diagnosis Psoriasis with pustules- Primary Other psoriasis documented in this encounter Administered Medications Inactive Administered Medications - up to 3 most recent administrations Medication Order MAR Action Action Date Dose Rate Site predniSONE (DELTASONE) tablet 60 mg 60 mg, Oral, ONCE, 1 dose, On 04/15/13 at 1115, STAT Given 04/15/2013 11:10 AM EDT 60 mg documented in this encounter Active and Recently Administered Medications Times are shown in EDT. Scheduled Medication Order 04/13/2013 04/14/2013 04/15/2013 predniSONE (DELTASONE) tablet 60 mg (COMPLETED) 60 mg, Oral, ONCE, 1 dose, On 04/15/13 at 1115, STAT 1110 (Given - Provid er: Ger Nguyễn RN) documented in this encounter Care Teams Producer Assistant Relationship Specialty Start Date End Date Clari Hardwick MD [address] [place] [address] PCP - General 01/01/13 07/09/20 documented as of this encounter
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
--- OUTSIDE RECORDS SUMMARY | 2024-10-31 19:41 | XMS_ITS | Encounter Summary ---
[place] [address] Care Team Providers Care Bell Hole Digger Name Role Phone Clari Hardwick MD Primary Care Provider [phone] Reason for Visit * Reason Onset Date Comments Other 01/19/2013 xray and lab res ults Encounter Details Date Type Department Care Team (Late st Contact Info) Description 01/19/2013 Telephone [place] [phone] Corie Waller, RN Other (xray and lab results) Social History Tobacco Use Types Packs/Day Years Used Date Smoking Tobacco: Every Day Sex and Gender Information Value Date Recorded Sex Assigned at Not on file Gender Identity Not on file Sexual Orientation Not on file documented as of this encounter Miscellaneous Notes * Telephone Encounter - Corie Waller RN - 01/22/2013 3:[address] Jimenez has ordered an MRI for the Sternoclavicular Joint as further work up. I have called Zaydaand left a message for Zayda to call Rheumatology with questions. I called Zayda at work and did not leave a message. * Telephone Encounter - Corie Waller RN - 01/19/2013 9:17 AM EDT Zayda calls here and is looking for test results, I reported her labs and xrays to her as normal. She states she is taking the Ibuprofen and is still having discomfort. She would like to know what the plan is from here. Message to Dr. Jimenez documented in this encounter Plan of Treatment Upcoming Encounters Date Type Department Care Team (Late st Contact Info) Description 05/06/2025 4:15 PM EDT Office Visit Dermatology at [place] [address] [facility] [place] [address] Steve Cochran MD [address], [place] [address] documented as of this encounter Visit Diagnoses Not on filedocumented in this encounter Care Teams Bell Hole Digger Relationship Specialty Start Date End Date Clari Hardwick MD [address] [place] [address] PCP - General 01/01/13 07/09/20 documented as of this encounter
--- OUTSIDE RECORDS SUMMARY | 2024-10-31 19:41 | XMS_ITS | Encounter Summary ---
Author Organization [facility] [place] [address] Care Team Providers Care Nurse Wound Name Role Phone Clari Hardwick MD Primary Care Provider [phone] Reason for Visit * Reason Comments Follow-up Encounter Details Date Type Department Care Team (Late st Contact Info) Description 03/11/2014 8:15 AM EDT Office Visit Dermatology at [place] [address] [place] [address] Steve Cochran MD [address], PRANAV A DERMATOLOGY [place], [place] [id number] Psoriasis (Primary Dx) Social History Tobacco Use Types Packs/Day Years [...] * Patient Instructions* Anum Wilkerson LPN - 03/11/2014 8:19 AM EDT Images from the original note were not included. [facility] Psoriasis: After Your Visit Your Care Instructions Psoriasis (say jji-TC-fz-reinaldo) is a long-term skin problem that causes [...] still damp. This seals in moisture. Use mcph-rlh-vlfcygx products that your doctor suggests. These may [...] more? Visit our health information library at [email or web address] You can also view health information on Ami[employer], your personal patient account. Log in or sign up today. Enter [id number] in the search box to learn more about Psoriasis: After Your Visit. ?? [id number] ([employer]. Care instructions adapted under license by [facility]. This care instruction is for use with your licensed healthcare professional. If you have questions about a medical condition or this instruction, always ask your healthcare professional. ([employer] disclaims any warranty or liability for your use of this information. Content Version: 9.9.619261; Last Revised: May 08, 2013 documented in this encounter Progress Notes * Steve Cochran MD - 03/11/2014 8:33 AM EDT Problem: Followup of psoriasis, cutaneous with palmar-plantar pustular, on Humira since December 2013. Zayda follows up today and was improving. However, after a visit to [place] to visit her daughter in mid January, has been having flaring cutaneous psoriasis ever since. She had to go home from work on Tuesday, because of significant itching. We called in some triamcinolone cream. Zayda is ecstatic about the control of her arthritis. She has been working out, going on a couple of five mile walks a day, and has no arthritic symptoms now. Physical examination reveals a pleasant 48-year-old woman who previously just had erythema and papulopustules of the palms, hands, soles, and patches on the elbows, but now has patch plaques on her knees, the dorsum of the feet, small plaques on her back, her chest. Her arthritis is essentially gone. Assessment and Plan: 1. Psoriasis. a. Recommend that the patient hold Humira. Suspect an untoward reaction to her Humira. b. Begin cyclosporin 100 mg one p.o. b.i.d., #60 dispensed with one refill c. Begin triamcinolone 0.01% cream, apply b.i.d. to affected areas. d. May use Zyrtec/Claritin during the day for relief of her pruritus. e. Return to clinic in two weeks for repeat check. 2. Will attempt to taper down and off of cyclosporin and hold Humira for the near future. Will not restart unless her psoriasis again flares. Will recommend that she take Naprosyn p.r.n. for her arthritic symptoms. COPY: Clari Hardwick M.D. documented in this encounter Plan of Treatment Upcoming Encounters Date Type Department Care Team (Late st Contact Info) Description 05/06/2025 4:15 PM EDT Office Visit Dermatology at [address] [place] [address] Steve Cochran MD [address], [place] [address] documented as of this encounter Visit Diagnoses Diagnosis Psoriasis- Primary Other psoriasis documented in this encounter Care Teams Nurse Wound Relationship Specialty Start Date End Date Clari Hardwick MD [address] [place] [address] PCP - General 01/01/13 07/09/20 documented as of this encounter
--- OUTSIDE RECORDS SUMMARY | 2024-10-31 19:41 | XMS_ITS | Encounter Summary ---
Author Organization [place] [address] Care Team Providers Care Database Support Name Role Phone Kelly Garcia MD Primary Care Provider [phone] Reason for Visit * Reason Comments Medication Refill Encounter Details Date Type Department Care Team (Late Contact Info) Description 01/28/2015 Refill Dermatology at [address] [phone] Steve Cochran MD [address] [place] [address], [place], [place] [id number] Social History Tobacco Use Types Packs/Day Years [...] 4:15 PM EDT Office Visit Dermatology at [address] [address] Steve Cochran MD [address] [place] [address], [place], [place] [id number] documented as of this encounter Visit Diagnoses Not on filedocumented in this encounter Care Teams Database Support Relationship Specialty Start Date End Date Kelly Garcia MD [address] [place] [address] PCP - General Family Medicine 07/10/20 10/16/23 documented as of this encounter
--- OUTSIDE RECORDS SUMMARY | 2024-10-31 19:41 | XMS_ITS | Encounter Summary ---
[place] [address] Care Team Providers Care Film And Video Editor Name Role Phone Clari Hardwick MD Primary Care Provider [phone] Encounter Details Date Type Department Care Team (Late st Contact Info) Description 09/18/2013 Telephone [place] [phone] Corie Waller RN Social History Tobacco Use Types Packs/Day [...] Telephone Encounter - Corie Waller RN - 09/18/2013 10:23 AM EST Labs faxed to [facility] and an appointment was made for end october. documented in this encounter Plan of Treatment Upcoming Encounters Date Type Department Care Team (Late st Contact Info) Description 05/06/2025 4:15 PM EDT Office Visit Dermatology at [address] [place] [address] Steve Cochran MD [address], [place] [address] documented as of this encounter Visit Diagnoses Diagnosis Psoriatic arthritis- Primary Psoriatic arthropathy documented in this encounter Care Teams Film And Video Editor Relationship Specialty Start Date End Date Clari Hardwick MD [address] [place] [address] PCP - General 01/01/13 07/09/20 documented as of this encounter
--- OUTSIDE RECORDS SUMMARY | 2024-10-31 19:41 | XMS_ITS | Encounter Summary ---
[place] [address] Care Team Providers Care Oil Expeller Operator Name Role Phone Clari Hardwick MD Primary Care Provider [phone] Encounter Details Date Type Department Care Team (Late st Contact Info) Description 05/16/2014 4:45 PM EDT Office Visit Dermatology at [address] [place] [phone] Steve Cochran MD [address], [place] [address] Psoriasis (Primary Dx) Social History Tobacco Use [...] Progress Notes * Steve Cochran MD - 05/16/2014 5:18 PM EDT Problem: 1. Followup psoriasis, on cyclosporine since March. 2. Flaring of psoriasis due to Humira, January 2014. 3. History of palmar-plantar pustular psoriasis with psoriatic arthritis. 4. Family history of psoriasis in mother and brother. 5. Previously on methotrexate/prednisolone for her psoriatic arthritis. Zayda follows up and has been doing well, but she still has not had the Enbrel delivered. She is going to call [facility] to arrange delivery and will be starting a 50-mg dosing once weekly. I will need to contact [facility] to see why the FDA-approved dermatologic dosing schedule was not approved for her. Physical examination reveals a pleasant 48-year-old woman who has today some mild hyperkeratosis at both elbows, minimal scaling, no fissuring, a few papules, but no papulopustules on the palmar hands bilaterally. She has no swelling, no synovitis, no pain of the sternoclavicular joints. Assessment and Plan: Psoriasis, currently well controlled. a. Continue cyclosporine, currently taking 100 mg two p.o. in the morning, one in the evening. b. Once she gets the Enbrel and has given herself two weeks' worth of injections, q.week injections 50 mg, then drop back to 100 mg p.o. b.i.d. for a week, then drop back to 100 mg p.o. q.week, and then discontinue. c. I would like to see the patient back in a month and a half for repeat check. COPY: Clari Hardwick M.D. documented in this encounter Plan of Treatment Upcoming Encounters Date Type Department Care Team (Late st Contact Info) Description 05/06/2025 4:15 PM EDT Office Visit Dermatology at [address] [address] Steve Cochran MD [address] [facility] [place] [address] documented as of this encounter Visit Diagnoses Diagnosis Psoriasis- Primary Other psoriasis documented in this encounter Care Teams Oil Expeller Operator Relationship Specialty Start Date End Date Clari Hardwick MD [address] [place] [address] PCP - General 01/01/13 07/09/20 documented as of this encounter
--- OUTSIDE RECORDS SUMMARY | 2024-10-31 19:41 | XMS_ITS | Encounter Summary ---
[place] [address] Care Team Providers Care Wildfire Prevention Specialist Name Role Phone Clari Hardwick MD Primary Care Provider [phone] Encounter Details Date Type Department Care Team (Late st Contact Info) Description 05/22/2013 Telephone [place] [id number] Juanis Ziegler LPN Social History Tobacco Use [...] Telephone Encounter - Juanis Ziegler LPN - 05/22/2013 10:30 AM EDT Zayda called and asked if Dr. Jimenez had called in an RX for her? Called and spoke with Zayda in [facility] to which medication she was talking about and Zayda trejo had seen Dr. Cochran in [facility] and he said something about starting Methotrexate and she's not sure where to go from here. I told her I would look into Dr. Jimenez's notes and get back to herabout what Dr. Jimenez wants to do. documented in this encounter Plan of Treatment Upcoming Encounters Date Type Department Care Team (Late st Contact Info) Description 05/06/2025 4:15 PM EDT Office Visit Dermatology at [place] [address] [place] [address] Steve Cochran MD [address], PRANAV [place] [address] documented as of this encounter Visit Diagnoses Not on filedocumented in this encounter Care Teams Wildfire Prevention Specialist Relationship Specialty Start Date End Date Clari Hardwick MD [address] [place] [address] PCP - General 01/01/13 07/09/20 documented as of this encounter
--- OUTSIDE RECORDS SUMMARY | 2024-10-31 19:41 | XMS_ITS | Encounter Summary ---
[place] [address] Care Team Providers Care Bale Tie Machine Operator Name Role Phone Clari Hardwick MD Primary Care Provider [phone] Encounter Details Date Type Department Care Team (Late st Contact Info) Description 11/07/2013 Orders [place] [address] [place] Jimenez MD Psoriatic arthritis (Primary Dx) Social History Tobacco Use Types [...] 4:15 PM EDT Office Visit Dermatology at [place] [address] [place] [phone] Steve Cochran MD [address], [place] [address] documented as of this encounter Visit Diagnoses Diagnosis Psoriatic arthritis- Primary Psoriatic arthropathy documented in this encounter Care Teams Bale Tie Machine Operator Relationship Specialty Start Date End Date Clari Hardwick MD [address] [place] [address] PCP - General 01/01/13 07/09/20 documented as of this encounter
--- OUTSIDE RECORDS SUMMARY | 2024-10-31 19:41 | XMS_ITS | Encounter Summary ---
Author Organization [facility] [place] [address] Care Team Providers Care Land Leases And Rentals Manager Name Role Phone Clari Hardwick MD Primary Care Provider [phone] Reason for Visit * Reason Onset Date Comments Medication Refill 05/04/2013 Encounter Details Date Type Department Care Team (Late st Contact Info) Description 05/04/2013 [place] [address] Linda Gallagher MD [facility] [place] [address] Social History Tobacco Use Types Packs/Day Years [...] Telephone Encounter - Irma Faulkner LPN - 05/04/2013 2:22 PM EDT Zadya calls, states she's out of Prednisone and thought when she saw Dr. Jimenez last week he was sending another Rx. Office note from 04/25/13 states to continue daily Prednisone [address] Jimenez away, routing to Dr. Gallagher to fill in his absence. documented in this encounter Plan of Treatment Upcoming Encounters Date Type Department Care Team (Late st Contact Info) Description 05/06/2025 4:15 PM EDT Office Visit Dermatology at [place] [address] [place] [address] Steve Cochran MD [address], [place] [address] documented as of this encounter Visit Diagnoses Not on filedocumented in this encounter Care Teams Land Leases And Rentals Manager Relationship Specialty Start Date End Date Clari Hardwick MD [address] [place] [address] PCP - General 01/01/13 07/09/20 documented as of this encounter
--- OUTSIDE RECORDS SUMMARY | 2024-10-31 19:41 | XMS_ITS | Encounter Summary ---
Author Organization [facility] [address] Care Team Providers Care Java Sdet Name Role Phone Clari Hardwick MD Primary Care Provider [phone] Reason for Visit * Reason Comments Psoriasis Encounter Details Date Type Department Care Team (Late st Contact Info) Description 07/20/2019 4:45 PM EDT Office Visit Dermatology at [place] [address] [place] [address] Steve Cochran MD [address] [facility], PRANAV A DERMATOLOGY [place], [place] [phone] Psoriasis Social History Tobacco Use Types Packs/Day [...] Progress Notes * Steve Cochran MD - 07/20/2019 4:45 PM EDT Problems: 1. Return visit Cosentyx x4 months since March 2019 2.?? Status post trial of Stelara with limited benefit October 2015 3.??Status post allergic reaction to REMICADE infusion, August 2015. 4.??On cyclosporin 100 mg b.i.d., June 2014 through July 2015. 5.??Status post trials of Humira in January 2014 and Enbrel in May 2014 with subsequent flaring on both. 6.??History of psoriasis in both mother and father. 7.??Previously on methotrexate/prednisone for psoriatic arthritis with fair control of arthritis but not of skin. Zayda follows up and is ecstatic. She states she could not be better. The psoriatic arthritis is all but gone and her skin is essentially clear as well. She is tolerating the injections well withoutinjection site reactions. She had no fevers chills or any problems with it. Physical examination reveals a pleasant 53-year-old woman whose psoriasis is entirely quiescent. She does have a minimal erythematous 6 mm macule on the left knee and one adjacent to it which may represent very mild psoriasis. She would like to have a corticosteroid cream prescription for this. Herjoints are so good that now she is able to go out hiking and be more active than she has been in for a long period of time. 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 Patient congratulated on wonderful response 2. Continue injecting 2 of the 150 mg pen subcutaneously once monthly. She is no longer has any hesitation about doing this and it goes quite well. Dispense #6 for a 3-month supply with 1 refill. This will be called into her [facility] mail away pharmacy. 3. The patient request we will for a prescription for betamethasone dipropionate cream apply twice daily to affected areas of psoriasis as needed. Dispense 15 g with 3 refills. The betamethasone prescription will go to her [facility]. 4. Return to clinic in 6 months for repeat check. Prior authorization for Cosentyx is good through June 2020. CC: Clari Hardwick MD ?? documented in this encounter Plan of Treatment Upcoming Encounters Date Type Department Care Team (Late st Contact Info) Description 05/06/2025 4:15 PM EDT Office Visit Dermatology at [place] [address] [facility] [place] [address] Steve Cochran MD [address] [facility], [place] [address] documented as of this encounter Visit Diagnoses Diagnosis Psoriasis Other psoriasis documented in this encounter Care Teams Java Sdet Relationship Specialty Start Date End Date Clari Hardwick MD [address] [place] [address] PCP - General 01/01/13 07/09/20 documented as of this encounter
--- OUTSIDE RECORDS SUMMARY | 2024-10-31 19:41 | XMS_ITS | Encounter Summary ---
Author Organization [facility] Address [facility] [place] [address] Care Team Providers Care Dietitian Assistant Name Role Phone Clari Hardwick MD Primary Care Provider [phone] Encounter Details Date Type Department Care Team (Late st Contact Info) Description 01/16/2013 12:36 PM EDT - 01/16/2013 11:59 PM EDT Hospital Encounter XRay at [address] [place] [address] Arthritis Social History Tobacco Use Types Packs/Day Years Used Date Smoking Tobacco: Every Day Sex and Gender Information Value Date Recorded Sex Assigned at Not on file Gender Identity Not on file Sexual Orientation Not on file documented as of this encounter Medications at Time of Discharge Medication Sig Dispensed Refills Start Date End Date naproxen (NAPROSYN) 500 mg tablet Take 500 mg by mouth 2 times daily (with meals). 03/20/2019 ibuprofen (ADVIL;MOTRIN) 800 mg tablet Take 1 tablet by mouth every 8 hours as needed for Pain. 120 tablet 3 01/16/2013 03/20/2019 documented as of this encounter Plan of Treatment Upcoming Encounters Date Type Department Care Team (Late st Contact Info) Description 05/06/2025 4:15 PM EDT Office Visit Dermatology at [place] [address] [place] [phone] Steve Cochran MD [address], [place] [address] documented as of this encounter Procedures Procedure Name Priority Date/Time Associated Diagnosis Comments XR STERNOCLAVICULAR JOINTS Routine 01/16/2013 1:04 PM EDT Arthritis documented in this encounter Results * XR sternoclavicular joints (01/16/2013 1:04 PM EDT) Anatomical Region Laterality Modality Chest N/A Radiographic Bushra ging 01/16/2013 1:04 PM EDT Narrative 01/16/2013 4:36 PM EDT Examination STERNOCLAVICULAR JOINTS/BILAT Clinical History severe sternoclavicular joint swelling bilaterally Comparison Comparison is made to a CT scan of the cervical spine from 03/06/2012. ??At that time no abnormality was apparent at the sternoclavicular joints. Technique 2 views of the sternoclavicular joints were acquired. ?? Findings No obvious displacement joint space narrowing or widening is identified. ??No osseous abnormality is seen. No erosions. Procedure Note Christopher Aguilar MD - 01/16/2013 Examination STERNOCLAVICULAR JOINTS/BILAT Clinical History severe sternoclavicular joint swelling bilaterally Comparison Comparison is made to a CT scan of the cervical spine from 03/06/2012. Atthat time no abnormality was apparent at the sternoclavicular joints. Technique 2 views of the sternoclavicular joints were acquired. Findings No obvious displacement joint space narrowing or widening is identified.No osseous abnormality is seen. No erosions. [place] Jimenez MD IMG DX ORDERABLES documented in this encounter Visit Diagnoses Diagnosis Arthritis Arthropathy, unspecified, site unspecified documented in this encounter Care Teams Dietitian Assistant Relationship Specialty Start Date End Date Clari Hardwick MD [address] [place] [address] PCP - General 01/01/13 07/09/20 documented as of this encounter
--- OUTSIDE RECORDS SUMMARY | 2024-10-31 19:41 | XMS_ITS | Encounter Summary ---
Author Organization [facility] Address [facility] [place] [address] Care Team Providers Care Hydrochloric Acid Operator Name Role Phone Clari Hardwick MD Primary Care Provider [phone] Encounter Details Date Type Department Care Team (Late st Contact Info) Description 01/16/2013 12:36 PM EDT - 01/16/2013 11:59 PM EDT Hospital Encounter XRay at [address] [place] [address] Arthritis Social History Tobacco Use Types Packs/Day [...] 4:15 PM EDT Office Visit Dermatology [place] [address] [place] [phone] Steve Cochran MD [address], PRANAV [place] [address] documented as of this encounter Procedures Procedure Name Priority Date/Time Associated Diagnosis Comments XR STERNUM Routine 01/16/2013 1:03 PM EDT Arthritis documented in this encounter Results * XR sternum (01/16/2013 1:03 PM EDT) Anatomical Region Laterality Modality N/A Radiographic Bushra ging 01/16/2013 1:03 PM EDT Narrative 01/16/2013 4:34 PM EDT Examination STERNUM Clinical History marked sternoclavicular joint swelling bilaterally Comparison None Technique AP and lateral views. Findings No fracture is identified. ??I do not see focal swelling on this examination. ?? No retrosternal mass is identified. Procedure Note Christopher Aguilar MD - 01/16/2013 Examination STERNUM Clinical History marked sternoclavicular joint swelling bilaterally Comparison None Technique AP and lateral views. Findings No fracture is identified. I do not see focal swelling on thisexamination. No retrosternal mass is identified. [place] Jimenez MD IMG DX ORDERABLES documented in this encounter Visit Diagnoses Diagnosis Arthritis Arthropathy, unspecified, site unspecified documented in this encounter Care Teams Hydrochloric Acid Operator Relationship Specialty Start Date End Date Clari Hardwick MD [address] [place] [address] PCP - General 01/01/13 07/09/20 documented as of this encounter
--- OUTSIDE RECORDS SUMMARY | 2024-10-31 19:41 | XMS_ITS | Encounter Summary ---
[place] [address] Care Team Providers Care Mannequin Sander And Finisher Name Role Phone Clari Hardwick MD Primary Care Provider Encounter Details Date Type Department Care Team (Late st Contact Info) Description 12/19/2012 Orders [place] [phone] [place] Jimenez MD Social History Tobacco Use Types Packs/Day Years Used Date Smoking Tobacco: Never Assessed Sex and Gender Information Value Date Recorded Sex Assigned at Not on file Gender Identity Not on file Sexual Orientation Not on file documented as of this encounter Plan of Treatment Upcoming Encounters Date Type Department Care Team (Late st Contact Info) Description 05/06/2025 4:15 PM EDT Office Visit Dermatology at [address] [address] Steve Cochran MD [address], [place] [address] documented as of this encounter Procedures Procedure Name Priority Date/Time Associated Diagnosis Comments FILM LIBRARY STORAGE ONLY MR HEAD Routine 12/19/2012 9:58 AM EDT documented in this encounter Results * Film Library- Storage only MR Head (12/19/2012 9:58 AM EDT) 12/19/2012 9:58 AM EDT Narrative [facility] - 03/29/2014 1:51 AM EDT This is a non-reportable exam. Procedure Note Freddy, David - 03/29/2014 This is a non-reportable exam. [place] Jimenez MD [facility] FILM LIBRARY ORD ERABLES RAD [address] [place] [address] documented in this encounter Visit Diagnoses Not on filedocumented in this encounter Care Teams Mannequin Sander And Finisher Relationship Specialty Start Date End Date Clari Hardwick MD [address] [place] [address] PCP - General 01/01/13 07/09/20 documented as of this encounter
--- OUTSIDE RECORDS SUMMARY | 2024-10-31 19:41 | XMS_ITS | Encounter Summary ---
[place] [address] Care Team Providers Care Sample Room Supervisor Name Role Phone Clari Hardwick MD Primary Care Provider [phone] Reason for Visit * Reason Comments Skin Check Encounter Details Date Type Department Care Team (Late st Contact Info) Description 11/28/2014 4:45 PM EST Office Visit Dermatology at [place] [address] [facility] [place] [address] Steve Cochran MD [address], PRANAV A DERMATOLOGY [place], [place] [phone] Psoriasis Discharge Disposition: Home Social History Tobacco [...] this encounter Patient Instructions * Patient Instructions* Rafaela Marie LPN - 11/28/2014 4:57 PM EST Images from the original note were not included. [facility] Psoriasis: After Your Visit Your Care Instructions Psoriasis (say xmp-ZN-uz-reinaldo) is a long-term skin problem that causes [...] still damp. This seals in moisture. Use nzej-ris-njirvcn products that your doctor suggests. These may [...] more? Visit our health information library at [email or web address] You can also view health information on [employer], your personal patient account. Log in or sign up today. Enter U759 in the search box to learn more about Psoriasis: After Your Visit. ?? [id number] [employer]. Care instructions adapted under license by [facility]. This care instruction is for use with your licensed healthcare professional. If you have questions about a medical condition or this instruction, always ask your healthcare professional. [employer] disclaims any warranty or liability for your use of this information. Content Version: 10.3.880894; Current as of: December 12, 2013 documented in this encounter Progress Notes * Steve Cochran MD - 11/28/2014 5:47 PM EST Problems: 1. Followup psoriasis, now much improved/controlled on cyclosporin, started June 2014; patient with palmar-plantar pustular psoriasis with psoriatic arthritis, now status post patch plaque flare. 2. History of trials of Humira, January 2014, and Enbrel, May 2014, with subsequent flaring with both. 3. Family history of psoriasis in mother and father. 4. Previously on methotrexate/prednisone for psoriatic arthritis with fair control. Zayda follows up and states that her psoriasis is doing much better now. She never started the Stelara and discontinued the cyclosporin, and things have done well. The patient does have still some psoriatic arthritis but is able to control this just with oral ibuprofen. The patient still has a little bit of involvement, some slight hyperkeratosis of the palms and soles. Physical examination reveals that her hands and feet are just about clear! The areas on her back, arms, and legs have just about cleared. She had hyperkeratotic plaques on the shins, knees, and buttocks, but these now are just hypopigmented or slightly erythematous patches free of psoriasis. Assessment and Plan: Psoriasis, controlled on current cyclosporin dosing: Cutaneous psoriasis controlled with current cyclosporin dosing; and taking p.r.n. ibuprofen for psoriatic arthritis. a. I recommended that she continue cyclosporin for now, 100 mg one p.o. b.i.d.; #60 dispensed with two refills. b. Continue also ibuprofen 800 mg one p.o. daily or every other day. Take on a regular basis to control psoriatic arthritis symptoms, which are worse in her shoulders and in the clavicles. Today she was given #60 with two refills. c. No need to consider Stelara. d. Today check cyclosporin labs. Blood pressure 122/78. e. Return to clinic in another three months for repeat check, and at that time we will attempt a cyclosporin taper to once-daily dosing. COPY: Clari Hardwick M.D. documented in this encounter Plan of Treatment Upcoming Encounters Date Type Department Care Team (Late st Contact Info) Description 05/06/2025 4:15 PM EDT Office Visit Dermatology at [place] [address] [facility] [place] [address] Steve Cochran MD [address] [facility] PR[place] [address] documented as of this encounter Visit Diagnoses Diagnosis Psoriasis Other psoriasis documented in this encounter Care Teams Sample Room Supervisor Relationship Specialty Start Date End Date Clari Hardwick MD [address] [place] [address] PCP - General 01/01/13 07/09/20 documented as of this encounter
--- OUTSIDE RECORDS SUMMARY | 2024-10-31 19:41 | XMS_ITS | Encounter Summary ---
[place] [address] Care Team Providers Care Train Master Name Role Phone Clari Hardwick MD Primary Care Provider [phone] Encounter Details Date Type Department Care Team (Latest Contact Info) Description 01/24/2013 6:46 AM EDT - 01/24/2013 11:59 PM EDT Hospital [place] [address] CLINIC, Lamont Hightower MD Arthritis Discharge Disposition: Home Social History Tobacco Use [...] 01/16/2013 03/20/2019 documented as of this encounter Miscellaneous Notes * Miscellaneous - Provider, Scanning - 01/30/2013 9:46 AM EDT documented in this encounter Plan of Treatment Upcoming Encounters Date Type Department Care Team (Late st Contact Info) Description 05/06/2025 4:15 PM EDT Office Visit Dermatology at [address] [place] [address] Steve Cochran MD [address], [place] [address] documented as of this encounter Procedures Procedure Name Priority Date/Time Associated Diagnosis Comments MRI SHOULDER WO CONTRAST Routine 01/24/2013 8:23 AM EDT Arthropathy, unspecified, site unspecified documented in this encounter Results * MRI shoulder WO contrast (01/24/2013 8:23 AM EDT) Anatomical Region Laterality Modality Shoulder Magnetic Resonan ce 01/24/2013 8:23 AM EDT Narrative 01/24/2013 9:11 AM EDT Examination MR Shoulder WO/RIGHT Clinical History bilateral sternoclavicular joint swelling with normal X-ray Comparison X-rays 01/16/[address] scan March 06, 2012. Technique T1 weighted, T2 weighted and inversion recovery sequences were acquired focused at the sternoclavicular joints. Findings The clavicular heads are normal in appearance bilaterally. On inversion recovery weighted images there are regions of altered bone marrow signal intensity within the manubrium deep to the sternoclavicular joints bilaterally. These 2 symmetric areas are characterized by increased signal intensity but the marrow is not as bright is adjacent fluid. Small effusions are present at the sternoclavicular joints bilaterally and there is ill-defined fluid signal intensity dissecting within the overlying pectoralis muscle. This nonspecific inflammatory signal extends adjacent to the cartilaginous portion of the 1st rib bilaterally. Impression There are ill-defined nonspecific inflammatory finding centered at the sternoclavicular joints bilaterally. ??The presentation of normal marrow signal intensity at the clavicular heads bilaterally as well as the bilateral distribution argues in favor of noninfectious inflammation. ??Consider the possibility of psoriatic arthritis there is an appropriate clinical history. There is additional inflammation in the overlying soft tissues. ??This could be secondary to the underlying inflammation at the sternum or could be related to previous or repetitive muscle injury. ??Alternatively consider the possibility of inflammation of the costal cartilage. Procedure Note Christopher Aguilar MD - 01/24/2013 Examination MR Shoulder WO/RIGHT Clinical History bilateral sternoclavicular joint swelling with normal X-ray Comparison X-rays 01/16/[address] scan March 06, 2012. Technique T1 weighted, T2 weighted and inversion recovery sequences were acquiredfocused at the sternoclavicular joints. Findings The clavicular heads are normal in appearance bilaterally. On inversion recovery weighted images there are regions of altered bonemarrow signal intensity within the manubrium deep to the sternoclavicular joints bilaterally. These 2 symmetric areas are characterized by increased signal intensity but the marrow is not as bright is adjacent fluid. Small effusions are present at the sternoclavicular joints bilaterally and there is ill-defined fluid signal intensity dissecting within theoverlying pectoralis muscle. This nonspecific inflammatory signal extends adjacentto the cartilaginous portion of the 1st rib bilaterally. Impression There are ill-defined nonspecific inflammatory finding centered at the sternoclavicular joints bilaterally. The presentation of normal marrowsignal intensity at the clavicular heads bilaterally as well as the bilateral distribution argues in favor of noninfectious inflammation. Consider the possibility of psoriatic arthritis there is an appropriate clinicalhistory. There is additional inflammation in the overlying soft tissues. Thiscould be secondary to the underlying inflammation at the sternum or could berelated to previous or repetitive muscle injury. Alternatively consider thepossibility of inflammation of the costal cartilage. Lamont Jimenez MD IMG MRI ORDERABLES documented in this encounter Visit Diagnoses Diagnosis Arthritis Arthropathy, unspecified, site unspecified documented in this encounter Care Teams Train Master Relationship Specialty Start Date End Date Clari Hardwick MD [address] [place] [id number] PCP - General 01/01/13 07/09/20 documented as of this encounter
--- OUTSIDE RECORDS SUMMARY | 2024-10-31 19:41 | XMS_ITS | Encounter Summary ---
[place] [address] Care Team Providers Care Engineer Design [employer] Construction Name Role Phone Clari Hardwick MD Primary Care Provider [phone] Reason for Visit * Reason Comments Follow-up Encounter Details Date Type Department Care Team (Late st Contact Info) Description 04/02/2014 4:30 PM EDT Office Visit Dermatology at [address] [place] [address] Steve Cochran MD [address] [facility], [place] [address] Psoriasis (Primary Dx) Social History Tobacco Use [...] Progress Notes * Steve Cochran MD - 04/02/2014 5:36 PM EDT Problems: 1. Followup psoriasis on cyclosporin for one month. 2. Flaring of psoriasis due to Humira, January 2014. 3. History of palmoplantar pustular psoriasis. 4. Family history of psoriasis in mother and brother. 5. Developed psoriasis after strep pharyngitis in summer 2012. 6. Previously on methotrexate/prednisone for her psoriatic arthritis. Zayda follows up and has been tolerating the cyclosporin well. She has been taking 100 mg one p.o. b.i.d. This represents 3.6 mg/kg per day. Her skin is better but not clear. Blood pressure is 120/78 today. She has stopped the Humira and has been using emollient creams. She has been getting sun. She is taking Naprosyn or ibuprofen, one a day, to help slowly recurring stiffness/arthritis. Physical examination reveals a pleasant, 48-year-old woman who continues to have erythema and some hyperkeratotic patches over the dorsum of her feet in a contiguous fashion, small patches on the legs, her arms, and some areas on her chest and back. Assessment and Plan: Psoriasis. a. Less hyperkeratotic, improved on cyclosporin 100 mg p.o. b.i.d. b. Advance to 200 mg in the morning, 100 mg at night; #90 dispensed with one refill. This represents a dosing of 5.3 mg/kg per day. c. Check cyclosporin labs in the next couple of days. Return to clinic again in another month for repeat check. d. We will try to obtain prior authorization for Enbrel for the patient. I am concerned that the patient's psoriatic arthritis will soon be again flaring, and I would like to start her on another TNF-alpha inhibitor that hopefully she will tolerate better than the Humira. Note: The pruritus that was so pronounced at the beginning of last month and associated with her untoward effect of the Humira/generalization to cutaneous psoriasis has now resolved. She is no longer pruritic. documented in this encounter Plan of Treatment Upcoming Encounters Date Type Department Care Team (Late st Contact Info) Description 05/06/2025 4:15 PM EDT Office Visit Dermatology at [place] [address] [place] [address] Steve Cochran MD [address] [facility], [place] [address] documented as of this encounter Visit Diagnoses Diagnosis Psoriasis- Primary Other psoriasis documented in this encounter Care Teams Engineer Design And Construction Relationship Specialty Start Date End Date Clari Hardwick MD [address] [place] [address] PCP - General 01/01/13 07/09/20 documented as of this encounter
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
--- OUTSIDE RECORDS SUMMARY | 2024-10-31 19:41 | XMS_ITS | Encounter Summary ---
Author Organization [facility] [place] [address] Care Team Providers Care Human Resources Specialist Name Role Phone Clari Hardwick MD Primary Care Provider [phone] Reason for Visit * Reason Comments Psoriasis Encounter Details Date Type Department Care Team (Late st Contact Info) Description 09/01/2015 10:30 AM EST Office Visit Dermatology at [place] [address] [facility] [place] [address] Steve Cochran MD [address], [place] [address] Psoriasis Social History Tobacco Use Types Packs/Day [...] * Patient Instructions* Rafaela Marie LPN - 09/01/2015 10:53 AM EST Images from the original note were not included. [facility] Psoriasis: After Your Visit Your Care Instructions Psoriasis (say fjz-UV-ok-reinaldo) is a long-term skin problem that causes [...] still damp. This seals in moisture. Use glri-ytu-mrwexvj products that your doctor suggests. These may [...] more? Visit our health information library at [email or web address] You can also view health information on [employer], your personal patient account. Log in or sign up today. Enter U759 in the search box to learn more about Psoriasis: After Your Visit. ?? [id number] [employer], [employer]. Care instructions adapted under license by [facility]. This care instruction is for use with your licensed healthcare professional. If you have questions about a medical condition or this instruction, always ask your healthcare professional. [email or web address] disclaims any warranty or liability for your use of this information. Content Version: 10.4.087873; Current as of: December 12, 2013 documented in this encounter Progress Notes * Steve Cochran MD - 09/01/2015 11:22 AM EST Problem: 1. Followup psoriasis, status post first infusion of Remicade two weeks ago, now with dermatitis, cold sweats, lack of appetite times 24 hours. 2. On cyclosporine 100 mg b.i.d., June 2014 through July 2015. 3. Status post trials of Humira, January 2014, and Enbrel, May 2014, with subsequent flaring with both. 4. Family history of psoriasis in mother and father. 5. Previously on methotrexate/prednisone for psoriatic arthritis with fair control of arthritis but not of skin. Zayda follows up and states that her psoriasis and her psoriatic arthritis did wonderfully following her initial course of Remicade. However, just this Tuesday she woke up with a new dermatitis on the upper chest, on her back, some on her legs with cold sweats and with an odd feeling in her stomach and lack of appetite. Physical examination reveals general flushing of the back, upper chest, legs. Her psoriasis remains well controlled. Assessment and Plan: Psoriasis, now with likely Remicade reaction. a. Today 4-mm punch biopsy obtained from back to confirm impression. b. Consider option of Cosentyx versus Stelara as next step. c. We will discontinue Remicade infusion scheduled for tomorrow until biopsy results are back. COPY: Clari Hardwick M.D. documented in this encounter Plan of Treatment Upcoming Encounters Date Type Department Care Team (Late st Contact Info) Description 05/06/2025 4:15 PM EDT Office Visit Dermatology at [place] [address] [place] [phone] Steve Cochran MD [address] [facility], [place] [address] documented as of this encounter Visit Diagnoses Diagnosis Psoriasis Other psoriasis documented in this encounter Care Teams Human Resources Specialist Relationship Specialty Start Date End Date Clari Hardwick MD [address] [place] [address] PCP - General 01/01/13 07/09/20 documented as of this encounter
--- OUTSIDE RECORDS SUMMARY | 2024-10-31 19:41 | XMS_ITS | Encounter Summary ---
[place] [address] Care Team Providers Care Skoog Patching Machine Operator Name Role Phone Clari Hardwick MD Primary Care Provider [phone] Reason for Visit * Reason Comments Skin Check Encounter Details Date Type Department Care Team (Late st Contact Info) Description 05/01/2013 8:00 AM EDT Office Visit Dermatology [address] [place] [address] [address] [place], [place] [id number] Steve Cochran MD [address], [place] [address] Psoriasis (Primary Dx) Social History Tobacco Use [...] Progress Notes * Steve Cochran MD - 05/01/2013 8:29 AM EDT Problem is psoriasis. Zayda is a 47-year-old woman who presents today with improving psoriasis, status post a flare of a papulosquamous dermatitis, which was also associated with arthritic symptoms, particularly in the clavicles in her acromioclavicular joints. She states that there is a family history of psoriasis in her mother but that she has never had any issues until early this spring. She presented to Dr. Hardwick with arthralgias and fatigue. She eventually developed swelling in her sternoclavicular joint, which she described as being swollen like golf balls. She usually works out and was unable to do so. She was having trouble functioning at work. April 05 she was diagnosed with Strep throat and developed erythematous papules and pustules on the palms and soles and presented to [facility] ER. By that time she had also developed scaling red patches on the thighs and her elbows and legs. She had contacted my office, and I had called in clobetasol cream for her to use. She has been followed since January by Dr. Llanes, and he diagnosed her with psoriatic arthritis and suspected psoriasis and referred her today for my dermatologic opinion. Dr. Llanes had placed the patient on prednisone 60 mg a day for three days, then 40 mg a day for three days, and currently she is down to 10 mg a day. While she is much better, she is noticing that on the tapered dose her palms in particular seem to be getting a little bit worse again. 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 She has not been started recently on any new or different medications. She has otherwise been healthy. Physical examination reveals a pleasant 47-year-old woman who has classic psoriatic patches and plaques on the elbows, forearms, posterior thighs, buttocks with palmar plantar pustular psoriasis mostly resolved as well. Today she has no significant swelling over the sternoclavicular joints. She ambulates well without difficulty. Assessment and Plan: Psoriasis with recent palmar plantar pustular flare associated with Strep pharyngitis. a. Patient has been treated with azithromycin for Strep. b. Dr. Llanes has discussed with patient the option of methotrexate, which I think would be very useful for this patient and I agree with its use. Discussed with patient the benefit this will have both for her arthritic and cutaneous symptoms. c. Continue for now clobetasol cream on a q.day b.i.d. basis under cotton glove/sock occlusion for hands and feet at night. d. Patient has been tanning, and I think that this too is helpful as an adjunct for the short run. e. I will be happy to see the patient back if the cutaneous psoriasis does not respond well to methotrexate, but for now we will leave followup to be on a p.r.n. basis. COPY: Lamont Llanes M.D. Clari Hardwick M.D. documented in this encounter Plan of Treatment Upcoming Encounters Date Type Department Care Team (Late st Contact Info) Description 05/06/2025 4:15 PM EDT Office Visit Dermatology at [place] [address] [place] [address] Steve Cochran MD [address] [facility], [place] [address] documented as of this encounter Visit Diagnoses Diagnosis Psoriasis- Primary Other psoriasis documented in this encounter Care Teams Skoog Patching Machine Operator Relationship Specialty Start Date End Date Clari Hardwick MD [address] [place] [address] PCP - General 01/01/13 07/09/20 documented as of this encounter
--- OUTSIDE RECORDS SUMMARY | 2024-10-31 19:41 | XMS_ITS | Encounter Summary ---
Author Organization [facility] [place] [address] Care Team Providers Care Supervisor Epoxy Fabrication Name Role Phone Kelly Garcia MD Primary Care Provider [phone] Reason for Visit * Reason Comments Psoriasis Encounter Details Date Type Department Care Team (Late st Contact Info) Description 11/06/2020 8:30 AM EST Office Visit Dermatology at [place] [address] [facility] [place] [address] Steve Cochran MD [address] [facility], PRANA[facility] A DERMATOLOGY [place], [place] [phone] Psoriasis Social History Tobacco Use Types Packs/Day [...] Progress Notes * Steve Cochran MD - 11/06/2020 8:30 AM EST Problems: 1. Ready to start Tremfya 2. Trial of Taltz October 2019 with allergic reaction 3. ??On Cosentyx since March 2019 through September 2019 4.?Status post trial of Stelara with limited benefit October 2015 5. Status post allergic reaction to REMICADE infusion, August 2015. 6. ??On cyclosporin 100 mg b.i.d., June 2014 through July 2015. 7. ??Status post trials of Humira in January 2014 and Enbrel in May 2014 with subsequent flaring on both. 8. History of psoriasis in both mother and father. 9. ??Previously on methotrexate/prednisone for psoriatic arthritis with fair control of arthritis but not of skin. 10. Patient with celiac disease avoiding gluten. Zayda follows up because she had an allergic reaction to the Taltz. She had redness swelling flushing of her face and diffuse itching within the hour or 2 after the injection. Then there was a second wave of redness and swelling a week after that injection. She had given herself 2 injections of Taltz 1 to the left and 1 to the right lateral hip. She is itching during the day. She is taking Benadryl 50 mg at night. She has not taken any further Taltz. We will call in a prescription for Tremfya but she is reluctant to start that yet and I think rightly so until her Toltz reaction subsides. Shehas no active psoriasis at present no active psoriatic arthritis. Physical examination reveals large erythematous patches present over left and right hips. She is tostates that previously they were quite swollen but now they are no longer swollen. She has no dermatitis elsewhere. She complains however while we speak of itching that comes and goes on the arms andback. Assessment plan: Allergic reaction to Taltz 1. Discontinue Taltz 2. Wait till the reaction subsides. Begin triamcinolone 0.1% cream applying on a twice daily basis to affected erythematous patches. Dispense 80 g with 3 refills. 3. Once reaction subsided then begin Tremfya. Patient would prefer prefilled syringes rather than pen in the future. 4. Patient may double her daily dose of Claritin she may take 10 mg twice daily rather than just daily. 5. Of asked patient to call me with her progress after the first Tremfya injection. CC: Kelly Garcia MD documented in this encounter Plan of Treatment Upcoming Encounters Date Type Department Care Team (Late st Contact Info) Description 05/06/2025 4:15 PM EDT Office Visit Dermatology at [address] [phone] Steve Cochran MD [address], [place] [address] documented as of this encounter Visit Diagnoses Diagnosis Psoriasis Other psoriasis documented in this encounter Care Teams Supervisor Epoxy Fabrication Relationship Specialty Start Date End Date Kelly Garcia MD [address] [place] [address] PCP - General Family Medicine 07/10/20 10/16/23 documented as of this encounter
--- OUTSIDE RECORDS SUMMARY | 2024-10-31 19:41 | XMS_ITS | Encounter Summary ---
[place] [address] Care Team Providers Care Asbestos Cloth Inspector Name Role Phone Clari Hardwick MD Primary Care Provider Encounter Details Date Type Department Care Team (Late st Contact Info) Description 05/23/2013 Orders [place] [phone] Lamont Jimenez MD Social History Tobacco Use [...] 4:15 PM EDT Office Visit Dermatology at [place] [address] [facility] [place] [phone] Steve Cochran MD [address], [place] [address] documented as of this encounter Visit Diagnoses Not on filedocumented in this encounter Care Teams Asbestos Cloth Inspector Relationship Specialty Start Date End Date Clari Hardwick MD [address] [place] [address] PCP - General 01/01/13 07/09/20 documented as of this encounter
--- OUTSIDE RECORDS SUMMARY | 2024-10-31 19:41 | XMS_ITS | Encounter Summary ---
Author Organization [facility] [place] [address] Care Team Providers Care Dairy Equipment Repairer Name Role Phone Clari Hardwick MD Primary Care Provider [phone] Encounter Details Date Type Department Care Team (Late st Contact Info) Description 09/11/2015 8:00 AM EST Office Visit Dermatology at [address] [place] [phone] Steve Cochran MD [address] [facility], [place] [address] Psoriasis; Visit for suture removal Social History Tobacco Use Types Packs/Day Years [...] Progress Notes * Steve Cochran MD - 09/11/2015 8:16 AM EST Problem: Followup for suture removal and biopsy results. Zayda follows up and is much better. She still does not feel back to normal, but she is feeling much better. Physical examination reveals that the dermatitis is entirely clear. She is no longer having cold sweats. The biopsy site has healed well, and the biopsy came back consistent with an allergic drug eruption. Assessment and Plan: Allergic reaction secondary to REMICADE. a. Remicade has been discontinued. b. Stelara has been preapproved. c. Arrange shipment and initiation of this within the next couple weeks. COPY: Clari Hardwick M.D. documented in this encounter Plan of Treatment Upcoming Encounters Date Type Department Care Team (Late st Contact Info) Description 05/06/2025 4:15 PM EDT Office Visit Dermatology at [place] [address] [place] [address] Steve Cochran MD [address], [place] [address] documented as of this encounter Visit Diagnoses Diagnosis Psoriasis Other psoriasis Visit for suture removal Encounter for removal of sutures documented in this encounter Care Teams Dairy Equipment Repairer Relationship Specialty Start Date End Date Clari Hardwick MD [address] [place] [address] PCP - General 01/01/13 07/09/20 documented as of this encounter
--- OUTSIDE RECORDS SUMMARY | 2024-10-31 19:41 | XMS_ITS | Encounter Summary ---
Author Organization [facility] [place] [address] Care Team Providers Care Technical Service Specialist Name Role Phone Clari Hardwick MD Primary Care Provider [phone] Reason for Visit * Reason Comments Follow-up Psoriasis Encounter Details Date Type Department Care Team (Late st Contact Info) Description 03/20/2019 10:15 AM EDT Office Visit Dermatology at [address] [address] Steve Cochran MD [address] [facility], [place] [address] Psoriasis Social History Tobacco Use Types Packs/Day [...] Progress Notes * Steve Cochran MD - 03/20/2019 10:15 AM EDT Problems: 1. Return visit for treatment options for psoriasis/psoriatic arthritis 2. Status post trial of Stelara with limited benefit October 2015 3. Status post allergic reaction to REMICADE infusion, August 2015. 4. On cyclosporin 100 mg b.i.d., June 2014 through July 2015. 5. Status post trials of Humira in January 2014 and Enbrel in May 2014 with subsequent flaring on both. 6. History of psoriasis in both mother and father. 7. Previously on methotrexate/prednisone for psoriatic arthritis with fair control of arthritis but not of skin. Zayda follows up and it has been 3 years since I saw her last. Her arthritis continues to be an issue, it tends to be migratory affecting different joints both centrally and axially and being quite unpredictable. 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 Some days she is very fatigued and has a tough day getting through the day at work. Also her skin is been a issue as well with small patches coming and going on the arms and legs and to really fairly relatively large patch plaques on her feet one on the lateral ankle and one on the medial ankle. She also has involvement on the buttocks. She has been through 4 Biologics without really any significant improvement as noted above and she had somewhat lost the desire to try any new ones after the last failure, but now isinterested in trying something again. Her mwjbqqer-mc-mis is a nurse and will be giving her any injections that I prescribe. Zayda would prefer to have them in the autoinjector format. Physical examination was a pleasant 53-year-old woman who has small patches of psoriasis nickel to quarter size on the legs and arms relatively few in number inconspicuous. She has nothing on her scalp. She has had some inverse involvement under her breasts. She also has more hyperkeratotic and larger plaques almost with a ring worm like appearance one on the right lateral ankle and one on the left medial ankle. MELLISSA of these does actually show hyphal forms and spores suggesting that a tinea infection is present and helping to exacerbate psoriasis in this location. Assessment plan: Psoriasis both cutaneous and psoriatic arthritis 1. Would recommend a trial of Cosentyx pen injectors. We will check to be sure this is a formulary for her, then prescribed the 150 mg pen inject the contents of 2 these pens once weekly for 4 weeks,then inject 2 at week 4 and then every 4 weeks thereafter. Will dispense a 3-month supply. 2. Discussed the fact that this will take a at least a month and a half to begin to see improvementand probably 3 months to see full benefit 3. Return to clinic in 3 months for repeat check. 4. Discussed the mechanism of action and how this is different from all of the other Biologics thatmarti has used previously (as a IL-17 a mariposa). Coexistent tinea pedis and psoriasis feet/ankles 1. Recommend application of 1% Clotrimazole cream apply twice daily for 2 weeks to the affected areas then discontinue. Obtain ofcd-qsq-pohqogg. 2. Initiation of biologic I am sure will adequately treat the psoriatic component of these plaques. Note: 1/2-hour spent patient more than half of which was spent counseling. CC: Clari Hardwick MD documented in this encounter Plan of Treatment Upcoming Encounters Date Type Department Care Team (Late st Contact Info) Description 05/06/2025 4:15 PM EDT Office Visit Dermatology at [place] [address] [place] [phone] Steve Cochran MD [address] [facility], [place] [address] documented as of this encounter Visit Diagnoses Diagnosis Psoriasis Other psoriasis documented in this encounter Care Teams Technical Service Specialist Relationship Specialty Start Date End Date Clari Hardwick MD [address] [place] [address] PCP - General 01/01/13 07/09/20 documented as of this encounter
--- OUTSIDE RECORDS SUMMARY | 2024-10-31 19:41 | XMS_ITS | Encounter Summary ---
Author Organization [place] [address] Care Team Providers Care Electric Motor Winder Name Role Phone Clari Hardwick MD Primary Care Provider [phone] Reason for Visit * Reason Comments Follow-up Encounter Details Date Type Department Care Team (Late st Contact Info) Description 06/27/2014 4:45 PM EDT Office Visit Dermatology at [place] [address] [facility] [place] [address] Steve Cochran MD [address], PRANA[place] A DERMATOLOGY [place], [place] [id number] Psoriasis (Primary Dx) Discharge Disposition: Home Social History [...] * Patient Instructions* Anum Wilkerson LPN - 06/27/2014 4:46 PM EDT Images from the original note were not included. [facility] Psoriasis: After Your Visit Your Care Instructions Psoriasis (say ulm-FQ-hn-reinaldo) is a long-term skin problem that causes [...] still damp. This seals in moisture. Use mela-dtl-umdtbvb products that your doctor suggests. These may [...] more? Visit our health information library at [email or web address] You can also view health information on [employer], your personal patient account. Log in or sign up today. Enter U759 in the search box to learn more about Psoriasis: After Your Visit. ?? [id number] [employer]. Care instructions adapted under license by [facility]. This care instruction is for use with your licensed healthcare professional. If you have questions about a medical condition or this instruction, always ask your healthcare professional. [employer] disclaims any warranty or liability for your use of this information. Content Version: 9.9.937011; Last Revised: May 08, 2013 documented in this encounter Progress Notes * Steve Cochran MD - 06/27/2014 5:13 PM EDT Problem List: 1. Followup of psoriasis, on cyclosporin since March 2014, now off times one month. 2. Flaring of psoriasis due to Humira, January 2014, and now also following a trial with Enbrel, May 2014. 3. History of palmar-plantar pustular psoriasis with psoriatic arthritis. 4. Family history of psoriasis in mother and father. 5. Previously on methotrexate/prednisone for psoriatic arthritis with fair control. Zayda follows up and after giving herself the Enbrel, unfortunately noted worsening of her psoriasis. She noticed this after the first, second, and then the third dosings, and appropriately decided to hold it. She has been off the cyclosporin now for a month, and so far her psoriasis actually has been improving. Physical examination today reveals a pleasant 48-year-old woman who has one or two superficial papulopustules on the palmar hands, a thin patch of psoriasis on the insteps of both feet, extending onto the soles of the feet, and a few areas on the elbows, knees, and back. Assessment and Plan: 1. Psoriasis, currently on no medication. a. Recommend that we resume cyclosporin, taking 100 mg one p.o. b.i.d. She was given #60 with one refill. Check cyclosporin labs in two months. Return to clinic in two months for repeat check. b. Will DC Enbrel. Will avoid TNF alpha inhibitors in the future. Discussed the option of Stelara, but for now will go back to cyclosporin, which was working well for her. c. Discussed benefits and side effects of this medication. Discussed the need I think in this patient for systemic therapy. Topicals have not been efficacious. Return to clinic in two months. COPY: Clari Hardwick M.D. documented in this encounter Plan of Treatment Upcoming Encounters Date Type Department Care Team (Late st Contact Info) Description 05/06/2025 4:15 PM EDT Office Visit Dermatology at [place] [address] [place] [address] Steve Cochran MD [address], [place] [address] documented as of this encounter Visit Diagnoses Diagnosis Psoriasis- Primary Other psoriasis documented in this encounter Care Teams Electric Motor Winder Relationship Specialty Start Date End Date Clari Hardwick MD [address] [place] [id number] PCP - General 01/01/13 07/09/20 documented as of this encounter
--- OUTSIDE RECORDS SUMMARY | 2024-10-31 19:41 | XMS_ITS | Encounter Summary ---
[place] [address] Care Team Providers Care Tape Controlled Machine Stitcher Name Role Phone Clari Hardwick MD Primary Care Provider [phone] Reason for Visit * Reason Comments Psoriasis Encounter Details Date Type Department Care Team (Late st Contact Info) Description 10/16/2015 8:00 AM EST Office Visit Dermatology at [place] [address] [facility] [place] [address] Steve Cochran MD [address], [place] [address] Psoriasis Social History Tobacco Use Types Packs/Day [...] * Patient Instructions* Rafaela Marie LPN - 10/16/2015 8:14 AM EST Images from the original note were not included. [facility] Psoriasis: After Your Visit Your Care Instructions Psoriasis (say dkj-XI-fm-reinaldo) is a long-term skin problem that causes [...] still damp. This seals in moisture. Use upvo-avp-rplreug products that your doctor suggests. These may [...] more? Visit our health information library at [email or web address] You can also view health information on [employer], your personal patient account. Log in or sign up today. Enter U759 in the search box to learn more about Psoriasis: After Your Visit. ?? [id number] [employer], [employer]. Care instructions adapted under license by [facility]. This care instruction is for use with your licensed healthcare professional. If you have questions about a medical condition or this instruction, always ask your healthcare professional. [employer] disclaims any warranty or liability for your use of this information. Content Version: 10.4.576434; Current as of: December 12, 2013 documented in this encounter Progress Notes * Steve Cochran MD - 10/16/2015 8:18 AM EST Problems: 1. Ready to initiate Stelara, first shot today. 2. Status post allergic reaction to REMICADE infusion, August 2015. 3. On cyclosporin 100 mg b.i.d., June 2014 through July 2015. 4. Status post trials of Humira in January 2014 and Enbrel in May 2014 with subsequent flaring on both. 5. History of psoriasis in both mother and father. 6. Previously on methotrexate/prednisone for psoriatic arthritis with fair control of arthritis but not of skin. Zayda follows up, and she is feeling back to normal. The cold sweats, the feeling of disease that she had after the Remicade reaction have all resolved. Her psoriasis is pretty much under control with just minimal spots now on her elbows and a little bit on her hands and feet, but minimal. Physical examination confirms that the psoriasis today is quite minimal. This appears to be well controlled and not yet flaring after her August 2015, still benefiting from her mid-August Remicade injection. Assessment and Plan: Psoriasis, ready to begin Stelara. a. Today 45 mg of Stelara was injected subcutaneously into the back of the right arm after discussing benefits and side effects. I answered the patient's questions. b. The patient understands this may not work quite as well for her psoriatic arthritis; we will see. c. Return to clinic in another month for repeat check and her next Stelara injection. Then we will continue on an mbjte-vrzvf-vyoew basis. documented in this encounter Plan of Treatment Upcoming Encounters Date Type Department Care Team (Late st Contact Info) Description 05/06/2025 4:15 PM EDT Office Visit Dermatology at [place] [address] [place] [address] Steve Cochran MD [address] [facility] [facility] [address], [place] [address] documented as of this encounter Visit Diagnoses Diagnosis Psoriasis Other psoriasis documented in this encounter Care Teams Tape Controlled Machine Stitcher Relationship Specialty Start Date End Date Clari Hardwick MD [address] [place] [address] PCP - General 01/01/13 07/09/20 documented as of this encounter
--- OUTSIDE RECORDS SUMMARY | 2024-10-31 19:41 | XMS_ITS | Encounter Summary ---
[place] [address] Care Team Providers Care Badger Distiller Operator Name Role Phone Kelly Garcia MD Primary Care Provider [phone] Reason for Visit * Reason Comments Medication Management Encounter Details Date Type Department Care Team (Late st Contact Info) Description 11/26/2020 Specialty [place] [id number] Joelle Rivera RPH Social History Tobacco Use Types Packs/Day Years [...] as of this encounter Progress Notes * Joelle Rivera RPH - 11/26/2020 4:20 PM EST Clinical Management Plan: Transfer of Care/Discharge Specialty Services Specialty Pharmacy Consultation; Joelle Rivera RPH Comprehensive Medication Management (CMM) Zayda Sushil Sanchez [address] [facility] [address] Telephone Information: Is the patient transferring services to a different Specialty Pharmacy or discontinuing the medication? yes Medication: Tremfya Reason for discontinuation or transfer: injection site reaction Approximate date of discontinuation or transfer: 11/26/20 Patient's response to therapy: poor Summary of services provided by [facility]: first fill and consultation Summary of on-going needs: will message MD on re-starting her Cosentyx Referral for additional services (if applicable): no Is patient aware of referral? N/A Instructions provided to patient about discharge/transfer: no Provider aware of discontinuation or transfer: yes Patient understands no changes to current drug regimen were made at the appointment and that [facility] isproviding recommendations (summary located at top of note) for provider review and follow up. Joelle Rivera RPH 11/26/20 4:20 PM documented in this encounter Plan of Treatment Upcoming Encounters Date Type Department Care Team (Late st Contact Info) Description 05/06/2025 4:15 PM EDT Office Visit Dermatology at [place] [address] [facility] [place] [address] Steve Cochran MD [address], [place] [address] documented as of this encounter Visit Diagnoses Not on filedocumented in this encounter Care Teams Badger Distiller Operator Relationship Specialty Start Date End Date Kelly Garcia MD [address] [place] [address] PCP - General Family Medicine 07/10/20 10/16/23 documented as of this encounter
--- OUTSIDE RECORDS SUMMARY | 2024-10-31 19:41 | XMS_ITS | Encounter Summary ---
[place] [address] Care Team Providers Care Vp Product Management Name Role Phone Clari Hardwick MD Primary Care Provider [phone] Reason for Visit * Reason Comments Follow-up Psoriasis Encounter Details Date Type Department Care Team (Late st Contact Info) Description 11/22/2013 9:45 AM EST Office Visit Dermatology at [address] [place] [address] Steve Cochran MD [address] [facility], [place]ANA[place] A DERMATOLOGY [place], [place] [id number] Psoriasis (Primary Dx); Pustular psoriasis of palms and soles Social History Tobacco Use Types Packs/Day Years [...] Progress Notes * Steve Cochran MD - 11/22/2013 10:28 AM EST Problem List: 1. 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 2. Family history of psoriasis in mother and brother. 3. Developed psoriasis after strep pharyngitis in summer 2012. Zayda presents again today, because despite methotrexate and prednisone, she still is quite symptomatic in her palms and soles. She, on her own volition, has tapered herself down and off of prednisone and a month ago discontinued methotrexate. Physical examination today reveals a 48-year-old woman who has erythema and papulopustules on the palms of the hands and soles of both feet extending up onto the dorsum of both feet as well. She has some patch plaque psoriasis of the elbows as well. Her legs have cleared. Assessment and Plan: 1. 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 a. Because of lack of significant improvement with methotrexate 15 mg a week and concurrent prednisone, recommend that we advance now to Humira. Would begin 40 mg times two on day one, 40 mg times one on day eight, and then 40 mg q.o. week. Patient would prefer the autoinjector pen. Dispensed a starter kit, three month supply. b. Return here for demonstration of Humira injection. c. Today, patient given prescription for clobetasol cream to apply b.i.d. to palms and soles. As she currently is using nothing at all for her psoriasis, the clobetasol use would be attempt to head off a flare between now and when she actually gets prior auth for her Humira; 60 grams dispensed with two refills. COPY: Clari Hardwick M.D. Note: Patient had a negative PPD seven months ago, prior to starting methotrexate and prednisone (QuantiFERON gold). documented in this encounter Plan of Treatment Upcoming Encounters Date Type Department Care Team (Late st Contact Info) Description 05/06/2025 4:15 PM EDT Office Visit Dermatology at [place] [address] [facility] [place] [phone] Steve Cochran MD [address] [facility], [place] [address] documented as of this encounter Visit Diagnoses Diagnosis Psoriasis- Primary Other psoriasis Pustular psoriasis of palms and soles Other psoriasis documented in this encounter Care Teams Vp Product Management Relationship Specialty Start Date End Date Clari Hardwick MD [address] [place] [address] PCP - General 01/01/13 07/09/20 documented as of this encounter
--- OUTSIDE RECORDS SUMMARY | 2024-10-31 19:41 | XMS_ITS | Encounter Summary ---
[place] [address] Care Team Providers Care Route Cdl Driver Name Role Phone Kelly Garcia MD Primary Care Provider [phone] Reason for Visit * Reason Comments Medication Management Encounter Details Date Type Department Care Team (Late st Contact Info) Description 10/30/2020 Specialty [place] [id number] Joelle Rivera RPH Social History Tobacco Use [...] Progress Notes * Joelle Rivera RPH - 10/30/2020 2:06 PM EST Specialty Pharmacy Consultation; Joelle Rivera RPH Comprehensive Medication Management (CMM) Zayda Sanchez Diagnosis: Psoriasis Therapy Start Date: TBA (new start) Contact in person or via telephone:telephone Ms. Zayda Sanchez is a 55 y.o. (1965) female who was contacted in regard to specialty medication. Spoke with patient regarding Tremfya . A review of the medication therapy was performed. The medication was Filled as scheduled, and all medication related questions and concerns were addressed.The specialty pharmacy staff will follow up with the patient 5-7 days prior to next refill. Is the patient willing to proceed with the Clinical Assessment? Yes Summary and Recommendations: Zayda Sanchez was contacted via telephone for a review of Tremfya for the treatment of plaque psoriasis. Patient was given [facility] contact information for any questions. Patient was educated on the Tremfya warnings and precautions regarding the risk of serious infections and hypersensitivity. Patient was educated on the importance of infection prevention including best practices for hand hygiene and the annual flu vaccine. Discussed the need to avoid live vaccines during treatment. Dose hold parameters were reviewed including suspected/known infection, prescribedantibiotic therapy, or scheduled surgery. Patient agrees to contact the clinic to review dose hold in these settings. Educated patient on the potential side effects of Tremfya including injection site reaction and infections such as URTI. Discussed with patient that it may take 3-4 months to experience the full benefit of Tremfya. A review of dosing, storage, and administration was completed. Patient was educated on the dosing schedule, 100 mg SQ weeks 0 and 4 then every 8 weeks thereafter. Patient was made aware that Tremfya must be stored in the refrigerator protected from light and remains stable at room temperature for up to 4 hours. Patient was advised on proper site rotation, site sterilization, and allowing the medication to reach room temperature prior to injection. Patient was encouraged to schedule an injectionteaching appointment if they prefer to have first injection completed with medical oversight and was directed to view additional online video resources if needed. Patient had good control of her joints and skin with Cosentyx, BUt due to formulary changes, had tochange therapy. She was placed on Taltz, but had an allergic reaction. She had severe site reactions, trouble breathing, and facial swelling. She had hives on Humira and Enbrel in the past. Past therapies include Stelara, Remicade, and cyclosporine. Patient said she will administer the first dose in the presence of her daughter and will have supportive medications on hand (epipen and/or benadryl)in case. I relayed to patient that if she does not react well to Tremfya, we can try for Cosentyx again. Per insurance, she needs to try at least 3 covered agents before Cosentyx can be considered. She understood the plan and will keep the pharmacy and provider updated should she need a change in therapy. For the time being, she is holding off on starting until her reactions to Tatlz have subside. Patient did not have any questions or concerns. We will follow up with her in 1 month to assess fortolerability and efficacy. Clinic follow-up needed: yes - patient has an appointment on 01/15 Allergies and Drug intolerance: Allergies Allergen Reactions ??? Shellfish Containing Products Shortness Of Breath Hands and lips swell, hard to breath ??? Taltz Autoinjector [Ixekizumab] Shortness Of Breath Lips tingling and hard to breath ??? Clindamycin Hives ??? Penicillins Hives Problem List: Patient Active Problem List Diagnosis Code ??? Psoriasis L40.9 ??? Psoriatic arthritis L40.50 ??? Pustular psoriasis of palms and soles L40.3 Special Dietary or Hydration Requirements: no There is no height or weight on file to calculate BMI. Medication Reconciliation Discrepancies (compared to [facility] med list) -none Medication List: Current Outpatient Medications Medication Sig Dispense Refill ??? guselkumab (Tremfya) 100 mg/mL Syringe Inject 100 mg subcutaneously. Inject 100mg SQ on week 0 and 4, then every 8 weeks there after ??? betamethasone dipropionate (DIPROLENE) 0.05 % Cream Apply twice daily to affected areas of psoriasis as needed. 15 g 3 No current facility-administered medications for this visit. Most Recent Vitals: Ht Readings from Last 1 Encounters: 10/30/13 162.6 cm (5' 4) Wt Readings from Last 3 Encounters: 10/30/13 63 kg (139 lb) 08/06/13 60.3 kg (133 lb) 04/25/13 60.3 kg (133 lb) Temp Readings from Last 3 Encounters: 10/30/13 38.9 ??C (102.1 ??F) (Oral) 08/06/13 37 ??C (98.6 ??F) (Oral) 04/25/13 36.9 ??C (98.5 ??F) (Oral) BP Readings from Last 3 Encounters: 10/30/13 124/86 08/06/13 (!) 119/93 04/25/13 126/80 Pulse Readings from Last 3 Encounters: 10/30/13 119 08/06/13 102 04/25/13 89 Pertinent Lab values: Lab Results Component Value Date NA 137 10/30/2013 K 4.1 10/30/2013 CL 97 (L) 10/30/2013 CO2 27 10/30/2013 BUN 9 10/30/2013 CREATININE 0.82 10/30/2013 GLUCOSE 120 10/30/2013 CALCIUM 9.6 10/30/2013 Lab Results Component Value Date ALT 29 10/30/2013 AST 21 10/30/2013 ALKPHOS 67 10/30/2013 BILITOT 0.3 10/30/2013 BILIDIR 0.1 10/30/2013 ALBUMIN 4.8 10/30/2013 PROT 7.2 10/30/2013 Lab Results Component Value Date WBC 18.7 (H) 10/30/2013 HGB 13.6 10/30/2013 HCT 40.2 10/30/2013 MCV 94.1 (H) 10/30/2013 PLATELET 276 10/30/2013 No results found for: HA1C Immunization History Administered Date(s) Administered ??? Influenza Vaccine w/Preservative, Split 07/30/2013 Assessment and Recommendations: Title Type of Medication Management: chronic disease management, targeted medication review Referred By: pharmacist Recipient: beneficiary Provider: plan sponsor pharmacist [facility] Method of Contact: by telephone Cognitive Ability: good Cognitive Impairment Status Verified this Year: no Patient Counseling Counseled the patient on the following: reviewed medication changes since last visit, medication safety precautions education provided, doses and administration discussed, safe handling, storage, and disposal discussed, possible adverse effects and management discussed, lab monitoring and follow-up discussed, therapeutic rationale discussed, cost of medications and cost implications discussed, adherence and missed doses discussed, pharmacy contact information discussed, health goals discussed, monitoring medication discussed, preventative care discussed, self-monitoring discussed, start medication discussed, timing of medications discussed, vaccination discussed, referral needs discussed Drug Medication Management Summary Topics discussed: reviewed medication changes since last visit, medication safety precautions education provided, doses and administration discussed, safe handling, storage, and disposal discussed, possible adverse effects and management discussed, lab monitoring and follow-up discussed, therapeutic rationale discussed, cost of medications and cost implications discussed, adherence and missed doses discussed, pharmacy contact information discussed, health goals discussed, monitoring medication discussed, preventative care discussed, self-monitoring discussed, start medication discussed, timing of medications discussed, vaccination discussed, referral needs discussed Time spent: 16-30 min Treatment Outcomes No data found in the last 10 encounters. Reviewed in detail with patient: Dose appropriateness based on recommended standard dosing Current medication list including OTC medications Medication and disease problems Allergies Comorbid conditions/ Problem List Past adverse events if any Special needs of the patient including physical and cognitive limitations Goals of therapy and management strategies Warnings, precautions, and contraindications Side effects Drug-drug and drug-food interactions Administration instructions including dose, frequency and method Handling, storage, and disposal Verifying expiration dates on products before use Rotating medication inventory to use oldest product first Relevant lab data Patient verbalizes understanding and is able to read-back instructions on self-administration/injection, proper storage, drug stability, importance of adherence and management strategies, side effectavoidance and mitigation strategies, and interruptions in therapy: Yes Physical and Cognitive Assessment: Functional limitations identified: no Cognitive limitations identified: no Concern regarding orientation/memory: no Concern with reasoning/judgement: no Is patient a fall risk: no Other needed information: no Social Assessment: Does the patient have a primary group care worker? no Does the patient have an emergency contact on file: Yes Does patient need referral to social worker clinical: No Does patient need referral to advocacy group: No Home Health Assessment: Is the patient in a safe home environment? Yes Is the patient able to store their medication as directed? Yes Does the patient have a support network at home? Yes Reviewed potential home safety hazards with patient: Yes Economic Assessment: Patient is agreeable to medication copay: Yes Copay Amount: $0.00 Day Supply: 28 Date Needed: TBA (new start) Copay assistance required: no Therapy Assessment: Current Medication Dosing/Route/Frequency: Tremfya 100mg/mL Inject 100mg under the skin on Weeks 0 and 4, then every 8 weeks thereafter Appropriate Therapy: Yes Current Affected Areas: clear (pt switching over from Taltz and previously Cosentyx) Total BSA involved: unknown (0%) Recent Skin Exacerbations/Flaring: no Recent Topical Corticosteroid Use: no Relapsing/Remitting Factors: no Diagnosis of Psoriatic Arthritis: Yes Patient's Problems/Needs: none; no teaching appointment needed due to history of biologic therapy Expected Outcome: Patient would like to maintain skin and joint control while minimizing side effects. Patient's goals: Patient's specific desired goal: Patient had been clear on Cosentyx, but due to formulary changes had to change therapy. She would like to maintain skin and joint control. Measured by: affected joint and skin Time-frame to meet goal: 3 to 6 months Care Plan Reviewed and Approved by both Pharmacist and Patient: Yes Interventions (if applicable): No Additional care/services needed: no Educational information or adherence tools provided: Yes Additional equipment/supplies required: no Monitoring requirements for prescribed medication: Tuberculosis screening (prior to initiating and periodically during therapy), signs and symptoms of infection Pharmacist follow-up needed: Yes Patient Satisfaction with care/services provided: Yes Informed patient of specialty pharmacy services: Yes -Patient will be provided with welcome packet: Yes Date to be provided: ~10/31/20 (send with first fill) Delivery Method: mail -Patient will be provided with Rights & Responsibilities: Yes Date to be provided: ~10/31/20 (send with first fill) Delivery Method: mail -Patient is aware a licensed pharmacist is available 24 hours a day, 7 days a week to discuss medication-related questions or concerns: Yes -Patient verbalizes understanding of the common side effect profile of their medication. The patient is able to call 911 or seek urgent care if signs/symptoms of allergy or harmful adverse reactions occur: Yes Patient understands no changes to current drug regimen were made at the appointment and that [facility] (summary located at top of note) for provider review and follow up. Joelle Rivera RPH 10/30/20 2:34 PM documented in this encounter Plan of Treatment Upcoming Encounters Date Type Department Care Team (Late st Contact Info) Description 05/06/2025 4:15 PM EDT Office Visit Dermatology at [place] [address] [place] [id number] Steve Cochran MD [address], [place] [address] documented as of this encounter Visit Diagnoses Not on filedocumented in this encounter Care Teams Route Cdl Driver Relationship Specialty Start Date End Date Kelly Garcia MD [address] [place] [address] PCP - General Family Medicine 07/10/20 10/16/23 documented as of this encounter
--- OUTSIDE RECORDS SUMMARY | 2024-10-31 19:41 | XMS_ITS | Encounter Summary ---
[place] [address] Care Team Providers Care Processor Inspector Name Role Phone Clari Hardwick MD Primary Care Provider [phone] Reason for Visit * Reason Comments Psoriasis Encounter Details Date Type Department Care Team (Late st Contact Info) Description 06/19/2015 4:30 PM EDT Office Visit Dermatology at [place] [address] [place] [address] Steve Cochran MD [address], PRANA[place] A DERMATOLOGY [place], [place] [id number] Psoriasis Discharge Disposition: Home Social History Tobacco [...] * Patient Instructions* Rafaela Marie LPN - 06/19/2015 4:40 PM EDT Images from the original note were not included. [facility] Psoriasis: After Your Visit Your Care Instructions Psoriasis (say gnw-TD-sg-reinaldo) is a long-term skin problem that causes [...] still damp. This seals in moisture. Use syxq-bti-rafxhxh products that your doctor suggests. These may [...] more? Visit our health information library at [email or web address] You can also view health information on [employer], your personal patient account. Log in or sign up today. Enter U759 in the search box to learn more about Psoriasis: After Your Visit. ?? [id number] [employer]. Care instructions adapted under license by [facility]. This care instruction is for use with your licensed healthcare professional. If you have questions about a medical condition or this instruction, always ask your healthcare professional. [employer] disclaims any warranty or liability for your use of this information. Content Version: 10.4.641892; Current as of: December 12, 2013 documented in this encounter Progress Notes * Steve Cochran MD - 06/19/2015 5:52 PM EDT Problem: 1. Followup psoriasis, on cyclosporine 100 mg p.o. b.i.d. since June 2014; patient with palmar-plantar pustular psoriasis with psoriatic arthritis, status post patch plaque flare. 2. Status post trials of Humira January 2014 and Enbrel May 2014, with subsequent flaring with both. 3. Family history of psoriasis in mother and father. 4. Previously on methotrexate/prednisone for psoriatic arthritis with fair control of arthritis but not of skin. Zayda follows up and says that her psoriasis is doing well cutaneously, but unless she takes ibuprofen 800 mg two or three times a day when she is physically active kayaking and running, etc., her joints are very sore. She wonders if we can do anything to help her arthritis in addition to helping so well her cutaneous psoriasis. 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 She has had labs prior to today's visit, which show a normal BUN and creatinine and normal CBC, and her blood pressure was good at 118/72, taking 100 mg of cyclosporine one p.o. b.i.d. Her medical insurance will change as of 07/03. Physical examination shows some mild flaking and dryness of her hands without pustules, without vesicles. There is no flaking. The palms and her soles show similar findings, but this is very manageable for her. She is well tanned and has been taking advantage of the summer to get some sun and help her cutaneous psoriasis, which is entirely clear. She has no plaques on the elbows, knees, or elsewhere. Assessment and Plan: Psoriasis, cutaneous, controlled with current cyclosporine dosing and natural sun; psoriatic arthritis being controlled with ibuprofen 800 mg one to three times a day. a. She has now been on cyclosporine for a year, and we need to soon give her a cyclosporine holiday. Also would like to find something that would help both her joints and her skin. b. Recommend that we switch to Remicade. Discussed benefits and side effects, the need for IV infusion at [facility] [place]. Recommend that we obtain prior authorization, and then the day before the planned infusion DC cyclosporine and also DC her ibuprofen. Would plan on a 5 mg/kg dosing. She weighs 134 pounds, and would plan on weeks zero, two, six, and eight for her planned infusions. Will obtain PA from [facility]. c. Would want to see her back after three infusions. d. Today patient given a month's worth of cyclosporine, #60, and a month's worth of ibuprofen (90) with one refill. Explained, however, that once we start the Remicade she will need neither of these. COPY: Clari Hardwick M.D. documented in this encounter Plan of Treatment Upcoming Encounters Date Type Department Care Team (Late st Contact Info) Description 05/06/2025 4:15 PM EDT Office Visit Dermatology at [place] [address] [place] [address] Steve Cochran MD [address], [place] [address] documented as of this encounter Visit Diagnoses Diagnosis Psoriasis Other psoriasis documented in this encounter Care Teams Processor Inspector Relationship Specialty Start Date End Date Clari Hardwick MD [address] [place] [address] PCP - General 01/01/13 07/09/20 documented as of this encounter
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
--- OUTSIDE RECORDS SUMMARY | 2024-10-31 19:41 | XMS_ITS | Encounter Summary ---
Author Organization [facility] Address [facility] [address] Care Team Providers Care Independent Marketing Consultant Name Role Phone Clari Hardwick MD Primary Care Provider [phone] Reason for Visit * Reason Comments Follow-up Encounter Details Date Type Department Care Team (Late st Contact Info) Description 12/21/2013 9:00 AM EDT Office Visit Dermatology at [address] [place] [address] Steve Cochran MD [address], PRANAV A DERMATOLOGY [place], [place] [id number] Psoriasis (Primary Dx) Social History Tobacco Use [...] Progress Notes * Steve Cochran MD - 12/21/2013 9:52 AM EDT Problem: Followup of cutaneous psoriasis with palmar-plantar pustular psoriasis , here to begin Humira. Zayda follows up today for a demonstration on how to use her Humira. Since stopping the MTX/prednisone and starting a nutritional supplement, Nulife, she feels much better. Her arthritis is much less symptomatic. Physical examination reveals a pleasant 48-year-old woman who has erythema and papulopustules on the palms of her hands and soles, also patches on her elbows. Assessment and Plan: 1. Mild patch plaque psoriasis with palmar pustular involvement, painful for her to walk on and difficult to use her hands at times. a. Today, patient was shown the appropriate technique for injection of Humira. b. Patient injected herself two 40 mg syringes, one to the left and the right side of her abdomen. c. She knows again in a week to give herself a 40 mg dose and, thereafter, one 40 mg dose every two weeks. d. I will see her again in three months for repeat check. Discussed expectations for Humira. Answered all patient questions. Reviewed Humira safety profile e. Discussed possibility of tapering Humira in the future to determine ongoing need for continued therapy. COPY: Clari Hardwick M.D. documented in this encounter Plan of Treatment Upcoming Encounters Date Type Department Care Team (Late st Contact Info) Description 05/06/2025 4:15 PM EDT Office Visit Dermatology at [place] [address] [place] [address] Steve Cochran MD [address], [place] [address] documented as of this encounter Visit Diagnoses Diagnosis Psoriasis- Primary Other psoriasis documented in this encounter Care Teams Independent Marketing Consultant Relationship Specialty Start Date End Date Clari Hardwick MD [address] [place] [address] PCP - General 01/01/13 07/09/20 documented as of this encounter
--- OUTSIDE RECORDS SUMMARY | 2024-10-31 19:41 | XMS_ITS | Encounter Summary ---
[place] [address] Care Team Providers Care Welder Plasma Arc Name Role Phone Kelly Garcia MD Primary Care Provider [phone] Reason for Visit * Reason Comments Prior Authorization Tremfya 100mg/mL Encounter Details Date Type Department Care Team (Late st Contact Info) Description 10/29/2020 Specialty [place] [address] Grover Rivera Social History Tobacco Use Types Packs/Day Years [...] as of this encounter Progress Notes * Grover Rivera R - 10/29/2020 3:30 PM EST [facility], Medication Prior Authorization Patient: Zayda Sanchez Patient : 1965 Patient Address: [address] [place] [address] (home) Medication Name: TREMFYA 100 MG/ML SUBCUTANEOUS SYRINGE Medication ID: Patient Location: [facility] Patient Location Comment: Subscriber Insurance: [employer] ([facility]) Subscriber Insurance Comment: Phone: Fax: Physician: GUANACO BRUNNER Physician Comment: Sent Via: Telephone Morales: Ref/Case/PA#: Medication Strength Frequency Requested: Tremfya 100mg/mL inject the contents of one syringe subq every 28 days. Qty/Day Supply: 10/30 New Start: New to Therapy Diagnosis & ICD-10 Code: L40.9 Patient Notified: No Submission Notes: None Grover Rivera 10/29/20 3:42 PM documented in this encounter Plan of Treatment Upcoming Encounters Date Type Department Care Team (Late st Contact Info) Description 05/06/2025 4:15 PM EDT Office Visit Dermatology at [address] [address] Guanaco Brunner MD [address] [address] documented as of this encounter Visit Diagnoses Not on filedocumented in this encounter Care Teams Welder Plasma Arc Relationship Specialty Start Date End Date Kelly Garcia MD [address] [place] [address] PCP - General Family Medicine 07/10/20 10/16/23 documented as of this encounter
--- OUTSIDE RECORDS SUMMARY | 2024-10-31 19:41 | XMS_ITS | Encounter Summary ---
Author Organization [facility] [place] [address] Care Team Providers Care Chief Controller Name Role Phone Clari Hardwick MD Primary Care Provider [phone] Encounter Details Date Type Department Care Team (Late st Contact Info) Description 07/20/2019 Refill Dermatology at [address] [phone] Latoya Briggs, LARD TUB WASHER Social History Tobacco Use Types Packs/Day Years [...] 4:15 PM EDT Office Visit Dermatology at [address] [address] Steve Cochran MD [address] [place] [address], LISA A DERMATOLOGY [place], [place] [id number] documented as of this encounter Visit Diagnoses Not on filedocumented in this encounter Care Teams Chief Controller Relationship Specialty Start Date End Date Clari Hardwick MD [address] [place] [address] PCP - General 01/01/13 07/09/20 documented as of this encounter
--- OUTSIDE RECORDS SUMMARY | 2024-10-31 19:41 | XMS_ITS | Encounter Summary ---
Author Organization [facility] [place] [address] Care Team Providers Care Deep Submergence Vehicle Crewmember Name Role Phone Clari Hardwick MD Primary Care Provider Encounter Details Date Type Department Care Team (Late Contact Info) Description 05/24/2013 Telephone [place] [address] Juanis Ziegler LPN Social History [...] Telephone Encounter - Juanis Ziegler LPN - 05/24/2013 9:29 AM EDT I already faxed a script to the pt's pharmacy. Thanks Lamont Call placed to Zayda and I let her know that Dr. Jimenez sent in a Methotrexate script for her. Zayda said Barbara Gentile called and spoke with her yesterday. I also let her know of her up coming appt timeand date. documented in this encounter Plan of Treatment Upcoming Encounters Date Type Department Care Team (Late Contact Info) Description 05/06/2025 4:15 PM EDT Office Visit Dermatology at [address] [place] [address] Steve Cochran MD [address], [place] [address] documented as of this encounter Visit Diagnoses Not on filedocumented in this encounter Care Teams Deep Submergence Vehicle Crewmember Relationship Specialty Start Date End Date Clari Hardwick MD [address] [place] [address] PCP - General 01/01/13 07/09/20 documented as of this encounter
--- OUTSIDE RECORDS SUMMARY | 2024-10-31 19:41 | XMS_ITS | Encounter Summary ---
Author Organization [facility] [place] [address] Care Team Providers Care Contact Clerk Name Role Phone Kelly Garcia MD Primary Care Provider Reason for Visit * Reason Comments Psoriasis Encounter Details Date Type Department Care Team (Late st Contact Info) Description 07/10/2020 4:15 PM EDT Office Visit Dermatology at [place] [address] [facility] [place] [address] Steve Cochran MD [address] [facility], PRANAV A DERMATOLOGY [place], [place] [id number] Psoriasis Social History Tobacco Use Types Packs/Day [...] Progress Notes * Steve Cochran MD - 07/10/2020 4:15 PM EDT Problems: 1. ??Psoriasis on Cosentyx since March 2019 2.?Status post trial of Stelara with limited benefit [...] control of arthritis but not of skin. 8. Patient with celiac disease avoiding gluten. Zayda follows up after last being seen in July 2019. Her psoriasis and psoriatic arthritis are largely controlled with her regimen. She is ecstatic that she is able to play with her granddaughterand not be too arthritic or fatigued to do so. Also the skin being clear is and so reliably so is wonderful for her to experience. For the last 3 weeks has been having trouble however with pain in her stomach which radiates both left and right. She is has she wonders whether this could be due to the Cosentyx. She will be contacting her PCP Kelly Garcia about this very soon to have it evaluated. She is also concerned about this as her mother developed pancreatic cancer, and about 2 years ago thepatient herself had endoscopy and colonoscopy to evaluate some abdominal symptoms. She does have a history of celiac disease but has been carefully avoiding gluten. She states she is not cheating. The Cosentyx injections at times can be a bit painful. She rotates between her thigh stomach and arm. She does allow this Cosentyx to warm up to room temperature before giving herself the injection. Physical examination reveals a pleasant 54-year-old woman who has no active psoriasis today. Her skin is clear. Assessment plan: Psoriasis with psoriatic arthritis, well controlled on Cosentyx 1. Continue Cosentyx current dosing injecting 2 of the 150 mg pens subcutaneously once monthly. Will dispense #6 for a 3-month supply with 1 with 3 refills. Will be sent to her [facility] mail away pharmacy 2. Patient has betamethasone dipropionate cream to apply if needed. 3. Return to clinic in another year for repeat check. Abdominal pain 1. Recommend that the patient contact her PCP 2. Reassured it is not due to Cosentyx 3. 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 CC: Kelly Garcia MD documented in this encounter Plan of Treatment Upcoming Encounters Date Type Department Care Team (Late st Contact Info) Description 05/06/2025 4:15 PM EDT Office Visit Dermatology at [place] [address] [facility] [place] [address] Steve Cochran MD [address], PRANAV Pereira [place] [address] documented as of this encounter Visit Diagnoses Diagnosis Psoriasis Other psoriasis documented in this encounter Care Teams Contact Clerk Relationship Specialty Start Date End Date Kelly Garcia MD [address] [place] [address] PCP - General Family Medicine 07/10/20 10/16/23 documented as of this encounter
--- OUTSIDE RECORDS SUMMARY | 2024-10-31 19:41 | XMS_ITS | Encounter Summary ---
Author Organization [facility] [place] [address] Care Team Providers Care Pipe Threader Name Role Phone Clari Hardwick MD Primary Care Provider [phone] Encounter Details Date Type Department Care Team (Latest Contact Info) Description 09/01/2015 9:45 PM EST - 09/01/2015 11:59 PM [facility] Hospital [place] [address] Discharge Disposition: Home Social History Tobacco Use [...] Sig Dispensed Refills Start Date End Date etanercept (ENBREL) 50 mg/mL (0.98 mL) Syringe Inject 25 mg subcutaneously once. 03/20/2019 azithromycin (ZITHROMAX Z-TRACEE) 250 mg tablet Day1:take 2 tablets daily, Day 2-5:Take one tablet daily 6 tablet 0 10/30/2013 03/20/2019 prednisone (DELTASONE) 5 mg tablet Take 2 tablets by mouth daily. 120 tablet 3 10/30/2013 03/20/2019 methotrexate 2.5 mg tablet Take 8 tablets by mouth once a week. Can take without regard to food. Call clinic before/prior to starting medication/script. 32 tablet 3 08/06/2013 03/20/2019 folic acid (FOLVITE) 1 mg tablet Take 1 tablet by mouth daily. 60 tablet 4 05/23/2013 03/20/2019 multivitamin (THERAGRAN) tablet Take 1 tablet by mouth daily. 03/20/2019 ASCORBATE CALCIUM (VITAMIN C ORAL) Take by mouth. 9 OXYcodone (ROXICODONE) 5 mg immediate release tablet [...] 4:15 PM EDT Office Visit Dermatology at [place] [address] [facility] [place] [address] Steve Cochran MD [address] [facility] [address], [place] [address] documented as of this encounter Procedures Procedure Name Priority Date/Time Associated Diagnosis Comments SURGICAL PATHOLOGY REPORT Routine 09/01/2015 12:00 PM EST documented in this encounter Results * Surgical Pathology Report (09/01/2015 12:00 PM EST) Final Diagnosis The signing pathologist has (i) examined the relevant preparation(s) for the specimen(s) and (ii) rendered or confirmed the diagnosis(es). Accession Number: [id number] ? Location: [facility] . ?Surgical Pathology DIAGNOSIS Skin, back, punch biopsy: - Superficial perivascular and perifollicular lymphocytic infiltrate mixed with abundant eosinophils (see Discussion). CR-0 09/02/15 BRE 09/02/15 Verified by: ? Juan HYLTON, PhD, [facility] ?Dermatopathologis t ?(Electronic Signature) The attending pathologist whose signature appears on this report has reviewed all diagnostic slides and has edited the gross and/or microscopic portion of the report in rendering the final pathologic diagnosis. DISCUSSION The findings are consistent with a hypersensitivity reaction, such as to drug. Clinicopathologic correlation is recommended. Multiple deeper levels have been examined. CLINICAL INFORMATION Specimen Submitted: A - Back, 4 mm punch Clinical History: Patient with first remicade dose two weeks ago. Now with 24 hour history of torso dermatitis/cold sweats, decreased appetite. No other new meds Clinical Diagnosis: Rule out allergic drug eruption SPECIMEN PROCESSING A - Labeled/Fixative: Patient's name, formalin. Quantity/Size: Single, 0.4 cm punch excised to a depth of 0.4 cm. Tissue Description: [place] skin. Sections/Processing : Bisected. (T1) ??cjl 09/02/2015 2:[address] [facility] SPECIMEN FROM SKIN / Unknown 09/01/2015 12:00 PM EST 09/01/2015 12:00 PM EST Steve Cochran MD PATHOLOGY/CYTOLOGY O RDERABLES Performing Organization Address City/State/[facility] Co de Phone Number [facility] [place] [phone] documented in this encounter Visit Diagnoses Not on filedocumented in this encounter Care Teams Pipe Threader Relationship Specialty Start Date End Date Clari Hardwick MD [address] [place] [address] PCP - General 01/01/13 07/09/20 documented as of this encounter
--- OUTSIDE RECORDS SUMMARY | 2024-10-31 19:41 | XMS_ITS | Encounter Summary ---
[place] [address] Care Team Providers Care Roll Filler Name Role Phone Clari Hardwick MD Primary Care Provider [phone] Encounter Details Date Type Department Care Team (Late st Contact Info) Description 12/13/2013 Orders [place] [phone] Lamont Jimenez MD Social History Tobacco Use [...] 4:15 PM EDT Office Visit Dermatology at [place] [address] [facility] [place] [address] Steve Cochran MD [address] [facility] [address], [place] [address] documented as of this encounter Visit Diagnoses Not on filedocumented in this encounter Care Teams Roll Filler Relationship Specialty Start Date End Date Clari Hardwick MD [address] [place] [address] PCP - General 01/01/13 07/09/20 documented as of this encounter
--- OUTSIDE RECORDS SUMMARY | 2024-10-31 19:41 | XMS_ITS | Encounter Summary ---
Author Organization [facility] Address [facility] [place] [address] Care Team Providers Care Precision Lens Grinder Apprentice Name Role Phone Clari Hardwick MD Primary Care Provider [phone] Reason for Visit * Reason Onset Date Comments Questions 04/15/2013 Encounter Details Date Type Department Care Team (Late st Contact Info) Description 04/15/2013 Telephone Dermatology at [facility] [address] [place] [address] [facility] [address] YADIEL [place] [address] Questions Social History Tobacco Use Types Packs/Day Years [...] encounter Miscellaneous Notes * Telephone Encounter - Zaire Nascimento MD - 04/15/2013 2:17 PM EDT Discussed this patient with Dr. Lockhart on Tuesday AM. Nothing in the history, signs or symptoms from the referring physician suggest an emergent situation. Transfer or referral to the ED un necessary which was discussed. We'd prefer to see the patient as an out patient, discuss her care with her PCP and Dr. Cochran, likely start something like cyclosporine, AVOID prednisone and get her managed with some snf immunosuppressive medication and much closer follow up. Will see her Tuesday AM isthey are agreeable. * Telephone Encounter - Rosa Brady - 04/15/2013 8:08 AM EDT DERMATOLOGY - CROSS COVERING NOTE Date and time of call: Tuesday04/15/13; 7:35 am Caller: Dr. Jose Mccall from [facility] ED I received a call from Dr. Mccall regarding pt Zayda Sanchez, a 47 y.o. woman never seen before by Dermatology at [facility] with a reported history of plaque psoriasis treated with OTC Hydrocortisone cream PRN. Dr. Mccall reports patient presented today to his ED with a pustular eruption on her hands and feet as well as confluent plaques on her body. Dr. Mccall also reports patient had a recent strep infection treated with Erythromycin (unclear dose and duration). I suspect (although impossible to say with certainty without seeing the patient), this could be a pustular flare of psoriasis triggered by strep, and offered Dr. Mccall to see pt in clinic tomorrow morning. Dr. Mccall however believes pt needs to be evaluated today and will refer pt to [facility]. Dermatology will be available to see pt. Rosa Wall MD Resident in Dermatology Pager [phone] [facility] documented in this encounter Plan of Treatment Upcoming Encounters Date Type Department Care Team (Late st Contact Info) Description 05/06/2025 4:15 PM EDT Office Visit Dermatology at [place] [address] [facility] [place] [address] Steve Cochran MD [address] [facility], [place] [address] documented as of this encounter Visit Diagnoses Not on filedocumented in this encounter Care Teams Precision Lens Grinder Apprentice Relationship Specialty Start Date End Date Clari Hardwick MD [address] [place] [address] PCP - General 01/01/13 07/09/20 documented as of this encounter
--- OUTSIDE RECORDS SUMMARY | 2024-10-31 19:42 | XMS_ITS | Encounter Summary ---
[place] [address] Care Team Providers Care Tube Teller Name Role Phone Jose A Post MD Primary Care Provider U elizabeth Encounter Details Date Type Department Care Team (Late st Contact Info) Description 03/06/2012 Orders [place] [phone] Jeffery Rinaldi MD Neck pain, acute Social History Tobacco Use Types Packs/Day Years Used Date Smoking Tobacco: Never Assessed Sex and Gender Information Value Date Recorded Sex Assigned at Not on file Gender Identity Not on file Sexual Orientation Not on file documented as of this encounter Progress Notes * Jeffery Rinaldi MD - 03/06/2012 10:32 PM EDT Called by Dr. Mccall [facility] Pt presents with 3-4 days neck pain. Mild pain with swallowing starting today. Low grade fever. Otherwise well, no other significant medical problems, no DM. No respiratory distress, or stridor nontoxic Pain with neck movement, but no torticollis. WBC-11 CT-report of 4-5mm fluid collection in retropharynx from C2-C7. My read - noncontrast scan. Mildly thickened prevertebral soft tissue. No drainable fluid collection. -recommend abx -clinda- for likely retropharyngeal infection. He will give an IV dose today, send her out on oral and have her follow up tomorrow. Will call if sx worsening. documented in this encounter Plan of Treatment Upcoming Encounters Date Type Department Care Team (Late st Contact Info) Description 05/06/2025 4:15 PM EDT Office Visit Dermatology at [place] [address] [facility] [place] [address] Steve Cochran MD [address] [address], [place] [address] documented as of this encounter Visit Diagnoses Diagnosis Neck pain, acute Cervicalgia documented in this encounter Care Teams Tube Teller Relationship Specialty Start Date End Date Jose A Post MD PCP - General 08/25/10 12/31/12 documented as of this encounter
--- OUTSIDE RECORDS SUMMARY | 2024-10-31 19:42 | XMS_ITS | Encounter Summary ---
[place] [address] Care Team Providers Care Web Production Assistant Name Role Phone Jose A Post MD Primary Care Provider U elizabeth Encounter Details Date Type Department Care Team (Late st Contact Info) Description 03/06/2012 Orders [place] [phone] Jeffery Rinaldi MD Social History Tobacco Use Types Packs/Day [...] PM EDT Office Visit Dermatology at [address] [place] [address] Steve Cochran MD [address], [place] [address] documented as of this encounter Procedures Procedure Name Priority Date/Time Associated Diagnosis Comments FILM LIBRARY STORAGE ONLY CT SPINE Routine 03/06/2012 9:53 PM EDT documented in this encounter Results * FILM LIBRARY- STORAGE ONLY CT SPINE (03/06/2012 9:53 PM EDT) 03/06/2012 9:53 PM EDT Narrative RAD - 03/29/2014 1:51 AM EDT This is a non-reportable exam. Procedure Note Freddy, Ben - 03/29/2014 This is a non-reportable exam. Jeffery Rinaldi MD [facility] FILM LIBRARY ORD ERABLES RAD [address] [place] [address] documented in this encounter Visit Diagnoses Not on filedocumented in this encounter Care Teams Web Production Assistant Relationship Specialty Start Date End Date Jose A Post MD PCP - General 08/25/10 12/31/12 documented as of this encounter
--- OUTSIDE RECORDS SUMMARY | 2024-10-31 19:42 | XMS_ITS | Encounter Summary ---
[place] [address] Care Team Providers Care Coating Machine Feeder Name Role Phone Clari Hardwick MD Primary Care Provider [phone] Encounter Details Date Type Department Care Team (Late st Contact Info) Description 03/23/2012 Orders [place] [phone] Lamont Jimenez MD Social History Tobacco Use [...] 4:15 PM EDT Office Visit Dermatology at [address] [place] [address] Steve Cochran MD [address], [place] [address] documented as of this encounter Procedures Procedure Name Priority Date/Time Associated Diagnosis Comments FILM LIBRARY STORAGE ONLY MR SPINE Routine 03/23/2012 9:55 AM EDT documented in this encounter Results * Film Library- Storage only MR Spine (03/23/2012 9:55 AM EDT) 03/23/2012 9:55 AM EDT Narrative [facility] - 03/29/2014 1:51 AM EDT This is a non-reportable exam. Procedure Note Freddy, David - 03/29/2014 This is a non-reportable exam. Lamont Jimenez MD [facility] FILM LIBRARY ORD ERABLES RAD [address] [place] [address] documented in this encounter Visit Diagnoses Not on filedocumented in this encounter Care Teams Coating Machine Feeder Relationship Specialty Start Date End Date Clari Hardwick MD [address] [place] [address] PCP - General 01/01/13 07/09/20 documented as of this encounter
--- OUTSIDE RECORDS SUMMARY | 2024-10-31 19:42 | XMS_ITS ---
[place] [address] Care Team Providers Care Sorting Supervisor Name Role Phone Suha De La Paz MD Primary Care Provider [phone] Dermatology Status:Ineligible (Enrolling) Start date:10/05/2024 Enrollment reason:Ineligible - Insurance Mandate Linked medications:secukinumab (Active) Linked problems:Psoriasis (Active) Continued Care and Services Coordination
--- OUTSIDE RECORDS SUMMARY | 2024-10-31 19:42 | XMS_ITS | Encounter Summary ---
[place] [address] Care Team Providers Care Human Resources Coordinator Name Role Phone Clari Hardwick MD Primary Care Provider [phone] Encounter Details Date Type Department Care Team (Late st Contact Info) Description 03/06/2012 Orders [place] [phone] Lamont Jimenez MD Social History Tobacco Use [...] 4:15 PM EDT Office Visit Dermatology at [address] [place] [address] Steve Cochran MD [address], [place] [address] documented as of this encounter Procedures Procedure Name Priority Date/Time Associated Diagnosis Comments FILM LIBRARY STORAGE ONLY DX SPINE Routine 03/06/2012 9:47 AM EDT documented in this encounter Results * Film Library- Storage only DX Spine (03/06/2012 9:47 AM EDT) 03/06/2012 9:47 AM EDT Narrative [facility] - 03/29/2014 1:51 AM EDT This is a non-reportable exam. Procedure Note Freddy, David - 03/29/2014 This is a non-reportable exam. Lamont Jimenez MD [facility] FILM LIBRARY ORD ERABLES RAD [address] [place] [address] documented in this encounter Visit Diagnoses Not on filedocumented in this encounter Care Teams Human Resources Coordinator Relationship Specialty Start Date End Date Clari Hardwick MD [address] [place] [address] PCP - General 01/01/13 07/09/20 documented as of this encounter
--- OUTSIDE RECORDS SUMMARY | 2024-10-31 19:42 | XMS_ITS | Encounter Summary ---
[place] [address] Care Team Providers Care Shot Tube Machine Tender Name Role Phone Clari Hardwick MD Primary Care Provider [phone] Encounter Details Date Type Department Care Team (Late st Contact Info) Description 03/08/2012 Orders [place] [phone] Lamont Jimenez MD Social History Tobacco Use [...] 4:15 PM EDT Office Visit Dermatology at [address] [place] [address] Steve Cochran MD [address] [address], [place] [address] documented as of this encounter Procedures Procedure Name Priority Date/Time Associated Diagnosis Comments FILM LIBRARY STORAGE ONLY MR SPINE Routine 03/08/2012 9:49 AM EDT documented in this encounter Results * Film Library- Storage only MR Spine (03/08/2012 9:49 AM EDT) 03/08/2012 9:49 AM EDT Narrative [facility] - 03/29/2014 1:51 AM EDT This is a non-reportable exam. Procedure Note Freddy, David - 03/29/2014 This is a non-reportable exam. Lamont Jimenez MD [facility] FILM LIBRARY ORD ERABLES RAD [address] [place] [address] documented in this encounter Visit Diagnoses Not on filedocumented in this encounter Care Teams Shot Tube Machine Tender Relationship Specialty Start Date End Date Clari Hardwick MD [address] [place] [address] PCP - General 01/01/13 07/09/20 documented as of this encounter
[2024-10-31 22:15] LABS: COVID-19 PCR Negative (Negative); Influenza A PCR Negative (Negative); Influenza B PCR Negative (Negative); RSV PCR Negative (Negative)
[2024-10-31 22:18] LABS: Source Nasopharynx
== END 2024-10-31 19:38 | disposition home or self-care (01) ==
LOC: LBN 19:37
PROVIDERS: PCP Nurse Practitioner Family; Visit Provider Physician Assistant Medical
DX: B34.9 Viral infection, unspecified (principal)
CPT/HCPCS: 87637

== ENCOUNTER 2025-01-11 11:09 | Outpatient (REF) | payer BC, SELFPAY ==
[2025-01-11 14:20] LABS: HCT 39.1 % (36.0-46.0); HGB 13.7 g/dL (11.2-15.7); MCH 30.6 pg (27.0-33.0); MCV 88 fL (80-95); MPV 9.7 fL (8.0-11.0); Platelet Count 320 10^3/uL (130-400); RBC 4.47 10^6/uL (3.93-5.22); RDW 12.1 % (11.7-14.6); RDW-SD 38.9 fL; WBC 5.41 10^3/uL (4.4-10.8)
[2025-01-11 15:22] LABS: ALT 32 U/L (14-59); AST 20 U/L (15-37); Albumin 4.3 g/dL (3.4-5.0); Alkaline Phosphatase 76 U/L (46-116); Anion Gap 8.7 mmol/L (3-11); BUN 17 mg/dL (7-18); Bilirubin, Total 0.3 mg/dL (0.2-1.0); CO2 28.3 mmol/L (21.0-32.0); CREATININE 0.7 mg/dL (0.55-1.02); Calcium 9.5 mg/dL (8.5-10.1); Calculated LDL 149 mg/dL (<100); Chloride 105 mmol/L (98-107); Cholesterol 222 mg/dL (<200); Estimated GFR 100.81 (mL/min/1.73m2); Glucose 107 mg/dL (74-106); HDL Cholesterol 59 mg/dL (>or=50); Potassium 4.5 mmol/L (3.5-5.1); Sodium 142 mmol/L (136-145); Total Protein 7.4 g/dL (6.4-8.2); Triglyceride 72 mg/dL (<150); Vitamin D 25 Total 36 ng/mL (30-100)
== END 2025-01-11 11:10 | disposition home or self-care (01) ==
LOC: NCHCN 11:09
PROVIDERS: PCP Nurse Practitioner Family; Visit Provider Nurse Practitioner Family
DX: E55.9 Vitamin D deficiency, unspecified (principal); Z00.00 Encounter for general adult medical examination without abnormal findings
CPT/HCPCS: 80053; 80061; 82306; 85027

== ENCOUNTER 2025-02-08 00:16 | Outpatient (CLI) | payer BC, SELFPAY ==
--- NOTE | 2025-02-08 | DI.MAMMO_ITS ---
Exam(s) MAMMO SCREENING EXAM: MAMMO SCREENING CLINICAL HISTORY: SCREENING Z12.31. TECHNIQUE: Bilateral full field digital CC and MLO mammographic images were obtained with 3D tomosyn thesis and utilizing computer aided detection (CAD). COMPARISON: Prior mammograms dating back to 2016 were reviewed. FINDINGS: There has been no significant change in the appearance and distribution of the fibroglandular tissue. Asymmetric density located medially in left breast is unchanged from 2016 and therefore benign. There are no new spiculated masses nor malignant appearing microcalcification groups. There is no significant architectural distortion nor skin thickening-retraction. IMPRESSION: No radiographic evidence of malignancy. BI-RADS Category 2 - Benign Findings Breast Density - Category B - There are scattered areas of fibroglandular density. Breast density Category C or D implies that the patient has dense breast tissue. Dense breast tissue can make it harder to find cancer on a mammogram. Dense breast tissue is also associated with an incr eased risk of breast cancer. This information about the result of the mammogram report was provided to the patient to raise their awareness. Use this report when you speak with the patient about their risks for breast cancer, which includes their family history. At that time, you may recommend additional screening tests (Ultrasoun d or MRI) as these tests may add significant information. A negative radiographic report should not delay biopsy if a dominant or clinically suspicious mass is present. Up to ten percent of cancers are not identified on mammography. A negative report may reinforce clinical impression. Adenosis and dense breasts may obscure an underlying neoplasm. False positive reports average 6 to 10%. Patient will receive a letter notifying them of these results.
--- NOTE | 2025-02-08 07:56 | DI.CTLCSR_ITS ---
Exam(s) CT CHEST LUNG CANCER SCREEN EXAM: CT CHEST LUNG CANCER SCREEN CLINICAL HISTORY: PERS HX NICOTINE DEPENDENCE [id number]. TECHNIQUE: Imaging Protocol: Low Dose Technique CONTRAST MATERIAL: None COMPARISON: CR XR CHEST 2V PA LATERAL from 06/02/[address] ABDOMEN PELVIS W from 05/17/2024 FINDINGS: CHEST: LUNGS: There are no ominous pulmonary nodules. There are no confluent infiltrates. Mild benign-appea ring increased markings are noted in the inferior lingular segment of the left lung. No findings in trachea and mainstem bronchi. No pleural effusions. MEDIASTINUM: There is no obvious hilar nor mediastinal adenopathy. CARDIAC: Heart size is normal. There is no pericardial effusion.Caliber of the thoracic aorta is wit hin normal limits. OTHER: None OSSEOUS: No significant osseous lesions.No fractures. IMPRESSION: 1. No significant lung nodules. Other findings as above 2. No obvious intrathoracic adenopathy. 3. Lung RADS Cat 1 - Negative: No nodules and definitely benign nodules Lung-RADS 1.0 CATEGORIES: Category 0 - Prior chest CT exam(s) being located for comparison. Category 1 - Annual screening in 12 months. No nodules or definitely benign nodules. Category 2 - Annual screening in 12 months. Benign appearance. Nodules with low likelihood of becomin g active cancer. Category 3 - 6-month follow-up. Probably benign. Short-term follow-up suggested. Nodules with low lik elihood of becoming active cancer. Category 4A - 3-month follow-up and CT/PET if >8 mm in size. Suspicious finding. Findings which requi re additional testing. Category 4B - Findings which require additional testing and tissue sampling. Category 4X - Category 3 or 4 nodules with additional features or imaging findings that increases the suspicion of malignancy. Modifier S- Potentially clinically significant findings (non lung cancer) RADIATION DOSE DELIVERED: 26.08mGy.cm Total DLP DATA REPOSITORY: All CT scans at this facility are submitted to the National Radiology Data Registry (NRDR) Dose Index Registry (DIR) with the [employer] ([employer]). RADIATION OPTIMIZATION: All CT scans at this facility use at least one of these dose optimization te chniques: automated exposure control; mA and/or kV adjustment per patient size (includes targeted exa ms where dose is matched to clinical indication); or iterative reconstruction.
== END 2025-02-08 00:36 ==
LOC: DI 00:17
PROVIDERS: PCP Nurse Practitioner Family; Visit Provider Nurse Practitioner Family
DX: Z12.31 Encounter for screening mammogram for malignant neoplasm of breast (principal); Z87.891 Personal history of nicotine dependence; R92.323 Mammographic fibroglandular density, bilateral breasts; D24.2 Benign neoplasm of left breast
CPT/HCPCS: 71271; 77063; 77067